=== PATIENT | female | born 1945 | race Caucasian/White ===

== ENCOUNTER 2017-02-10 09:54 | Inpatient (IN) | payer MEDICARE, OTHER ==
[~2017-02-10] VITALS: Ht 165.1 cm; Wt 72.2 kg
[2017-02-10] MEDS ORDERED: SOD CHLORIDE 0.9% 1,000 ML IV STA (10:25)
--- NOTE | 2017-02-10 10:37 | ERA ---
ER Documentation Chief Complaint Date/Time DATE: 02/10/17 TIME: 10:34 Chief Complaint dizzy and weak x today hx afib HPI Patient is a 71-year-old female who reports dizziness with weakness for today. She also complains of chest pain with shortness of breath. She cannot really describe the chest pain nor can she describe whether she has any radiation of the pain. She is not sure if she has experienced this pain before. She does state that she has a dry cough without any fever or sputum production. She denies any rhinorrhea sore throat or otalgia. She does not have any nausea or vomiting. She has not had any loss of consciousness, paresthesias, or focal weakness. She states that she has had an episode like this prior but she is not sure what she was diagnosed with. She says she does have cardiac issues but she is not sure what they are. The remainder review systems are negative ROS All systems reviewed and are negative except as per history of present illness. PMhx/Soc History of Surgery: No Hx Cardiac Disorders: Yes (HTN, BRADYCARDIA ) Hx Miscellaneous Medical Probl: Yes (DM) Hx Alcohol Use: No Hx Substance Use: No Hx Tobacco Use: No Smoking Status: Never smoker FmHx Family History: coronary disease Physical Exam Vitals Vital Signs Date Time Temp Pulse Resp B/P Pulse Ox O2 Delivery O2 Flow Rate FiO2 02/10/17 11:01 Nasal Cannula 2 02/10/17 09:57 97.6 55 18 140/68 98 Physical Exam Const: [] Well-developed well-nourished female on the bed shivering and stating that she is cold Head: Atraumatic normocephalic Eyes: Normal Conjunctiva ENT: Normal External Ears, Nose and Mouth. Neck: Full range of motion..~ No meningismus. Resp: Clear to auscultation bilaterally Cardio: Irregular rhythm, bradycardic, no murmurs, rubs or gallops Abd: Soft, non tender, non distended. Normal bowel sounds Skin: No petechiae or rashes Back: No midline or flank tenderness Ext: No cyanosis, or edema Neur: Awake and alert, oriented 3, GCS of 15, moves all extremities equally , nonfocal Psych: Normal Mood and Affect Result Diagram: 02/10/17 1123 02/10/17 1053 Results 24 hrs Laboratory Tests Test 02/10/17 10:53 02/10/17 11:23 02/10/17 12:30 Alanine Aminotransferase (ALT/SGPT) 20IU/L Albumin 4.1g/dl Albumin/Globulin Ratio 1.24 Alkaline Phosphatase 49IU/L Anion Gap 19 Aspartate Amino Transf (AST/SGOT) 34IU/L Blood Urea Nitrogen 59mg/dl Calcium Level 9.4mg/dl Carbon Dioxide Level 22mmol/L Chloride Level 106mmol/L Creatinine 4.88mg/dl Direct Bilirubin 0.00mg/dl Globulin 3.30g/dl Glucose Level 54mg/dl Indirect Bilirubin 0.1mg/dl Potassium Level 5.6mmol/L Sodium Level 141mmol/L Total Bilirubin 0.1mg/dl Total Protein 7.4g/dl Troponin I 0.019ng/ml Basophils # 0.110^3/ul Basophils % 0.7% Eosinophils # 0.210^3/ul Eosinophils % 2.1% Hematocrit 29.1% Hemoglobin 9.4g/dl Lymphocytes # 1.510^3/ul Lymphocytes % 20.8% Mean Corpuscular Hemoglobin 30.6pg Mean Corpuscular Hemoglobin Concent 32.3g/dl Mean Corpuscular Volume 94.8fl Mean Platelet Volume 11.1fl Monocytes # 0.510^3/ul Monocytes % 7.4% Neutrophils # 4.810^3/ul Neutrophils % 68.7% Nucleated Red Blood Cells # 0.010^3/ul Nucleated Red Blood Cells % 0.0/100WBC Platelet Count 47768^3/UL Red Blood Count 3.0710^6/ul Red Cell Distribution Width 13.2% White Blood Count 7.010^3/ul Activated Partial Thromboplast Time Pending INR International Normalized Ratio 1.00 Prothrombin Time 13.2Sec Prothrombin Time Ratio 1.0 Current Medications Medications (Trade) Dose Ordered Sig/Estefania Route PRN Reason Start Time Stop Time Status Last Admin Dose Admin Sodium Chloride (NS) 1,000 ml @ 1,000 mls/hr Q1H STAT IV 02/10/17 10:25 02/10/17 11:24 DC 02/10/17 11:01 Procedures/MDM Differential includes but is not limited to atrial fibrillation, bradycardia, stroke, dehydration, electrolyte disturbance, angina Departure Diagnosis: Primary Impression: Dizziness Additional Impressions: Bradycardia by electrocardiogram Renal failure Atrial fibrillation, chronic Condition: SHAHZAD Richardson Feb 10, 2017 10:36
[2017-02-10 11:03] LABS: ADD SCAN DIFF NO
[2017-02-10 11:05] LABS: HEMATOCRIT 32.8 % (37.0-47.0); HEMOGLOBIN 10.3 g/dl (12.0-16.0); MEAN CORPUSCULAR HEMOGLOBIN 30.1 pg (29.0-33.0); MEAN CORPUSCULAR HGB CONC 31.4 g/dl (32.0-37.0); MEAN CORPUSCULAR VOLUME 95.9 fl (82.0-101.0); MEAN PLATELET VOLUME 12.5 fl (7.4-10.4); RED BLOOD COUNT 3.42 10^6/ul (4.20-5.40); RED CELL DISTRIBUTION WIDTH 13.4 % (11.5-14.5); WHITE BLOOD COUNT 4.1 10^3/ul (4.8-10.8)
--- NOTE | 2017-02-10 11:06 | RADRPT ---
PROCEDURE: Chest Radiograph. CLINICAL INDICATION: Chest pain TECHNIQUE: Single frontal chest radiograph. COMPARISON: None available FINDINGS: The heart is magnified and may be enlarged. The cardiomediastinal silhouette is otherwise within no rmal limit. The lungs are mildly hyperinflated. There is a diffuse interstitial prominence. No con fluent or lobar infiltrate is seen. No pleural effusion is identified. The bones are intact. IMPRESSION: 1. Diffuse interstitial prominence is nonspecific and likely indicative of chronic lung changes. 2. Mild pulmonary hyperinflation. RPTAT: KK .Mehdi Winters MD, MD Date Time Electronically viewed and signed by .Mehdi Winters MD, MD on 02/10/2017 11:06 .B/
[2017-02-10 11:16] LABS: ALBUMIN 4.1 g/dl (3.3-4.9)
[2017-02-10 11:17] LABS: POTASSIUM 5.6 mmol/L (3.5-5.1)
[2017-02-10 11:19] LABS: ALBUMIN/GLOBULIN RATIO 1.24; BILIRUBIN,INDIRECT 0.1 mg/dl (0-1.1); BILIRUBIN,TOTAL 0.1 mg/dl (0.2-1.3); CREATININE 4.88 mg/dl (0.44-1.00); TOTAL PROTEIN 7.4 g/dl (6.1-8.1)
[2017-02-10 11:20] LABS: CALCIUM 9.4 mg/dl (8.4-10.2)
[2017-02-10 11:22] LABS: PROTIME 13.2 Sec (12.2-14.2)
[2017-02-10 11:30] LABS: TROPONIN-I 0.019 ng/ml (0.00-0.12)
[2017-02-10 11:35] LABS: ADD SCAN DIFF NO
[2017-02-10 11:44] LABS: BASOPHIL # 0.1 10^3/ul (0.0-0.1); BASOPHILS % 0.7 % (0.0-2.0); EOSINOPHILS # 0.2 10^3/ul (0.0-0.5); EOSINOPHILS % 2.1 % (0.0-7.0); HEMATOCRIT 29.1 % (37.0-47.0); HEMOGLOBIN 9.4 g/dl (12.0-16.0); LYMPHOCYTES # 1.5 10^3/ul (0.8-2.9); LYMPHOCYTES % 20.8 % (15.0-51.0); MEAN CORPUSCULAR HEMOGLOBIN 30.6 pg (29.0-33.0); MEAN CORPUSCULAR HGB CONC 32.3 g/dl (32.0-37.0); MEAN CORPUSCULAR VOLUME 94.8 fl (82.0-101.0); MEAN PLATELET VOLUME 11.1 fl (7.4-10.4); MONOCYTE # 0.5 10^3/ul (0.3-0.9); MONOCYTES % 7.4 % (0.0-11.0); NEUTROPHIL # 4.8 10^3/ul (1.6-7.5); NEUTROPHILS % 68.7 % (39.0-77.0); PLATELET COUNT 168 10^3/UL (140-415); RED BLOOD COUNT 3.07 10^6/ul (4.20-5.40); RED CELL DISTRIBUTION WIDTH 13.2 % (11.5-14.5)
[2017-02-10 12:01] LABS: PLATELET COUNT 96 10^3/UL (140-415)
[2017-02-10] MEDS ORDERED: DEXTROSE 50% 50 ML SYRINGE ONE (12:46)
[2017-02-10 12:59] LABS: PARTIAL THROMBOPLASTIN TIME 33.7 Sec (25.0-35.0)
[2017-02-10] MEDS ORDERED: ACETAMINOPHEN 325 MG TAB PO PRN (13:00)
[2017-02-10] MEDS ORDERED: ONDANSETRON 4 MG INJ IV PRN ×2 (13:00→14:00)
[2017-02-10] MEDS ORDERED: DEXTROSE 50% 50 ML SYRINGE IV ONE (13:00)
[2017-02-10] MEDS ORDERED: BENA40TA41 PO (13:29)
[2017-02-10] MEDS ORDERED: AMLO5TAB4 PO (13:30)
[2017-02-10] MEDS ORDERED: HYDROCODONE/APAP (5/325) TAB PO PRN ×2 (14:00)
[2017-02-10] MEDS ORDERED: DOCUSATE SODIUM 100 MG CAP PO PRN (14:00)
[2017-02-10] MEDS ORDERED: BISACODYL 10 MG SUPP PR PRN (14:00)
[2017-02-10] MEDS ORDERED: ACETAMINOPHEN 650 MG SUPP PR PRN (14:00)
[2017-02-10] MEDS ORDERED: morphine 2 MG INJ IV PRN (14:00)
[2017-02-10] MEDS ORDERED: MAGNESIUM HYDROXIDE 30ML CUP PO PRN (14:00)
[2017-02-10 15:01] VITALS: TEMP 98.9
[2017-02-10 15:30] VITALS: BP 200/93; RESP 18; Ht 165.1 cm; Wt 72.2 kg
[2017-02-10] MEDS: hydrALAzine 20 MG INJ IV PRN ×2 (16:25→20:42)
[2017-02-10] MEDS ORDERED: APIX2.5T PO (16:54)
[2017-02-10] MEDS ORDERED: FURO80TA3 PO (16:54)
[2017-02-10] MEDS ORDERED: FEBU40TA PO (16:54)
[2017-02-10] MEDS ORDERED: AMIO200T2 PO (16:54)
[2017-02-10] MEDS ORDERED: SEVE0.8P PO (16:54)
[2017-02-10] MEDS ORDERED: SITA100T8 PO (16:54)
[2017-02-10] MEDS ORDERED: CALC0.2511 PO (16:54)
[2017-02-10] MEDS ORDERED: ASPI-664 PO (16:54)
[2017-02-10] MEDS ORDERED: SODI650T PO (16:54)
[2017-02-10 17:21] LABS: CREATINE KINASE 65 IU/L (23-200)
[2017-02-10 17:30] LABS: CK-MB 0.44 ng/ml (0.0-2.4)
[2017-02-10 17:58] LABS: TROPONIN-I < 0.012 ng/ml (0.00-0.12)
[2017-02-10] MEDS ORDERED: NA POLYST SULFON 15 GM/60 ML BTL PR ONE (18:00)
[2017-02-10] MEDS: FAMOTIDINE 20 MG INJ IV SCH (18:01)
[2017-02-10] MEDS: SEVELAMER CARBONATE 0.8 GM PKT PO SCH (18:02)
[2017-02-10] MEDS: FUROSEMIDE 40 MG TAB PO SCH (18:02)
--- NOTE | 2017-02-10 19:27 | RADRPT ---
Echocardiogram Report Patient Name: ANDRIY WERNER Gender: Female Date: 1945 Study Date: 10-Feb-2017 Amortization Schedule Clerk: [facility] Location: [facility] Ref. Physician: DI STEPHENSON Quality: Good Procedures: Transthoracic echocardiogram with complete 2D, M-Mode, and doppler examination. Indications: AFIB. 2D/M Mode Doppler Measurement Value Normal Ranges Measurement Value Normal Ranges LVIDd 2D 5.7 3.5 - 5.6 cm AV Peak Chema 1.1 m/sec LVIDs 2D 4.5 2.1 - 4.1 cm AV Peak PG 4.8 mmHg LVPWd 2D 1.3 0.6 - 1.1 cm AI PHT 547.0 msec IVSd 2D 1.3 0.6 - 1.1 cm LVOT Peak Chema 0.6 m/sec AoR Diam 2D 2.6 2.0 - 3.7 cm LVOT Peak PG 1.4 mmHg LA Dimen 2D 4.0 2.3 - 4.0 cm MV Peak PG 20.0 mmHg MV Mean PG 3.2 mmHg MV Decel Dolores 10 MR Peak Chema 6.7 m/sec TAPSE 1.9 cm TR Peak Chema 3.3 m/sec TR Peak PG 44.0 mmHg RA Pressure 3.0 Findings Left Ventricle: Normal left ventricular systolic function. Mild concentric left ventricular hypertrophy. Mild enlargement of left ventricle cavity. Ejection fraction is visually estimated at 50 %. Right Ventricle: Normal right ventricular size. Normal right ventricular systolic function. Left Atrium: There is mild enlargement of left atrium. Right Atrium: Prominent Eustachian valve (normal variant). Mitral Valve: Mild mitral leaflet calcification. Mild mitral annular calcification. Moderate to severe mitral valve regurgitation. Aortic Valve: Trileaflet aortic valve. Mild aortic valve regurgitation. Tricuspid Valve: Estimated peak PA systolic pressure 47 mmHg. There is mild tricuspid regurgitation. Pulmonic Valve: There is trace pulmonic regurgitation. Pericardium: Normal pericardium with no significant pericardial effusion. Aorta: Normal aortic root. IVC: Normal size and normal respiratory collapse consistent with normal right atrial pressure. Conclusions 1.Normal left ventricular systolic function. Mild concentric left ventricular hypertrophy. Mild enlargement of left ventricle cavity. Ejection fraction is visually estimated at 50 %. 2.Mild mitral leaflet calcification. Mild mitral annular calcification. Moderate to severe eccentric mitral valve regurgitation. 3.TRace to mild aortic valve regurgitation. 4.Estimated peak PA systolic pressure 47 mmHg. 5.There is mild tricuspid regurgitation. 6.There is trace pulmonic regurgitation. Electronically Signed By: Nain Hernandez 10-Feb-2017 19:26:37 -0700 Patient Name: ANDRIY WERNER Study Date: 10-Feb-2017 [id number]
--- NOTE | 2017-02-10 19:47 | CONS ---
DATE OF ADMISSION: 02/10/2017 DATE OF CONSULTATION: 02/10/2017 REASON FOR CONSULTATION: Bradycardia, hypertension, weakness. REQUESTING PHYSICIAN: Soraya Houston MD, from the hospitalist service, and Di Banks NP, from the hospitalist service. HISTORY OF PRESENT ILLNESS: Mr. Cuellar is a 71-year-old female with a history of hypertension, mellisa betes mellitus, possible cardiac arrhythmia by medications, who initially presented with dizziness a nd weakness, and additionally had complaints of chest pain, shortness of breath described as a tight ness, ongoing for the last week. Upon arrival in the emergency department, temperature 97.6, blood pressure 140/68, pulse 55, respiratory rate 18, saturating 98%. The patient's labs revealed a white count of 4.1, hemoglobin 10.3, platelet count of 96. Sodium 141, potassium 5.6, creatinine 4.88, B UN 59, AST 34, ALT 20. Troponin negative. INR of 1.0. Patient underwent a chest x-ray revealing d iffuse interstitial prominence. The patient's electrocardiogram revealed sinus bradycardia at a rat e of 51 with an IVCD, secondary repolarization abnormalities, left axis deviation and voltage criter ia for left ventricular hypertrophy. The patient subsequently was admitted to the floor and since a dmitted to floor, has been continued on benazepril, aspirin, Norvasc, Eliquis, and is having a holdi ng of atenolol and amiodarone the patient had presented on. MEDICATIONS PRIOR TO ADMISSION: Apixaban 2.5 mg p.o. b.i.d., amiodarone 200 mg b.i.d., Norvasc 5 mg daily, benazepril 40 mg daily, aspirin 81 mg daily, Lasix 80 mg b.i.d., Renvela, sodium bicarbonate , Januvia 100 mg daily, Calcitriol, Uloric. ALLERGIES: NO KNOWN DRUG ALLERGIES. SOCIAL HISTORY: No tobacco, ETOH or illicit drug use. FAMILY HISTORY: No history of sudden cardiac or early CAD. REVIEW OF SYSTEMS: As above in HPI. CONSTITUTIONAL: No fevers, chills. PULMONARY: Shortness of breath. CARDIOVASCULAR: Intermittent chest pain. GASTROINTESTINAL: No vomiting. GENITOURINARY: No hematuria. MUSCULOSKELETAL: Degenerative joint disease. PSYCHIATRIC: The patient denies depression. NEUROLOGIC: No documented history of CVA. PHYSICAL EXAMINATION VITAL SIGNS: Temperature of 98, blood pressure markedly elevated at 200/93, pulse 50, saturating 98 % on 2 liters. GENERAL: The patient is alert, awake, complaining of intermittent chest pain, shortness of breath. NECK: JVP approximately 8 cm water. CHEST: Fair air movement throughout. HEART: Bradycardic, regular rhythm, normal S1, S2, I/ systolic murmur, nondisplaced PMI. ABDOMEN: Positive bowel sounds, soft. EXTREMITIES: No pitting edema, 1+ pulses bilaterally, posterior tibial. LABORATORIES: As above in HPI, with most recent from today, second troponin returned negative, 2 ne gative troponins. White blood cell count 7.0, hemoglobin 9.4, platelet count of 168. INR of 1.0. IMAGING STUDIES: As above in HPI. No further imaging studies for my review at this time. ECG: As above in HPI. No further electrocardiograms for my review at this time. IMPRESSION: 1. Bradycardia. Continue to assess for more significant bradycardia and symptoms. 2. Abnormal electrocardiogram, assess for acute coronary syndrome. 3. Cardiac arrhythmia, question of possible paroxysmal atrial fibrillation. 4. Dizziness. 5. Weakness, question secondary to bradycardia. 6. Hypertension, uncontrolled. 7. Diabetes mellitus. 8. Hyperkalemia 9. Renal failure. RECOMMENDATIONS: 1. At this time, would maintain the patient on telemetry monitoring to follow rhythm and rate contr ol closely as you are doing. 2. Would give the patient a dose of Kayexalate for treatment of high potassium as you are doing. 3. Continue the patient's aspirin at this time, but if the patient's platelets continue to decrease , would likely ____ aspirin to decrease bleeding risk and continue apixaban at this time, ____ oleksandr nue benazepril and Norvasc and follow up blood pressure closely and I would give the patient p.r.n. IV push hydralazine as necessary to improve overall systolic blood pressure control. 4. Check a 2D echo to further assess patient's ejection fraction, wall motion and any major valve a bnormalities. 5. Check a TSH to be sure subclinical hypothyroidism is not contributing to the patient's bradyarrh ythmias and complete the patient's rule out for myocardial infarction. Thank you for allowing me to take part in the care of this patient. I will continue to follow along very closely with you. Further recommendations will be made as the patient progresses through her inpatient hospital clinical course. Dictated By: EJ MESA/SARA Conf#: [id number] DID#: [id number] CC: DI BANKS NP; SORAYA HOUSTON MD;*End*
[2017-02-10 20:00] VITALS: PULSE 49
[2017-02-10 20:30] VITALS: BP_SYST 138; BP_SYST 173; BP_SYST 196; BP_DIAS 63; BP_DIAS 72; BP_DIAS 81; PULSE 49; PULSE 50; PULSE 51; RESP 18
[2017-02-10] MEDS: APIXABAN 5 MG TABLET PO SCH (20:39)
[2017-02-10] MEDS: ACETAMINOPHEN 325 MG TAB PO PRN (20:39)
[2017-02-10] MEDS: AMLODIPINE 5 MG TAB PO SCH (20:40)
[2017-02-10] MEDS ORDERED: HEPARIN 5,000 UNIT/0.5 ML SYG SC SCH (21:00)
[2017-02-10 22:14] VITALS: BP 156/64; RESP 19
[2017-02-10 22:39] LABS: CK-MB 0.42 ng/ml (0.0-2.4)
[2017-02-10 22:42] LABS: TROPONIN-I 0.022 ng/ml (0.00-0.12)
[2017-02-11] VITALS (13 sets, daily range): BP systolic 131–178; BP diastolic 61–75; PULSE 40–53; RESP 17–20
[2017-02-11] MEDS: FUROSEMIDE 40 MG TAB PO SCH ×2 (05:02→18:50)
[2017-02-11] MEDS: hydrALAzine 20 MG INJ IV PRN (05:02)
[2017-02-11 06:28] LABS: ADD SCAN DIFF NO
[2017-02-11 06:44] LABS: BASOPHIL # 0.1 10^3/ul (0.0-0.1); BASOPHILS % 0.7 % (0.0-2.0); EOSINOPHILS # 0.2 10^3/ul (0.0-0.5); EOSINOPHILS % 2.4 % (0.0-7.0); HEMATOCRIT 31.1 % (37.0-47.0); HEMOGLOBIN 10.2 g/dl (12.0-16.0); LYMPHOCYTES # 2.3 10^3/ul (0.8-2.9); LYMPHOCYTES % 24.9 % (15.0-51.0); MEAN CORPUSCULAR HEMOGLOBIN 30.2 pg (29.0-33.0); MEAN CORPUSCULAR HGB CONC 32.8 g/dl (32.0-37.0); MEAN PLATELET VOLUME 11.3 fl (7.4-10.4); MONOCYTE # 0.7 10^3/ul (0.3-0.9); MONOCYTES % 7.2 % (0.0-11.0); NEUTROPHIL # 5.8 10^3/ul (1.6-7.5); NEUTROPHILS % 64.5 % (39.0-77.0); PLATELET COUNT 178 10^3/UL (140-415); RED BLOOD COUNT 3.38 10^6/ul (4.20-5.40); RED CELL DISTRIBUTION WIDTH 13.3 % (11.5-14.5)
[2017-02-11 06:46] LABS: ALBUMIN 3.7 g/dl (3.3-4.9)
[2017-02-11 06:47] LABS: POTASSIUM 4.1 mmol/L (3.5-5.1)
[2017-02-11 06:48] LABS: CREATININE 4.22 mg/dl (0.44-1.00)
[2017-02-11 06:49] LABS: ALBUMIN/GLOBULIN RATIO 1.42; BILIRUBIN,INDIRECT 0.1 mg/dl (0-1.1); BILIRUBIN,TOTAL 0.1 mg/dl (0.2-1.3); TOTAL PROTEIN 6.3 g/dl (6.1-8.1)
[2017-02-11 06:50] LABS: CALCIUM 9.3 mg/dl (8.4-10.2); CHOL/HDL RATIO 2.3 RATIO; IRON 40 ug/dl (35-150); MAGNESIUM 1.8 mg/dl (1.7-2.5); PHOSPHORUS 3.4 mg/dl (2.5-4.9)
[2017-02-11 06:59] LABS: TOTAL IRON BINDING CAPACITY 242 ug/dl (241-421)
[2017-02-11 07:06] LABS: T3 UPTAKE 40.4 % (23.5-40.5)
--- NOTE | 2017-02-11 07:19 | HP ---
DATE OF ADMISSION: 02/10/2017 HISTORY OF PRESENT ILLNESS: A 71-year-old female with reported past medical history of DVT in bilat eral lower legs, heart arrhythmia, hypertension, CVA with poor peripheral vision, CKD, suspect diabe huyen, who came to [facility] due to reported dizziness. According to the patient, she has been having dizziness for about a month, which progressively got worse the past week. She d id report that she does take all her medications as scheduled. She reports that this is the first t awilda that this happened to her and she denies any associated chest pain with it. She did come to [place] due to the aforementioned issues. On further examination, she was found t o have heart rate as low as 48. Of note, on her home medications, she does take atenolol. She was also seen with acute on likely chronic kidney disease with a potassium of 5.6, BUN of 59 and creatin ine of 4.88. She also had a blood pressure as high as 200/93. Currently, the patient does still re port having some dizziness and is likely attributed from her bradycardia. After discussion with the son, it was mentioned that the patient does not know which medication she completely takes and that she takes medications at random. We will evaluate her for the aforementioned issues. PAST MEDICAL/SURGICAL HISTORY 1. DVT of bilateral lower extremities (diagnosed in early 2015). 2. Heart arrhythmia (details unknown). 3. Hypertension. 4. History of cerebrovascular accident with poor peripheral vision. SOCIAL HISTORY: The patient denies any cigarette smoking, alcohol consumption or illicit drug use. ALLERGIES: NO KNOWN ALLERGIES. FAMILY HISTORY: Noncontributory. HOME MEDICATIONS: 1. Apixaban 2.5 mg p.o. b.i.d. 2. Amiodarone 200 mg p.o. b.i.d. 3. Amlodipine 5 mg p.o. daily. 4. Benazepril 40 mg p.o. daily. 5. Aspirin 81 mg p.o. daily. 6. Furosemide 80 mg p.o. b.i.d. 7. Renvela 0.8 grams with meals. 8. Sodium bicarbonate 650 mg p.o. daily. 9. Januvia 100 mg p.o. daily. 10. Calcitriol 0.25 mg p.o. daily. 10. Uloric 40 mg p.o. daily. REVIEW OF SYSTEMS: A 12-point review of systems obtained and entirely negative except that mentione d in the history of present illness. PHYSICAL EXAMINATION VITAL SIGNS: Temperature is 98.0, pulse is 49, respiratory rate is 18, blood pressure 200/93 and pu lse oximetry is 98% on 2 liters nasal cannula. GENERAL: This is a 71-year-old female, appears stated age with no apparent distress. EYES: Pupils equal, round and reactive to light. Anicteric sclerae. NECK: Supple, nontender, no JVD. CARDIOVASCULAR: Heart murmur auscultated on systole, noted to be bradycardic. PULMONARY: Clear to auscultation bilaterally. No wheezing or rhonchi. ABDOMEN: Soft, nontender, nondistended. EXTREMITIES: No pitting edema bilateral lower extremities. SKIN: Warm, dry, and intact. NEUROLOGIC: Alert, oriented x3. LABORATORY DATA: Sodium 141, potassium 5.6, BUN 59, creatinine 4.88. WBC 7.0, hemoglobin 9.4, hematocrit 29.1 and platelets are 160. IMAGING: Chest x-ray done on 02/10/2017 showed diffuse interstitial prominence, nonspecific and lik gail indicative of chronic lung changes, and also showed mild pulmonary hyperinflation. IMPRESSION AND PLAN 1. Dizziness, likely secondary to bradycardia. This is suspect secondary to her use of her home at [place]. Will hold off this medication for now. We will monitor on telemetry. We will get followup echocardiogram. We will get management nurse rn pending clinical course. 2. Acute kidney injury. Baseline creatinine unknown. We will follow up renal panel. We will get web production artist to follow. 3. Essential hypertension. We will continue on antihypertensives and adjust as needed. 4. Anemia. Likely of chronic kidney disease. We will follow up on iron panel. 5. Hyperkalemia. We will provide with Kayexalate. Will follow up level in a.m. 6. Deep venous thrombosis prophylaxis: Eliquis. 7. Gastroesophageal reflux disease prophylaxis: H2 edward. ADMISSION PROCESS TIME: 40 minutes. Discussed plan of care with Dr. Lopez. Dictated By: DI STEPHENSON PARAGLIDING INSTRUCTOR for TOSIN ARRIOLA/SARA Conf#: [id number] [facility]#: [id number]
[2017-02-11 07:20] LABS: THYROID STIMULATING HORMONE 4.32 MIU/L (0.465-4.680)
[2017-02-11] MEDS: ASPIRIN (EC) 81 MG TAB PO SCH (09:32)
[2017-02-11] MEDS: SEVELAMER CARBONATE 0.8 GM PKT PO SCH ×3 (09:32→18:50)
[2017-02-11] MEDS: BENAZEPRIL 40 MG TAB PO SCH (09:33)
[2017-02-11] MEDS: AMLODIPINE 5 MG TAB PO SCH ×2 (09:34→20:53)
[2017-02-11] MEDS: FEBUXOSTAT 40 MG TABLET PO SCH (09:34)
[2017-02-11] MEDS: CALCITRIOL 0.25 MCG CAP PO SCH (09:34)
[2017-02-11] MEDS: APIXABAN 5 MG TABLET PO SCH ×2 (09:35→20:53)
[2017-02-11] MEDS: FAMOTIDINE 20 MG INJ IV SCH (09:40)
--- NOTE | 2017-02-11 11:13 | CONS ---
DATE OF ADMISSION: 02/10/2017 DATE OF CONSULTATION: TYPE OF CONSULTATION: Nephrology. REASON FOR CONSULTATION: Acute kidney injury, hyperkalemia. 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 The patient states over the last month, she has had progressive weakness. The patient reports that she has had lethargy. She denies any chest pain, any nausea, vomiting. The patient also has shortness of gabi th. As a result, she came to the emergency room for evaluation. Upon arrival, the patient had a he art rate in the 40s, was hypertensive with blood pressure. Her blood pressure is in the 140s. A ch est x-ray obtained in the emergency room showed interstitial prominence, nonspecific, and mild pulmo nary hyperinflation. In the emergency room, the patient was also noted to be hyperkalemic with pota ssium 5.6. She was given Kayexalate, dextrose, heparin and admitted to telemetry for further evalua tion. In terms of the patient's renal history, she states that she sees an outpatient farmworker [facility] farm. She h as underlying CKD and was told that she will be needing dialysis in the future. She is not fully aw are of her estimated EGFR but thinks it is around 20%. She otherwise denies any frothy urine, any r ashes, any hemoptysis or hematemesis. PAST MEDICAL HISTORY: History of deep venous thrombosis or arrhythmia, hypertension, CVA. SOCIAL HISTORY: Denies any alcohol, drug or tobacco use. ALLERGIES: NO KNOWN DRUG ALLERGIES. FAMILY HISTORY: Not contributory. MEDICATIONS: The patient's medications have been reviewed. REVIEW OF SYSTEMS: A 14-point review of systems was conducted. Pertinent positives in HPI, otherwi se negative. PHYSICAL EXAMINATION: VITAL SIGNS: Blood pressure 149/65, respiration 18, pulse 57, temperature 98.1. HEENT: Head is normocephalic. NECK: Supple. HEART: Regular rate. LUNGS: Show diminished breath sounds at base. ABDOMEN: Soft, nontender to palpation. No rebound or guarding. EXTREMITIES: Negative for clubbing, cyanosis, edema. DERMATOLOGIC: No rashes. MUSCULOSKELETAL: No joint effusions. NEUROLOGIC: No focal deficits. MEDICATIONS: Have been reviewed. LABORATORY DATA: Shows sodium 140, potassium 4.0, chloride 104, BUN 50, creatinine 4.22. White cou nt 9.0, hemoglobin 10.2, hematocrit 31.1, platelet count is 178. ASSESSMENT AND PLAN: This is a 71-year-old female who presents with: 1. Nonoliguric acute kidney injury on top of chronic kidney disease stage IV/V with a previous EGFR around 20 mL per minute. Etiology of current acute kidney injury is likely secondary to hemodynami cs, questionable tubular injury. Plan at this point is to check urinalysis with microanalysis. Tha l check a renal ultrasound to rule out obstruction, although suspicion is low. Would otherwise cont inue supportive care, renally dose meds, avoid nephrotoxins. May continue benazepril at this time. Will continue to monitor renal function closely. If renal function further declines, will disconti nue benazepril. There is no immediate need for renal replacement therapy at this time. We will con tinue to monitor closely. 2. Mild hyperkalemia. Etiology is likely secondary to MARIBETH inhibitor effect in conjunction with acu te kidney injury. The patient's potassium levels have normalized. We will continue to monitor clos gail on MARIBETH inhibitor. If patient should be hyperkalemic again, will discontinue MARIBETH inhibitor. Con tinue renal diet. 3. Mineral bone disorder. Continue to monitor calcium and phosphorus levels. Continue phos binder s, vitamin D analogs. 4. Anemia. Continue to monitor hemoglobin and hematocrit levels. Will give Epogen as needed. 5. Bradycardia, dizziness, the etiology is likely secondary to atenolol. The patient's medications on hold. Will continue to monitor. Follow up with cardiology. 6. Hypertension. The patient's blood pressure medications have been adjusted. Will continue to mo nitor. Will avoid significant hemodynamic fluctuations. Continue MARIEBTH inhibitor for now. 7. History of deep venous thrombosis. Continue Eliquis. 8. Gastrointestinal and deep venous thrombosis prophylaxis, continue PPI and Eliquis. Thank you, , for this very interesting consult. It will be a pleasure to follow patient with y demetris throughout the hospital course. Dictated By: HEBERT ALCALA/SARA Conf#: [id number] DID#: [id number]
--- NOTE | 2017-02-11 16:12 | RADRPT ---
PROCEDURE: Renal US. CLINICAL INDICATION: Acute kidney injury. TECHNIQUE: Multiple sonographic images of the kidneys and urinary bladder were obtained. The imag es were reviewed on a PACS workstation. COMPARISON: No prior studies are available for comparison. FINDINGS: The right kidney measures 8.5 cm. The left kidney measures 7.6 cm. There is no solid renal mass, hydronephrosis, or calculus. There are benign cyst superiorly in the right kidney measuring 1.3 x 1.9 cm and 1.2 x 1.3 cm. A benign cyst is present in the mid left kidn ey measuring 3.8 x 3.6 cm and a benign cyst is present superiorly in the left kidney measuring 1.5 x 1.3 cm. There is no hydronephrosis. There is no renal calculus. Both kidneys are hyperechoic consistent with medical renal disease. Renal parenchymal thickness is normal bilaterally. The perirenal regions are normal with no fluid collection or mass. The urinary bladder is unremarkable. IMPRESSION: 1. Benign bilateral renal cysts. 2. Bilateral hyperechoic kidneys consistent with medical renal disease. 3. Otherwise normal renal ultrasound. RPTAT: QQ .Buck Mensah MD, Date Time Electronically viewed and signed by .Buck Mensah MD, MD on 02/11/2017 16:12 .R/
--- NOTE | 2017-02-11 17:24 | PN ---
Date/Time of Note Date/Time of Note DATE: 02/11/17 TIME: 17:20 Assessment/Plan VTE Prophylaxis VTE Prophylaxis Intervention: other (Eliquis) Lines/Catheters IV [facility] Saline Lock Urinary Cath still in place: No Assessment/Plan Chief Complaint/Hosp Course 1. Dizziness, likely secondary to bradycardia. Improved at this time. Continue with cardiology recommendations. Follow-up on echocardiogram. Continue with cardiology input. . 2. Acute kidney injury. Follow-up on renal ultrasound. Grubber following. Continue to monitor renal panel. Does appear to be slowly improving. Continue LINDA workup 3. Essential hypertension. We will continue on antihypertensives and adjust as needed. 4. Anemia. Noted with some iron deficiency. Continue on iron supplement 5. Hyperkalemia. Will monitor and provide with Kayexalate as needed 6. Deep venous thrombosis prophylaxis: Eliquis. 7. Gastroesophageal reflux disease prophylaxis: H2 edward. Disposition and plan:Continue with cardiology recommendations. Monitor in telemetry. Await for improvement of renal status. Will follow up. Continue inpatient monitoring for now. Discussed plan of care with Dr. Lopez Problems: Subjective 24 Hr Interval Summary Free Text/Dictation Reports feeling little better at this time denies any chest pain Exam/Review of Systems Vital Signs Vitals Vital Signs Date Time Temp Pulse Resp B/P Pulse Ox O2 Delivery O2 Flow Rate FiO2 02/11/17 17:07 53 02/11/17 16:12 98.3 18 131/61 95 02/11/17 04:00 Room Air 02/10/17 20:35 2.0 Intake and Output 02/10/17 02/10/17 02/11/17 15:00 23:00 07:00 Intake Total 400 ml 960 ml Balance 400 ml 960 ml Exam General: Comfortable at present. No apparent distress Eyes: Pupils equal round reactive to light Neck: Supple nontender, no JVD Cardiac: S1-S2 auscultated with noted murmur Pulmonary: No wheezing or rhonchi GI: Soft nontender nondistended Extremities: No edema bilateral lower extremities Skin: Is clean dry and intact Neurologic: [place] 4 Results Result Diagram: 02/11/17 0600 02/11/17 0600 Results 24 hrs Laboratory Tests Test 02/10/17 22:00 02/11/17 06:00 Creatine Kinase 70 Creatine Kinase Index 0.6 Creatinine Kinase MB (Mass) 0.42 Troponin I 0.022 Alanine Aminotransferase (ALT/SGPT) 31 Albumin 3.7 Albumin/Globulin Ratio 1.42 Alkaline Phosphatase 49 Anion Gap 17 H Aspartate Amino Transf (AST/SGOT) 23 Basophils # 0.1 Basophils % 0.7 Blood Urea Nitrogen 50 H Calcium Level 9.3 Carbon Dioxide Level 23 Chloride Level 104 Cholesterol Level 205 H Cholesterol/HDL Ratio 2.3 Creatinine 4.22 H Direct Bilirubin 0.00 Eosinophils # 0.2 Eosinophils % 2.4 Free Thyroxine Index 3.39 Globulin 2.60 Glucose Level 80 HDL Cholesterol 87 Hematocrit 31.1 L Hemoglobin 10.2 L Hemoglobin A1c 5.0 Indirect Bilirubin 0.1 Iron Level 40 LDL Cholesterol, Calculated 96 Lymphocytes # 2.3 Lymphocytes % 24.9 Magnesium Level 1.8 Mean Corpuscular Hemoglobin 30.2 Mean Corpuscular Hemoglobin Concent 32.8 Mean Corpuscular Volume 92.0 Mean Platelet Volume 11.3 H Monocytes # 0.7 Monocytes % 7.2 Neutrophils # 5.8 Neutrophils % 64.5 Nucleated Red Blood Cells # 0.0 Nucleated Red Blood Cells % 0.0 Percent Iron Saturation 17 L Phosphorus Level 3.4 Platelet Count 178 Potassium Level 4.1 Red Blood Count 3.38 L Red Cell Distribution Width 13.3 Sodium Level 140 Thyroid Stimulating Hormone (TSH) 4.320 Thyroxine (T4) 8.4 Total Bilirubin 0.1 L Total Iron Binding Capacity 242 Total Protein 6.3 # Triglycerides Level 112 Triiodothyronine (T3) Uptake 40.4 White Blood Count 9.0 # Medications Medications Current Medications Benazepril HCl (Lotensin) 40 mg DAILY PO Last administered on 02/11/17 09:33; Admin Dose 40 MG; Start 02/11/17 at 09:00 Ondansetron HCl (Zofran Inj) 4 mg Q6H PRN IV NAUSEA AND/OR VOMITING; Start at 14:00 Acetaminophen (Tylenol Tab) 650 mg Q6H PRN PO PAIN LEVEL 1-3 OR FEVER Last administered on 02/10/17 20:39; Admin Dose 650 MG; Start 02/10/17 at 14:00 Acetaminophen (Tylenol Supp) 650 mg Q6H PRN [place] PAIN LEVEL 1-3 OR FEVER; Start 02/10/17 at 14:00 Acetaminophen/ Hydrocodone Bitart ([place] (5/325)) 1 tab Q6H PRN PO MODERATE PAIN LEVEL 4-6; Start 02/10/17 at 14:00 Acetaminophen/ Hydrocodone Bitart ([place] (5/325)) 2 tab Q6H PRN PO SEVERE PAIN LEVEL 7-10; Start 02/10/17 at 14:00 Morphine Sulfate (morphine) 2 mg Q4H PRN IV SEVERE PAIN LEVEL 7-10; Start 02/10 at 14:00 Docusate Sodium (Colace) 100 mg Q12H PRN PO CONSTIPATION; Start 02/10/17 at 14: 00 Magnesium Hydroxide (Milk Of Mag) 30 ml DAILY PRN PO CONSTIPATION; Start at 14:00 Bisacodyl (Dulcolax Supp) 10 mg DAILY PRN [place] CONSTIPATION; Start 02/10/17 at 14 :00 Hydralazine HCl (Apresoline) 10 mg Q4H PRN IV sbp>160 Last administered on 02/11 05:02; Admin Dose 10 MG; Start 02/10/17 at 16:30 Clonidine (Catapres) 0.1 mg Q4H PRN PO sbp>160; Start 02/10/17 at 18:00 Amlodipine Besylate (Norvasc) 5 mg BID PO Last administered on 02/11/17 09:34 ; Admin Dose 5 MG; Start 02/10/17 at 21:00 Apixaban (Eliquis) 2.5 mg BID PO Last administered on 02/11/17 09:35; Admin Dose 2.5 MG; Start 02/10/17 at 21:00 Aspirin (Halfprin) 81 mg DAILY PO Last administered on 02/11/17 09:32; Admin Dose 81 MG; Start 02/11/17 at 09:00 Calcitriol (Rocaltrol) 0.25 mcg DAILY PO Last administered on 02/11/17 09:34; Admin Dose 0.25 MCG; Start 02/11/17 at 09:00 Febuxostat (Uloric) 40 mg DAILY PO Last administered on 02/11/17 09:34; Admin Dose 40 MG; Start 02/11/17 at 09:00 Famotidine (Pepcid) 20 mg DAILY PO ; Start 02/12/17 at 09:00 Ferrous Sulfate (Ferrous Sulfate (Ec)) 325 mg BID PO ; Start 02/11/17 at 21:00 DI STEPHENSON Feb 11, 2017 17:24
--- NOTE | 2017-02-11 19:57 | CONS ---
Date/Time of Note Date/Time of Note DATE: 02/11/17 TIME: 19:47 Assessment/Plan Assessment/Plan Chief Complaint/Hosp Course IMPRESSION: 1. Bradycardia. Continue to assess for more significant bradycardia and symptoms.-overall improved with holding atenolol/amio as likely etiology in the setting of renal failure/high K 2. Abnormal electrocardiogram, assess for acute coronary syndrome.-trop negative x 3/NL EF by echo 3. Cardiac arrhythmia, question of possible paroxysmal atrial fibrillation. 4. Dizziness. 5. Weakness, question secondary to bradycardia. 6. Hypertension, uncontrolled. 7. Diabetes mellitus. 8. Hyperkalemia 9. 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 -Continue asa/apixaban -Continue norvasc -Follow K closely on benazepril Problems: Consultation Date/Type/Reason Admit Date/Time Feb 10, 2017 at 12:50 Initial Consult Date 02/10/2017 Type of Consultation: Cardiology Reason for Consultation bradycardia Referring Provider: TOSIN DUNAWAY Exam/Review of Systems Vital Signs Vitals Vital Signs Date Time Temp Pulse Resp B/P Pulse Ox O2 Delivery O2 Flow Rate FiO2 02/11/17 17:07 53 02/11/17 16:12 98.3 18 131/61 95 02/11/17 08:20 Nasal Cannula 2.0 Intake and Output 02/10/17 02/10/17 02/11/17 15:00 23:00 07:00 Intake Total 400 ml 960 ml Balance 400 ml 960 ml Exam Review of Systems: CONSTITUTIONAL: No fevers, chills. PULMONARY: No sob CARDIOVASCULAR: No chest pain/palpitations GASTROINTESTINAL: No nausea/vomiting. GENITOURINARY: No hematuria/dysuria. MUSCULOSKELETAL: No myagias/arthalgias. PSYCHIATRIC: The patient denies depression. NEUROLOGIC: No weakness Constitutional: alert, oriented Psych: no complaints Head: normocephalic ENMT: mucosa pink and moist Neck: jvd (8 cm water), supple Respiratory: diminished breath sounds Cardiovascular: regular rate and rhythm Gastrointestinal: non-tender, soft Musculoskeletal: muscle tone (normal) Extremities: edema (none) Neurological: other (No focal deficits) Results Result Diagram: 02/11/17 0600 02/11/17 0600 Results 24 hrs Laboratory Tests Test 02/10/17 22:00 02/11/17 06:00 Creatine Kinase 70 Creatine Kinase Index 0.6 Creatinine Kinase MB (Mass) 0.42 Troponin I 0.022 Alanine Aminotransferase (ALT/SGPT) 31 Albumin 3.7 Albumin/Globulin Ratio 1.42 Alkaline Phosphatase 49 Anion Gap 17 H Aspartate Amino Transf (AST/SGOT) 23 Basophils # 0.1 Basophils % 0.7 Blood Urea Nitrogen 50 H Calcium Level 9.3 Carbon Dioxide Level 23 Chloride Level 104 Cholesterol Level 205 H Cholesterol/HDL Ratio 2.3 Creatinine 4.22 H Direct Bilirubin 0.00 Eosinophils # 0.2 Eosinophils % 2.4 Free Thyroxine Index 3.39 Globulin 2.60 Glucose Level 80 HDL Cholesterol 87 Hematocrit 31.1 L Hemoglobin 10.2 L Hemoglobin A1c 5.0 Indirect Bilirubin 0.1 Iron Level 40 LDL Cholesterol, Calculated 96 Lymphocytes # 2.3 Lymphocytes % 24.9 Magnesium Level 1.8 Mean Corpuscular Hemoglobin 30.2 Mean Corpuscular Hemoglobin Concent 32.8 Mean Corpuscular Volume 92.0 Mean Platelet Volume 11.3 H Monocytes # 0.7 Monocytes % 7.2 Neutrophils # 5.8 Neutrophils % 64.5 Nucleated Red Blood Cells # 0.0 Nucleated Red Blood Cells % 0.0 Percent Iron Saturation 17 L Phosphorus Level 3.4 Platelet Count 178 Potassium Level 4.1 Red Blood Count 3.38 L Red Cell Distribution Width 13.3 Sodium Level 140 Thyroid Stimulating Hormone (TSH) 4.320 Thyroxine (T4) 8.4 Total Bilirubin 0.1 L Total Iron Binding Capacity 242 Total Protein 6.3 # Triglycerides Level 112 Triiodothyronine (T3) Uptake 40.4 White Blood Count 9.0 # Medications Medications Current Medications Benazepril HCl (Lotensin) 40 mg DAILY PO Last administered on 02/11/17 09:33; Admin Dose 40 MG; Start 02/11/17 at 09:00 Ondansetron HCl (Zofran Inj) 4 mg Q6H PRN IV NAUSEA AND/OR VOMITING; Start at 14:00 Acetaminophen (Tylenol Tab) 650 mg Q6H PRN PO PAIN LEVEL 1-3 OR FEVER Last administered on 02/10/17 20:39; Admin Dose 650 MG; Start 02/10/17 at 14:00 Acetaminophen (Tylenol Supp) 650 mg Q6H PRN [place] PAIN LEVEL 1-3 OR FEVER; Start 02/10/17 at 14:00 Acetaminophen/ Hydrocodone Bitart ([place] (5/325)) 1 tab Q6H PRN PO MODERATE PAIN LEVEL 4-6; Start 02/10/17 at 14:00 Acetaminophen/ Hydrocodone Bitart ([place] (5/325)) 2 tab Q6H PRN PO SEVERE PAIN LEVEL 7-10; Start 02/10/17 at 14:00 Morphine Sulfate (morphine) 2 mg Q4H PRN IV SEVERE PAIN LEVEL 7-10; Start 02/10 at 14:00 Docusate Sodium (Colace) 100 mg Q12H PRN PO CONSTIPATION; Start 02/10/17 at 14: 00 Magnesium Hydroxide (Milk Of Mag) 30 ml DAILY PRN PO CONSTIPATION; Start at 14:00 Bisacodyl (Dulcolax Supp) 10 mg DAILY PRN [place] CONSTIPATION; Start 02/10/17 at 14 :00 Hydralazine HCl (Apresoline) 10 mg Q4H PRN IV sbp>160 Last administered on 02/11 05:02; Admin Dose 10 MG; Start 02/10/17 at 16:30 Clonidine (Catapres) 0.1 mg Q4H PRN PO sbp>160; Start 02/10/17 at 18:00 Amlodipine Besylate (Norvasc) 5 mg BID PO Last administered on 02/11/17 09:34 ; Admin Dose 5 MG; Start 02/10/17 at 21:00 Apixaban (Eliquis) 2.5 mg BID PO Last administered on 02/11/17 09:35; Admin Dose 2.5 MG; Start 02/10/17 at 21:00 Aspirin (Halfprin) 81 mg DAILY PO Last administered on 02/11/17 09:32; Admin Dose 81 MG; Start 02/11/17 at 09:00 Calcitriol (Rocaltrol) 0.25 mcg DAILY PO Last administered on 02/11/17 09:34; Admin Dose 0.25 MCG; Start 02/11/17 at 09:00 Febuxostat (Uloric) 40 mg DAILY PO Last administered on 3/16/17at 09:34; Admin Dose 40 MG; Start 02/11/17 at 09:00 Famotidine (Pepcid) 20 mg DAILY PO ; Start 02/12/17 at 09:00 Ferrous Sulfate (Ferrous Sulfate (Ec)) 325 mg BID PO ; Start 02/11/17 at 21:00 EJ MIR 16, 2017 19:57
[2017-02-11] MEDS: FERROUS SULFATE (EC) 325 MG TAB PO SCH (20:53)
[2017-02-11] MEDS: NACL 0.9% 3 ML SYG IV SCH (20:54)
[2017-02-12] VITALS (10 sets, daily range): BP systolic 110–162; BP diastolic 55–80; PULSE 44–56; RESP 16–20
[2017-02-12] MEDS: FUROSEMIDE 40 MG TAB PO SCH (05:46)
[2017-02-12 07:44] LABS: ADD SCAN DIFF NO
[2017-02-12 07:47] LABS: BASOPHIL # 0.1 10^3/ul (0.0-0.1); BASOPHILS % 0.8 % (0.0-2.0); EOSINOPHILS # 0.2 10^3/ul (0.0-0.5); EOSINOPHILS % 2.5 % (0.0-7.0); HEMATOCRIT 32.6 % (37.0-47.0); HEMOGLOBIN 10.8 g/dl (12.0-16.0); LYMPHOCYTES # 2.3 10^3/ul (0.8-2.9); LYMPHOCYTES % 28.4 % (15.0-51.0); MEAN CORPUSCULAR HEMOGLOBIN 30.6 pg (29.0-33.0); MEAN CORPUSCULAR HGB CONC 33.1 g/dl (32.0-37.0); MEAN CORPUSCULAR VOLUME 92.4 fl (82.0-101.0); MEAN PLATELET VOLUME 11.4 fl (7.4-10.4); MONOCYTE # 0.8 10^3/ul (0.3-0.9); MONOCYTES % 9.9 % (0.0-11.0); NEUTROPHIL # 4.6 10^3/ul (1.6-7.5); NEUTROPHILS % 58.1 % (39.0-77.0); PLATELET COUNT 207 10^3/UL (140-415); RED BLOOD COUNT 3.53 10^6/ul (4.20-5.40); RED CELL DISTRIBUTION WIDTH 13.2 % (11.5-14.5); WHITE BLOOD COUNT 7.9 10^3/ul (4.8-10.8)
[2017-02-12 08:11] LABS: POTASSIUM 3.6 mmol/L (3.5-5.1)
[2017-02-12 08:14] LABS: CREATININE 5.11 mg/dl (0.44-1.00)
[2017-02-12 08:15] LABS: CALCIUM 9.2 mg/dl (8.4-10.2); PHOSPHORUS 5.6 mg/dl (2.5-4.9)
[2017-02-12 08:16] LABS: MAGNESIUM 1.8 mg/dl (1.7-2.5)
[2017-02-12] MEDS: SEVELAMER CARBONATE 0.8 GM PKT PO SCH ×3 (09:06→18:28)
[2017-02-12] MEDS: APIXABAN 5 MG TABLET PO SCH ×2 (09:06→20:13)
[2017-02-12] MEDS: CALCITRIOL 0.25 MCG CAP PO SCH (09:07)
[2017-02-12] MEDS: ASPIRIN (EC) 81 MG TAB PO SCH (09:07)
[2017-02-12] MEDS: FERROUS SULFATE (EC) 325 MG TAB PO SCH ×2 (09:07→20:13)
[2017-02-12] MEDS: FEBUXOSTAT 40 MG TABLET PO SCH (09:07)
[2017-02-12] MEDS: FAMOTIDINE 20 MG TAB PO SCH (09:08)
[2017-02-12] MEDS: BENAZEPRIL 40 MG TAB PO SCH (09:20)
[2017-02-12] MEDS: AMLODIPINE 5 MG TAB PO SCH ×2 (09:20→20:13)
--- NOTE | 2017-02-12 10:04 | PN ---
DATE: 02/12/2017 SUBJECTIVE: The patient is stable. No acute events overnight. No fevers, chills, nausea or vomiti ng. No shortness of breath. OBJECTIVE: VITAL SIGNS: Blood pressure 110/55, respirations 20, pulse 74, temperature 97.5. HEENT: Head is normocephalic. NECK: Supple. HEART: Regular rate. LUNGS: Showed diminished breath sounds at the base, otherwise clear. ABDOMEN: Soft, nontender. No rebound or guarding. EXTREMITIES: Negative for clubbing or cyanosis. No edema. DERMATOLOGIC: No rashes. MUSCULOSKELETAL: Have no joint effusion. NEUROLOGIC: No change in exam. MEDICATIONS: The patient's medication were reviewed. LABORATORY DATA: Shows sodium 137, potassium 3.6, chloride 100, BUN 58, creatinine 5.11. White cou nt 7.9, hemoglobin 10.8, hematocrit 32.6, platelet count 207. INR is 1.00. The patient's renal ult rasound shows hyperechoic kidneys, consistent with medical renal disease. ASSESSMENT AND PLAN: 1. Nonoliguric acute kidney injury on top of chronic kidney disease stage IV, with a previous EGFR of about 20 mL per minute. Etiology of current acute kidney injury is secondary to hemodynamics, li nash due to MARIBETH inhibitor effect and diuretic therapy. The patient has no overt signs of uremia, an d is not in any immediate need for renal replacement therapy at this time. Plan at this point is to discontinue Lasix. Will hold benazepril. Would otherwise continue supportive care, renally dose a ll meds. Will follow up a renal panel in the a.m. and will monitor closely. The patient is being s een by primary lead nitrate processor and will follow up with the primary lead nitrate processor at the time of discharg e. 2. Mild hyperkalemia. Etiology is likely secondary to MARIBETH inhibitor effect and acute kidney injury . Potassium levels have normalized. Continue to monitor. 3. Mineral bone disorder. Continue to monitor calcium and phosphorus levels. Continue phos binder s and vitamin D analogs. 4. Anemia. Continue to monitor hemoglobin and hematocrit levels. Continue Epogen. 5. Bradycardia. Etiology may be secondary to underlying medications. Continue to hold AV grace bl ocking agents. Follow up with cardiology. 6. Hypertension. Blood pressure is controlled. Continue the current medical management. 7. History of deep venous thrombosis. Continue Eliquis. 8. Gastrointestinal and deep venous thrombosis prophylaxis. Continue proton pump inhibitor and Tosha sendy. Dictated By: HEBERT ALCALA/SARA Conf#: [id number] DID#: [id number]
--- NOTE | 2017-02-12 14:15 | CONS ---
Date/Time of Note Date/Time of Note DATE: 02/12/17 TIME: 14:13 Assessment/Plan Assessment/Plan Chief Complaint/Hosp Course IMPRESSION: 1. Bradycardia. Continue to assess for more significant bradycardia and symptoms.-overall improved with holding atenolol/amio as likely etiology in the setting of renal failure/high K 2. Abnormal electrocardiogram, assess for acute coronary syndrome.-trop negative x 3/NL EF by echo 3. Cardiac arrhythmia, question of possible paroxysmal atrial fibrillation. 4. Dizziness. 5. Weakness, question secondary to bradycardia. 6. Hypertension, uncontrolled. 7. Diabetes mellitus. 8. Hyperkalemia 9. 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 -Continue asa/apixaban -Continue norvasc -Follow K closely on benazepril Problems: Consultation Date/Type/Reason Admit Date/Time Feb 10, 2017 at 12:50 Initial Consult Date 02/10/2017 Type of Consultation: Cardiology Reason for Consultation atif Referring Provider: TOSIN DUNAWAY Exam/Review of Systems Vital Signs Vitals Vital Signs Date Time Temp Pulse Resp B/P Pulse Ox O2 Delivery O2 Flow Rate FiO2 02/12/17 12:24 50 02/12/17 07:44 Nasal Cannula 2.0 02/12/17 04:00 97.5 20 110/55 94 Intake and Output 02/11/17 02/11/17 02/12/17 15:00 23:00 07:00 Intake Total 700 ml 700 ml Balance 700 ml 700 ml Exam Review of Systems: CONSTITUTIONAL: No fevers, chills. PULMONARY: No sob CARDIOVASCULAR: No chest pain/palpitations GASTROINTESTINAL: No nausea/vomiting. GENITOURINARY: No hematuria/dysuria. MUSCULOSKELETAL: No myagias/arthalgias. PSYCHIATRIC: The patient denies depression. NEUROLOGIC: No weakness Constitutional: alert, oriented Psych: no complaints Head: normocephalic ENMT: mucosa pink and moist Neck: jvd (8 cm water), supple Respiratory: diminished breath sounds Cardiovascular: other (Atif, RR) Gastrointestinal: non-tender, soft Musculoskeletal: muscle tone (normal) Extremities: edema (none) Neurological: other (No focal deficits) Results Result Diagram: 02/12/17 0609 02/12/17 0609 Results 24 hrs Laboratory Tests Test 02/12/17 06:09 Anion Gap 16 Basophils # 0.1 Basophils % 0.8 Blood Urea Nitrogen 58 H Calcium Level 9.2 Carbon Dioxide Level 25 Chloride Level 100 Creatinine 5.11 H Eosinophils # 0.2 Eosinophils % 2.5 Glucose Level 88 Hematocrit 32.6 L Hemoglobin 10.8 L Lymphocytes # 2.3 Lymphocytes % 28.4 Magnesium Level 1.8 Mean Corpuscular Hemoglobin 30.6 Mean Corpuscular Hemoglobin Concent 33.1 Mean Corpuscular Volume 92.4 Mean Platelet Volume 11.4 H Monocytes # 0.8 Monocytes % 9.9 Neutrophils # 4.6 Neutrophils % 58.1 Nucleated Red Blood Cells # 0.0 Nucleated Red Blood Cells % 0.0 Phosphorus Level 5.6 #H Platelet Count 207 Potassium Level 3.6 Red Blood Count 3.53 L Red Cell Distribution Width 13.2 Sodium Level 137 White Blood Count 7.9 Medications Medications Current Medications Ondansetron HCl (Zofran Inj) 4 mg Q6H PRN IV NAUSEA AND/OR VOMITING; Start at 14:00 Acetaminophen (Tylenol Tab) 650 mg Q6H PRN PO PAIN LEVEL 1-3 OR FEVER Last administered on 02/10/17t 20:39; Admin Dose 650 MG; Start 02/10/17 at 14:00 Acetaminophen (Tylenol Supp) 650 mg Q6H PRN [place] PAIN LEVEL 1-3 OR FEVER; Start 02/10/17 at 14:00 Acetaminophen/ Hydrocodone Bitart ([place] (5/325)) 1 tab Q6H PRN PO MODERATE PAIN LEVEL 4-6; Start 02/10/17 at 14:00 Acetaminophen/ Hydrocodone Bitart ([place] (5/325)) 2 tab Q6H PRN PO SEVERE PAIN LEVEL 7-10; Start 02/10/17 at 14:00 Morphine Sulfate (morphine) 2 mg Q4H PRN IV SEVERE PAIN LEVEL 7-10; Start 02/10 at 14:00 Docusate Sodium (Colace) 100 mg Q12H PRN PO CONSTIPATION; Start 02/10/17 at 14: 00 Magnesium Hydroxide (Milk Of Mag) 30 ml DAILY PRN PO CONSTIPATION; Start at 14:00 Bisacodyl (Dulcolax Supp) 10 mg DAILY PRN [place] CONSTIPATION; Start 02/10/17 at 14 :00 Hydralazine HCl (Apresoline) 10 mg Q4H PRN IV sbp>160 Last administered on 02/11 05:02; Admin Dose 10 MG; Start 02/10/17 at 16:30 Clonidine (Catapres) 0.1 mg Q4H PRN PO sbp>160; Start 02/10/17 at 18:00 Amlodipine Besylate (Norvasc) 5 mg BID PO Last administered on 02/12/17 09:20 ; Admin Dose 5 MG; Start 02/10/17 at 21:00 Apixaban (Eliquis) 2.5 mg BID PO Last administered on 02/12/17 09:06; Admin Dose 2.5 MG; Start 02/10/17 at 21:00 Aspirin (Halfprin) 81 mg DAILY PO Last administered on 02/12/17 09:07; Admin Dose 81 MG; Start 02/11/17 at 09:00 Calcitriol (Rocaltrol) 0.25 mcg DAILY PO Last administered on 02/12/17 09:07; Admin Dose 0.25 MCG; Start 02/11/17 at 09:00 Febuxostat (Uloric) 40 mg DAILY PO Last administered on 02/12/17 09:07; Admin Dose 40 MG; Start 02/11/17 at 09:00 Famotidine (Pepcid) 20 mg DAILY PO Last administered on 02/12/17 09:08; Admin Dose 20 MG; Start 02/12/17 at 09:00 Ferrous Sulfate (Ferrous Sulfate (Ec)) 325 mg BID PO Last administered on 09:07; Admin Dose 325 MG; Start 02/11/17 at 21:00 EJ MIR 17, 2017 14:14
--- NOTE | 2017-02-12 16:06 | PN ---
Date/Time of Note Date/Time of Note DATE: 02/12/17 TIME: 16:02 Assessment/Plan VTE Prophylaxis VTE Prophylaxis Intervention: other (eliquis) Lines/Catheters IV [facility]from [facility] Saline Lock Urinary Cath still in place: No Assessment/Plan Chief Complaint/Hosp Course 1. Dizziness, suspect secondary to bradycardia. Improved at this time. Continue with cardiology recommendations. monitor in telemetry. 2. Acute kidney injury. slightly worse function today. cont with nephro recs. refrain from nephrotoxic medications as possible. 3. Essential hypertension. We will continue on antihypertensives and adjust as needed. 4. Anemia. Noted withiron deficiency. Continue on iron supplement 5. Hyperkalemia. Will monitor and provide with Kayexalate as needed. stable 6. Deep venous thrombosis prophylaxis: Eliquis. 7. Gastroesophageal reflux disease prophylaxis: H2 edward. Disposition and plan: monitor renal panel. await for clinical improvement. d/c when medically stable and cleared by consultants . Discussed plan of care with Dr. Lopez Problems: Subjective 24 Hr Interval Summary Free Text/Dictation no s/s of distress. Exam/Review of Systems Vital Signs Vitals Vital Signs Date Time Temp Pulse Resp B/P Pulse Ox O2 Delivery O2 Flow Rate FiO2 02/12/17 12:24 50 02/12/17 07:44 Nasal Cannula 2.0 02/12/17 04:00 97.5 20 110/55 94 Intake and Output 02/11/17 02/11/17 02/12/17 15:00 23:00 07:00 Intake Total 700 ml 700 ml Balance 700 ml 700 ml Exam General: no s/s of distress Eyes: Pupils equal round, tracks Neck: Supple nontender, no JVD Cardiac: S1-S2 auscultated with noted murmur still Pulmonary: No wheezing or rhonchi GI: Soft nontender nondistended Extremities: No edema bilateral lower extremities Skin: Is clean dry and intact Neurologic: [place] 4 Results Result Diagram: 02/12/17 0609 02/12/17 0609 Results 24 hrs Laboratory Tests Test 02/12/17 06:09 Anion Gap 16 Basophils # 0.1 Basophils % 0.8 Blood Urea Nitrogen 58 H Calcium Level 9.2 Carbon Dioxide Level 25 Chloride Level 100 Creatinine 5.11 H Eosinophils # 0.2 Eosinophils % 2.5 Glucose Level 88 Hematocrit 32.6 L Hemoglobin 10.8 L Lymphocytes # 2.3 Lymphocytes % 28.4 Magnesium Level 1.8 Mean Corpuscular Hemoglobin 30.6 Mean Corpuscular Hemoglobin Concent 33.1 Mean Corpuscular Volume 92.4 Mean Platelet Volume 11.4 H Monocytes # 0.8 Monocytes % 9.9 Neutrophils # 4.6 Neutrophils % 58.1 Nucleated Red Blood Cells # 0.0 Nucleated Red Blood Cells % 0.0 Phosphorus Level 5.6 #H Platelet Count 207 Potassium Level 3.6 Red Blood Count 3.53 L Red Cell Distribution Width 13.2 Sodium Level 137 White Blood Count 7.9 Medications Medications Current Medications Ondansetron HCl (Zofran Inj) 4 mg Q6H PRN IV NAUSEA AND/OR VOMITING; Start at 14:00 Acetaminophen (Tylenol Tab) 650 mg Q6H PRN PO PAIN LEVEL 1-3 OR FEVER Last administered on 02/10/17 20:39; Admin Dose 650 MG; Start 02/10/17 at 14:00 Acetaminophen (Tylenol Supp) 650 mg Q6H PRN [place] PAIN LEVEL 1-3 OR FEVER; Start 02/10/17 at 14:00 Acetaminophen/ Hydrocodone Bitart ([place] (5/325)) 1 tab Q6H PRN PO MODERATE PAIN LEVEL 4-6; Start 02/10/17 at 14:00 Acetaminophen/ Hydrocodone Bitart ([place] (5/325)) 2 tab Q6H PRN PO SEVERE PAIN LEVEL 7-10; Start 02/10/17 at 14:00 Morphine Sulfate (morphine) 2 mg Q4H PRN [place] SEVERE PAIN LEVEL 7-10; Start 02/10 at 14:00 Docusate Sodium (Colace) 100 mg Q12H PRN PO CONSTIPATION; Start 02/10/17 at 14: 00 Magnesium Hydroxide (Milk Of Mag) 30 ml DAILY PRN PO CONSTIPATION; Start at 14:00 Bisacodyl (Dulcolax Supp) 10 mg DAILY PRN [place] CONSTIPATION; Start 02/10/17 at 14 :00 Hydralazine HCl (Apresoline) 10 mg Q4H PRN [place] sbp>160 Last administered on 02/11 05:02; Admin Dose 10 MG; Start 02/10/17 at 16:30 Clonidine (Catapres) 0.1 mg Q4H PRN PO sbp>160; Start 02/10/17 at 18:00 Amlodipine Besylate (Norvasc) 5 mg BID PO Last administered on 02/12/17 09:20 ; Admin Dose 5 MG; Start 02/10/17 at 21:00 Apixaban (Eliquis) 2.5 mg BID PO Last administered on 02/12/17 09:06; Admin Dose 2.5 MG; Start 02/10/17 at 21:00 Aspirin (Halfprin) 81 mg DAILY PO Last administered on 02/12/17 09:07; Admin Dose 81 MG; Start 02/11/17 at 09:00 Calcitriol (Rocaltrol) 0.25 mcg DAILY PO Last administered on 02/12/17 09:07; Admin Dose 0.25 MCG; Start 02/11/17 at 09:00 Febuxostat (Uloric) 40 mg DAILY PO Last administered on 02/12/17 09:07; Admin Dose 40 MG; Start 02/11/17 at 09:00 Famotidine (Pepcid) 20 mg DAILY PO Last administered on 02/12/17 09:08; Admin Dose 20 MG; Start 02/12/17 at 09:00 Ferrous Sulfate (Ferrous Sulfate (Ec)) 325 mg BID PO Last administered on 09:07; Admin Dose 325 MG; Start 02/11/17 at 21:00 DI STEPHENSON 17, 2017 16:06
[2017-02-13] VITALS (13 sets, daily range): BP systolic 119–159; BP diastolic 56–71; PULSE 46–54; RESP 16–18
[2017-02-13 08:09] LABS: ADD SCAN DIFF NO
[2017-02-13 08:11] LABS: BASOPHIL # 0.1 10^3/ul (0.0-0.1); BASOPHILS % 0.9 % (0.0-2.0); EOSINOPHILS # 0.2 10^3/ul (0.0-0.5); EOSINOPHILS % 2.8 % (0.0-7.0); HEMATOCRIT 33.4 % (37.0-47.0); HEMOGLOBIN 11.1 g/dl (12.0-16.0); LYMPHOCYTES % 25.4 % (15.0-51.0); MEAN CORPUSCULAR HEMOGLOBIN 30.6 pg (29.0-33.0); MEAN CORPUSCULAR HGB CONC 33.2 g/dl (32.0-37.0); MEAN PLATELET VOLUME 11.1 fl (7.4-10.4); MONOCYTE # 0.9 10^3/ul (0.3-0.9); NEUTROPHIL # 4.7 10^3/ul (1.6-7.5); NEUTROPHILS % 59.8 % (39.0-77.0); PLATELET COUNT 212 10^3/UL (140-415); RED BLOOD COUNT 3.63 10^6/ul (4.20-5.40); RED CELL DISTRIBUTION WIDTH 13.1 % (11.5-14.5); WHITE BLOOD COUNT 7.8 10^3/ul (4.8-10.8)
[2017-02-13 08:18] LABS: POTASSIUM 3.4 mmol/L (3.5-5.1)
[2017-02-13 08:20] LABS: CREATININE 5.42 mg/dl (0.44-1.00)
[2017-02-13 08:21] LABS: CALCIUM 8.9 mg/dl (8.4-10.2)
[2017-02-13 08:33] LABS: PHOSPHORUS 5.9 mg/dl (2.5-4.9)
--- NOTE | 2017-02-13 09:56 | CONS ---
Date/Time of Note Date/Time of Note DATE: 02/13/17 TIME: 09:42 Consult Date/Type/Reason Admit Date/Time Feb 12, 2017 at 16:44 Initial Consult Date Type of Consultation: neph Ordering Provider: TOSIN DUNAWAY The patient is stable. No acute events overnight. No fevers, chills, nausea or vomiting. No shortness of breath. OBJECTIVE: VITAL SIGNS: Blood pressure 110/55, respirations 20, pulse 74, temperature 97.5. HEENT: Head is normocephalic. NECK: Supple. HEART: Regular rate. LUNGS: Showed diminished breath sounds at the base, otherwise clear. ABDOMEN: Soft, nontender. No rebound or guarding. EXTREMITIES: Negative for clubbing or cyanosis. No edema. DERMATOLOGIC: No rashes. MUSCULOSKELETAL: Have no joint effusion. NEUROLOGIC: No change in exam. MEDICATIONS: The patient's medication were reviewed. Objective Vital Signs Date Time Temp Pulse Resp B/P Pulse Ox O2 Delivery O2 Flow Rate FiO2 02/13/17 08:29 48 02/13/17 07:26 97.7 18 122/56 99 02/13/17 04:00 Room Air 02/12/17 19:29 2.0 Results/Medications Result Diagram: 02/13/17 0600 02/13/17 0600 Results 24 hrs Laboratory Tests Test 02/13/17 06:00 Anion Gap 18 H Basophils # 0.1 Basophils % 0.9 Blood Urea Nitrogen 66 H Calcium Level 8.9 Carbon Dioxide Level 24 Chloride Level 98 Creatinine 5.42 H Eosinophils # 0.2 Eosinophils % 2.8 Glucose Level 84 Hematocrit 33.4 L Hemoglobin 11.1 L Lymphocytes # 2.0 Lymphocytes % 25.4 Magnesium Level 2.0 Mean Corpuscular Hemoglobin 30.6 Mean Corpuscular Hemoglobin Concent 33.2 Mean Corpuscular Volume 92.0 Mean Platelet Volume 11.1 H Monocytes # 0.9 Monocytes % 11.0 Neutrophils # 4.7 Neutrophils % 59.8 Nucleated Red Blood Cells # 0.0 Nucleated Red Blood Cells % 0.0 Phosphorus Level 5.9 H Platelet Count 212 Potassium Level 3.4 L Red Blood Count 3.63 L Red Cell Distribution Width 13.1 Sodium Level 137 White Blood Count 7.8 Medications Current Medications Ondansetron HCl (Zofran Inj) 4 mg Q6H PRN IV NAUSEA AND/OR VOMITING; Start at 14:00 Acetaminophen (Tylenol Tab) 650 mg Q6H PRN PO PAIN LEVEL 1-3 OR FEVER Last administered on 02/10/17 20:39; Admin Dose 650 MG; Start 02/10/17 at 14:00 Acetaminophen (Tylenol Supp) 650 mg Q6H PRN [place] PAIN LEVEL 1-3 OR FEVER; Start 02/10/17 at 14:00 Acetaminophen/ Hydrocodone Bitart ([place] (5/325)) 1 tab Q6H PRN PO MODERATE PAIN LEVEL 4-6; Start 02/10/17 at 14:00 Acetaminophen/ Hydrocodone Bitart ([place] (5/325)) 2 tab Q6H PRN PO SEVERE PAIN LEVEL 7-10; Start 02/10/17 at 14:00 Morphine Sulfate (morphine) 2 mg Q4H PRN IV SEVERE PAIN LEVEL 7-10; Start 02/10 at 14:00 Docusate Sodium (Colace) 100 mg Q12H PRN PO CONSTIPATION; Start 02/10/17 at 14: 00 Magnesium Hydroxide (Milk Of Mag) 30 ml DAILY PRN PO CONSTIPATION; Start at 14:00 Bisacodyl (Dulcolax Supp) 10 mg DAILY PRN [place] CONSTIPATION; Start 02/10/17 at 14 :00 Hydralazine HCl (Apresoline) 10 mg Q4H PRN IV sbp>160 Last administered on 02/11 05:02; Admin Dose 10 MG; Start 02/10/17 at 16:30 Clonidine (Catapres) 0.1 mg Q4H PRN PO sbp>160; Start 02/10/17 at 18:00 Amlodipine Besylate (Norvasc) 5 mg BID PO Last administered on 02/12/17 20:13 ; Admin Dose 5 MG; Start 02/10/17 at 21:00 Apixaban (Eliquis) 2.5 mg BID PO Last administered on 02/12/17 20:13; Admin Dose 2.5 MG; Start 02/10/17 at 21:00 Aspirin (Halfprin) 81 mg DAILY PO Last administered on 02/12/17 09:07; Admin Dose 81 MG; Start 02/11/17 at 09:00 Calcitriol (Rocaltrol) 0.25 mcg DAILY PO Last administered on 02/12/17 09:07; Admin Dose 0.25 MCG; Start 02/11/17 at 09:00 Febuxostat (Uloric) 40 mg DAILY PO Last administered on 02/12/17 09:07; Admin Dose 40 MG; Start 02/11/17 at 09:00 Famotidine (Pepcid) 20 mg DAILY PO Last administered on 02/12/17 09:08; Admin Dose 20 MG; Start 02/12/17 at 09:00 Ferrous Sulfate (Ferrous Sulfate (Ec)) 325 mg BID PO Last administered on 20:13; Admin Dose 325 MG; Start 02/11/17 at 21:00 Assessment/Plan Chief Complaint/Hosp Course ASSESSMENT AND PLAN: 1. Nonoliguric acute kidney injury on top of chronic kidney disease stage IV, with a previous EGFR of about 20 mL per minute. Etiology of current acute kidney injury is secondary to hemodynamics, likely due to MARIBETH inhibitor effect and diuretic therapy. The patient has no overt signs of uremia, and is not in any immediate need for renal replacement therapy at this time. sp discontinue Lasix and holding of benazepril. Would otherwise continue supportive care, renally dose all meds. Will follow up a renal panel in the a.m. and will monitor closely. The patient is being seen by primary boot lace cutter machine and will follow up with the primary boot lace cutter machine at the time of discharge. 2. Mild hyperkalemia. Etiology is likely secondary to MARIBETH inhibitor effect and acute kidney injury. Potassium levels have normalized. Continue to monitor. 3. Mineral bone disorder. Continue to monitor calcium and phosphorus levels. Continue phos binders and vitamin D analogs. 4. Anemia. Continue to monitor hemoglobin and hematocrit levels. Continue Epogen. 5. Bradycardia. Etiology may be secondary to underlying medications. Continue to hold AV grace blocking agents. Follow up with cardiology. 6. Hypertension. Blood pressure is controlled. Continue the current medical management. 7. History of deep venous thrombosis. Continue Eliquis. 8. Gastrointestinal and deep venous thrombosis prophylaxis. Continue proton pump inhibitor and Eliquis. Problems: ANA LAWS MD Feb 13, 2017 09:52
[2017-02-13] MEDS: FEBUXOSTAT 40 MG TABLET PO SCH (09:57)
[2017-02-13] MEDS: SEVELAMER CARBONATE 0.8 GM PKT PO SCH ×3 (09:57→18:37)
[2017-02-13] MEDS: FAMOTIDINE 20 MG TAB PO SCH (09:57)
[2017-02-13] MEDS: CALCITRIOL 0.25 MCG CAP PO SCH (09:57)
[2017-02-13] MEDS: FERROUS SULFATE (EC) 325 MG TAB PO SCH ×2 (09:57→21:16)
[2017-02-13] MEDS: AMLODIPINE 5 MG TAB PO SCH ×2 (09:57→21:16)
[2017-02-13] MEDS: ASPIRIN (EC) 81 MG TAB PO SCH (09:58)
[2017-02-13] MEDS: APIXABAN 5 MG TABLET PO SCH ×2 (09:58→21:16)
--- NOTE | 2017-02-13 13:38 | PN ---
Date/Time of Note Date/Time of Note DATE: 02/13/17 TIME: 13:35 Assessment/Plan VTE Prophylaxis VTE Prophylaxis Intervention: SCD's Lines/Catheters IV [facility]ter [facility]from [facility] [place] [facility] Urinary Cath still in place: No Assessment/Plan Chief Complaint/Hosp Course 1. Dizziness, suspect secondary to bradycardia. Improved at this time. Continue with cardiology recommendations. monitor in telemetry. 2. Acute kidney injury. avoid nephrotoxic medications. awaiting for clinical improvement. follow up with nephrology recs 3. Essential hypertension. We will continue on antihypertensives and adjust as needed. 4. Anemia. Noted with iron deficiency. Continue on iron supplement 5. Hyperkalemia. Will monitor and provide with Kayexalate as needed. stable 6. Deep venous thrombosis prophylaxis: Eliquis. 7. Gastroesophageal reflux disease prophylaxis: H2 edward. Disposition and plan: check follow up renal panel. awaiting clinical improvement. d/c when cleared by consultants Discussed plan of care with Dr. Lopez Problems: Subjective 24 Hr Interval Summary Free Text/Dictation no s/s of distress. comfortable at present Exam/Review of Systems Vital Signs Vitals Vital Signs Date Time Temp Pulse Resp B/P Pulse Ox O2 Delivery O2 Flow Rate FiO2 02/13/17 12:37 53 02/13/17 11:40 97.1 18 135/67 98 02/13/17 04:00 Room Air 02/12/17 19:29 2.0 Intake and Output 02/12/17 02/12/17 02/13/17 14:59 22:59 06:59 Intake Total 700 ml Balance 700 ml Exam General: comfortable at present. no s.s of distress Eyes: Pupils equal round, anicteric sclerae Neck: no JVD seen Cardiac: bradycardic with heart murmur Pulmonary: No wheezing or rhonchi today GI: Soft nontender nondistended Extremities: No edema bilateral lower extremities Skin: cdi Neurologic: [place] 4 Results Result Diagram: 02/13/17 0600 02/13/17 0600 Results 24 hrs Laboratory Tests Test 02/13/17 06:00 Anion Gap 18 H Basophils # 0.1 Basophils % 0.9 Blood Urea Nitrogen 66 H Calcium Level 8.9 Carbon Dioxide Level 24 Chloride Level 98 Creatinine 5.42 H Eosinophils # 0.2 Eosinophils % 2.8 Glucose Level 84 Hematocrit 33.4 L Hemoglobin 11.1 L Lymphocytes # 2.0 Lymphocytes % 25.4 Magnesium Level 2.0 Mean Corpuscular Hemoglobin 30.6 Mean Corpuscular Hemoglobin Concent 33.2 Mean Corpuscular Volume 92.0 Mean Platelet Volume 11.1 H Monocytes # 0.9 Monocytes % 11.0 Neutrophils # 4.7 Neutrophils % 59.8 Nucleated Red Blood Cells # 0.0 Nucleated Red Blood Cells % 0.0 Phosphorus Level 5.9 H Platelet Count 212 Potassium Level 3.4 L Red Blood Count 3.63 L Red Cell Distribution Width 13.1 Sodium Level 137 White Blood Count 7.8 Medications Medications Current Medications Ondansetron HCl (Zofran Inj) 4 mg Q6H PRN IV NAUSEA AND/OR VOMITING; Start at 14:00 Acetaminophen (Tylenol Tab) 650 mg Q6H PRN PO PAIN LEVEL 1-3 OR FEVER Last administered on 02/10/17 20:39; Admin Dose 650 MG; Start 02/10/17 at 14:00 Acetaminophen (Tylenol Supp) 650 mg Q6H PRN [place] PAIN LEVEL 1-3 OR FEVER; Start 02/10/17 at 14:00 Acetaminophen/ Hydrocodone Bitart ([place] (5/325)) 1 tab Q6H PRN PO MODERATE PAIN LEVEL 4-6; Start 02/10/17 at 14:00 Acetaminophen/ Hydrocodone Bitart ([place] (5/325)) 2 tab Q6H PRN PO SEVERE PAIN LEVEL 7-10; Start 02/10/17 at 14:00 Morphine Sulfate (morphine) 2 mg Q4H PRN IV SEVERE PAIN LEVEL 7-10; Start 02/10 at 14:00 Docusate Sodium (Colace) 100 mg Q12H PRN PO CONSTIPATION; Start 02/10/17 at 14: 00 Magnesium Hydroxide (Milk Of Mag) 30 ml DAILY PRN PO CONSTIPATION; Start at 14:00 Bisacodyl (Dulcolax Supp) 10 mg DAILY PRN [place] CONSTIPATION; Start 02/10/17 at 14 :00 Hydralazine HCl (Apresoline) 10 mg Q4H PRN IV sbp>160 Last administered on 02/11 05:02; Admin Dose 10 MG; Start 02/10/17 at 16:30 Clonidine (Catapres) 0.1 mg Q4H PRN PO sbp>160; Start 02/10/17 at 18:00 Amlodipine Besylate (Norvasc) 5 mg BID PO Last administered on 02/13/17 09:57 ; Admin Dose 5 MG; Start 02/10/17 at 21:00 Apixaban (Eliquis) 2.5 mg BID PO Last administered on 02/13/17 09:58; Admin Dose 2.5 MG; Start 02/10/17 at 21:00 Aspirin (Halfprin) 81 mg DAILY PO Last administered on 02/13/17 09:58; Admin Dose 81 MG; Start 02/11/17 at 09:00 Calcitriol (Rocaltrol) 0.25 mcg DAILY PO Last administered on 02/13/17 09:57; Admin Dose 0.25 MCG; Start 02/11/17 at 09:00 Febuxostat (Uloric) 40 mg DAILY PO Last administered on 02/13/17 09:57; Admin Dose 40 MG; Start 02/11/17 at 09:00 Famotidine (Pepcid) 20 mg DAILY PO Last administered on 02/13/17 09:57; Admin Dose 20 MG; Start 02/12/17 at 09:00 Ferrous Sulfate (Ferrous Sulfate (Ec)) 325 mg BID PO Last administered on 09:57; Admin Dose 325 MG; Start 02/11/17 at 21:00 DI STEPHENSON Feb 13, 2017 13:38
--- NOTE | 2017-02-13 14:49 | CONS ---
Date/Time of Note Date/Time of Note DATE: 02/13/17 TIME: 14:47 Assessment/Plan Assessment/Plan Additional Assessment/Plan 1. Bradycardia. Continue to assess for more significant bradycardia and symptoms.-overall improved with holding atenolol/amio as likely etiology in the setting of renal failure/high K - HR styable - no indication for pacer now 2. Abnormal electrocardiogram, assess for acute coronary syndrome.-trop negative x 3/NL EF by echo 3. Cardiac arrhythmia, question of possible paroxysmal atrial fibrillation- sinus now 4. Dizziness- much better 5. Weakness, question secondary to bradycardia. 6. Hypertension, uncontrolled- Rx with hydration as needed 7. Diabetes mellitus- on meds, keep euglycemic. 8. Hyperkalemia 9. Renal failure.-ongoing- avoid nephrotoxic meds 10.MR-moderate to severe by echo this admit Consultation Date/Type/Reason Admit Date/Time Feb 12, 2017 at 16:44 Initial Consult Date Type of Consultation: neph Referring Provider: TOSIN DUNAWAY 24 HR Interval Summary Free Text/Dictation No acute change - in sinus now - HR well controlled Exam/Review of Systems Vital Signs Vitals Vital Signs Date Time Temp Pulse Resp B/P Pulse Ox O2 Delivery O2 Flow Rate FiO2 02/13/17 12:37 53 02/13/17 11:40 97.1 18 135/67 98 02/13/17 04:00 Room Air 02/12/17 19:29 2.0 Exam ROS: No fever, no chills, no nausea, no vomiting, no diarrhea/constipation No recent weight changes No chest pain, no PND, no orthopnea No dizziness, blurred vision No thirst, no heat or cold intolerance General: WN/WD/NAD, AOx 3 HEENT: Unicetric/atraumatic/EOMI ( follow commands) NECK: JVD elevated, no thyromegaly Lymph: no lymphadenopathy HEART: regular with no S3, II/ systolic murmur at apex LUNGS: Coarse sounds ABD: soft, NT, ND, +BS : Intact Neuro: non focal SKIN: chronic changes EXT: trace edema Results Result Diagram: 02/13/17 0600 02/13/17 0600 Results 24 hrs Laboratory Tests Test 02/13/17 06:00 Anion Gap 18 H Basophils # 0.1 Basophils % 0.9 Blood Urea Nitrogen 66 H Calcium Level 8.9 Carbon Dioxide Level 24 Chloride Level 98 Creatinine 5.42 H Eosinophils # 0.2 Eosinophils % 2.8 Glucose Level 84 Hematocrit 33.4 L Hemoglobin 11.1 L Lymphocytes # 2.0 Lymphocytes % 25.4 Magnesium Level 2.0 Mean Corpuscular Hemoglobin 30.6 Mean Corpuscular Hemoglobin Concent 33.2 Mean Corpuscular Volume 92.0 Mean Platelet Volume 11.1 H Monocytes # 0.9 Monocytes % 11.0 Neutrophils # 4.7 Neutrophils % 59.8 Nucleated Red Blood Cells # 0.0 Nucleated Red Blood Cells % 0.0 Phosphorus Level 5.9 H Platelet Count 212 Potassium Level 3.4 L Red Blood Count 3.63 L Red Cell Distribution Width 13.1 Sodium Level 137 White Blood Count 7.8 Medications Medications Current Medications Ondansetron HCl (Zofran Inj) 4 mg Q6H PRN IV NAUSEA AND/OR VOMITING; Start at 14:00 Acetaminophen (Tylenol Tab) 650 mg Q6H PRN PO PAIN LEVEL 1-3 OR FEVER Last administered on 02/10/17t 20:39; Admin Dose 650 MG; Start 02/10/17 at 14:00 Acetaminophen (Tylenol Supp) 650 mg Q6H PRN [place] PAIN LEVEL 1-3 OR FEVER; Start 02/10/17 at 14:00 Acetaminophen/ Hydrocodone Bitart ([place] (5/325)) 1 tab Q6H PRN PO MODERATE PAIN LEVEL 4-6; Start 02/10/17 at 14:00 Acetaminophen/ Hydrocodone Bitart ([place] (5/325)) 2 tab Q6H PRN PO SEVERE PAIN LEVEL 7-10; Start 02/10/17 at 14:00 Morphine Sulfate (morphine) 2 mg Q4H PRN IV SEVERE PAIN LEVEL 7-10; Start 02/10 at 14:00 Docusate Sodium (Colace) 100 mg Q12H PRN PO CONSTIPATION; Start 02/10/17 at 14: 00 Magnesium Hydroxide (Milk Of Mag) 30 ml DAILY PRN PO CONSTIPATION; Start at 14:00 Bisacodyl (Dulcolax Supp) 10 mg DAILY PRN [place] CONSTIPATION; Start 02/10/17 at 14 :00 Hydralazine HCl (Apresoline) 10 mg Q4H PRN IV sbp>160 Last administered on 02/11 05:02; Admin Dose 10 MG; Start 02/10/17 at 16:30 Clonidine (Catapres) 0.1 mg Q4H PRN PO sbp>160; Start 02/10/17 at 18:00 Amlodipine Besylate (Norvasc) 5 mg BID PO Last administered on 02/13/17 09:57 ; Admin Dose 5 MG; Start 02/10/17 at 21:00 Apixaban (Eliquis) 2.5 mg BID PO Last administered on 02/13/17 09:58; Admin Dose 2.5 MG; Start 02/10/17 at 21:00 Aspirin (Halfprin) 81 mg DAILY PO Last administered on 02/13/17 09:58; Admin Dose 81 MG; Start 02/11/17 at 09:00 Calcitriol (Rocaltrol) 0.25 mcg DAILY PO Last administered on 02/13/17 09:57; Admin Dose 0.25 MCG; Start 02/11/17 at 09:00 Febuxostat (Uloric) 40 mg DAILY PO Last administered on 02/13/17 09:57; Admin Dose 40 MG; Start 02/11/17 at 09:00 Famotidine (Pepcid) 20 mg DAILY PO Last administered on 02/13/17 09:57; Admin Dose 20 MG; Start 02/12/17 at 09:00 Ferrous Sulfate (Ferrous Sulfate (Ec)) 325 mg BID PO Last administered on 09:57; Admin Dose 325 MG; Start 02/11/17 at 21:00 ALIREZA BENITEZ MD Feb 13, 2017 14:49
[2017-02-14] VITALS (12 sets, daily range): BP systolic 122–148; BP diastolic 61–72; PULSE 46–52; RESP 18
[2017-02-14 07:32] LABS: ADD SCAN DIFF NO
[2017-02-14 07:33] LABS: BASOPHIL # 0.1 10^3/ul (0.0-0.1); BASOPHILS % 0.9 % (0.0-2.0); EOSINOPHILS # 0.2 10^3/ul (0.0-0.5); EOSINOPHILS % 2.7 % (0.0-7.0); HEMATOCRIT 33.7 % (37.0-47.0); HEMOGLOBIN 11.2 g/dl (12.0-16.0); LYMPHOCYTES # 1.9 10^3/ul (0.8-2.9); LYMPHOCYTES % 25.3 % (15.0-51.0); MEAN CORPUSCULAR HEMOGLOBIN 30.4 pg (29.0-33.0); MEAN CORPUSCULAR HGB CONC 33.2 g/dl (32.0-37.0); MEAN CORPUSCULAR VOLUME 91.6 fl (82.0-101.0); MEAN PLATELET VOLUME 10.9 fl (7.4-10.4); MONOCYTE # 0.8 10^3/ul (0.3-0.9); MONOCYTES % 10.7 % (0.0-11.0); NEUTROPHIL # 4.6 10^3/ul (1.6-7.5); NEUTROPHILS % 60.1 % (39.0-77.0); PLATELET COUNT 212 10^3/UL (140-415); RED BLOOD COUNT 3.68 10^6/ul (4.20-5.40); RED CELL DISTRIBUTION WIDTH 12.8 % (11.5-14.5); WHITE BLOOD COUNT 7.7 10^3/ul (4.8-10.8)
[2017-02-14 07:55] LABS: ALBUMIN 3.7 g/dl (3.3-4.9); POTASSIUM 3.6 mmol/L (3.5-5.1)
[2017-02-14 07:57] LABS: BILIRUBIN,INDIRECT 0.1 mg/dl (0-1.1); BILIRUBIN,TOTAL 0.1 mg/dl (0.2-1.3); CREATININE 5.83 mg/dl (0.44-1.00)
[2017-02-14 07:58] LABS: ALBUMIN/GLOBULIN RATIO 1.27; PHOSPHORUS 6.1 mg/dl (2.5-4.9); TOTAL PROTEIN 6.6 g/dl (6.1-8.1)
[2017-02-14 07:59] LABS: CALCIUM 8.9 mg/dl (8.4-10.2); MAGNESIUM 2.3 mg/dl (1.7-2.5)
[2017-02-14] MEDS: SEVELAMER CARBONATE 0.8 GM PKT PO SCH ×3 (08:49→17:35)
[2017-02-14] MEDS: FERROUS SULFATE (EC) 325 MG TAB PO SCH ×2 (08:49→22:11)
[2017-02-14] MEDS: CALCITRIOL 0.25 MCG CAP PO SCH (08:49)
[2017-02-14] MEDS: APIXABAN 5 MG TABLET PO SCH ×2 (08:50→22:11)
[2017-02-14] MEDS: FAMOTIDINE 20 MG TAB PO SCH (08:50)
[2017-02-14] MEDS: FEBUXOSTAT 40 MG TABLET PO SCH (08:50)
[2017-02-14] MEDS: AMLODIPINE 5 MG TAB PO SCH ×2 (08:50→22:12)
[2017-02-14] MEDS: ASPIRIN (EC) 81 MG TAB PO SCH (08:51)
--- NOTE | 2017-02-14 12:10 | CONS ---
Date/Time of Note Date/Time of Note DATE: 02/14/17 TIME: 12:08 Consult Date/Type/Reason Admit Date/Time Feb 12, 2017 at 16:44 Type of Consultation: neph Ordering Provider: TOSIN DUNAWAY The patient is stable. No acute events overnight. No fevers, chills, nausea or vomiting. No shortness of breath. continus good uo. poc reviewed with dr. chaudhary OBJECTIVE: HEENT: Head is normocephalic. NECK: Supple. HEART: Regular rate. LUNGS: Showed diminished breath sounds at the base, otherwise clear. ABDOMEN: Soft, nontender. No rebound or guarding. EXTREMITIES: Negative for clubbing or cyanosis. No edema. DERMATOLOGIC: No rashes. MUSCULOSKELETAL: Have no joint effusion. NEUROLOGIC: No change in exam. Objective Vital Signs Date Time Temp Pulse Resp B/P Pulse Ox O2 Delivery O2 Flow Rate FiO2 02/14/17 08:10 51 02/14/17 08:04 98.1 18 125/64 100 02/13/17 04:00 Room Air 02/12/17 19:29 2.0 Intake and Output 02/13/17 02/13/17 02/14/17 14:59 22:59 06:59 Intake Total 600 ml 250 ml Balance 600 ml 250 ml Results/Medications Result Diagram: 02/14/17 0630 02/14/17 0630 Results 24 hrs Laboratory Tests Test 02/14/17 06:30 Alanine Aminotransferase (ALT/SGPT) 28 Albumin 3.7 Albumin/Globulin Ratio 1.27 Alkaline Phosphatase 50 Anion Gap 18 H Aspartate Amino Transf (AST/SGOT) 20 Basophils # 0.1 Basophils % 0.9 Blood Urea Nitrogen 77 H Calcium Level 8.9 Carbon Dioxide Level 23 Chloride Level 99 Creatinine 5.83 H Direct Bilirubin 0.00 Eosinophils # 0.2 Eosinophils % 2.7 Globulin 2.90 Glucose Level 85 Hematocrit 33.7 L Hemoglobin 11.2 L Indirect Bilirubin 0.1 Lymphocytes # 1.9 Lymphocytes % 25.3 Magnesium Level 2.3 Mean Corpuscular Hemoglobin 30.4 Mean Corpuscular Hemoglobin Concent 33.2 Mean Corpuscular Volume 91.6 Mean Platelet Volume 10.9 H Monocytes # 0.8 Monocytes % 10.7 Neutrophils # 4.6 Neutrophils % 60.1 Nucleated Red Blood Cells # 0.0 Nucleated Red Blood Cells % 0.0 Phosphorus Level 6.1 H Platelet Count 212 Potassium Level 3.6 Red Blood Count 3.68 L Red Cell Distribution Width 12.8 Sodium Level 136 Total Bilirubin 0.1 L Total Protein 6.6 White Blood Count 7.7 Medications Current Medications Ondansetron HCl (Zofran Inj) 4 mg Q6H PRN IV NAUSEA AND/OR VOMITING; Start at 14:00 Acetaminophen (Tylenol Tab) 650 mg Q6H PRN PO PAIN LEVEL 1-3 OR FEVER Last administered on 02/10/17 20:39; Admin Dose 650 MG; Start 02/10/17 at 14:00 Acetaminophen (Tylenol Supp) 650 mg Q6H PRN [place] PAIN LEVEL 1-3 OR FEVER; Start 02/10/17 at 14:00 Acetaminophen/ Hydrocodone Bitart ([place] (5/325)) 1 tab Q6H PRN PO MODERATE PAIN LEVEL 4-6; Start 02/10/17 at 14:00 Acetaminophen/ Hydrocodone Bitart ([place] (5/325)) 2 tab Q6H PRN PO SEVERE PAIN LEVEL 7-10; Start 02/10/17 at 14:00 Morphine Sulfate (morphine) 2 mg Q4H PRN IV SEVERE PAIN LEVEL 7-10; Start 02/10 at 14:00 Docusate Sodium (Colace) 100 mg Q12H PRN PO CONSTIPATION; Start 02/10/17 at 14: 00 Magnesium Hydroxide (Milk Of Mag) 30 ml DAILY PRN PO CONSTIPATION; Start at 14:00 Bisacodyl (Dulcolax Supp) 10 mg DAILY PRN [place] CONSTIPATION; Start 02/10/17 at 14 :00 Hydralazine HCl (Apresoline) 10 mg Q4H PRN IV sbp>160 Last administered on 02/11 05:02; Admin Dose 10 MG; Start 02/10/17 at 16:30 Clonidine (Catapres) 0.1 mg Q4H PRN PO sbp>160; Start 02/10/17 at 18:00 Amlodipine Besylate (Norvasc) 5 mg BID PO Last administered on 02/14/17 08:50 ; Admin Dose 5 MG; Start 02/10/17 at 21:00 Apixaban (Eliquis) 2.5 mg BID PO Last administered on 02/14/17 08:50; Admin Dose 2.5 MG; Start 02/10/17 at 21:00 Aspirin (Halfprin) 81 mg DAILY PO Last administered on 02/13/17 09:58; Admin Dose 81 MG; Start 02/11/17 at 09:00 Calcitriol (Rocaltrol) 0.25 mcg DAILY PO Last administered on 02/14/17 08:49; Admin Dose 0.25 MCG; Start 02/11/17 at 09:00 Febuxostat (Uloric) 40 mg DAILY PO Last administered on 02/14/17 08:50; Admin Dose 40 MG; Start 02/11/17 at 09:00 Famotidine (Pepcid) 20 mg DAILY PO Last administered on 02/14/17 08:50; Admin Dose 20 MG; Start 02/12/17 at 09:00 Ferrous Sulfate (Ferrous Sulfate (Ec)) 325 mg BID PO Last administered on 08:49; Admin Dose 325 MG; Start 02/11/17 at 21:00 Assessment/Plan Chief Complaint/Hosp Course ASSESSMENT AND PLAN: 1. Nonoliguric acute kidney injury on top of chronic kidney disease stage IV, with a previous EGFR of about 20 mL per minute. Etiology of current acute kidney injury is secondary to hemodynamics, likely due to MARIBETH inhibitor effect and diuretic therapy. The patient has no overt signs of uremia, and is not in any immediate need for renal replacement therapy at this time. sp discontinue Lasix and holding of benazepril. Would otherwise continue supportive care, renally dose all meds. Will follow up a renal panel in the a.m. and will monitor closely. The patient is being seen by primary manager applied and will follow up with the primary manager applied at the time of discharge. 2. Mild hyperkalemia. Etiology is likely secondary to MARIBETH inhibitor effect and acute kidney injury. Potassium levels have normalized. Continue to monitor. 3. Mineral bone disorder. Continue to monitor calcium and phosphorus levels. Continue phos binders and vitamin D analogs. 4. Anemia. Continue to monitor hemoglobin and hematocrit levels. Continue Epogen. 5. Bradycardia. Etiology may be secondary to underlying medications. Continue to hold AV grace blocking agents. Follow up with cardiology. 6. Hypertension. Blood pressure is controlled. Continue the current medical management. 7. History of deep venous thrombosis. Continue Eliquis. 8. Gastrointestinal and deep venous thrombosis prophylaxis. Continue proton pump inhibitor and Eliquis. Problems: ANA LAWS MD Feb 14, 2017 12:10
[2017-02-14 14:14] LABS: ADD UMIC YES; URINE BILIRUBIN (Dip) NEGATIVE (NEGATIVE); URINE BLOOD (Dip) 1+ (NEGATIVE); URINE COLOR LT. YELLOW (YELLOW); URINE GLUCOSE (Dip) NEGATIVE (NEGATIVE); URINE KETONES (Dip) NEGATIVE (NEGATIVE); URINE LEUKOCYTE ESTERASE (Dip) NEGATIVE (NEGATIVE); URINE NITRITE (Dip) NEGATIVE (NEGATIVE); URINE TOTAL PROTEIN (Dip) 2+ (NEGATIVE); URINE UROBILINOGEN (Dip) 0.2 E.U./dL (0.1-1.0)
[2017-02-14 14:33] LABS: URINE RBCS 0-2 /HPF (0)
[2017-02-14 14:34] LABS: BACTERIA,URINE RARE
--- NOTE | 2017-02-14 15:52 | PN ---
Date/Time of Note Date/Time of Note DATE: 02/14/17 TIME: 15:48 Assessment/Plan VTE Prophylaxis VTE Prophylaxis Intervention: ambulation Lines/Catheters IV [facility]ter Type [facility]from [facility]): Saline Lock Urinary Cath still in place: No Assessment/Plan Chief Complaint/Hosp Course 1. Dizziness, suspect secondary to bradycardia. Improved at this time. Continue with cardiology recommendations. monitor in telemetry. 2. Acute kidney injury. avoid nephrotoxic medications. awaiting for clinical improvement. follow up with nephrology recs 3. Essential hypertension. We will continue on antihypertensives and adjust as needed. 4. Anemia. Noted with iron deficiency. Continue on iron supplement 5. Hyperkalemia. Will monitor and provide with Kayexalate as needed. stable 6. Deep venous thrombosis prophylaxis: Eliquis. 7. Gastroesophageal reflux disease prophylaxis: H2 edward. Disposition and plan: check follow up renal panel. still with worsening renal function. Follow up with nephrology recs. cont inpatient monitoring for now Discussed plan of care with Dr. Lopez Problems: Subjective 24 Hr Interval Summary Free Text/Dictation no s/s of distress Exam/Review of Systems Vital Signs Vitals Vital Signs Date Time Temp Pulse Resp B/P Pulse Ox O2 Delivery O2 Flow Rate FiO2 02/14/17 12:08 49 02/14/17 12:06 97.5 18 126/61 100 02/13/17 04:00 Room Air 02/12/17 19:29 2.0 Intake and Output 02/13/17 02/13/17 02/14/17 15:00 23:00 07:00 Intake Total 600 ml 250 ml Balance 600 ml 250 ml Exam Constitutional: alert, oriented Psych: nl mood/affect, no complaints Head: atraumatic, normocephalic Eyes: nl conjunctiva Neck: non-tender, supple, No jvd Respiratory: clear to auscultation, normal air movement Cardiovascular: regular rate and rhythm Gastrointestinal: non-tender, soft Extremities: normal pulses Neurological: MEDICAL BILLING REPRESENTATIVE II-XII intact, nl mental status, nl speech, nl strength Skin: nl turgor, No rash or lesions Results Result Diagram: 02/14/17 0630 02/14/17 0630 Results 24 hrs Laboratory Tests Test 02/14/17 06:30 02/14/17 13:45 Alanine Aminotransferase (ALT/SGPT) 28 Albumin 3.7 Albumin/Globulin Ratio 1.27 Alkaline Phosphatase 50 Anion Gap 18 H Aspartate Amino Transf (AST/SGOT) 20 Basophils # 0.1 Basophils % 0.9 Blood Urea Nitrogen 77 H Calcium Level 8.9 Carbon Dioxide Level 23 Chloride Level 99 Creatinine 5.83 H Direct Bilirubin 0.00 Eosinophils # 0.2 Eosinophils % 2.7 Globulin 2.90 Glucose Level 85 Hematocrit 33.7 L Hemoglobin 11.2 L Indirect Bilirubin 0.1 Lymphocytes # 1.9 Lymphocytes % 25.3 Magnesium Level 2.3 Mean Corpuscular Hemoglobin 30.4 Mean Corpuscular Hemoglobin Concent 33.2 Mean Corpuscular Volume 91.6 Mean Platelet Volume 10.9 H Monocytes # 0.8 Monocytes % 10.7 Neutrophils # 4.6 Neutrophils % 60.1 Nucleated Red Blood Cells # 0.0 Nucleated Red Blood Cells % 0.0 Phosphorus Level 6.1 H Platelet Count 212 Potassium Level 3.6 Red Blood Count 3.68 L Red Cell Distribution Width 12.8 Sodium Level 136 Total Bilirubin 0.1 L Total Protein 6.6 White Blood Count 7.7 Urine Bacteria RARE Urine Bilirubin NEGATIVE Urine Clarity CLEAR Urine Color LT. YELLOW Urine Epithelial Cells RARE Urine Glucose NEGATIVE Urine Hemoglobin 1+ H Urine Ketones NEGATIVE Urine Leukocyte Esterase NEGATIVE Urine Microscopic RBC 0-2 Urine Microscopic WBC 0-2 Urine Nitrite NEGATIVE Urine Random Creatinine 61.63 Urine Random Sodium 30 Urine Specific [place] 1.010 Urine Total Protein 109.0 H Urine Urobilinogen 0.2 E.U./dL Urine pH 6.0 Medications Medications Current Medications Ondansetron HCl (Zofran Inj) 4 mg Q6H PRN IV NAUSEA AND/OR VOMITING; Start at 14:00 Acetaminophen (Tylenol Tab) 650 mg Q6H PRN PO PAIN LEVEL 1-3 OR FEVER Last administered on 02/10/17t 20:39; Admin Dose 650 MG; Start 02/10/17 at 14:00 Acetaminophen (Tylenol Supp) 650 mg Q6H PRN [place] PAIN LEVEL 1-3 OR FEVER; Start 02/10/17 at 14:00 Acetaminophen/ Hydrocodone Bitart ([place] (5/325)) 1 tab Q6H PRN PO MODERATE PAIN LEVEL 4-6; Start 02/10/17 at 14:00 Acetaminophen/ Hydrocodone Bitart ([place] (5/325)) 2 tab Q6H PRN PO SEVERE PAIN LEVEL 7-10; Start 02/10/17 at 14:00 Morphine Sulfate (morphine) 2 mg Q4H PRN IV SEVERE PAIN LEVEL 7-10; Start 02/10 at 14:00 Docusate Sodium (Colace) 100 mg Q12H PRN PO CONSTIPATION; Start 02/10/17 at 14: 00 Magnesium Hydroxide (Milk Of Mag) 30 ml DAILY PRN PO CONSTIPATION; Start at 14:00 Bisacodyl (Dulcolax Supp) 10 mg DAILY PRN [place] CONSTIPATION; Start 02/10/17 at 14 :00 Hydralazine HCl (Apresoline) 10 mg Q4H PRN IV sbp>160 Last administered on 02/11 05:02; Admin Dose 10 MG; Start 02/10/17 at 16:30 Clonidine (Catapres) 0.1 mg Q4H PRN PO sbp>160; Start 02/10/17 at 18:00 Amlodipine Besylate (Norvasc) 5 mg BID PO Last administered on 02/14/17 08:50 ; Admin Dose 5 MG; Start 02/10/17 at 21:00 Apixaban (Eliquis) 2.5 mg BID PO Last administered on 02/14/17 08:50; Admin Dose 2.5 MG; Start 02/10/17 at 21:00 Aspirin (Halfprin) 81 mg DAILY PO Last administered on 02/13/17 09:58; Admin Dose 81 MG; Start 02/11/17 at 09:00 Calcitriol (Rocaltrol) 0.25 mcg DAILY PO Last administered on 02/14/17 08:49; Admin Dose 0.25 MCG; Start 02/11/17 at 09:00 Febuxostat (Uloric) 40 mg DAILY PO Last administered on 02/14/17 08:50; Admin Dose 40 MG; Start 02/11/17 at 09:00 Famotidine (Pepcid) 20 mg DAILY PO Last administered on 02/14/17 08:50; Admin Dose 20 MG; Start 02/12/17 at 09:00 Ferrous Sulfate (Ferrous Sulfate (Ec)) 325 mg BID PO Last administered on 08:49; Admin Dose 325 MG; Start 02/11/17 at 21:00 DI STEPHENSON 19, 2017 15:52
[2017-02-15] VITALS (14 sets, daily range): BP systolic 120–152; BP diastolic 56–73; PULSE 34–54; RESP 14–20
[2017-02-15 06:50] LABS: ADD SCAN DIFF NO
[2017-02-15 06:58] LABS: BASOPHIL # 0.1 10^3/ul (0.0-0.1); BASOPHILS % 0.7 % (0.0-2.0); EOSINOPHILS # 0.2 10^3/ul (0.0-0.5); HEMATOCRIT 34.8 % (37.0-47.0); HEMOGLOBIN 11.5 g/dl (12.0-16.0); LYMPHOCYTES # 2.4 10^3/ul (0.8-2.9); LYMPHOCYTES % 26.2 % (15.0-51.0); MEAN CORPUSCULAR HEMOGLOBIN 30.5 pg (29.0-33.0); MEAN CORPUSCULAR VOLUME 92.3 fl (82.0-101.0); MEAN PLATELET VOLUME 11.3 fl (7.4-10.4); MONOCYTE # 0.7 10^3/ul (0.3-0.9); MONOCYTES % 7.9 % (0.0-11.0); NEUTROPHIL # 5.7 10^3/ul (1.6-7.5); PLATELET COUNT 201 10^3/UL (140-415); RED BLOOD COUNT 3.77 10^6/ul (4.20-5.40); RED CELL DISTRIBUTION WIDTH 13.1 % (11.5-14.5); WHITE BLOOD COUNT 9.1 10^3/ul (4.8-10.8)
[2017-02-15 07:04] LABS: ALBUMIN 3.9 g/dl (3.3-4.9)
[2017-02-15 07:05] LABS: POTASSIUM 4.4 mmol/L (3.5-5.1)
[2017-02-15 07:07] LABS: BILIRUBIN,INDIRECT 0.2 mg/dl (0-1.1); BILIRUBIN,TOTAL 0.2 mg/dl (0.2-1.3); CREATININE 5.87 mg/dl (0.44-1.00)
[2017-02-15 07:08] LABS: ALBUMIN/GLOBULIN RATIO 1.18; PHOSPHORUS 5.5 mg/dl (2.5-4.9); TOTAL PROTEIN 7.2 g/dl (6.1-8.1)
[2017-02-15 07:09] LABS: MAGNESIUM 2.4 mg/dl (1.7-2.5)
[2017-02-15] MEDS: SEVELAMER CARBONATE 0.8 GM PKT PO SCH ×3 (08:44→18:37)
[2017-02-15] MEDS: AMLODIPINE 5 MG TAB PO SCH ×2 (08:44→21:23)
[2017-02-15] MEDS: FERROUS SULFATE (EC) 325 MG TAB PO SCH ×2 (08:44→21:20)
[2017-02-15] MEDS: FAMOTIDINE 20 MG TAB PO SCH (08:44)
[2017-02-15] MEDS: ASPIRIN (EC) 81 MG TAB PO SCH (08:44)
[2017-02-15] MEDS: CALCITRIOL 0.25 MCG CAP PO SCH (08:44)
[2017-02-15] MEDS: APIXABAN 5 MG TABLET PO SCH (08:45)
[2017-02-15] MEDS: FEBUXOSTAT 40 MG TABLET PO SCH (10:58)
--- NOTE | 2017-02-15 12:33 | PN ---
DATE: 02/15/2017 SUBJECTIVE: The patient is stable. Denies any fevers, chills, nausea, vomiting, no metallic taste in mouth, no lethargy or weakness. OBJECTIVE: VITAL SIGNS: Blood pressure 142/62, respirations 14, pulse 50, temperature 97.8. HEENT: Head is normocephalic. NECK: Supple. HEART: Regular rate. LUNGS: Show diminished breath sounds at base. ABDOMEN: Soft, nontender to palpation without rebound or guarding. EXTREMITIES: Negative for clubbing, cyanosis, no edema. DERMATOLOGIC: No rashes. MUSCULOSKELETAL: No joint effusions. NEUROLOGIC: No change in exam. MEDICATIONS: The patient's medications have been reviewed. LABORATORY DATA: Shows sodium 138, potassium 4.4, chloride 102, BUN 79, creatinine 5.87. White cou nt 9.1, hemoglobin 11.5, hematocrit 34.8, platelet count is 201. ASSESSMENT AND PLAN: 1. Nonoliguric acute kidney injury on top of chronic kidney disease stage IV/V with a previous EGFR about 20 mL per minute per patient. The patient's etiology of current acute kidney injury is secon pennie to hemodynamics, MARIBETH inhibitor effect, diuretic therapy, questionable tubular injury. The jennyfer ent's renal function appears to be stabilized and creatinine of 5.8 mg/dL, which gives an milagros mated EGFR about 8 to 10 mL per minute. The patient has no overt signs of uremia. I discussed with the patient in detail about the risks and benefits of dialysis. The patient at this point would li ke to go home and will follow up with her primary hearing aid repair technician in [place] in 2 to 3 days' time. Th e patient does not wish to start dialysis at this time. The patient has no overt uremic symptoms as stated above, and is currently clinically stable. Would otherwise continue current treatment plan, supportive care, renally dose all meds. 2. Mild hyperkalemia. Etiology secondary to MARIBETH inhibitor effect, resolved. Will continue to kal tor. Will continue to hold MARIBETH inhibitor. 4. Mineral bone disorder. Continue to monitor calcium and phosphorus levels. Continue phosphate b inders, vitamin D analogs. 5. Anemia. Continue to monitor hemoglobin and hematocrit levels. Continue Epogen. 6. Bradycardia. The patient is currently stable. Continue to monitor. Follow up with Pulmonary. 7. Hypertension. Continue current blood pressure regimen. 8. Deep venous thrombosis. Continue Eliquis. 9. Gastrointestinal and deep venous thrombosis prophylaxis. Continue proton pump inhibitor and Tosha sendy. Dictated By: HEBERT ALCALA/SARA Conf#: [id number] DID#: [id number]
--- NOTE | 2017-02-15 14:44 | PN ---
DATE: 02/15/2017 HOSPITALIST PROGRESS NOTE TIME OF EVALUATION: 1300 SUBJECTIVE DATA: Denies any complaints. However, there were reported pulses in air valve mechanic. OBJECTIVE DATA: VITAL SIGNS: Temperature 97.6, pulse rate 50, respiratory rate 14, blood pressure 137/62, oxygen saturation 100% on room air. GENERAL: This is a well-built, well-nourished female patient lying in bed in no apparent distress. HEENT: Head normocephalic and atraumatic. Eyes: Anicteric sclerae. Conjunctivae clear. ENT: Nasal septum is midline. Oral mucosa is moist. NECK: Supple. No JVD noticed. RESPIRATORY: Bilaterally clear to auscultation. No adventitious breath sounds heard. No use of accessory muscles of respiration. CARDIAC: Regular rate and rhythm with a grade II/ systolic ejection murmur heard at the left sternal border. ABDOMEN: Soft, nontender and nondistended. Bowel sounds positive in all 4 quadrants. GENITOURINARY: Deferred. EXTREMITIES: No cyanosis, no clubbing, no edema. Peripheral pulses palpable. NEUROLOGIC: The patient is awake, alert and oriented. Cranial nerves are grossly intact. LABORATORY AND DIAGNOSTIC DATA: WBC 9.1, hemoglobin 11.5, hematocrit 34.8, platelet count 201. Sodium 130, potassium 4.4, chloride 102, carbon dioxide 28 , anion gap 18, BUN 79, creatinine 5.87, glucose 86, calcium 9.0, phosphorus 5.5 , magnesium 2.4. ASSESSMENT AND PLAN: 1. Symptomatic bradycardia. Cardiology following. Avoid any AV grace blocking agents. 2. Acute on chronic kidney injury. Nonoliguric. The patient has history of chronic kidney disease stage IV. Continue to monitor renal function closely. Avoid nephrotoxic medications. 3. Essential hypertension. Continue antihypertensives. Blood pressure well controlled. 4. Normocytic normochromic anemia, most probably anemia of chronic kidney disease. Monitor. 5. Fluid, electrolytes and nutrition. Low cholesterol diet. 6. Deep venous thrombosis prophylaxis. On factor Xa inhibitors. 7. Gastrointestinal prophylaxis. Histamine 2 receptor blockers. Plan. Continue telemetry monitoring. Await clearance from consultants before discharge. The case was discussed with Dr. Houston. CHERELLE HOUSTON MD, AM/SARA Conf#: [id number] [facility]#: [id number] MTDD
--- NOTE | 2017-02-15 17:38 | CONS ---
Date/Time of Note Date/Time of Note DATE: 02/15/17 TIME: 17:34 Assessment/Plan Assessment/Plan Chief Complaint/Hosp Course IMPRESSION: 1. Bradycardia. Continue to assess for more significant bradycardia and symptoms.-overall improved with holding atenolol/amio but today having pauses up to 4 seconds 2. Abnormal electrocardiogram, assess for acute coronary syndrome.-trop negative x 3/NL EF by echo 3. Cardiac arrhythmia, question of possible paroxysmal atrial fibrillation. 4. Dizziness. 5. Weakness, question secondary to bradycardia. 6. Hypertension, uncontrolled. 7. Diabetes mellitus. 8. Hyperkalemia 9. Renal failure.-ongoing 10.MR-moderate to severe by echo this admit Recc: -Tele -Eval for PPM by DR Llamas in AM and will eliquis in anticipation -serial ecg's -Continue to hold grace agents with atenolol and amio -Continue asa -Continue norvasc -Follow K closely on benazepril Problems: Consultation Date/Type/Reason Admit Date/Time Feb 12, 2017 at 16:44 Initial Consult Date 02/10/2017 Type of Consultation: Cardiology Reason for Consultation bradycardia Referring Provider: TOSIN DUNAWAY Exam/Review of Systems Vital Signs Vitals Vital Signs Date Time Temp Pulse Resp B/P Pulse Ox O2 Delivery O2 Flow Rate FiO2 02/15/17 16:44 50 02/15/17 15:47 97.7 16 120/56 100 02/13/17 04:00 Room Air 02/12/17 19:29 2.0 Intake and Output 02/14/17 02/14/17 02/15/17 15:00 23:00 07:00 Intake Total 720 ml 250 ml Balance 720 ml 250 ml Exam Review of Systems: CONSTITUTIONAL: No fevers, chills. PULMONARY: No sob CARDIOVASCULAR: No chest pain/palpitations GASTROINTESTINAL: No nausea/vomiting. GENITOURINARY: No hematuria/dysuria. MUSCULOSKELETAL: No myagias/arthalgias. PSYCHIATRIC: The patient denies depression. NEUROLOGIC: No weakness Constitutional: alert, oriented Psych: no complaints Head: normocephalic ENMT: mucosa pink and moist Neck: jvd (8-9 cm water), supple Respiratory: clear to auscultation Cardiovascular: regular rate and rhythm Gastrointestinal: non-tender, soft Musculoskeletal: muscle tone (normal) Extremities: edema (none) Neurological: other (No focal deficits) Results Result Diagram: 02/15/17 0635 02/15/17 0630 Results 24 hrs Laboratory Tests Test 02/15/17 06:30 02/15/17 06:35 Alanine Aminotransferase (ALT/SGPT) 19 Albumin 3.9 Albumin/Globulin Ratio 1.18 Alkaline Phosphatase 46 Anion Gap 18 H Aspartate Amino Transf (AST/SGOT) 21 Blood Urea Nitrogen 79 H Calcium Level 9.0 Carbon Dioxide Level 22 Chloride Level 102 Creatinine 5.87 H Direct Bilirubin 0.00 Globulin 3.30 H Glucose Level 86 Indirect Bilirubin 0.2 Magnesium Level 2.4 Phosphorus Level 5.5 H Potassium Level 4.4 Sodium Level 138 Total Bilirubin 0.2 Total Protein 7.2 Basophils # 0.1 Basophils % 0.7 Eosinophils # 0.2 Eosinophils % 2.0 Hematocrit 34.8 L Hemoglobin 11.5 L Lymphocytes # 2.4 Lymphocytes % 26.2 Mean Corpuscular Hemoglobin 30.5 Mean Corpuscular Hemoglobin Concent 33.0 Mean Corpuscular Volume 92.3 Mean Platelet Volume 11.3 H Monocytes # 0.7 Monocytes % 7.9 Neutrophils # 5.7 Neutrophils % 63.0 Nucleated Red Blood Cells # 0.0 Nucleated Red Blood Cells % 0.0 Platelet Count 201 Red Blood Count 3.77 L Red Cell Distribution Width 13.1 White Blood Count 9.1 Medications Medications Current Medications Ondansetron HCl (Zofran Inj) 4 mg Q6H PRN IV NAUSEA AND/OR VOMITING; Start at 14:00 Acetaminophen (Tylenol Tab) 650 mg Q6H PRN PO PAIN LEVEL 1-3 OR FEVER Last administered on 02/10/17t 20:39; Admin Dose 650 MG; Start 02/10/17 at 14:00 Acetaminophen (Tylenol Supp) 650 mg Q6H PRN [place] PAIN LEVEL 1-3 OR FEVER; Start 02/10/17 at 14:00 Acetaminophen/ Hydrocodone Bitart ([place] (5/325)) 1 tab Q6H PRN PO MODERATE PAIN LEVEL 4-6; Start 02/10/17 at 14:00 Acetaminophen/ Hydrocodone Bitart ([place] (5/325)) 2 tab Q6H PRN PO SEVERE PAIN LEVEL 7-10; Start 02/10/17 at 14:00 Morphine Sulfate (morphine) 2 mg Q4H PRN IV SEVERE PAIN LEVEL 7-10; Start 02/10 at 14:00 Docusate Sodium (Colace) 100 mg Q12H PRN PO CONSTIPATION; Start 02/10/17 at 14: 00 Magnesium Hydroxide (Milk Of Mag) 30 ml DAILY PRN PO CONSTIPATION; Start at 14:00 Bisacodyl (Dulcolax Supp) 10 mg DAILY PRN [place] CONSTIPATION; Start 02/10/17 at 14 :00 Hydralazine HCl (Apresoline) 10 mg Q4H PRN IV sbp>160 Last administered on 02/11 05:02; Admin Dose 10 MG; Start 02/10/17 at 16:30 Clonidine (Catapres) 0.1 mg Q4H PRN PO sbp>160; Start 02/10/17 at 18:00 Amlodipine Besylate (Norvasc) 5 mg BID PO Last administered on 02/15/17 08:44 ; Admin Dose 5 MG; Start 02/10/17 at 21:00 Apixaban (Eliquis) 2.5 mg BID PO Last administered on 02/15/17 08:45; Admin Dose 2.5 MG; Start 02/10/17 at 21:00 Aspirin (Halfprin) 81 mg DAILY PO Last administered on 02/15/17 08:44; Admin Dose 81 MG; Start 02/11/17 at 09:00 Calcitriol (Rocaltrol) 0.25 mcg DAILY PO Last administered on 02/15/17 08:44; Admin Dose 0.25 MCG; Start 02/11/17 at 09:00 Febuxostat (Uloric) 40 mg DAILY PO Last administered on 02/15/17 10:58; Admin Dose 40 MG; Start 02/11/17 at 09:00 Famotidine (Pepcid) 20 mg DAILY PO Last administered on 02/15/17 08:44; Admin Dose 20 MG; Start 02/12/17 at 09:00 Ferrous Sulfate (Ferrous Sulfate (Ec)) 325 mg BID PO Last administered on 08:44; Admin Dose 325 MG; Start 02/11/17 at 21:00 EJ MIR 20, 2017 17:37
[2017-02-15] MEDS: ACETAMINOPHEN 325 MG TAB PO PRN (18:45)
[2017-02-15] MEDS: NACL 0.9% 3 ML SYG IV SCH (21:24)
[2017-02-16] VITALS (11 sets, daily range): BP systolic 127–146; BP diastolic 63–69; PULSE 49–54; RESP 17–20
[2017-02-16 08:14] LABS: POTASSIUM 3.9 mmol/L (3.5-5.1)
[2017-02-16 08:16] LABS: CREATININE 5.68 mg/dl (0.44-1.00)
[2017-02-16 08:17] LABS: CALCIUM 8.8 mg/dl (8.4-10.2); PHOSPHORUS 4.8 mg/dl (2.5-4.9)
[2017-02-16 08:18] LABS: MAGNESIUM 2.4 mg/dl (1.7-2.5)
[2017-02-16] MEDS: ASPIRIN (EC) 81 MG TAB PO SCH ×2 (09:00→09:07)
[2017-02-16] MEDS: FEBUXOSTAT 40 MG TABLET PO SCH (09:07)
[2017-02-16] MEDS: CALCITRIOL 0.25 MCG CAP PO SCH (09:07)
[2017-02-16] MEDS: FERROUS SULFATE (EC) 325 MG TAB PO SCH ×2 (09:08→21:01)
[2017-02-16] MEDS: AMLODIPINE 5 MG TAB PO SCH ×2 (09:08→21:01)
[2017-02-16] MEDS: SEVELAMER CARBONATE 0.8 GM PKT PO SCH ×3 (09:08→17:33)
[2017-02-16] MEDS: FAMOTIDINE 20 MG TAB PO SCH (09:08)
--- NOTE | 2017-02-16 09:14 | CONS ---
Date/Time of Note Date/Time of Note DATE: 02/16/17 TIME: 09:10 Assessment/Plan Assessment/Plan Additional Assessment/Plan 1. Bradycardia - tele reviewed - pt with 2.8 sec pause and 3.8 sec pause - in sinus - advise pacer - risk/benefits/alternatives, including risk of , cva , bleeding, infection, pneumothorax, need for urgent surgery discussed with patient - agrees to proceed - SCHEDULED FOR WEDNESDAY at 11:30 2. Abnormal electrocardiogram, assess for acute coronary syndrome.-trop negative x 3/NL EF by echo - PACER ADVISED NOW 3. Cardiac arrhythmia, question of possible paroxysmal atrial fibrillation- sinus now - will consider BB after pacer 4. Dizziness- much better 5. Weakness, question secondary to bradycardia. 6. Hypertension, uncontrolled- Rx with hydration as needed 7. Diabetes mellitus- on meds, keep euglycemic. 8. Hyperkalemia 9. Renal failure.-ongoing- avoid nephrotoxic meds 10.MR-moderate to severe by echo this admit Consultation Date/Type/Reason Admit Date/Time Feb 12, 2017 at 16:44 Type of Consultation: Cardiology Referring Provider: TOSIN DUNAWAY 24 HR Interval Summary Free Text/Dictation pt with 2.8 sec pause and 3.8 sec pause - in sinus - advise pacer - risk/ benefits/alternatives, including risk of , cva, bleeding, infection, pneumothorax, need for urgent surgery discussed with patient - agrees to proceed - SCHEDULED FOR WEDNESDAY at 11:30 ROS: No fever, no chills, no nausea, no vomiting, no diarrhea/constipation No recent weight changes No chest pain, no PND, no orthopnea No dizziness, blurred vision No thirst, no heat or cold intolerance Exam/Review of Systems Vital Signs Vitals Vital Signs Date Time Temp Pulse Resp B/P Pulse Ox O2 Delivery O2 Flow Rate FiO2 02/16/17 07:21 98.2 50 20 146/68 98 02/13/17 04:00 Room Air 02/12/17 19:29 2.0 Intake and Output 02/15/17 02/15/17 02/16/17 15:00 23:00 07:00 Intake Total 800 ml 700 ml Balance 800 ml 700 ml Exam General: WN/WD/NAD, AOx 3 HEENT: Unicetric/atraumatic/EOMI (follow commands) NECK: JVD elevated, no thyromegaly Lymph: no lymphadenopathy HEART: regular with no S3, II/ systolic murmur at apex LUNGS: Coarse sounds ABD: soft, NT, ND, +BS : Intact Neuro: non focal SKIN: chronic changes EXT: trace edema Results Result Diagram: 02/15/17 0635 02/16/17 0648 Results 24 hrs Laboratory Tests Test 02/16/17 06:48 Anion Gap 19 H Blood Urea Nitrogen 75 H Calcium Level 8.8 Carbon Dioxide Level 21 Chloride Level 103 Creatinine 5.68 H Glucose Level 83 Magnesium Level 2.4 Phosphorus Level 4.8 Potassium Level 3.9 Sodium Level 139 Medications Medications Current Medications Ondansetron HCl (Zofran Inj) 4 mg Q6H PRN IV NAUSEA AND/OR VOMITING; Start at 14:00 Acetaminophen (Tylenol Tab) 650 mg Q6H PRN PO PAIN LEVEL 1-3 OR FEVER Last administered on 02/15/17 18:45; Admin Dose 650 MG; Start 02/10/17 at 14:00 Acetaminophen (Tylenol Supp) 650 mg Q6H PRN [place] PAIN LEVEL 1-3 OR FEVER; Start 02/10/17 at 14:00 Acetaminophen/ Hydrocodone Bitart ([place] (5/325)) 1 tab Q6H PRN PO MODERATE PAIN LEVEL 4-6; Start 02/10/17 at 14:00 Acetaminophen/ Hydrocodone Bitart ([place] (5/325)) 2 tab Q6H PRN PO SEVERE PAIN LEVEL 7-10; Start 02/10/17 at 14:00 Morphine Sulfate (morphine) 2 mg Q4H PRN IV SEVERE PAIN LEVEL 7-10; Start 02/10 at 14:00 Docusate Sodium (Colace) 100 mg Q12H PRN PO CONSTIPATION; Start 02/10/17 at 14: 00 Magnesium Hydroxide (Milk Of Mag) 30 ml DAILY PRN PO CONSTIPATION; Start at 14:00 Bisacodyl (Dulcolax Supp) 10 mg DAILY PRN [place] CONSTIPATION; Start 02/10/17 at 14 :00 Hydralazine HCl (Apresoline) 10 mg Q4H PRN IV sbp>160 Last administered on 02/11 05:02; Admin Dose 10 MG; Start 02/10/17 at 16:30 Clonidine (Catapres) 0.1 mg Q4H PRN PO sbp>160; Start 02/10/17 at 18:00 Amlodipine Besylate (Norvasc) 5 mg BID PO Last administered on 02/16/17 09:08 ; Admin Dose 5 MG; Start 02/10/17 at 21:00 Apixaban (Eliquis) 2.5 mg BID PO Last administered on 02/15/17 08:45; Admin Dose 2.5 MG; Start 02/10/17 at 21:00; Status Future Hold Aspirin (Halfprin) 81 mg DAILY PO Last administered on 02/16/17 09:07; Admin Dose 81 MG; Start 02/11/17 at 09:00 Calcitriol (Rocaltrol) 0.25 mcg DAILY PO Last administered on 02/16/17 09:07; Admin Dose 0.25 MCG; Start 02/11/17 at 09:00 Febuxostat (Uloric) 40 mg DAILY PO Last administered on 02/16/17 09:07; Admin Dose 40 MG; Start 02/11/17 at 09:00 Famotidine (Pepcid) 20 mg DAILY PO Last administered on 02/16/17 09:08; Admin Dose 20 MG; Start 02/12/17 at 09:00 Ferrous Sulfate (Ferrous Sulfate (Ec)) 325 mg BID PO Last administered on 09:08; Admin Dose 325 MG; Start 02/11/17 at 21:00 ALIREZA BENITEZ MD Feb 16, 2017 09:14
--- NOTE | 2017-02-16 10:09 | PN ---
DATE: 02/16/2017 SUBJECTIVE: The patient is stable, no acute events overnight. No fevers, chills, nausea, vomiting. No shortness of breath. OBJECTIVE: VITAL SIGNS: Blood pressure 146/68, respirations 20, pulse 50, temperature 98.2. HEENT: Head is normocephalic. NECK: Supple. HEART: Regular rate. LUNGS: Show diminished breath sounds at the bases. ABDOMEN: Soft, nontender to palpation. No rebound or guarding. EXTREMITIES: Negative for clubbing, cyanosis. No edema. DERMATOLOGIC: No rashes. MUSCULOSKELETAL: No joint effusions. NEUROLOGIC: No change in exam. MEDICATIONS: The patient's medications have been reviewed. LABORATORY DATA: Shows sodium 139, potassium 3.9, chloride 103, BUN 75, creatinine 5.68. CBC has b een reviewed. No new labs. ASSESSMENT AND PLAN: 1. Nonoliguric acute kidney injury on top of chronic kidney disease stage IV/V with a previous EGFR around 20 mL/minute per patient. Etiology of current acute kidney injury is secondary to hemodynam ics, MARIBETH inhibitor effect, possible tubular injury. The patient's renal function appears to have st abilized. Creatinine is slightly improved to 5.6 mg/dL, which gives and estimated GFR around 8 to 1 0 mL/minute. The patient has no overt signs of uremia. At this point, there is no immediate need f or renal replacement therapy. However, if patient should develop uremic symptoms and significant el ectrolyte abnormalities, would consider starting dialysis. The patient does have a primary nephrolo gist in [place]. At this point, continue current treatment plan, supportive care, renally dose all meds, avoid nephrotoxins. 2. Mild hyperkalemia, resolved. Continue to monitor. Continue to hold MARIBETH inhibitor. 3. Mineral bone disorder. Continue to monitor calcium and phosphorus levels. Continue phosphate b inders, vitamin D analogs. 4. Anemia. Continue to monitor hemoglobin and hematocrit levels. Give Epogen as needed. 5. Bradycardia. The patient is pending pacemaker placement. Follow up with Cardiology. 6. Hypertension. Continue current blood pressure regimen. 7. History of deep venous thrombosis. The patient is on Eliquis, currently on hold. 8. Gastrointestinal and deep venous thrombosis prophylaxis. Continue proton pump inhibitor and seq uential leg squeezers. Dictated By: HEBERT GILES DO NR/SARA Conf#: [id number] DID#: [id number]
--- NOTE | 2017-02-16 14:53 | PN ---
Date/Time of Note Date/Time of Note DATE: 02/16/17 TIME: 14:53 Assessment/Plan VTE Prophylaxis VTE Prophylaxis Intervention: other (Factor Xa inhibitors) Lines/Catheters IV [facility] (from [facility] Saline Lock Urinary Cath still in place: No Assessment/Plan Chief Complaint/Hosp Course 1. Symptomatic bradycardia. Cardiology following. Avoid any AV grace blocking agents. 2. Acute on chronic kidney injury. Nonoliguric. The patient has history of chronic kidney disease stage IV. Continue to monitor renal function closely. Avoid nephrotoxic medications. 3. Essential hypertension. Continue antihypertensives. Blood pressure well controlled. 4. Normocytic normochromic anemia, most probably anemia of chronic kidney disease. Monitor. 5. Fluid, electrolytes and nutrition. Low cholesterol diet. 6. Deep venous thrombosis prophylaxis. On factor Xa inhibitors. 7. Gastrointestinal prophylaxis. Histamine 2 receptor blockers. Plan. Continue telemetry monitoring. Patient scheduled for a permanent pacemaker placement on 02/18/2017. The case was discussed with Dr. Montes De Oca. Problems: Subjective 24 Hr Interval Summary Free Text/Dictation Denies any complaints. No more pauses reported. Exam/Review of Systems Vital Signs Vitals Vital Signs Date Time Temp Pulse Resp B/P Pulse Ox O2 Delivery O2 Flow Rate FiO2 02/16/17 12:00 54 02/16/17 11:52 97.5 20 135/63 97 02/13/17 04:00 Room Air 02/12/17 19:29 2.0 Intake and Output 02/15/17 02/15/17 02/16/17 14:59 22:59 06:59 Intake Total 800 ml 700 ml Balance 800 ml 700 ml Exam GENERAL: This is a well-built, well-nourished female patient lying in bed in no apparent distress. HEENT: Head normocephalic and atraumatic. Eyes: Anicteric sclerae. Conjunctivae clear. ENT: Nasal septum is midline. Oral mucosa is moist. NECK: Supple. No JVD noticed. RESPIRATORY: Bilaterally clear to auscultation. No adventitious breath sounds heard. No use of accessory muscles of respiration. CARDIAC: Regular rate and rhythm with a grade II/ systolic ejection murmur heard at the left sternal border. ABDOMEN: Soft, nontender and nondistended. Bowel sounds positive in all 4 quadrants. GENITOURINARY: Deferred. EXTREMITIES: No cyanosis, no clubbing, no edema. Peripheral pulses palpable. NEUROLOGIC: The patient is awake, alert and oriented. Cranial nerves are grossly intact. Results Result Diagram: 02/15/17 0635 02/16/17 0648 Results 24 hrs Laboratory Tests Test 02/16/17 06:48 Anion Gap 19 H Blood Urea Nitrogen 75 H Calcium Level 8.8 Carbon Dioxide Level 21 Chloride Level 103 Creatinine 5.68 H Glucose Level 83 Magnesium Level 2.4 Phosphorus Level 4.8 Potassium Level 3.9 Sodium Level 139 Medications Medications Current Medications Ondansetron HCl (Zofran Inj) 4 mg Q6H PRN IV NAUSEA AND/OR VOMITING; Start at 14:00 Acetaminophen (Tylenol Tab) 650 mg Q6H PRN PO PAIN LEVEL 1-3 OR FEVER Last administered on 02/15/17 18:45; Admin Dose 650 MG; Start 02/10/17 at 14:00 Acetaminophen (Tylenol Supp) 650 mg Q6H PRN [place] PAIN LEVEL 1-3 OR FEVER; Start 02/10/17 at 14:00 Acetaminophen/ Hydrocodone Bitart ([place] (5/325)) 1 tab Q6H PRN PO MODERATE PAIN LEVEL 4-6; Start 02/10/17 at 14:00 Acetaminophen/ Hydrocodone Bitart ([facility] (5/325)) 2 tab Q6H PRN PO SEVERE PAIN LEVEL 7-10; Start 02/10/17 at 14:00 Morphine Sulfate (morphine) 2 mg Q4H PRN IV SEVERE PAIN LEVEL 7-10; Start 02/10 at 14:00 Docusate Sodium (Colace) 100 mg Q12H PRN PO CONSTIPATION; Start 02/10/17 at 14: 00 Magnesium Hydroxide (Milk Of Mag) 30 ml DAILY PRN PO CONSTIPATION; Start at 14:00 Bisacodyl (Dulcolax Supp) 10 mg DAILY PRN [place] CONSTIPATION; Start 02/10/17 at 14 :00 Hydralazine HCl (Apresoline) 10 mg Q4H PRN IV sbp>160 Last administered on 02/11 05:02; Admin Dose 10 MG; Start 02/10/17 at 16:30 Clonidine (Catapres) 0.1 mg Q4H PRN PO sbp>160; Start 02/10/17 at 18:00 Amlodipine Besylate (Norvasc) 5 mg BID PO Last administered on 02/16/17 09:08 ; Admin Dose 5 MG; Start 02/10/17 at 21:00 Apixaban (Eliquis) 2.5 mg BID PO Last administered on 02/15/17 08:45; Admin Dose 2.5 MG; Start 02/10/17 at 21:00; Status Future Hold Aspirin (Halfprin) 81 mg DAILY PO Last administered on 02/15/17 08:44; Admin Dose 81 MG; Start 02/11/17 at 09:00 Calcitriol (Rocaltrol) 0.25 mcg DAILY PO Last administered on 02/16/17 09:07; Admin Dose 0.25 MCG; Start 02/11/17 at 09:00 Febuxostat (Uloric) 40 mg DAILY PO Last administered on 02/16/17 09:07; Admin Dose 40 MG; Start 02/11/17 at 09:00 Famotidine (Pepcid) 20 mg DAILY PO Last administered on 02/16/17 09:08; Admin Dose 20 MG; Start 02/12/17 at 09:00 Ferrous Sulfate (Ferrous Sulfate (Ec)) 325 mg BID PO Last administered on 09:08; Admin Dose 325 MG; Start 02/11/17 at 21:00 CHERELLE GROSSMAN NP Feb 16, 2017 14:53
[2017-02-16 16:27] LABS: MICROALBUMIN 63.2 mg/dL
--- NOTE | 2017-02-16 17:00 | RADRPT ---
Vent Rate: 51 bpm RR Interval: 0 msec [place] Interval: 202 msec QRS Duration: 126 msec QT Interval: 524 msec QTC Interval: 482 msec P-R-T [place]: 48 - -31 - 0 degrees Sinus bradycardia Left axis deviation Left ventricular hypertrophy with QRS widening T wave abnormality, consider lateral ischemia Abnormal ECG Electronically Signed By: Philippe Stover [id number]
--- NOTE | 2017-02-16 18:03 | RADRPT ---
Vent Rate: 56 bpm RR Interval: 0 msec [place] Interval: 180 msec QRS Duration: 112 msec QT Interval: 552 msec QTC Interval: 532 msec P-R-T [place]: 37 - -29 - -34 degrees Sinus bradycardia with occasional premature ventricular complexes Voltage criteria for left ventricular hypertrophy Nonspecific ST and T wave abnormality Prolonged QT Abnormal ECG Electronically Signed By: Mateusz Mccarty [id number]
[2017-02-17] VITALS (12 sets, daily range): BP systolic 107–172; BP diastolic 51–79; PULSE 49–53; RESP 17
--- NOTE | 2017-02-17 07:16 | PN ---
Date/Time of Note Date/Time of Note DATE: 02/17/17 TIME: 07:15 Assessment/Plan VTE Prophylaxis VTE Prophylaxis Intervention: other (Factor Xa inhibitors.) Lines/Catheters IV Catheter Type (from [facility] [place] Saline Lock Urinary Cath still in place: No Assessment/Plan Chief Complaint/Hosp Course 1. Symptomatic bradycardia. Cardiology following. Avoid any AV grace blocking agents. 2. Acute on chronic kidney injury. Nonoliguric. The patient has history of chronic kidney disease stage IV. Continue to monitor renal function closely. Avoid nephrotoxic medications. 3. Essential hypertension. Continue antihypertensives. Blood pressure well controlled. 4. Normocytic normochromic anemia, most probably anemia of chronic kidney disease. Monitor. 5. Fluid, electrolytes and nutrition. Low cholesterol diet. 6. Deep venous thrombosis prophylaxis. On factor Xa inhibitors. 7. Gastrointestinal prophylaxis. Histamine 2 receptor blockers. Plan. Continue telemetry monitoring. Patient scheduled for a permanent pacemaker placement on 02/18/2017. The case was discussed with Dr. Montes De Oca. Problems: Subjective 24 Hr Interval Summary Free Text/Dictation Denies any complaints. Exam/Review of Systems Vital Signs Vitals Vital Signs Date Time Temp Pulse Resp B/P Pulse Ox O2 Delivery O2 Flow Rate FiO2 02/17/17 04:35 49 02/17/17 04:00 98.5 17 107/51 93 Intake and Output 02/16/17 02/16/17 02/17/17 15:00 23:00 07:00 Intake Total 800 ml Balance 800 ml Exam GENERAL: This is a well-built, well-nourished female patient lying in bed in no apparent distress. HEENT: Head normocephalic and atraumatic. Eyes: Anicteric sclerae. Conjunctivae clear. ENT: Nasal septum is midline. Oral mucosa is moist. NECK: Supple. No JVD noticed. RESPIRATORY: Bilaterally clear to auscultation. No adventitious breath sounds heard. No use of accessory muscles of respiration. CARDIAC: Regular rate and rhythm with a grade II/ systolic ejection murmur heard at the left sternal border. ABDOMEN: Soft, nontender and nondistended. Bowel sounds positive in all 4 quadrants. GENITOURINARY: Deferred. EXTREMITIES: No cyanosis, no clubbing, no edema. Peripheral pulses palpable. NEUROLOGIC: The patient is awake, alert and oriented. Cranial nerves are grossly intact. Results Result Diagram: 02/15/17 0635 02/16/17 0648 Medications Medications Current Medications Ondansetron HCl (Zofran Inj) 4 mg Q6H PRN IV NAUSEA AND/OR VOMITING; Start at 14:00 Acetaminophen (Tylenol Tab) 650 mg Q6H PRN PO PAIN LEVEL 1-3 OR FEVER Last administered on 02/15/17 18:45; Admin Dose 650 MG; Start 02/10/17 at 14:00 Acetaminophen (Tylenol Supp) 650 mg Q6H PRN [place] PAIN LEVEL 1-3 OR FEVER; Start 02/10/17 at 14:00 Acetaminophen/ Hydrocodone Bitart ([place] (5/325)) 1 tab Q6H PRN PO MODERATE PAIN LEVEL 4-6; Start 02/10/17 at 14:00 Acetaminophen/ Hydrocodone Bitart ([place] (5/325)) 2 tab Q6H PRN PO SEVERE PAIN LEVEL 7-10; Start 02/10/17 at 14:00 Morphine Sulfate (morphine) 2 mg Q4H PRN IV SEVERE PAIN LEVEL 7-10; Start 02/10 at 14:00 Docusate Sodium (Colace) 100 mg Q12H PRN PO CONSTIPATION; Start 02/10/17 at 14: 00 Magnesium Hydroxide (Milk Of Mag) 30 ml DAILY PRN PO CONSTIPATION; Start at 14:00 Bisacodyl (Dulcolax Supp) 10 mg DAILY PRN [place] CONSTIPATION; Start 02/10/17 at 14 :00 Hydralazine HCl (Apresoline) 10 mg Q4H PRN IV sbp>160 Last administered on 02/11 05:02; Admin Dose 10 MG; Start 02/10/17 at 16:30 Clonidine (Catapres) 0.1 mg Q4H PRN PO sbp>160; Start 02/10/17 at 18:00 Amlodipine Besylate (Norvasc) 5 mg BID PO Last administered on 02/16/17 21:01 ; Admin Dose 5 MG; Start 02/10/17 at 21:00 Apixaban (Eliquis) 2.5 mg BID PO Last administered on 02/15/17 08:45; Admin Dose 2.5 MG; Start 02/10/17 at 21:00; Status Future Hold Aspirin (Halfprin) 81 mg DAILY PO Last administered on 02/15/17 08:44; Admin Dose 81 MG; Start 02/11/17 at 09:00 Calcitriol (Rocaltrol) 0.25 mcg DAILY PO Last administered on 02/16/17 09:07; Admin Dose 0.25 MCG; Start 02/11/17 at 09:00 Febuxostat (Uloric) 40 mg DAILY PO Last administered on 02/16/17 09:07; Admin Dose 40 MG; Start 02/11/17 at 09:00 Famotidine (Pepcid) 20 mg DAILY PO Last administered on 02/16/17 09:08; Admin Dose 20 MG; Start 02/12/17 at 09:00 Ferrous Sulfate (Ferrous Sulfate (Ec)) 325 mg BID PO Last administered on 21:01; Admin Dose 325 MG; Start 02/11/17 at 21:00 CHERELLE GROSSMAN NP Feb 17, 2017 07:16
[2017-02-17 08:45] LABS: POTASSIUM 4.5 mmol/L (3.5-5.1)
[2017-02-17 08:47] LABS: CREATININE 5.67 mg/dl (0.44-1.00)
[2017-02-17 08:48] LABS: CALCIUM 9.2 mg/dl (8.4-10.2); PHOSPHORUS 4.6 mg/dl (2.5-4.9)
[2017-02-17 08:49] LABS: MAGNESIUM 2.5 mg/dl (1.7-2.5)
[2017-02-17] MEDS: FERROUS SULFATE (EC) 325 MG TAB PO SCH ×2 (09:16→20:11)
[2017-02-17] MEDS: SEVELAMER CARBONATE 0.8 GM PKT PO SCH ×3 (09:16→17:39)
[2017-02-17] MEDS: CALCITRIOL 0.25 MCG CAP PO SCH (09:16)
[2017-02-17] MEDS: FAMOTIDINE 20 MG TAB PO SCH (09:17)
[2017-02-17] MEDS: ASPIRIN (EC) 81 MG TAB PO SCH (09:17)
[2017-02-17] MEDS: FEBUXOSTAT 40 MG TABLET PO SCH (09:17)
[2017-02-17] MEDS: AMLODIPINE 5 MG TAB PO SCH ×2 (09:17→20:14)
--- NOTE | 2017-02-17 10:57 | PN ---
DATE: 02/17/2017 SUBJECTIVE: The patient is stable, no acute events overnight. No fevers, chills, nausea or vomitin g, no shortness of breath. OBJECTIVE: VITAL SIGNS: Blood pressure 132/72, respirations 17, pulse 61, temperature 97.5. HEENT: Head is normocephalic. Pupils are reactive to light. NECK: Supple. HEART: Regular rate. LUNGS: Show diminished breath sounds at the base. ABDOMEN: Soft, nontender to palpation. No rebound or guarding. EXTREMITIES: Negative for clubbing, cyanosis, edema. DERMATOLOGIC: No rashes. MUSCULOSKELETAL: No joint effusions. NEUROLOGIC: No change in exam. MEDICATIONS: The patient's medications have been reviewed. LABORATORY DATA: Shows sodium 136, potassium 4.5, chloride 102, BUN 72, creatinine 5.67. ASSESSMENT AND PLAN: 1. Nonoliguric acute kidney injury on top of chronic kidney disease stage IV/V, with a previous EGF R around 20 mL per minute. Etiology of current acute kidney injury is secondary to hemodynamics, po ssible tubular injury. Patient's renal function appears to have stabilized around a creatinine of 5 .6, ____. This gives an estimated GFR between 8 to 10 mL per minute. At this point, there are no o vert signs of uremia and there is no immediate need for replacement therapy. I spoke with the patie nt. At this point, she does not wish to start dialysis unless it is absolutely necessary. 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 At t his point, continue current treatment plan, supportive care, renally dose meds, avoid nephrotoxins. 2. Mild hypokalemia, resolved. Continue to monitor. 3. Mineral bone disorder. Continue to monitor calcium and phosphorus levels. Continue phos binder s, vitamin D analogs. 4. Anemia. Continue to monitor hemoglobin and hematocrit levels. Will give Epogen as needed. 5. Sinus bradycardia. Patient is scheduled for possible pacemaker placement. Follow up with [facility]. 6. Hypertension. Continue current blood pressure regimen. 7. History of deep venous thrombosis. The patient's Eliquis is on hold. Continue to monitor. 8. Gastrointestinal and deep venous thrombosis prophylaxis. Continue proton pump inhibitor, sequen tial leg squeezers. Dictated By: HEBERT GILES DO NR/SARA Conf#: [id number] DID#: [id number]
--- NOTE | 2017-02-17 19:31 | CONS ---
Date/Time of Note Date/Time of Note DATE: 02/17/17 TIME: 19:29 Assessment/Plan Assessment/Plan Chief Complaint/Hosp Course IMPRESSION: 1. Bradycardia. Continue to assess for more significant bradycardia and symptoms.-overall improved with holding atenolol/amio but now having pauses recurrent up to 4 seconds 2. Abnormal electrocardiogram, assess for acute coronary syndrome.-trop negative x 3/NL EF by echo 3. Cardiac arrhythmia, question of possible paroxysmal atrial fibrillation. 4. Dizziness. 5. Weakness, question secondary to bradycardia. 6. Hypertension, uncontrolled. 7. Diabetes mellitus. 8. Hyperkalemia 9. Renal failure.-ongoing 10.MR-moderate to severe by echo this admit Recc: -Tele -serial ecg's -Continue to hold grace agents with atenolol and amio -Continue asa -Continue norvasc -Follow K closely on benazepril -PPM tomorrow AM Problems: Consultation Date/Type/Reason Admit Date/Time Feb 12, 2017 at 16:44 Initial Consult Date 02/10/2017 Type of Consultation: Cardiology Reason for Consultation bradycardia Referring Provider: TOSIN DUNAWAY Exam/Review of Systems Vital Signs Vitals Vital Signs Date Time Temp Pulse Resp B/P Pulse Ox O2 Delivery O2 Flow Rate FiO2 02/17/17 16:19 53 02/17/17 16:07 97.5 17 117/57 97 Intake and Output 02/16/17 02/16/17 02/17/17 14:59 22:59 06:59 Intake Total 800 ml Balance 800 ml Exam Review of Systems: CONSTITUTIONAL: No fevers, chills. PULMONARY: No sob CARDIOVASCULAR: No chest pain/palpitations GASTROINTESTINAL: No nausea/vomiting. GENITOURINARY: No hematuria/dysuria. MUSCULOSKELETAL: No myagias/arthalgias. PSYCHIATRIC: The patient denies depression. NEUROLOGIC: No weakness Constitutional: alert Psych: no complaints Head: normocephalic ENMT: mucosa pink and moist Respiratory: clear to auscultation Cardiovascular: regular rate and rhythm Gastrointestinal: non-tender, soft Musculoskeletal: muscle tone (normal) Extremities: edema (none) Neurological: other (No focal deficits) Results Result Diagram: 02/15/17 0635 02/17/17 0735 Results 24 hrs Laboratory Tests Test 02/17/17 07:35 Sodium Level 136 Potassium Level 4.5 Chloride Level 102 Carbon Dioxide Level 22 Anion Gap 17 H Blood Urea Nitrogen 72 H Creatinine 5.67 H Glucose Level 84 Calcium Level 9.2 Phosphorus Level 4.6 Magnesium Level 2.5 Medications Medications Current Medications Ondansetron HCl (Zofran Inj) 4 mg Q6H PRN IV NAUSEA AND/OR VOMITING; Start at 14:00 Acetaminophen (Tylenol Tab) 650 mg Q6H PRN PO PAIN LEVEL 1-3 OR FEVER Last administered on 02/15/17 18:45; Admin Dose 650 MG; Start 02/10/17 at 14:00 Acetaminophen (Tylenol Supp) 650 mg Q6H PRN [place] PAIN LEVEL 1-3 OR FEVER; Start 02/10/17 at 14:00 Acetaminophen/ Hydrocodone Bitart ([place] (5/325)) 1 tab Q6H PRN PO MODERATE PAIN LEVEL 4-6; Start 02/10/17 at 14:00 Acetaminophen/ Hydrocodone Bitart ([place] (5/325)) 2 tab Q6H PRN PO SEVERE PAIN LEVEL 7-10; Start 02/10/17 at 14:00 Morphine Sulfate (morphine) 2 mg Q4H PRN IV SEVERE PAIN LEVEL 7-10; Start 02/10 at 14:00 Docusate Sodium (Colace) 100 mg Q12H PRN PO CONSTIPATION; Start 02/10/17 at 14: 00 Magnesium Hydroxide (Milk Of Mag) 30 ml DAILY PRN PO CONSTIPATION; Start at 14:00 Bisacodyl (Dulcolax Supp) 10 mg DAILY PRN [place] CONSTIPATION; Start 02/10/17 at 14 :00 Hydralazine HCl (Apresoline) 10 mg Q4H PRN IV sbp>160 Last administered on 02/11 05:02; Admin Dose 10 MG; Start 02/10/17 at 16:30 Clonidine (Catapres) 0.1 mg Q4H PRN PO sbp>160; Start 02/10/17 at 18:00 Amlodipine Besylate (Norvasc) 5 mg BID PO Last administered on 02/17/17 09:17 ; Admin Dose 5 MG; Start 02/10/17 at 21:00 Apixaban (Eliquis) 2.5 mg BID PO Last administered on 02/15/17 08:45; Admin Dose 2.5 MG; Start 02/10/17 at 21:00; Status Future Hold Aspirin (Halfprin) 81 mg DAILY PO Last administered on 02/17/17 09:17; Admin Dose 81 MG; Start 02/11/17 at 09:00 Calcitriol (Rocaltrol) 0.25 mcg DAILY PO Last administered on 02/17/17 09:16; Admin Dose 0.25 MCG; Start 02/11/17 at 09:00 Febuxostat (Uloric) 40 mg DAILY PO Last administered on 02/17/17 09:17; Admin Dose 40 MG; Start 02/11/17 at 09:00 Famotidine (Pepcid) 20 mg DAILY PO Last administered on 02/17/17 09:17; Admin Dose 20 MG; Start 02/12/17 at 09:00 Ferrous Sulfate (Ferrous Sulfate (Ec)) 325 mg BID PO Last administered on 09:16; Admin Dose 325 MG; Start 02/11/17 at 21:00 EJ MIR Feb 17, 2017 19:31
[2017-02-18] VITALS (22 sets, daily range): BP systolic 101–176; BP diastolic 55–75; PULSE 49–60; RESP 10–27
[2017-02-18 06:54] LABS: ADD SCAN DIFF NO
[2017-02-18 06:57] LABS: BASOPHIL # 0.1 10^3/ul (0.0-0.1); BASOPHILS % 1.1 % (0.0-2.0); EOSINOPHILS # 0.2 10^3/ul (0.0-0.5); EOSINOPHILS % 2.9 % (0.0-7.0); HEMATOCRIT 32.6 % (37.0-47.0); HEMOGLOBIN 10.8 g/dl (12.0-16.0); LYMPHOCYTES # 2.3 10^3/ul (0.8-2.9); LYMPHOCYTES % 30.7 % (15.0-51.0); MEAN CORPUSCULAR HEMOGLOBIN 30.7 pg (29.0-33.0); MEAN CORPUSCULAR HGB CONC 33.1 g/dl (32.0-37.0); MEAN CORPUSCULAR VOLUME 92.6 fl (82.0-101.0); MEAN PLATELET VOLUME 10.6 fl (7.4-10.4); MONOCYTE # 0.7 10^3/ul (0.3-0.9); MONOCYTES % 9.7 % (0.0-11.0); NEUTROPHIL # 4.2 10^3/ul (1.6-7.5); NEUTROPHILS % 55.2 % (39.0-77.0); PLATELET COUNT 271 10^3/UL (140-415); RED BLOOD COUNT 3.52 10^6/ul (4.20-5.40); RED CELL DISTRIBUTION WIDTH 12.9 % (11.5-14.5); WHITE BLOOD COUNT 7.6 10^3/ul (4.8-10.8)
[2017-02-18 07:07] LABS: INR 1.1; PROTIME 14.2 Sec (12.2-14.2); PT RATIO 1.1
[2017-02-18 07:15] LABS: POTASSIUM 4.4 mmol/L (3.5-5.1)
[2017-02-18 07:17] LABS: CREATININE 5.83 mg/dl (0.44-1.00)
[2017-02-18 07:18] LABS: CALCIUM 9.1 mg/dl (8.4-10.2); MAGNESIUM 2.4 mg/dl (1.7-2.5); PHOSPHORUS 4.3 mg/dl (2.5-4.9)
[2017-02-18] MEDS: SEVELAMER CARBONATE 0.8 GM PKT PO SCH ×3 (08:00→17:25)
[2017-02-18] MEDS: ASPIRIN (EC) 81 MG TAB PO SCH (09:00)
[2017-02-18] MEDS: FEBUXOSTAT 40 MG TABLET PO SCH (09:00)
[2017-02-18] MEDS: CALCITRIOL 0.25 MCG CAP PO SCH (09:00)
[2017-02-18] MEDS: FAMOTIDINE 20 MG TAB PO SCH (09:00)
[2017-02-18] MEDS: FERROUS SULFATE (EC) 325 MG TAB PO SCH ×2 (09:00→21:17)
[2017-02-18] MEDS: AMLODIPINE 5 MG TAB PO SCH ×2 (09:42→21:17)
[2017-02-18] MEDS ORDERED: POLYMYXIN/BACITRACIN 1L IRRIG IRR SCH (10:30)
--- NOTE | 2017-02-18 10:36 | RADRPT ---
Vent Rate: 50 bpm RR Interval: 0 msec [place] Interval: 198 msec QRS Duration: 126 msec QT Interval: 500 msec QTC Interval: 455 msec P-R-T [place]: 54 - -31 - 118 degrees Sinus bradycardia Left axis deviation Left ventricular hypertrophy with QRS widening and repolarization abnormality Abnormal ECG Electronically Signed By: Philippe Stover [id number]
[2017-02-18] MEDS ORDERED: LIDOCAINE 1%/EPI 30 ML INJ ONE (10:49)
[2017-02-18] MEDS ORDERED: MIDAZOLAM 1 MG/ML 2 ML INJ ONE (10:59)
[2017-02-18] MEDS ORDERED: ONDANSETRON 4 MG INJ IV PRN (11:00)
[2017-02-18] MEDS ORDERED: FENTAnyl 50 MCG/ML VIAL ONE (11:00)
[2017-02-18] MEDS ORDERED: HYDROmorphONE (0.2 MG/ML) 10ML SYG IV PRN ×2 (11:00)
[2017-02-18] MEDS ORDERED: MEPERIDINE 25 MG INJ IV PRN (11:00)
[2017-02-18] MEDS ORDERED: MIDAZOLAM 1 MG/ML 2 ML INJ IV PRN (11:00)
[2017-02-18] MEDS ORDERED: DIPHENHYDRAMINE 50 MG INJ IV PRN (11:00)
[2017-02-18] MEDS ORDERED: FENTAnyl 50 MCG/ML VIAL IV PRN ×2 (11:00)
[2017-02-18] MEDS ORDERED: PROPOFOL 20 ML ONE (11:00)
[2017-02-18] MEDS ORDERED: METOCLOPRAMIDE 10 MG INJ IV PRN (11:00)
--- NOTE | 2017-02-18 11:12 | PN ---
DATE: 02/18/2017 SUBJECTIVE: The patient is currently stable, no uremic signs or symptoms. The patient is pending p acemaker placement today. No other events noted. OBJECTIVE: VITAL SIGNS: Blood pressure is 170/75, respiration 18, pulse 55, temperature 97.6. HEENT: Head is normocephalic. NECK: Supple. HEART: Bradycardic. LUNGS: Show diminished breath sounds at base. ABDOMEN: Soft, nontender to palpation without rebound or guarding. EXTREMITIES: Negative for clubbing, cyanosis. No edema. DERMATOLOGIC: No rashes. MUSCULOSKELETAL: No joint effusions. NEUROLOGIC: No change in exam. MEDICATIONS: The patient's medications have been reviewed. LABORATORY DATA: Showed sodium 136, potassium 4.4, chloride 103, BUN 75, creatinine 5.83. White co unt 7.6, hemoglobin 10.8, hematocrit 32.6, platelet count is 271. ASSESSMENT AND PLAN: 1. Nonoliguric acute kidney injury on top of chronic kidney disease stage IV/V with previous GFR ar ound 20 mL per minute. Etiology of acute kidney injury is secondary to hemodynamics, tubular injury . The patient's renal function appears to have stabilized around a creatinine of 5.6 to 5.8 mg/dL. This gives an estimated GFR of 8 to 10 mL per minute. The patient has no overt signs of uremia. T here is no immediate need for renal replacement therapy. The patient does not wish to start dialysi s unless absolutely necessary. Would otherwise continue current treatment care, supportive care, re fernanda dose all meds, avoid nephrotoxins. 2. Mineral bone disorder. Continue to monitor calcium and phosphorus levels. Continue phos binder s, vitamin D analogs 3. Anemia. Continue to monitor hemoglobin and hematocrit levels. Give Epogen if needed. 4. Sinus bradycardia. The patient is pending pacemaker placement. 5. Hypertension. Continue current blood pressure regimen. 6. History of . Patient's Eliquis is on hold. 7. Hypokalemia, resolved. 8. Gastrointestinal and deep venous thrombosis prophylaxis. Continue PPI and sequential leg squeez ers. Dictated By: HEBERT ALCALA/SARA Conf#: [id number] DID#: [id number]
[2017-02-18] MEDS ORDERED: SOD CHLORIDE 0.9% 1,000 ML IV SCH (12:09)
[2017-02-18] MEDS ORDERED: morphine 2 MG INJ IV PRN (12:30)
[2017-02-18] MEDS ORDERED: ACETAMINOPHEN 325 MG TAB PO PRN (12:30)
--- NOTE | 2017-02-18 12:43 | SP ---
DATE OF PROCEDURE: 02/18/2017 REFERRING PHYSICIAN: Dr. Vogel and Dr. Hernandez. REASON FOR IMPLANTATION: A 4-second pause symptomatic bradycardia, sick sinus syndrome. PROCEDURE PERFORMED: Single chamber pacemaker implantation, venogram to assess patency. Using mL o f contrast avoid nephrotoxicity. Fluoroscopy with interpretation. DEVICE INFORMATION: Implanted device is [employer] Assurity MRI 1272, serial #[id number]. RV le ad is [employer] Tendril MRI lead LPI 1200M/52 cm lead, serial [id number] placed in RV apex. ACUTE THRESHOLD: R-wave was greater than 12 millivolts. Lead impedance 650 ohms, threshold 1 volt at 0.4 msec. Initial setting VVI 50. DESCRIPTION OF PROCEDURE: The informed consent was obtained, the patient was brought into the clinical laboratory assistant in a fasting condition. Left side of the chest was prepped and draped in usual sterile fashion, 1% lidocaine was used for local analgesia. Using #10 scalpel, a 3 cm incision was made. Using cau lion and blunt dissection, the pocket was created. Using modified Seldinger technique after upper e xtremity venogram, subclavian was cannulated and J-wire passed easily using 6-Hebrew sheath at the b ase, RV lead was advanced to RV apex and fixed into the RV lead. Some slack was left inside the she ath and the lead and sheath was pulled away. The lead was sutured to the muscle layer with 2-0 Ethi washburn sutures. The lead was attached to the generator and the entire system was placed inside the po cket. The skin was closed with multiple layers of 2-0 Vicryl sutures. Steri-Strips were applied on top of the incision. The patient appears to have tolerated the procedure well. She will have a ch est x-ray, left arm sling and continuous antibiotics, and I will follow the patient as an outpatient . I would like to thank Dr. Vogel for referring this patient for my evaluation. Dictated By: ALIREZA KAUFFMAN/SARA Conf#: [id number] DID#: [id number]
--- NOTE | 2017-02-18 13:17 | RADRPT ---
PROCEDURE: XR Chest 1 view. CLINICAL INDICATION: Status post pacemaker placement TECHNIQUE: AP views of the chest were obtained. COMPARISON: February 10, 2017 FINDINGS: The heart is large. Calcified atherosclerosis is noted in the aorta. Left-sided pacemaker has its l ead over the heart. No consolidations are identified. No pneumothorax is seen. Osseous structure s are intact. IMPRESSION: Cardiomegaly with calcified atherosclerosis in the aorta. Left-sided pacemaker with its lead over the heart. No visualized pneumothorax. RPTAT: AA .Mateo Thompson MD, Date Time Electronically viewed and signed by .Mateo Thompson MD, on 02/18/2017 13:17 .P/
[2017-02-18] MEDS: CEFAZOLIN 1 GM/50 ML (PMX) 50 ML IVPB SCH (14:27)
--- NOTE | 2017-02-18 14:35 | PN ---
Date/Time of Note Date/Time of Note DATE: 02/18/17 TIME: 14:33 Assessment/Plan VTE Prophylaxis VTE Prophylaxis Intervention: other (Factor Xa inhibitors.) Lines/Catheters IV [facility]ter Type (from [facility]): Peripheral IV Urinary Cath still in place: No Assessment/Plan Chief Complaint/Hosp Course 1. Symptomatic bradycardia. S/P permanent pacemaker placement on 02/18/2017. 2. Acute on chronic kidney injury. Nonoliguric. The patient has history of chronic kidney disease stage IV. Continue to monitor renal function closely. Avoid nephrotoxic medications. 3. Essential hypertension. Continue antihypertensives. Blood pressure well controlled. 4. Normocytic normochromic anemia, most probably anemia of chronic kidney disease. Monitor. 5. Fluid, electrolytes and nutrition. Low cholesterol diet. 6. Deep venous thrombosis prophylaxis. On factor Xa inhibitors. 7. Gastrointestinal prophylaxis. Histamine 2 receptor blockers. Plan. Continue telemetry monitoring. S/P permanent pacemaker placement on 2016. Await cardiology clearance before discharge. The case was discussed with Dr. Montes De Oca. Problems: Subjective 24 Hr Interval Summary Free Text/Dictation S/P PPM today. Denies any chest pain. Exam/Review of Systems Vital Signs Vitals Vital Signs Date Time Temp Pulse Resp B/P Pulse Ox O2 Delivery O2 Flow Rate FiO2 02/18/17 13:03 50 24 142/66 97 Room Air 02/18/17 12:13 98.3 Intake and Output 02/17/17 02/17/17 02/18/17 15:00 23:00 07:00 Intake Total 500 ml 750 ml Balance 500 ml 750 ml Exam GENERAL: This is a well-built, well-nourished female patient lying in bed in no apparent distress. HEENT: Head normocephalic and atraumatic. Eyes: Anicteric sclerae. Conjunctivae clear. ENT: Nasal septum is midline. Oral mucosa is moist. NECK: Supple. No JVD noticed. RESPIRATORY: Bilaterally clear to auscultation. No adventitious breath sounds heard. No use of accessory muscles of respiration. CARDIAC: Regular rate and rhythm with a grade II/ systolic ejection murmur heard at the left sternal border. Left chest wall dressing. ABDOMEN: Soft, nontender and nondistended. Bowel sounds positive in all 4 quadrants. GENITOURINARY: Deferred. EXTREMITIES: No cyanosis, no clubbing, no edema. Peripheral pulses palpable. NEUROLOGIC: The patient is awake, alert and oriented. Cranial nerves are grossly intact. Results Result Diagram: 02/18/17 0623 02/18/17 0623 Results 24 hrs Laboratory Tests Test 02/18/17 06:23 White Blood Count 7.6 Red Blood Count 3.52 L Hemoglobin 10.8 L Hematocrit 32.6 L Mean Corpuscular Volume 92.6 Mean Corpuscular Hemoglobin 30.7 Mean Corpuscular Hemoglobin Concent 33.1 Red Cell Distribution Width 12.9 Platelet Count 271 # Mean Platelet Volume 10.6 H Neutrophils % 55.2 Lymphocytes % 30.7 Monocytes % 9.7 Eosinophils % 2.9 Basophils % 1.1 Nucleated Red Blood Cells % 0.0 Neutrophils # 4.2 Lymphocytes # 2.3 Monocytes # 0.7 Eosinophils # 0.2 Basophils # 0.1 Nucleated Red Blood Cells # 0.0 Prothrombin Time 14.2 Prothrombin Time Ratio 1.1 INR International Normalized Ratio 1.10 Sodium Level 136 Potassium Level 4.4 Chloride Level 103 Carbon Dioxide Level 21 Anion Gap 16 Blood Urea Nitrogen 75 H Creatinine 5.83 H Glucose Level 86 Calcium Level 9.1 Phosphorus Level 4.3 Magnesium Level 2.4 Medications Medications Current Medications Ondansetron HCl (Zofran Inj) 4 mg Q6H PRN IV NAUSEA AND/OR VOMITING; Start at 14:00 Acetaminophen (Tylenol Tab) 650 mg Q6H PRN PO PAIN LEVEL 1-3 OR FEVER Last administered on 02/15/17t 18:45; Admin Dose 650 MG; Start 02/10/17 at 14:00 Acetaminophen (Tylenol Supp) 650 mg Q6H PRN [place] PAIN LEVEL 1-3 OR FEVER; Start 02/10/17 at 14:00 Acetaminophen/ Hydrocodone Bitart ([place] (5/325)) 1 tab Q6H PRN PO MODERATE PAIN LEVEL 4-6; Start 02/10/17 at 14:00 Acetaminophen/ Hydrocodone Bitart ([place] (5/325)) 2 tab Q6H PRN PO SEVERE PAIN LEVEL 7-10; Start 02/10/17 at 14:00 Morphine Sulfate (morphine) 2 mg Q4H PRN IV SEVERE PAIN LEVEL 7-10; Start 02/10 at 14:00 Docusate Sodium (Colace) 100 mg Q12H PRN PO CONSTIPATION; Start 02/10/17 at 14: 00 Magnesium Hydroxide (Milk Of Mag) 30 ml DAILY PRN PO CONSTIPATION; Start at 14:00 Bisacodyl (Dulcolax Supp) 10 mg DAILY PRN [place] CONSTIPATION; Start 02/10/17 at 14 :00 Hydralazine HCl (Apresoline) 10 mg Q4H PRN IV sbp>160 Last administered on 02/11 05:02; Admin Dose 10 MG; Start 02/10/17 at 16:30 Clonidine (Catapres) 0.1 mg Q4H PRN PO sbp>160; Start 02/10/17 at 18:00 Amlodipine Besylate (Norvasc) 5 mg BID PO Last administered on 02/18/17 09:42 ; Admin Dose 5 MG; Start 02/10/17 at 21:00 Apixaban (Eliquis) 2.5 mg BID PO Last administered on 02/15/17 08:45; Admin Dose 2.5 MG; Start 02/10/17 at 21:00; Status Future Hold Aspirin (Halfprin) 81 mg DAILY PO Last administered on 02/17/17 09:17; Admin Dose 81 MG; Start 02/11/17 at 09:00 Calcitriol (Rocaltrol) 0.25 mcg DAILY PO Last administered on 02/17/17 09:16; Admin Dose 0.25 MCG; Start 02/11/17 at 09:00 Febuxostat (Uloric) 40 mg DAILY PO Last administered on 02/17/17 09:17; Admin Dose 40 MG; Start 02/11/17 at 09:00 Famotidine (Pepcid) 20 mg DAILY PO Last administered on 02/17/17 09:17; Admin Dose 20 MG; Start 02/12/17 at 09:00 Ferrous Sulfate (Ferrous Sulfate (Ec)) 325 mg BID PO Last administered on 20:11; Admin Dose 325 MG; Start 02/11/17 at 21:00 Acetaminophen (Tylenol Tab) 650 mg Q4H PRN PO NON-CARDIAC PAIN LEVEL (1-3); Start 02/18/17 at 12:30 Morphine Sulfate 2 mg 2 mg Q2H PRN IV FOR NON CARDIAC PAIN (4-10); Start at 12:30 Sodium Chloride 1,000 ml @ 75 mls/hr [id number] IV Last administered on 14:27; Admin Dose 75 MLS/HR; Start 02/18/17 at 12:09; Stop 02/18/17 at 17: 08 Cefazolin Sodium (Ancef 1 Gm/50 ml (Pmx)) 50 ml @ 100 mls/hr Q24H IVPB Last administered on 02/18/17 14:27; Admin Dose 100 MLS/HR; Start 02/18/17 at 13:00 Miscellaneous Information (* Miscellaneous Pharmacy Order) DC all Lovenox, Hepari... ONCE XX ; Start 02/18/17 at 12:30 CHERELLE GROSSMAN NP Feb 18, 2017 14:35
--- NOTE | 2017-02-18 17:55 | CONS ---
Date/Time of Note Date/Time of Note DATE: 02/18/17 TIME: 17:50 Assessment/Plan Assessment/Plan Chief Complaint/Hosp Course IMPRESSION: 1. Bradycardia. Continue to assess for more significant bradycardia and symptoms.-overall improved with holding atenolol/amio but now having pauses recurrent up to 4 seconds. Now s/p PPM POD#0 2. Abnormal electrocardiogram, assess for acute coronary syndrome.-trop negative x 3/NL EF by echo 3. Cardiac arrhythmia, question of possible paroxysmal atrial fibrillation. 4. Dizziness. 5. Weakness, question secondary to bradycardia. 6. Hypertension, uncontrolled. 7. Diabetes mellitus. 8. Hyperkalemia 9. Renal failure.-ongoing 10.MR-moderate to severe by echo this admit Recc: -Tele -serial ecg's -Continue asa -Continue norvasc -Follow K closely on benazepril -local wound care -abx prohylaxis -Will hold amio/BB still at this time and see how much pacing patient does -D/C planning in am if remains stable Problems: Consultation Date/Type/Reason Admit Date/Time Feb 12, 2017 at 16:44 Initial Consult Date 02/10/2017 Type of Consultation: Cardiology Reason for Consultation bardycardia Referring Provider: TOSIN DUNAWAY Exam/Review of Systems Vital Signs Vitals Vital Signs Date Time Temp Pulse Resp B/P Pulse Ox O2 Delivery O2 Flow Rate FiO2 02/18/17 16:22 53 02/18/17 16:13 98.3 19 133/60 100 02/18/17 13:03 Room Air Intake and Output 02/17/17 02/17/17 02/18/17 15:00 23:00 07:00 Intake Total 500 ml 750 ml Balance 500 ml 750 ml Exam Review of Systems: CONSTITUTIONAL: No fevers, chills. PULMONARY: No sob CARDIOVASCULAR: No chest pain/palpitations GASTROINTESTINAL: No nausea/vomiting. GENITOURINARY: No hematuria/dysuria. MUSCULOSKELETAL: No myagias/arthalgias. PSYCHIATRIC: The patient denies depression. NEUROLOGIC: No weakness Constitutional: alert Psych: no complaints Head: normocephalic ENMT: mucosa pink and moist Neck: jvd (8 ) Respiratory: diminished breath sounds Cardiovascular: regular rate and rhythm Gastrointestinal: non-tender, soft Musculoskeletal: muscle tone (normal) Extremities: edema (no focal deficits) Neurological: other (No focal deficits) Results Result Diagram: 02/18/17 0623 02/18/17 0623 Results 24 hrs Laboratory Tests Test 02/18/17 06:23 White Blood Count 7.6 Red Blood Count 3.52 L Hemoglobin 10.8 L Hematocrit 32.6 L Mean Corpuscular Volume 92.6 Mean Corpuscular Hemoglobin 30.7 Mean Corpuscular Hemoglobin Concent 33.1 Red Cell Distribution Width 12.9 Platelet Count 271 # Mean Platelet Volume 10.6 H Neutrophils % 55.2 Lymphocytes % 30.7 Monocytes % 9.7 Eosinophils % 2.9 Basophils % 1.1 Nucleated Red Blood Cells % 0.0 Neutrophils # 4.2 Lymphocytes # 2.3 Monocytes # 0.7 Eosinophils # 0.2 Basophils # 0.1 Nucleated Red Blood Cells # 0.0 Prothrombin Time 14.2 Prothrombin Time Ratio 1.1 INR International Normalized Ratio 1.10 Sodium Level 136 Potassium Level 4.4 Chloride Level 103 Carbon Dioxide Level 21 Anion Gap 16 Blood Urea Nitrogen 75 H Creatinine 5.83 H Glucose Level 86 Calcium Level 9.1 Phosphorus Level 4.3 Magnesium Level 2.4 Medications Medications Current Medications Ondansetron HCl (Zofran Inj) 4 mg Q6H PRN IV NAUSEA AND/OR VOMITING; Start at 14:00 Acetaminophen (Tylenol Tab) 650 mg Q6H PRN PO PAIN LEVEL 1-3 OR FEVER Last administered on 02/15/17t 18:45; Admin Dose 650 MG; Start 02/10/17 at 14:00 Acetaminophen (Tylenol Supp) 650 mg Q6H PRN [place] PAIN LEVEL 1-3 OR FEVER; Start 02/10/17 at 14:00 Acetaminophen/ Hydrocodone Bitart ([place] (5/325)) 1 tab Q6H PRN PO MODERATE PAIN LEVEL 4-6; Start 02/10/17 at 14:00 Acetaminophen/ Hydrocodone Bitart ([place] (5/325)) 2 tab Q6H PRN PO SEVERE PAIN LEVEL 7-10; Start 02/10/17 at 14:00 Morphine Sulfate (morphine) 2 mg Q4H PRN IV SEVERE PAIN LEVEL 7-10; Start 02/10 at 14:00 Docusate Sodium (Colace) 100 mg Q12H PRN PO CONSTIPATION; Start 02/10/17 at 14: 00 Magnesium Hydroxide (Milk Of Mag) 30 ml DAILY PRN PO CONSTIPATION; Start at 14:00 Bisacodyl (Dulcolax Supp) 10 mg DAILY PRN [place] CONSTIPATION; Start 02/10/17 at 14 :00 Hydralazine HCl (Apresoline) 10 mg Q4H PRN IV sbp>160 Last administered on 02/11 05:02; Admin Dose 10 MG; Start 02/10/17 at 16:30 Clonidine (Catapres) 0.1 mg Q4H PRN PO sbp>160; Start 02/10/17 at 18:00 Amlodipine Besylate (Norvasc) 5 mg BID PO Last administered on 02/18/17 09:42 ; Admin Dose 5 MG; Start 02/10/17 at 21:00 Apixaban (Eliquis) 2.5 mg BID PO Last administered on 02/15/17 08:45; Admin Dose 2.5 MG; Start 02/10/17 at 21:00; Status Future Hold Aspirin (Halfprin) 81 mg DAILY PO Last administered on 02/17/17 09:17; Admin Dose 81 MG; Start 02/11/17 at 09:00 Calcitriol (Rocaltrol) 0.25 mcg DAILY PO Last administered on 02/17/17 09:16; Admin Dose 0.25 MCG; Start 02/11/17 at 09:00 Febuxostat (Uloric) 40 mg DAILY PO Last administered on 02/17/17 09:17; Admin Dose 40 MG; Start 02/11/17 at 09:00 Famotidine (Pepcid) 20 mg DAILY PO Last administered on 02/17/17 09:17; Admin Dose 20 MG; Start 02/12/17 at 09:00 Ferrous Sulfate (Ferrous Sulfate (Ec)) 325 mg BID PO Last administered on 20:11; Admin Dose 325 MG; Start 02/11/17 at 21:00 Acetaminophen (Tylenol Tab) 650 mg Q4H PRN PO NON-CARDIAC PAIN LEVEL (1-3); Start 02/18/17 at 12:30 Morphine Sulfate 2 mg 2 mg Q2H PRN IV FOR NON CARDIAC PAIN (4-10); Start at 12:30 Cefazolin Sodium (Ancef 1 Gm/50 ml (Pmx)) 50 ml @ 100 mls/hr Q24H IVPB Last administered on 02/18/17t 14:27; Admin Dose 100 MLS/HR; Start 02/18/17 at 13:00 Miscellaneous Information (* Miscellaneous Pharmacy Order) DC all Lovenox, Hepari... ONCE XX ; Start 02/18/17 at 12:30 EJ MIR Feb 18, 2017 17:55
[2017-02-19] VITALS (11 sets, daily range): BP systolic 123–149; BP diastolic 61–72; PULSE 52–59; RESP 19–20
[2017-02-19 07:09] LABS: ADD SCAN DIFF NO
[2017-02-19 07:13] LABS: BASOPHIL # 0.1 10^3/ul (0.0-0.1); BASOPHILS % 0.6 % (0.0-2.0); EOSINOPHILS # 0.2 10^3/ul (0.0-0.5); HEMATOCRIT 34.5 % (37.0-47.0); HEMOGLOBIN 11.4 g/dl (12.0-16.0); LYMPHOCYTES # 1.8 10^3/ul (0.8-2.9); LYMPHOCYTES % 21.1 % (15.0-51.0); MEAN CORPUSCULAR HEMOGLOBIN 30.6 pg (29.0-33.0); MEAN CORPUSCULAR VOLUME 92.7 fl (82.0-101.0); MEAN PLATELET VOLUME 10.5 fl (7.4-10.4); MONOCYTE # 0.8 10^3/ul (0.3-0.9); MONOCYTES % 8.6 % (0.0-11.0); NEUTROPHIL # 5.9 10^3/ul (1.6-7.5); NEUTROPHILS % 67.5 % (39.0-77.0); PLATELET COUNT 260 10^3/UL (140-415); RED BLOOD COUNT 3.72 10^6/ul (4.20-5.40); RED CELL DISTRIBUTION WIDTH 12.8 % (11.5-14.5); WHITE BLOOD COUNT 8.7 10^3/ul (4.8-10.8)
[2017-02-19 07:27] LABS: POTASSIUM 4.4 mmol/L (3.5-5.1)
[2017-02-19 07:29] LABS: CREATININE 5.11 mg/dl (0.44-1.00)
[2017-02-19 07:30] LABS: PHOSPHORUS 4.9 mg/dl (2.5-4.9)
[2017-02-19 07:31] LABS: CALCIUM 9.2 mg/dl (8.4-10.2); MAGNESIUM 2.2 mg/dl (1.7-2.5)
[2017-02-19] MEDS: FAMOTIDINE 20 MG TAB PO SCH (08:34)
[2017-02-19] MEDS: SEVELAMER CARBONATE 0.8 GM PKT PO SCH ×2 (08:34→11:57)
[2017-02-19] MEDS: FERROUS SULFATE (EC) 325 MG TAB PO SCH (08:34)
[2017-02-19] MEDS: CALCITRIOL 0.25 MCG CAP PO SCH (08:34)
[2017-02-19] MEDS: FEBUXOSTAT 40 MG TABLET PO SCH (08:34)
[2017-02-19] MEDS: AMLODIPINE 5 MG TAB PO SCH (08:35)
[2017-02-19] MEDS: ASPIRIN (EC) 81 MG TAB PO SCH (08:38)
--- NOTE | 2017-02-19 10:12 | PN ---
DATE: 02/19/2017 SUBJECTIVE: The patient yesterday had pacemaker placement without any complications. No other even ts noted. OBJECTIVE: VITAL SIGNS: Blood pressure 123/61, respirations 19, pulse 70, temperature 98.1. HEENT: Head is normocephalic. NECK: Supple. HEART: Regular rate. LUNGS: Show diminished breath sounds at base. ABDOMEN: Soft, nontender to palpation without rebound or guarding. EXTREMITIES: Negative for clubbing, cyanosis, or edema. DERMATOLOGIC: No rashes. MUSCULOSKELETAL: No joint effusions. NEUROLOGIC: No change in exam. MEDICATIONS: The patient's medications have been reviewed. LABORATORY DATA: Shows white count 8.7, hemoglobin 11.4, hematocrit 34.5. Sodium 136, potassium 4. 4, BUN 66, creatinine 5.11. ASSESSMENT AND PLAN: 1. Nonoliguric acute kidney injury on top of chronic kidney disease, stage IV/V, with a previous EG FR around 20 mL per minute. Etiology of acute kidney injury is secondary to hemodynamics, possible tubular injury. The patient's renal function has improved over the last 24 hours. At this point, t he patient has no signs of uremia, no immediate need for renal replacement therapy. The patient has a primary virtual assistant that she will follow up with in the outpatient setting. At this point, cont inue current treatment plan, supportive care, renally dose meds, avoid nephrotoxins. 2. Mineral bone disorder. Continue to monitor calcium and phosphorus levels. Continue phos binder s, vitamin D analogs. 3. Anemia. Continue to monitor hemoglobin and hematocrit levels. We will give Epogen as needed. 4. Sinus bradycardia status post pacemaker. 5. Hypertension. Continue current blood pressure regimen. 6. History of deep venous thrombosis. The patient's Eliquis is on hold. 7. Hyperkalemia, resolved. 8. Gastrointestinal and deep venous thrombosis prophylaxis with PPI and sequential leg squeezers. Dictated By: HEBERT ALCALA/SARA Conf#: [id number] DID#: [id number]
--- NOTE | 2017-02-19 12:29 | CONS ---
Date/Time of Note Date/Time of Note DATE: 02/19/17 TIME: 12:25 Assessment/Plan Assessment/Plan Chief Complaint/Hosp Course IMPRESSION: 1. Bradycardia. Continue to assess for more significant bradycardia and symptoms.-overall improved with holding atenolol/amio but now having pauses recurrent up to 4 seconds. Now s/p PPM POD#1 2. Abnormal electrocardiogram, assess for acute coronary syndrome.-trop negative x 3/NL EF by echo 3. Cardiac arrhythmia, question of possible paroxysmal atrial fibrillation. 4. Dizziness. 5. Weakness, question secondary to bradycardia. 6. Hypertension, uncontrolled. 7. Diabetes mellitus. 8. Hyperkalemia 9. Renal failure.-ongoing 10.MR-moderate to severe by echo this admit Recc: -Tele -serial ecg's -Continue asa -Continue norvasc -Follow K closely on benazepril -local wound care -abx prohylaxis -Resume Amio and hold atenolol -D/C planning in am if remains stable Problems: Consultation Date/Type/Reason Admit Date/Time Feb 12, 2017 at 16:44 Initial Consult Date 02/10/2017 Type of Consultation: Cardiology Reason for Consultation Bradycardiia Referring Provider: TOSIN DUNAWAY Exam/Review of Systems Vital Signs Vitals Vital Signs Date Time Temp Pulse Resp B/P Pulse Ox O2 Delivery O2 Flow Rate FiO2 02/19/17 08:40 52 02/19/17 08:03 98.1 19 123/61 98 02/18/17 13:03 Room Air Intake and Output 02/18/17 02/18/17 02/19/17 15:00 23:00 07:00 Intake Total 250 ml 750 ml Balance 250 ml 750 ml Exam Review of Systems: CONSTITUTIONAL: No fevers, chills. PULMONARY: No sob CARDIOVASCULAR: No chest pain/palpitations GASTROINTESTINAL: No nausea/vomiting. GENITOURINARY: No hematuria/dysuria. MUSCULOSKELETAL: No myagias/arthalgias. PSYCHIATRIC: The patient denies depression. NEUROLOGIC: No weakness Constitutional: alert, oriented Psych: no complaints Head: normocephalic ENMT: mucosa pink and moist Neck: jvd, supple Respiratory: clear to auscultation Cardiovascular: other (L pacer pocket c/d/i noswelling), regular rate and rhythm Gastrointestinal: non-tender, soft Musculoskeletal: muscle tone (normal) Extremities: edema (none) Neurological: other (No focal deficits) Results Result Diagram: 02/19/17 0637 02/19/17 0637 Results 24 hrs Laboratory Tests Test 02/19/17 06:37 White Blood Count 8.7 Red Blood Count 3.72 L Hemoglobin 11.4 L Hematocrit 34.5 L Mean Corpuscular Volume 92.7 Mean Corpuscular Hemoglobin 30.6 Mean Corpuscular Hemoglobin Concent 33.0 Red Cell Distribution Width 12.8 Platelet Count 260 Mean Platelet Volume 10.5 H Neutrophils % 67.5 Lymphocytes % 21.1 Monocytes % 8.6 Eosinophils % 2.0 Basophils % 0.6 Nucleated Red Blood Cells % 0.0 Neutrophils # 5.9 Lymphocytes # 1.8 Monocytes # 0.8 Eosinophils # 0.2 Basophils # 0.1 Nucleated Red Blood Cells # 0.0 Sodium Level 136 Potassium Level 4.4 Chloride Level 103 Carbon Dioxide Level 20 L Anion Gap 17 H Blood Urea Nitrogen 66 H Creatinine 5.11 H Glucose Level 99 Calcium Level 9.2 Phosphorus Level 4.9 Magnesium Level 2.2 Medications Medications Current Medications Ondansetron HCl (Zofran Inj) 4 mg Q6H PRN IV NAUSEA AND/OR VOMITING; Start at 14:00 Acetaminophen (Tylenol Tab) 650 mg Q6H PRN PO PAIN LEVEL 1-3 OR FEVER Last administered on 02/15/17 18:45; Admin Dose 650 MG; Start 02/10/17 at 14:00 Acetaminophen (Tylenol Supp) 650 mg Q6H PRN [place] PAIN LEVEL 1-3 OR FEVER; Start 02/10/17 at 14:00 Acetaminophen/ Hydrocodone Bitart ([place] (5/325)) 1 tab Q6H PRN PO MODERATE PAIN LEVEL 4-6; Start 02/10/17 at 14:00 Acetaminophen/ Hydrocodone Bitart ([place] (5/325)) 2 tab Q6H PRN PO SEVERE PAIN LEVEL 7-10 Last administered on 02/18/17 23:52; Admin Dose 2 TAB; Start at 14:00 Morphine Sulfate (morphine) 2 mg Q4H PRN IV SEVERE PAIN LEVEL 7-10; Start 02/10 at 14:00 Docusate Sodium (Colace) 100 mg Q12H PRN PO CONSTIPATION; Start 02/10/17 at 14: 00 Magnesium Hydroxide (Milk Of Mag) 30 ml DAILY PRN PO CONSTIPATION; Start at 14:00 Bisacodyl (Dulcolax Supp) 10 mg DAILY PRN [place] CONSTIPATION; Start 02/10/17 at 14 :00 Hydralazine HCl (Apresoline) 10 mg Q4H PRN IV sbp>160 Last administered on 02/11 05:02; Admin Dose 10 MG; Start 02/10/17 at 16:30 Clonidine (Catapres) 0.1 mg Q4H PRN PO sbp>160; Start 02/10/17 at 18:00 Amlodipine Besylate (Norvasc) 5 mg BID PO Last administered on 02/19/17 08:35 ; Admin Dose 5 MG; Start 02/10/17 at 21:00 Apixaban (Eliquis) 2.5 mg BID PO Last administered on 02/15/17 08:45; Admin Dose 2.5 MG; Start 02/10/17 at 21:00; Status Future Hold Aspirin (Halfprin) 81 mg DAILY PO Last administered on 02/17/17 09:17; Admin Dose 81 MG; Start 02/11/17 at 09:00 Calcitriol (Rocaltrol) 0.25 mcg DAILY PO Last administered on 02/19/17 08:34; Admin Dose 0.25 MCG; Start 02/11/17 at 09:00 Febuxostat (Uloric) 40 mg DAILY PO Last administered on 02/19/17 08:34; Admin Dose 40 MG; Start 02/11/17 at 09:00 Famotidine (Pepcid) 20 mg DAILY PO Last administered on 02/19/17 08:34; Admin Dose 20 MG; Start 02/12/17 at 09:00 Ferrous Sulfate (Ferrous Sulfate (Ec)) 325 mg BID PO Last administered on 08:34; Admin Dose 325 MG; Start 02/11/17 at 21:00 Acetaminophen (Tylenol Tab) 650 mg Q4H PRN PO NON-CARDIAC PAIN LEVEL (1-3); Start 02/18/17 at 12:30 Morphine Sulfate 2 mg 2 mg Q2H PRN IV FOR NON CARDIAC PAIN (4-10); Start at 12:30 Cefazolin Sodium (Ancef 1 Gm/50 ml (Pmx)) 50 ml @ 100 mls/hr Q24H IVPB Last administered on 02/18/17t 14:27; Admin Dose 100 MLS/HR; Start 02/18/17 at 13:00 Miscellaneous Information (* Miscellaneous Pharmacy Order) DC all Lovenox, Hepari... ONCE XX ; Start 02/18/17 at 12:30 EJ MIR Feb 19, 2017 12:29
--- NOTE | 2017-02-19 12:51 | PDOCDIS ---
Discharge Instructions DIAGNOSIS Discharge Diagnosis: Symptomatic bradycardia. CONDITION Patient Condition: Stable HOME CARE INSTRUCTIONS: Special Diet: CARDIAC RENAL FOLLOW UP/APPOINTMENTS Appointments Nain Hernandez MD Specialty: Cardiology Office Address: [address] [place] [address] Office OTHER ORDERS: Other Orders: 1. Take a low potassium, carbohydrate controlled diet. 2. Resume activities as tolerated. Avoid extensive involvement of the left upper extremity. Use the left upper extremity sling for 10 days. 3. Take medications as per prescription. 4. Follow-up with cardiology in 10 days. Please call for appointment. CHERELLE GROSSMAN NP Feb 19, 2017 12:51
[2017-02-19] MEDS ORDERED: CEPH500C PO (12:53)
[2017-02-19] MEDS ORDERED: AMLO-145 PO (12:53)
[2017-02-19] MEDS ORDERED: AMIO100T4 PO (12:53)
[2017-02-19] MEDS: CEFAZOLIN 1 GM/50 ML (PMX) 50 ML IVPB SCH (13:03)
--- NOTE | 2017-02-19 16:48 | DS ---
DATE OF ADMISSION: 02/12/2017 DATE OF DISCHARGE: 02/19/2017 FINAL DIAGNOSES: 1. Symptomatic bradycardia. Status post permanent pacemaker placement on 02/18. 2. Acute on chronic kidney injury. Nonoliguric. 3. Essential hypertension. 4. Normocytic normochromic anemia. 5. History of cardiac arrhythmias, details unclear. 6. Type 2 diabetes mellitus. 7. Moderate to severe mitral regurgitation. 8. Pulmonary hypertension. CONSULTANTS: 1. Dr. Nain Hernandez, Cardiology. 2. Dr. Roman Llamas, Cardiology. 3. Dr. Howard Martin, Nephrology. HOSPITAL COURSE: This is a 71-year-old female with past medical history of reported DVT of bilateral lower extremities, cardiac arrhythmias, essential hypertension, CVA with poor peripheral vision, CKD and type 2 diabetes mellitus , who came to [facility] due to reported dizziness. The patient verbalized that she has been having dizziness for a 1 month period that became progressively worse. In the emergency room, the patient was noticed to have sinus bradycardia with heart rate as low as 48. However, the patient was noticed to be taking atenolol as well as amiodarone at home. The patient also had hyperkalemia in the emergency room. The patient's initial blood pressure was 200/93 in the emergency room. Provided the patient's history of present illness and the diagnostic findings, a clinical decision was made to admit the patient to inpatient setting to have her further evaluated. The patient was admitted to inpatient telemetry floor. A cardiology consult was called. A nephrology consult was also called. The patient's amiodarone and atenolol has been put on hold. The patient's cardiac rhythm was monitored closely. The patient had multiple episodes of witnessed pauses lasting more than 2 seconds. Hence, cardiology suggested pacemaker insertion on this patient. The patient had a permanent pacemaker inserted on 02/18/2017 with no immediate postprocedure complications. Meanwhile, the patient's MARIBETH inhibitors and Lasix were discontinued because of worsening renal failure. The patient has underlying chronic kidney disease stage IV. Nephrology has been following the patient. The patient has underlying essential hypertension. The patient was maintained on antihypertensives with fairly well controlled blood pressures throughout the hospital course. The patient also has history of type 2 diabetes mellitus. The patient takes Januvia at home. The patient had fairly well controlled blood sugars. The patient's hemoglobin A1c was found to be 5.0. The patient was also noticed to have normocytic normochromic anemia. The patient's iron panel did not show any significant iron deficiency. The patient's anemia could be most probably secondary to her underlying chronic kidney disease. The patient's H and H remained stable throughout the hospital course. The patient has history of cardiac arrhythmias (details unclear). For this reason, the patient was maintained on amiodarone at home. The patient's amiodarone was held during the patient's hospital course. The patient's beta blockers were discontinued too. The patient's 2D echocardiogram showed ejection fraction of 50%. The echo also showed moderate to severe mitral valve regurgitation. The patient's troponins remained negative. The patient has history of bilateral lower extremity DVT in 2016. The patient also has history of CVA. For this reason, the patient is anticoagulated on Eliquis, which was continued during the patient's hospital course. The patient had a stable, but prolonged hospital course. The patient was cleared by consultants to be discharged home. The patient denied any complaints at the time of discharge. DISCHARGE DISPOSITION/PLAN: The patient will be discharged home today. The patient was instructed to take a low potassium potassium, carbohydrate controlled diet. The patient was instructed to resume activities as tolerated, but to avoid excessive involvement of the left upper extremity. She was instructed to use the left upper extremity sling for at least 10 days. The patient was instructed to take medications as per prescription. She was instructed to follow up with cardiology in 10 days and to please call for an appointment. The patient was instructed to call the insurance inspector on go to the nearest ER if she has any chest pain, significant dizziness, bleeding or signs of infection at the pacemaker insertion site. The patient verbalized understanding of her discharge instructions. CONDITION AT DISCHARGE: Stable. DISCHARGE MEDICATIONS: 1. Amiodarone 100 mg p.o. daily. 2. Amlodipine 5 mg p.o. b.i.d. 3. Keflex 500 mg p.o. q.12h. x5 days. 4. Apixaban 2.5 mg p.o. b.i.d. 5. Aspirin 81 mg p.o. daily. 6. Calcitriol 0.25 mg p.o. daily. 7. Febuxostat 40 mg p.o. daily. 8. Renvela 0.8 grams p.o. with meals. 9. Januvia 100 mg p.o. daily. 10. Sodium bicarbonate 650 mg p.o. daily. PERTINENT LABORATORIES, DIAGNOSTIC DATA AND PROCEDURES: 1. 2D echocardiogram. Normal left ventricular systolic function. Mild concentric left ventricular hypertrophy. Mild enlargement of the left ventricular cavity. Ejection fraction is visually estimated at 50%. Moderate to severe eccentric mitral valve regurgitation. Trace to mild aortic valve regurgitation. Estimated peak PA systolic pressure 47 mmHg. There is mild tricuspid regurgitation. There is trace pulmonic regurgitation. 2. Latest chest x-ray on 02/18/2017. Cardiomegaly with calcified atherosclerosis in the aorta. Left-sided pacemaker with its lead over the heart. No visualized pneumothorax. 3. Renal ultrasound. Bilateral benign renal cysts. Bilateral hyperechoic kidneys consistent with medical renal disease. 4. Hemoglobin A1c 5.0. 5. Fasting lipid panel: Triglycerides 112, total cholesterol 205, LDL 96, HDL 87. 6. Latest CBC: WBC 8.7, hemoglobin 11.4, hematocrit 34.5, platelet count 260. 7. Latest BMP: Sodium 140, potassium 4.1, chloride 105, carbon dioxide 23, anion gap 17, BUN 50, creatinine 4.22, glucose 80. 8. Iron panel: Iron 40, TIBC 242, iron saturation 70. 9. Implantation of a single-chamber pacemaker on 02/18/2017. Initial setting VVI 50. At this time, I would like to thank all the consultants for seeing the patient, doing the necessary procedures, and providing clinical recommendations. The case and management of this patient was fully discussed with Dr. Romero. Approximately 40 minutes was spent on coordinating the discharge on this patient. CHERELLE ROMERO MD, AM/NTS Conf#: [id number] DID#: [id number] MTDD
--- NOTE | 2017-02-21 11:59 | RADRPT ---
Vent Rate: 50 bpm RR Interval: 0 msec MN Interval: 0 msec QRS Duration: 196 msec QT Interval: 610 msec QTC Interval: 556 msec P-R-T [place]: 0 - -79 - 92 degrees Electronic ventricular pacemaker with underlying Afib No previous tracing available for comparison Electronically Signed By: Evan Najera [id number]
== END 2017-02-19 17:00 | disposition home or self-care (01) | DRG 243 ==
LOC: E/R 09:54 → MS4 12:50 → OBSVTOIN 02-12 16:44
PROVIDERS: ADMIT Family Medicine; ATTEND Family Medicine
PROC: 0JH604Z Insertion of Pacemaker, Single Chamber into Chest Subcutaneous Tissue and Fascia, Open Approach (ICD-10-PCS; principal; 2017-02-18)
PROC: 02HK3JZ Insertion of Pacemaker Lead into Right Ventricle, Percutaneous Approach (ICD-10-PCS; 2017-02-18)
DX: I49.5 Sick sinus syndrome (principal); N17.9 Acute kidney failure, unspecified; I27.2 Other secondary pulmonary hypertension; E87.5 Hyperkalemia; N18.4 Chronic kidney disease, stage 4 (severe); I48.2 Chronic atrial fibrillation; E11.9 Type 2 diabetes mellitus without complications; I12.9 Hypertensive chronic kidney disease with stage 1 through stage 4 chronic kidney disease, or unspecified chronic kidney disease; D63.1 Anemia in chronic kidney disease; Z79.02 Long term (current) use of antithrombotics/antiplatelets; Z86.718 Personal history of other venous thrombosis and embolism; I34.0 Nonrheumatic mitral (valve) insufficiency; I69.998 Other sequelae following unspecified cerebrovascular disease; H53.8 Other visual disturbances
CPT/HCPCS: 36415; 71010; 76775; 80048; 80053; 80061; 81001; 81003; 82043; 82550; 82553; 83036; 83540; 83735; 84100; 84155; 84300; 84436; 84443; 84479; 84484; 85025; 85610; 85730; 89190; 93005; 93306; 96374; 99217; G0378; C1786; C1898; C2629; J0360; J0690; J2250; J3010; J7030

== ENCOUNTER 2017-04-02 18:10 | Inpatient (IN) | payer MEDICARE, OTHER ==
[~2017-04-02] VITALS: Ht 162.6 cm; Wt 69.5 kg
[~2017-04-02 18:10] MED LIST: AMIO100T4 PO; AMLO-145 PO; APIX2.5T PO; ASPI-664 PO; CALC0.2511 PO; CEPH500C PO; FEBU40TA PO; SEVE0.8P PO; SITA100T8 PO; SODI650T PO
[2017-04-02] MEDS ORDERED: ASPIRIN 81 MG TAB PO STA (18:26)
[2017-04-02] MEDS ORDERED: AMIO200T2 PO (18:58)
[2017-04-02] MEDS ORDERED: LORA1TAB PO (18:58)
[2017-04-02] MEDS ORDERED: EZET10TA3 PO (18:59)
[2017-04-02] MEDS ORDERED: BUDE6HFA INHALATION (18:59)
[2017-04-02] MEDS ORDERED: GABA100C14 PO (18:59)
[2017-04-02] MEDS ORDERED: SEVE800T10 PO (19:05)
[2017-04-02 19:29] LABS: ADD SCAN DIFF NO
[2017-04-02 19:32] LABS: BASOPHIL # 0.1 10^3/ul (0.0-0.1); BASOPHILS % 0.9 % (0.0-2.0); EOSINOPHILS # 0.2 10^3/ul (0.0-0.5); HEMATOCRIT 34.1 % (37.0-47.0); HEMOGLOBIN 11.1 g/dl (12.0-16.0); LYMPHOCYTES # 2.3 10^3/ul (0.8-2.9); LYMPHOCYTES % 25.4 % (15.0-51.0); MEAN CORPUSCULAR HEMOGLOBIN 30.1 pg (29.0-33.0); MEAN CORPUSCULAR HGB CONC 32.6 g/dl (32.0-37.0); MEAN CORPUSCULAR VOLUME 92.4 fl (82.0-101.0); MEAN PLATELET VOLUME 10.5 fl (7.4-10.4); MONOCYTE # 0.7 10^3/ul (0.3-0.9); MONOCYTES % 7.2 % (0.0-11.0); NEUTROPHIL # 5.9 10^3/ul (1.6-7.5); NEUTROPHILS % 64.1 % (39.0-77.0); PLATELET COUNT 251 10^3/UL (140-415); RED BLOOD COUNT 3.69 10^6/ul (4.20-5.40); RED CELL DISTRIBUTION WIDTH 13.8 % (11.5-14.5); WHITE BLOOD COUNT 9.2 10^3/ul (4.8-10.8)
--- NOTE | 2017-04-02 19:38 | RADRPT ---
PROCEDURE: Left upper extremity venous ultrasound CLINICAL INDICATION: Left arm pain and swelling. Deep venous thrombosis. TECHNIQUE: Haney scale, color doppler, spectral doppler ultrasound imaging of the venous system of the left upper extremity. Augmentation maneuvers were utilized. COMPARISON: No prior studies are available for comparison. FINDINGS: LEFT: Internal jugular vein: Nonocclusive thrombus is present. Subclavian vein: Noncompressible, possibly due to for access, possible nonocclusive throm bus. Axillary vein: Nonocclusive thrombus is present. Brachial vein: Patent. Basilic vein: Patent. Cephalic vein: Focal thrombus is present. IMPRESSION: Nonocclusive deep venous thrombosis involving the left internal jugular vein and left axillary vein. Possible nonocclusive thrombus within the left subclavian vein. Focal superficial venous thrombosis within the left cephalic vein. RPTAT: AADD .Dorian Myers MD, MD Date Time Electronically viewed and signed by .Dorian Myers MD, on 04/02/2017 19:38 .B/
[2017-04-02 19:55] LABS: POTASSIUM 4.1 mmol/L (3.5-5.1)
[2017-04-02 19:57] LABS: CREATININE 4.86 mg/dl (0.44-1.00)
[2017-04-02 19:58] LABS: CALCIUM 9.4 mg/dl (8.4-10.2)
[2017-04-02 20:00] VITALS: Ht 162.6 cm; Wt 69.5 kg
[2017-04-02 20:03] LABS: INR 1.17; PT RATIO 1.2
[2017-04-02 20:04] LABS: PARTIAL THROMBOPLASTIN TIME 34.3 Sec (25.0-35.0)
[2017-04-02 20:07] LABS: TROPONIN-I 0.022 ng/ml (0.00-0.12)
--- NOTE | 2017-04-02 20:10 | RADRPT ---
PROCEDURE: XR Chest. CLINICAL INDICATION: Chest pain. TECHNIQUE: Single frontal chest x-ray. COMPARISON: 02/18/2017 FINDINGS: Left subclavian single lead pacemaker is present. The heart is mildly enlarged.. There is no conge stive heart failure.. No focal infiltrate is seen. There is no pleural effusion. There is no pneum othorax. The osseous structures are unremarkable. IMPRESSION: Cardiomegaly. No CHF or infiltrate. RPTAT: HMVK .Jonah Blanton MD, Date Time Electronically viewed and signed by .Jonah Blanton MD, on 04/02/2017 20:09 .K/
--- NOTE | 2017-04-02 20:29 | ERA ---
ER Documentation Chief Complaint Date/Time DATE: 04/02/17 TIME: 19:59 Chief Complaint CHEST PAIN AND LEFT ARM PAIN AND SWELLING S/P PACER 1 MONTH AGO. HPI 71-year-old female with multiple medical problems including ESRD, hypertension, and symptomatic bradycardia requiring pacemaker placed January 2017 presenting with left upper extremity pain that radiates into her left upper back and left anterior shoulder. It is slightly worse with moving her arm. She denies any pain around her pacemaker site. She denies any other chest pain, neck pain or shortness of breath. No diaphoresis, dizziness, fevers, chills. She called her fork lift mechanic, , who referred her to the ER. Patient denies any numbness or tingling in her hands. She has no other complaints. Of note patient is on Eliquis. ROS All systems reviewed and are negative except as per history of present illness. Medications Home Meds Active Scripts Amlodipine Besylate* (Amlodipine Besylate*) 5 Mg Tablet, 5 MG PO BID for 30 Days , #60 TAB Prov:CHERELLE GROSSMAN [employer]DEL [employer]ER 02/19/17 Reported Medications Sevelamer Hcl* (Renagel*) 800 Mg Tablet, 800 MG PO WITH MEALS, TAB 04/02/17 Budesonide-Formoterol Fumarate* (Symbicort*) 160-4.5 Hfa.aer.ad, 2 PUFF INHALATION BID, #1 EACH 04/02/17 Ezetimibe* (Zetia*) 10 Mg Tablet, 10 MG PO DAILY, TAB 04/02/17 Gabapentin* (Gabapentin*) 100 Mg Capsule, 100 MG PO TID, #90 CAP 04/02/17 Lorazepam* (Lorazepam*) 1 Mg Tablet, 1 MG PO HS Y for ANXIETY, #30 TAB 04/02/17 Amiodarone Hcl* (Amiodarone Hcl*) 200 Mg Tablet, 100 MG PO DAILY, #30 TAB 04/02/17 Aspirin (Enteric Aspirin) 81 Mg Tablet.dr 81 MG PO Q7D, #30 TAB 02/10/17 Apixaban* (Eliquis*) 2.5 Mg Tablet, 2.5 MG PO BID, TAB 02/10/17 Febuxostat* (Uloric*) 40 Mg Tablet, 40 MG PO DAILY, TAB 02/10/17 Calcitriol* (Calcitriol*) 0.25 Mcg Capsule, 0.25 MCG PO DAILY, CAP 02/10/17 Discontinued Reported Medications Sodium Bicarbonate (Na Bicarbonate) 650 Mg Tab, 650 MG PO, TAB 02/10/17 Sitagliptin* (Januvia*) 100 Mg Tablet, 100 MG PO DAILY, #30 TAB 02/10/17 Sevelamer Carbonate* (Renvela*) 0.8 Gm Powd.pack, 0.8 GM PO WITH MEALS, PACKET 02/10/17 Discontinued Scripts Cephalexin* (Cephalexin*) 500 Mg Capsule, 500 MG PO Q12H for 5 Days, #10 CAP Prov:CHERELLE GROSSMAN [employer]DEL [employer]KER 02/19/17 Amiodarone Hcl* (Amiodarone Hcl*) 100 Mg Tablet, 100 MG PO DAILY, #30 TAB Prov:CHERELLE GROSSMAN [employer]DEL [employer]ER 02/19/17 Allergies Allergies: Coded Allergies: No Known Allergy (Unverified , 04/02/17) PMhx/Soc History of Surgery: No Anesthesia Reaction: No Hx Neurological Disorder: No Hx Respiratory Disorders: No Hx Cardiac Disorders: Yes (Afib, HTN, symptomatic bradycardia status post AICD placement) Hx Psychiatric Problems: No Hx Miscellaneous Medical Probl: Yes (ESRD not on hemodialysis) Hx Alcohol Use: No Hx Substance Use: No Hx Tobacco Use: No Smoking Status: Unknown if ever smoked FmHx Family History: No diabetes Physical Exam Vitals Vital Signs Date Time Temp Pulse Resp B/P Pulse Ox O2 Delivery O2 Flow Rate FiO2 04/02/17 18:12 98.6 82 20 229/98 100 Physical Exam Const: Well-appearing, nontoxic, no distress Head: Atraumatic Eyes: Normal Conjunctiva ENT: Normal External Ears, Nose and Mouth. No facial swelling. Neck: Full range of motion. No meningismus. Resp: Clear to auscultation bilaterally Cardio: Pacemaker site without erythema, induration, fluctuance. Well-healed surgical scar. Regular rate and rhythm, no murmurs Abd: Soft, non tender, non distended. Normal bowel sounds Skin: No petechiae or rashes Back: No midline or flank tenderness Ext: No cyanosis. No significant swelling in left upper extremity that is noticeable however it is slightly tender to palpation in the upper part of the left upper extremity. There is normal coloration of the skin. 2+ radial pulses bilaterally, equal. 2+ DP and PT pulses, equal. Neur: Awake and alert Psych: Normal Mood and Affect Result Diagram: 04/02/17 1840 Results 24 hrs Laboratory Tests Test 04/02/17 18:40 White Blood Count 9.210^3/ul Red Blood Count 3.6910^6/ul Hemoglobin 11.1g/dl Hematocrit 34.1% Mean Corpuscular Volume 92.4fl Mean Corpuscular Hemoglobin 30.1pg Mean Corpuscular Hemoglobin Concent 32.6g/dl Red Cell Distribution Width 13.8% Platelet Count 86355^3/UL Mean Platelet Volume 10.5fl Neutrophils % 64.1% Lymphocytes % 25.4% Monocytes % 7.2% Eosinophils % 2.0% Basophils % 0.9% Nucleated Red Blood Cells % 0.0/100WBC Neutrophils # 5.910^3/ul Lymphocytes # 2.310^3/ul Monocytes # 0.710^3/ul Eosinophils # 0.210^3/ul Basophils # 0.110^3/ul Nucleated Red Blood Cells # 0.010^3/ul Current Medications Medications (Trade) Dose Ordered Sig/Estefania Route PRN Reason Start Time Stop Time Status Last Admin Dose Admin Aspirin (Aspirin) 162 mg ONCE STAT PO 04/02/17 18:26 04/02/17 18:27 DC 04/02/17 18:58 Procedures/MDM EKG: Rate/Rhythm: Normal Sinus Rhythm QRS, ST, T-waves: Left axis deviation, LVH with QRS widening, no changes consistent w/ acute ischemia Impression: No evidence of ischemia or arrhythmia Chest x-ray: FINDINGS: Left subclavian single lead pacemaker is present. The heart is mildly enlarged.. There is no congestive heart failure.. No focal infiltrate is seen. There is no pleural effusion. There is no pneumothorax. The osseous structures are unremarkable. IMPRESSION: Cardiomegaly. No CHF or infiltrate. RPTAT: HMVK .Jonah Blanton MD, MD Date Time Electronically viewed and signed by .Jonah Blanton MD, on 04/02/2017 20:09 Ultrasound venous left upper extremity: LEFT: Internal jugular vein: Nonocclusive thrombus is present. Subclavian vein: Noncompressible, possibly due to for access, possible nonocclusive thrombus. Axillary vein: Nonocclusive thrombus is present. Brachial vein: Patent. Basilic vein: Patent. Cephalic vein: Focal thrombus is present. IMPRESSION: Nonocclusive deep venous thrombosis involving the left internal jugular vein and left axillary vein. Possible nonocclusive thrombus within the left subclavian vein. Focal superficial venous thrombosis within the left cephalic vein. .Dorian Myers MD, MD Date Time Electronically viewed and signed by .Dorian Myers MD, MD on 04/02/2017 19:38 Labs: CBC within normal limits BMP shows abnormalities of CKD Coags unremarkable MDM: Patient is presenting with left upper extremity pain and swelling. She is 2 months status post pacemaker placement. Her vitals are stable other than uncontrolled hypertension. However I have a low suspicion for hypertensive emergency. There is no evidence of acute coronary syndrome or pulmonary embolism. I have a low suspicion for aortic dissection. She does have DVTs in multiple veins in her left upper extremity and including her subclavian and internal jugular. Given the patient is on Eliquis and developed DVTs, she will be admitted to the hospital for anticoagulation and further evaluation. Heparin drip will be started. Accepting Care Team: Current data and ongoing care discussed. Time: Time of admission Primary Provider: Randolph Consulting: none Outstanding Data: none Departure Diagnosis: Primary Impression: Deep vein thrombosis (DVT) of left upper extremity Qualified Code: I82.A12 - Acute deep vein thrombosis (DVT) of axillary vein of left upper extremity Additional Impressions: Left subclavian vein thrombosis Internal jugular (IJ) vein thromboembolism, acute Qualified Code: I82.C12 - Internal jugular (IJ) vein thromboembolism, acute, left Cephalic vein thrombosis Condition: MEHUL Fuentes MD April 02, 2017 20:10
[2017-04-02] MEDS ORDERED: ACETAMINOPHEN 325 MG TAB PO PRN (20:30)
[2017-04-02] MEDS ORDERED: HEPARIN 1000 UNITS/ML 10 ML INJ IV ONE (20:30)
[2017-04-02] MEDS ORDERED: ONDANSETRON 4 MG INJ IV PRN ×2 (20:30→23:30)
[2017-04-02] MEDS ORDERED: HEPARIN 1000 UNITS/ML 10 ML INJ IV PRN (20:30)
[2017-04-02] MEDS: HEPARIN 25000 UNITS/250 ML 250 ML IV SCH (20:39)
[2017-04-02] MEDS ORDERED: hydrALAzine 20 MG INJ IV ONE (21:30)
[2017-04-02 22:05] VITALS: TEMP 98.6
[2017-04-02 22:49] VITALS: BP 185/74; RESP 19
[2017-04-02] MEDS ORDERED: LORAZEPAM 1 MG TAB PO PRN (23:30)
[2017-04-02] MEDS ORDERED: DOCUSATE SODIUM 100 MG CAP PO PRN (23:30)
[2017-04-02] MEDS ORDERED: hydrALAzine 20 MG INJ IV PRN (23:30)
[2017-04-02] MEDS ORDERED: ASPIRIN (EC) 81 MG TAB PO SCH (23:30)
[2017-04-02] MEDS ORDERED: BISACODYL 10 MG SUPP PR PRN (23:30)
[2017-04-02] MEDS ORDERED: NACL 0.9% 3 ML SYG IV SCH (23:30)
[2017-04-02] MEDS: AMLODIPINE 5 MG TAB PO SCH (23:30)
[2017-04-02] MEDS ORDERED: morphine 2 MG INJ IV PRN (23:30)
--- NOTE | 2017-04-02 23:47 | HP ---
Date/Time of Note Date/Time of Note DATE: 04/02/17 TIME: 23:25 Assessment/Plan VTE Prophylaxis VTE Prophylaxis Intervention: other (Currently on therapeutic heparin) Lines/Catheters IV [facility] Peripheral IV Central line still needed: No Urinary Cath still in place: No Assessment/Plan Chief Complaint/Hosp Course This is a 71-year-old female being admitted to the [facility] for: #1 multiple thrombus: Doppler ultrasound of the left upper extremity showed multiple clots, see ultrasound report for further results. Patient is currently on Eliquis secondary to previous history of DVT. At the current time will start the patient on a heparin drip. Hold Eliquis. Patient will need further anticoagulation treatment strategy. Will consult hematology. Will order protein C,S and antiphospholipid antibody, factor V. Pain control. May also need vascular surgery input regarding location of the clots in relation to her AV fistula #2 end-stage renal disease: Patient currently is not on dialysis, she is non- oliguric. Is followed by outpatient nephrology. At this time will continue current renal meds. Consider consultation with Dr. Martin if necessary. Renally dose medications, avoid nephrotoxins #3 sick sinus syndrome: Stable, patient is status post pacemaker in January 2017 , currently normal sinus rhythm. #4 cardiac arrhythmia:, Possible history of paroxysmal A. fib. Patient currently normal sinus rhythm continue amiodarone #5 hypertension: Continue Norvasc, hydralazine IV as needed #6 Hyperlipidemia: Continue Zetia #7 DVT and GI prophylaxis: Currently on heparin drip, H2 edward Problems: HPI/ROS Admit Date/Time Admit Date/Time April 02, 2017 at 20:20 Hx of Present Illness Chief complaint: Left upper extremity pain 71-year-old female with multiple medical problems including ESRD, hypertension, and symptomatic bradycardia requiring pacemaker placed January 2017 presenting with left upper extremity pain that radiates into her left upper back and left anterior shoulder. It is slightly worse with moving her arm. She denies any pain around her pacemaker site. She denies any other chest pain, neck pain or shortness of breath. No diaphoresis, dizziness, fevers, chills. She called her construction representative, , who referred her to the ER. Patient denies any numbness or tingling in her hands. She has no other complaints. Patient currently on Eliquis. Allergies: NKDA Medications: See JAN ROS Const: Negative for fever, chills, weight gain or weight loss, fatigue, or diaphoresis Eyes : No pain discharge or redness or change in visual acuity ENT: No pain, sore throat, congestion, congestion, dysphagia or discharge Respiratory: No shortness of breath, cough, sputum, wheezing, or pleuritic pain Cardiovascular: No chest pain, palpitation, PND, or edema GI : no change in appetite, abdominal pain, nausea, vomiting, diarrhea, constipation, or change in the color his stool Genitourinary: No dysuria, hematuria, flank pain , discharge or CVA tenderness Musculoskeletal: As per HPI Skin: No rash, bruising or hives Neuro: No headache, dizziness, syncope, seizure, focal weakness Endocrine: No polyuria, polydipsia, temperature intolerance Psych: No hallucination, depression, anxiety or suicidal ideation PMH/Family/Social Past Medical History DVT of bilateral lower extremities (diagnosed in early 2015). Heart arrhythmia (details unknown). Hypertension. History of cerebrovascular accident with poor peripheral vision. End-stage renal disease Sick sinus syndrome status post pacemaker Past Surgical History Left AV fistula, pacemaker placement Family History Significant Family History: no pertinent family hx Social History Alcohol Use: none Smoking Status: Never smoker Drug Use: none Exam/Review of Systems Vital Signs Vitals Vital Signs Date Time Temp Pulse Resp B/P Pulse Ox O2 Delivery O2 Flow Rate FiO2 04/02/17 22:49 97.7 77 19 185/74 98 04/02/17 22:05 Room Air Exam Exam General: Patient is well-developed well-nourished and in no acute distress The patient is alert oriented -3 HEENT: Atraumatic, normocephalic. The pupils are equal, round and reactive. Extraocular motor are intact Neck: Supple with full range of motion. No rigidity or meningismus Chest: Nontender Lungs: Clear to auscultation bilaterally no crackles rales or wheezing Heart: Normal S1-S2, Regular rhythm and rate. No murmur, S3, or S4 Abdomen: Soft , nontender, nondistended , bowel sounds are present. No guarding no rebound tenderness , No masses or organomegaly. No costovertebral temporal angle mass Extremities: Mild tenderness to palpation at the left upper extremity around the lateral aspect of the elbow, no redness or erythema or swelling appreciated Neurologic: Normal mental status, speech normal, cranial nerves II through XII are intact, motor and sensory are intact, no focal weakness Vascular: Left upper extremity thrill at AV site Additional Comments EKG: Rate/Rhythm: Normal Sinus Rhythm, no ST-T wave abnormalities. Chest x-ray: No acute disease Left upper extremity Doppler ultrasound LEFT: Internal jugular vein: Nonocclusive thrombus is present. Subclavian vein: Noncompressible, possibly due to for access, possible nonocclusive thrombus. Axillary vein: Nonocclusive thrombus is present. Brachial vein: Patent. Basilic vein: Patent. Cephalic vein: Focal thrombus is present. IMPRESSION: Nonocclusive deep venous thrombosis involving the left internal jugular vein and left axillary vein. Possible nonocclusive thrombus within the left subclavian vein. Focal superficial venous thrombosis within the left cephalic vein. Labs Result Diagram: 04/02/17183904/02/17 184 SAAD NUNEZ April 02, 2017 23:35
[2017-04-03 02:30] LABS: CK-MB 0.59 ng/ml (0.0-2.4)
[2017-04-03 02:34] LABS: TROPONIN-I 0.028 ng/ml (0.00-0.12)
[2017-04-03 04:36] LABS: ADD SCAN DIFF NO
[2017-04-03 04:39] LABS: BASOPHIL # 0.1 10^3/ul (0.0-0.1); BASOPHILS % 0.8 % (0.0-2.0); EOSINOPHILS # 0.2 10^3/ul (0.0-0.5); EOSINOPHILS % 2.1 % (0.0-7.0); HEMATOCRIT 32.2 % (37.0-47.0); HEMOGLOBIN 10.6 g/dl (12.0-16.0); MEAN CORPUSCULAR HEMOGLOBIN 30.3 pg (29.0-33.0); MEAN CORPUSCULAR HGB CONC 32.9 g/dl (32.0-37.0); MEAN PLATELET VOLUME 10.1 fl (7.4-10.4); MONOCYTE # 0.6 10^3/ul (0.3-0.9); MONOCYTES % 7.9 % (0.0-11.0); NEUTROPHIL # 5.1 10^3/ul (1.6-7.5); NEUTROPHILS % 63.9 % (39.0-77.0); PLATELET COUNT 205 10^3/UL (140-415); RED CELL DISTRIBUTION WIDTH 14.3 % (11.5-14.5)
[2017-04-03 04:57] LABS: ALBUMIN 3.7 g/dl (3.3-4.9); ALBUMIN/GLOBULIN RATIO 1.23; BILIRUBIN,INDIRECT 0.2 mg/dl (0-1.1); BILIRUBIN,TOTAL 0.2 mg/dl (0.2-1.3); CALCIUM 9.5 mg/dl (8.4-10.2); CREATININE 4.58 mg/dl (0.44-1.00); MAGNESIUM 2.2 mg/dl (1.7-2.5); PHOSPHORUS 4.9 mg/dl (2.5-4.9); POTASSIUM 4.4 mmol/L (3.5-5.1); TOTAL PROTEIN 6.7 g/dl (6.1-8.1)
[2017-04-03 05:05] LABS: CK-MB 0.58 ng/ml (0.0-2.4)
[2017-04-03 05:33] LABS: TROPONIN-I 0.025 ng/ml (0.00-0.12)
[2017-04-03 07:58] VITALS: BP 134/72; RESP 18
[2017-04-03] MEDS: FEBUXOSTAT 40 MG TABLET PO SCH (09:24)
[2017-04-03] MEDS: SALMETEROL/FLUTICASONE 250/50 INHA INH SCH ×2 (09:24→21:20)
[2017-04-03] MEDS: SEVELAMER 800 MG TAB PO SCH ×3 (09:24→17:20)
[2017-04-03] MEDS: EZETIMIBE 10 MG TAB PO SCH (09:24)
[2017-04-03] MEDS: GABAPENTIN 100 MG CAP PO SCH ×3 (09:24→21:24)
[2017-04-03] MEDS: AMIODARONE 200 MG TAB PO SCH (09:25)
[2017-04-03] MEDS: CALCITRIOL 0.25 MCG CAP PO SCH (09:25)
[2017-04-03] MEDS: AMLODIPINE 5 MG TAB PO SCH ×2 (09:25→21:24)
--- NOTE | 2017-04-03 09:34 | PN ---
Date/Time of Note Date/Time of Note DATE: 04/03/17 TIME: 09:31 Assessment/Plan VTE Prophylaxis VTE Prophylaxis Intervention: heparin Lines/Catheters IV [facility]ter [facility] (from [facility]): Peripheral IV Urinary Cath still in place: No Assessment/Plan Assessment/Plan This is a 71-year-old female who presented with LUE pain and now managed for #1 multiple left upper extremity venous thrombus: * Patient had recent pacemaker which may or may not have precipitated clot; however patient was on Eliquis therapy, and reports compliance. She was also an appropriate dose * Currently on heparin drip but may have to be started on Coumadin for better control. Spoke with hematology and they agree with the plan. * They recommend anticoagulation workup, hence we will hold heparin for 4 hours , take blood samples, and then resume heparin and Coumadin. #2 Chronic kidney disease stage V: * Patient currently is not on dialysis, she is non-oliguric. Is followed by outpatient nephrology. * At this time will continue current renal meds. * Appreciate nephrology review, follow recommendations, renally dose medications , avoid nephrotoxins #3 sick sinus syndrome: Stable, patient is status post pacemaker in January 2017 , currently normal sinus rhythm. #4 Paroxysmal A. fib. Patient currently normal sinus rhythm continue amiodarone #5 hypertension: Controlled ; Continue Norvasc, hydralazine IV as needed #6 Hyperlipidemia: Continue Zetia #7 DVT and GI prophylaxis: Currently on heparin drip, H2 edward Subjective 24 Hr Interval Summary Free Text/Dictation patient seen doing well Still has mild discomfort in her left upper extremity Exam/Review of Systems Vital Signs Vitals Vital Signs Date Time Temp Pulse Resp B/P Pulse Ox O2 Delivery O2 Flow Rate FiO2 04/03/17 07:58 97.6 64 18 134/72 95 04/02/17 22:05 Room Air Intake and Output 04/02/17 04/02/17 04/03/17 15:00 23:00 07:00 Intake Total 129 ml Balance 129 ml Exam General: Patient is well-developed well-nourished and in no acute distress HEENT: Atraumatic, normocephalic. The pupils are equal, round and reactive. Extraocular motor are intact Neck: Supple with full range of motion. No rigidity or meningismus Chest: Nontender Lungs: Clear to auscultation bilaterally no crackles rales or wheezing Heart: Normal S1-S2, Regular rhythm and rate. No murmur, S3, or S4 Abdomen: Soft , nontender, nondistended , bowel sounds are present. No guarding no rebound tenderness , No masses or organomegaly. No costovertebral temporal angle mass Extremities: Mild tenderness to palpation at the left upper extremity around the lateral aspect of the elbow, no redness or erythema or swelling appreciated Neurologic: Normal mental status, speech normal, motor and sensory are intact, no focal weakness Results Result Diagram: 04/03/17 0425 04/03/17 0425 Results 24 hrs Laboratory Tests Test 04/02/17 18:40 04/03/17 01:53 04/03/17 04:25 White Blood Count 9.2 8.0 Red Blood Count 3.69 L 3.50 L Hemoglobin 11.1 L 10.6 L Hematocrit 34.1 L 32.2 L Mean Corpuscular Volume 92.4 92.0 Mean Corpuscular Hemoglobin 30.1 30.3 Mean Corpuscular Hemoglobin Concent 32.6 32.9 Red Cell Distribution Width 13.8 14.3 Platelet Count 251 205 Mean Platelet Volume 10.5 H 10.1 Neutrophils % 64.1 63.9 Lymphocytes % 25.4 25.0 Monocytes % 7.2 7.9 Eosinophils % 2.0 2.1 Basophils % 0.9 0.8 Nucleated Red Blood Cells % 0.0 0.0 Neutrophils # 5.9 5.1 Lymphocytes # 2.3 2.0 Monocytes # 0.7 0.6 Eosinophils # 0.2 0.2 Basophils # 0.1 0.1 Nucleated Red Blood Cells # 0.0 0.0 Prothrombin Time 15.0 H Prothrombin Time Ratio 1.2 INR International Normalized Ratio 1.17 Activated Partial Thromboplast Time 34.3 > 180.0 *H 57.1 H Sodium Level 139 136 Potassium Level 4.1 4.4 Chloride Level 101 107 Carbon Dioxide Level 24 24 Anion Gap 18 H 9 # Blood Urea Nitrogen 57 H 56 H Creatinine 4.86 H 4.58 H Glucose Level 104 96 Calcium Level 9.4 9.5 Troponin I 0.022 0.028 0.025 Creatine Kinase 40 40 Creatine Kinase Index 1.5 1.5 Creatinine Kinase MB (Mass) 0.59 0.58 Hemoglobin A1c 5.1 Phosphorus Level 4.9 Magnesium Level 2.2 Total Bilirubin 0.2 Direct Bilirubin 0.00 Indirect Bilirubin 0.2 Aspartate Amino Transf (AST/SGOT) 16 Alanine Aminotransferase (ALT/SGPT) 25 Alkaline Phosphatase 46 Total Protein 6.7 Albumin 3.7 Globulin 3.00 Albumin/Globulin Ratio 1.23 Medications Medications Current Medications Ondansetron HCl (Zofran Inj) 4 mg Q6H PRN IV NAUSEA AND/OR VOMITING; Start 04/02 at 23:30 Acetaminophen (Tylenol Tab) 650 mg Q6H PRN PO PAIN LEVEL 1-3 OR FEVER; Start at 23:30 Morphine Sulfate (morphine) 2 mg Q4H PRN IV SEVERE PAIN LEVEL 7-10; Start at 23:30 Docusate Sodium (Colace) 100 mg Q12H PRN PO CONSTIPATION; Start 04/02/17 at 23: 30 Bisacodyl (Dulcolax Supp) 10 mg DAILY PRN [place] CONSTIPATION; Start 04/02/17 at 23: 30 Amiodarone HCl (Cordarone) 100 mg DAILY PO Last administered on 04/03/17 09:25 ; Admin Dose 100 MG; Start 04/03/17 at 09:00 Amlodipine Besylate (Norvasc) 5 mg BID PO Last administered on 04/03/17 09:25; Admin Dose 5 MG; Start 04/02/17 at 23:30 Aspirin (Halfprin) 81 mg Q7D PO ; Start 04/02/17 at 23:30; Status UNV Calcitriol (Rocaltrol) 0.25 mcg DAILY PO Last administered on 04/03/17 09:25; Admin Dose 0.25 MCG; Start 04/03/17 at 09:00 EZETIMIBE (Zetia) 10 mg DAILY PO Last administered on 04/03/17 09:24; Admin Dose 10 MG; Start 04/03/17 at 09:00 Febuxostat (Uloric) 40 mg DAILY PO Last administered on 04/03/17 09:24; Admin Dose 40 MG; Start 04/03/17 at 09:00 Gabapentin (Neurontin) 100 mg TID PO Last administered on 04/03/17 09:24; Admin Dose 100 MG; Start 04/03/17 at 09:00 Lorazepam (Ativan) 1 mg HS PRN PO ANXIETY; Start 04/02/17 at 23:30 Salmeterol Xinafoate/ Fluticasone (Advair 250/50 Diskus) 1 inh BID INH Last administered on 04/03/17t 09:24; Admin Dose 1 INH; Start 04/03/17 at 09:00 Hydralazine HCl (Apresoline) 10 mg Q6H PRN IV ELEVATED BLOOD PRESSURE; Start at 23:30 Procedures Procedures PROCEDURE: Left upper extremity venous ultrasound CLINICAL INDICATION: Left arm pain and swelling. Deep venous thrombosis. TECHNIQUE: Haney scale, color doppler, spectral doppler ultrasound imaging of the venous system of the left upper extremity. Augmentation maneuvers were utilized. COMPARISON: No prior studies are available for comparison. FINDINGS: LEFT: Internal jugular vein: Nonocclusive thrombus is present. Subclavian vein: Noncompressible, possibly due to for access, possible nonocclusive thrombus. Axillary vein: Nonocclusive thrombus is present. Brachial vein: Patent. Basilic vein: Patent. Cephalic vein: Focal thrombus is present. IMPRESSION: Nonocclusive deep venous thrombosis involving the left internal jugular vein and left axillary vein. Possible nonocclusive thrombus within the left subclavian vein. Focal superficial venous thrombosis within the left cephalic vein. RPTAT: AADD .Dorian Myers MD, Date Time Electronically viewed and signed by .Dorian Myers MD, on 04/02/2017 19:38 .B/ CC: MEHUL DOMINGUEZ MD, BOLATITO M. April 03, 2017 09:34
[2017-04-03] MEDS: DOCUSATE SODIUM 100 MG CAP PO SCH ×2 (11:30→21:21)
--- NOTE | 2017-04-03 13:14 | CONS ---
DATE OF ADMISSION: 04/02/2017 DATE OF CONSULTATION: 04/03/2017 NEPHROLOGY CONSULTATION REASON FOR CONSULTATION: Chronic Kidney disease stage V, possible acute kidney injury. PHYSICIAN REQUESTING CONSULT: Dr. Montes De Oca. HISTORY OF PRESENT ILLNESS: This is a 71-year-old female with a past medical history of chronic kid monie disease stage IV/V with an estimated GFR around 15 to 20 Ml/min, history of hypertension, CVA, h istory of bilateral lower extremity deep venous thrombosis, history of peripheral vascular disease; who presents to [facility] with complaints of left upper extremity swelling. The patient was most recently at [facility] in January, for arrhythmia. The patient, at that time, had a pacemaker placed and was subsequently discharged. Since her discharge, the patien t has been stable. She followed up with her primary dipping machine operator and had no complaints until about 2 days ago when she started noting increased swelling of her left upper extremity. As a result, she came in to the emergency room for evaluation. The patient had a left upper extremity ultrasound on admission which showed evidence of a DVT. She was subsequently placed on heparin drip and admitted to telemetry. Upon my evaluation of the patient at this time, she is currently stable. She denies any fevers, chi lls, nausea, or vomiting. In terms of the patient's renal history, the patient has underlying CKD s tage V with a baseline EGFR around 10 mL/min, with creatinine of 4.5 mg/dL. The patient, however, h as no overt uremic symptom; has no nausea, no vomiting, no metallic taste in the mouth, no lethargy, no weakness, tolerating p.o. The patient is being followed by an outpatient dipping machine operator. At this point, the patient does not wish to be dialyzed unless it is absolutely necessary. The patient her self denies any chest pain, nausea, or vomiting. PAST MEDICAL HISTORY: As stated above, history of CKD stage V, history of hypertension, history of arrhythmia, status post pacemaker placement, history of dyslipidemia, hypertension. PAST SURGICAL HISTORY: Status post pacemaker placement. FAMILY HISTORY: No family history of kidney disease or heart disease. SOCIAL HISTORY: Does not drink, smoke, or do drugs. MEDICATIONS: Have been reviewed. ALLERGIES: NO KNOWN DRUG ALLERGIES. REVIEW OF SYSTEMS: A 14-point review of systems was conducted. Pertinent positives stated in HPI, otherwise negative. PHYSICAL EXAMINATION: VITAL SIGNS: Blood pressure is 134/72, respiration 18, pulse 64, temperature 97.4. HEENT: Head is normocephalic. NECK: Supple. HEART: Regular rate. LUNGS: Show diminished breath sounds at base. ABDOMEN: Soft, nontender to palpation without rebound or guarding. EXTREMITIES: Negative for clubbing, cyanosis, or edema in the lower extremity. Left upper extremit y has noted swelling. DERMATOLOGIC: No rashes. MUSCULOSKELETAL: No joint effusions. NEUROLOGIC: No focal deficits. LABORATORY DATA: Shows a sodium of 136, potassium , bicarbonate 107, BUN 56, creatinine 4.58. White count 8.0, hemoglobin 10.6, hematocrit 32.2, platelet count 205. ASSESSMENT AND PLAN: This is a 71-year-old female who presents with: 1. Nonoliguric acute kidney injury, on top of chronic kidney disease stage V, with a baseline creat inine around 5 mg/dL. Etiology of previous acute kidney injury was possibly due to hemodynamics. T he patient's renal function has improved from previous creatinine of 5.8 mg/dL in January. The patien t is likely at current baseline. At this point, the patient has an EGFR of approximately 10 mL/min, per CKD-EPI formulation. The patient has no overt uremic signs or symptoms and is not in any need of immediate hemodialysis. Would therefore continue supportive care, renally dose all meds, avoid n ephrotoxins. 2. Anemia of chronic kidney disease. We will continue to monitor H and H levels. Give Epogen as n eeded. 3. No assessment of bone disorder. We will monitor calcium and phosphorus levels. Continue vitami n D analogs. Continue phosphate binders. 4. Hypertension. Continue current blood pressure regimen. 5. Left upper extremity deep venous thrombosis. Continue anticoagulation. 6. History of coronary artery disease. Continue medical management. 7. History of arrhythmia, status post pacemaker placement. 8. Dyslipidemia. Continue statin therapy. Thank you, Dr. Montse De Oca for requesting me for this consult. It will be a pleasure to follow the patient with you throughout the hospital course. Dictated By: HEBERT ALCALA/SARA Conf#: [id number] DID#: [id number]
[2017-04-03] MEDS: HEPARIN 25000 UNITS/250 ML 250 ML IV SCH (13:21)
[2017-04-03] MEDS ORDERED: WARFARIN 2 MG TAB PO ONE (20:30)
[2017-04-03 22:30] VITALS: BP 150/71; RESP 20
[2017-04-04 04:44] LABS: INR 1.08; PT RATIO 1.1
[2017-04-04 04:45] LABS: PARTIAL THROMBOPLASTIN TIME 25.4 Sec (25.0-35.0)
[2017-04-04] MEDS: HEPARIN 1000 UNITS/ML 10 ML INJ IV PRN (05:23)
[2017-04-04 07:58] VITALS: BP 162/78; RESP 16
[2017-04-04] MEDS: SEVELAMER 800 MG TAB PO SCH ×3 (08:17→17:24)
[2017-04-04] MEDS: SALMETEROL/FLUTICASONE 250/50 INHA INH SCH ×2 (08:17→20:00)
[2017-04-04] MEDS: CALCITRIOL 0.25 MCG CAP PO SCH (08:18)
[2017-04-04] MEDS: EZETIMIBE 10 MG TAB PO SCH (08:18)
[2017-04-04] MEDS: GABAPENTIN 100 MG CAP PO SCH ×3 (08:18→20:00)
[2017-04-04] MEDS: FEBUXOSTAT 40 MG TABLET PO SCH (08:18)
[2017-04-04] MEDS: AMIODARONE 200 MG TAB PO SCH (08:18)
[2017-04-04] MEDS: DOCUSATE SODIUM 100 MG CAP PO SCH ×2 (08:18→20:00)
[2017-04-04] MEDS: AMLODIPINE 5 MG TAB PO SCH ×2 (08:18→20:00)
[2017-04-04] MEDS: HEPARIN 25000 UNITS/250 ML 250 ML IV SCH (09:31)
--- NOTE | 2017-04-04 11:13 | PN ---
DATE: 04/04/2017 SUBJECTIVE: The patient is stable. No acute events overnight. No fevers, chills, nausea, vomiting . No shortness breath. OBJECTIVE: VITAL SIGNS: Blood pressure is stable at 162/78, respirations 16, pulse 63, temperature 98.0. HEENT: Head is normocephalic. NECK: Supple. HEART: Regular rate. LUNGS: Show diminished breath sounds at base. ABDOMEN: Soft, nontender to palpation. No rebound or guarding. EXTREMITIES: Negative for clubbing, cyanosis, no edema. DERMATOLOGIC: No rashes. MUSCULOSKELETAL: No joint effusions. NEUROLOGIC: No change in exam. MEDICATIONS: Have been reviewed. LABORATORY DATA: Has been reviewed. No new labs this morning. ASSESSMENT AND PLAN: 1. Nonoliguric acute kidney injury on top of chronic kidney disease, stage V, with a baseline creat inine around 4.5 to 5 mg/dL. Etiology of current acute kidney injury is likely secondary to hemodyn amics. Renal function appears to have improved since January when creatinine peaked at 5.8 mg/dL. At this point, would continue current treatment plan. Continue supportive care, renally dose all meds , avoid nephrotoxins. The patient has no overt uremic signs or symptoms and does not need immediate renal replacement therapy. The patient will follow up with her outpatient imaging center manager in outpatie nt setting. 2. Anemia. Continue to monitor hemoglobin and hematocrit levels. Continue Epogen as needed. 3. Mineral bone disorder. Continue to monitor calcium and phosphorus levels, give vitamin D analog s and phosphate binders. 4. Hypertension. Continue current blood pressure regimen. 5. Left upper extremity deep venous thrombosis. Continue anticoagulation. 6. History of coronary artery disease. Continue medical management. 7. History of arrhythmia status post pacemaker. 8. Dyslipidemia. Continue statin therapy. Dictated By: HEBERT ALCALA/SARA Conf#: [id number] DID#: [id number]
[2017-04-04] MEDS: ACETAMINOPHEN 325 MG TAB PO PRN (14:17)
--- NOTE | 2017-04-04 16:25 | CONS ---
DATE OF ADMISSION: 04/02/2017 DATE OF CONSULTATION: TYPE OF CONSULTATION: Hematology REFERRING PHYSICIAN: Mely Montes De Oca MD HISTORY OF PRESENT ILLNESS: Thank you very much for giving me the privilege to see blessing Hudson is a 71-year-old lady with regard to her DVT of the left upper extremity while on Eliquis. This p atient with a history of end-stage kidney disease, hypertension, cardiac arrhythmia, hyperlipidemia and hypertension, had bilateral leg DVT, according to her 2 years ago. She has been on Eliquis 2.5 mg b.i.d. since then. Three weeks ago, she had a pacemaker placed on her left chest. She says her Eliquis was not stopped. She was admitted to the hospital this time on 04/02/2017 because of l eft upper extremity swelling and DVT study of the left upper extremity showed DVT. Her Eliquis was stopped. She is on heparin now. PAST MEDICAL HISTORY: AND REVIEW OF SYSTEMS: Please see the H and P. MEDICATIONS: Reviewed. PHYSICAL EXAMINATION: GENERAL: Shows moderately built female in no distress. VITAL SIGNS: Unremarkable. ENT: Normal. HEART: Normal. LUNGS: Normal. CHEST: The patient has a new pacemaker in the left upper chest. EXTREMITIES: Her left upper extremity is slightly enlarged, but not tender. Other systems unremarkable. LABORATORY DATA: Her CBC is unremarkable except for hemoglobin 10.6 with MCV 92. Her CMP shows cre atinine 4.58 with normal LFTs. IMPRESSION: 1. History of deep venous thrombosis 2 years ago, patient on Eliquis. 2. Acute onset of left upper extremity deep venous thrombosis 2 weeks after pacemaker placemen t. Rule out underlying hypercoagulable syndrome, rule out secondary to pacemaker placement, but Tosha sendy should have prevented it. 3. End-stage renal disease. The patient is being evaluated for fistula placement for dialysis. 4. History of hypertension, coronary artery disease and pacemaker placement. PLAN: This patient with a history of end-stage renal disease also has hypertension and coronary art serafin disease with a low ejection fraction and cardiac arrhythmias and had a stent placed. The pacema ker placement could have precipitated her left upper extremity deep venous thrombosis, but her Eliqu is was not stopped and Eliquis should have prevented DVT. She may have a hypercoagulable syndrome. With her severe renal disease, Eliquis may not be safe anyway. I discussed the case with the kye crumpist. She will order workup for hypercoagulable syndrome after stopping the heparin. Then, we wi ll restart heparin and start her on Coumadin. We should reevaluate her after the results of the wor kup are available. Dictated By: DAMASO JIMENEZ/SARA Conf#: [id number] DID#: [id number]
[2017-04-04] MEDS: WARFARIN 2 MG TAB PO SCH (17:24)
--- NOTE | 2017-04-04 17:46 | PN ---
Date/Time of Note Date/Time of Note DATE: 04/04/17 TIME: 17:43 Assessment/Plan VTE Prophylaxis VTE Prophylaxis Intervention: heparin, other (coumadin) Lines/Catheters IV [facility]from [facility] [place] Urinary Cath still in place: No Assessment/Plan Assessment/Plan This is a 71-year-old female who presented with LUE pain and now managed for #1 multiple left upper extremity venous thrombus: * Patient had recent pacemaker which may or may not have precipitated clot; however patient was on Eliquis therapy, and reports compliance. She was also an appropriate dose hence we are switching from eliquis to coumadin. * continue heparin drip till Coumadin therapeutic with INR between 2.5 and 3.5 per hematology #2 Chronic kidney disease stage V: * Patient currently is not on dialysis, she is non-oliguric. Is followed by outpatient nephrology. * At this time will continue current renal meds. * Appreciate nephrology review, follow recommendations, renally dose medications , avoid nephrotoxins #3 sick sinus syndrome: Stable, patient is status post pacemaker in January 2017 , currently normal sinus rhythm. #4 Paroxysmal A. fib. Patient currently normal sinus rhythm continue amiodarone #5 hypertension: Controlled ; Continue Norvasc, hydralazine IV as needed #6 Hyperlipidemia: Continue Zetia #7 DVT and GI prophylaxis: Currently on heparin drip, H2 edward Subjective 24 Hr Interval Summary Free Text/Dictation doing well, no new issues Exam/Review of Systems Vital Signs Vitals Vital Signs Date Time Temp Pulse Resp B/P Pulse Ox O2 Delivery O2 Flow Rate FiO2 04/04/17 07:58 98.0 63 16 162/78 97 04/02/17 22:05 Room Air Intake and Output 04/03/17 04/03/17 04/04/17 14:59 22:59 06:59 Intake Total 1063 ml 762.35 ml Balance 1063 ml 762.35 ml Exam General: Patient is well-developed well-nourished and in no acute distress HEENT: Atraumatic, normocephalic. The pupils are equal, round and reactive. Extraocular motor are intact Neck: Supple with full range of motion. No rigidity or meningismus Chest: Nontender Lungs: Clear to auscultation bilaterally no crackles rales or wheezing Heart: Normal S1-S2, Regular rhythm and rate. No murmur, S3, or S4 Abdomen: Soft , nontender, nondistended , bowel sounds are present. No guarding no rebound tenderness , No masses or organomegaly. No costovertebral temporal angle mass Extremities: Mild tenderness to palpation at the left upper extremity around the lateral aspect of the elbow, no redness or erythema or swelling appreciated Neurologic: Normal mental status, speech normal, motor and sensory are intact, no focal weakness Results Result Diagram: 04/03/17 0425 04/03/17 0425 Results 24 hrs Laboratory Tests Test 04/03/17 22:54 04/04/17 04:14 04/04/17 11:36 Activated Partial Thromboplast Time 30.9 25.4 155.3 *H Prothrombin Time 14.0 Prothrombin Time Ratio 1.1 INR International Normalized Ratio 1.08 Medications Medications Current Medications Ondansetron HCl (Zofran Inj) 4 mg Q6H PRN IV NAUSEA AND/OR VOMITING; Start 04/02 at 23:30 Acetaminophen (Tylenol Tab) 650 mg Q6H PRN PO PAIN LEVEL 1-3 OR FEVER Last administered on 04/04/17 14:17; Admin Dose 650 MG; Start 04/02/17 at 23:30 Morphine Sulfate (morphine) 2 mg Q4H PRN IV SEVERE PAIN LEVEL 7-10; Start at 23:30 Bisacodyl (Dulcolax Supp) 10 mg DAILY PRN [place] CONSTIPATION; Start 04/02/17 at 23: 30 Amiodarone HCl (Cordarone) 100 mg DAILY PO Last administered on 04/04/17 08:18 ; Admin Dose 100 MG; Start 04/03/17 at 09:00 Amlodipine Besylate (Norvasc) 5 mg BID PO Last administered on 04/04/17 08:18; Admin Dose 5 MG; Start 04/02/17 at 23:30 Aspirin (Halfprin) 81 mg Q7D PO ; Start 04/02/17 at 23:30; Status UNV Calcitriol (Rocaltrol) 0.25 mcg DAILY PO Last administered on 04/04/17 08:18; Admin Dose 0.25 MCG; Start 04/03/17 at 09:00 EZETIMIBE (Zetia) 10 mg DAILY PO Last administered on 04/04/17 08:18; Admin Dose 10 MG; Start 04/03/17 at 09:00 Febuxostat (Uloric) 40 mg DAILY PO Last administered on 04/04/17 08:18; Admin Dose 40 MG; Start 04/03/17 at 09:00 Gabapentin (Neurontin) 100 mg TID PO Last administered on 04/04/17 13:00; Admin Dose 100 MG; Start 04/03/17 at 09:00 Lorazepam (Ativan) 1 mg HS PRN PO ANXIETY; Start 04/02/17 at 23:30 Salmeterol Xinafoate/ Fluticasone (Advair 250/50 Diskus) 1 inh BID INH Last administered on 04/04/17 08:17; Admin Dose 1 INH; Start 04/03/17 at 09:00 Hydralazine HCl (Apresoline) 10 mg Q6H PRN IV ELEVATED BLOOD PRESSURE; Start at 23:30 Docusate Sodium (Colace) 100 mg BID PO Last administered on 04/04/17 08:18; Admin Dose 100 MG; Start 04/03/17 at 11:30 Warfarin Sodium (Coumadin) 4 mg DAILY@17 PO Last administered on 04/04/17 17:24 ; Admin Dose 4 MG; Start 04/04/17 at 17:00 CHARISSE ROMERO April 04, 2017 17:46
[2017-04-04 19:11] LABS: IRON 50 ug/dl (35-150)
[2017-04-04 19:21] LABS: TOTAL IRON BINDING CAPACITY 216 ug/dl (241-421)
--- NOTE | 2017-04-04 19:36 | PN ---
DATE: 04/04/2017 HISTORY OF PRESENT ILLNESS: Mrs. Cuellar is a 71-year-old lady with a history of bilatera l DVT about 2 years ago. This patient with history of end-stage renal disease, has been on Eliquis 2.5 mg b.i.d. She had a pacemaker placed 3 weeks ago. She was admitted to the hospital on 04/02/20 17 and was found to have DVT of the left upper extremity. The patient was started on heparin and sh e is also on aspirin. Yesterday I saw her on consult. We held the heparin for 4 hours and she had a full workup for hypercoagulable syndrome, and the heparin was restarted. She is also started on C oumadin. PAST MEDICAL HISTORY, REVIEW OF SYSTEMS: Please see the H and P. PHYSICAL EXAMINATION: GENERAL: Shows moderately built female in no distress. VITAL SIGNS: Unremarkable. ENT, HEART AND LUNGS: Normal. The patient has a pacemaker in the left upper chest with healing sca r. EXTREMITIES: Left upper extremity is slightly enlarged but not tender. SKIN: Shows no rashes or petechiae. LYMPH NODES: No peripheral lymphadenopathy. LABORATORY DATA: Her CBC is unremarkable except for a hemoglobin 10.6 with MCV 92, and her CMP is o carline except creatinine is 4.5. Her protime INR is 1.1. IMPRESSION: 1. History of bilateral deep venous thrombosis 2 years ago. The patient was on Eliquis. 2. Acute onset left upper extremity deep venous thrombosis while the patient is on Eliquis. 3. End-stage renal disease. 4. History of coronary artery disease and recent pacemaker placement. PLAN: The patient is back on heparin and we will start her on Coumadin. She is also on baby aspiri n. We have to monitor her for bleeding because of the aspirin plus anticoagulant. We need to get h er Coumadin therapeutic level before we stop the heparin. We need to see her in the office to evalu ate the results of the hypercoagulable syndrome. The patient might need a fistula placement for dial ysis. It can be done with stopping the heparin for 4 to 6 hours prior to the procedure and then we can restart heparin about 12 hours later. Thanks again very much. Dictated By: DAMASO JIMENEZ/SARA Conf#: [id number] [facility]#: [id number]
[2017-04-04 20:14] VITALS: BP 147/75; RESP 18
[2017-04-04 21:03] LABS: THYROID STIMULATING HORMONE 3.41 MIU/L (0.465-4.680)
[2017-04-04 21:37] LABS: FOLATE 11.5 ng/ml (2.8-20.0)
[2017-04-05] MEDS: ACETAMINOPHEN 325 MG TAB PO PRN ×3 (01:18→21:10)
[2017-04-05] MEDS: HEPARIN 1000 UNITS/ML 10 ML INJ IV PRN (02:21)
--- NOTE | 2017-04-05 03:47 | CONS ---
DATE OF ADMISSION: 04/02/2017 DATE OF CONSULTATION: 04/04/2017 SURGICAL CONSULTATION HISTORY OF PRESENT ILLNESS: Ms. Cuellar is a 71-year-old female who presented to [facility] with left upper extremity discomfort and left shoulder pain. The patient did have some c omplaints of swelling that happened about 2 days ago and now has since resolved. At the moment, the patient denies shortness of breath, chest pain, nausea, vomiting, fever, or chills. Upon ultrasoun d evaluation of the upper extremities, it was identified the patient has noncompressible venous find ings of the internal jugular vein and subclavian vein and axillary vein. The patient did have a new pacemaker that was placed about 2 months ago, and since then she started developing these issues. Of note, the patient did have a history of left lower extremity deep vein thrombosis that developed about a year ago. The patient seems to have a provoked scenario in which she was involved in a long travel to [facility] and soon after she developed lower extremity swelling and significant lower extremi ty pain. It seems like this patient at that time was evaluated at an outside hospital. Some of the records are not here for evaluation. The patient also, of note, has a history of chronic kidney di sease had undergone a left upper extremity fistula creation at the [facility]; however, the f istula soon after thrombosed. It seems the patient did have central stenosis, and that may have bee n the reason why the fistula did not mature and thrombosed soon after it was placed. The patient de nies any family history of thrombophilia or hypercoagulable state. She did mention that she did hav e a younger brother in the 70s who at the age of 16 with sudden . It is unclear as to wha t the cause of that was. REVIEW OF SYSTEMS: A 12-point review performed and negative except what is mentioned in the HPI. PAST MEDICAL HISTORY: Chronic kidney disease, stage V, hypertension, arrhythmia, dyslipidemia, lee nary artery disease, left lower extremity DVT. PAST SURGICAL HISTORY: Status post pacemaker, left upper extremity fistula creation. FAMILY HISTORY: Sudden of her younger brother. SOCIAL HISTORY: Denies alcohol, tobacco, or illicit drug use. ALLERGIES: NO KNOWN DRUG ALLERGIES. PHYSICAL EXAMINATION: GENERAL: Alert and oriented x3, no apparent distress. HEENT: Normocephalic, atraumatic. PERRLA, EOMI. Mucosa moist. NECK: Supple. No carotid bruit. PULMONARY: Clear to auscultation bilaterally. No crackles. There is a left chest surgical scar th at is well healed where her pacemaker is. ABDOMEN: Soft, nontender, nondistended. Bowel sounds positive. LOWER EXTREMITIES: Palpable femoral pulse, nonpalpable pedal pulse. Motor, sensory intact. Cap re fill 2 to 3 seconds. No ulcers identified. LEFT UPPER EXTREMITY: Palpable brachial pulse. Motor, sensory intact. Cap refill 2 to 3 seconds. There is a surgical scar that is well healed, and there is a fistula that is without any bruit or t hrill. ASSESSMENT AND PLAN: 1. Chronic kidney disease, stage V: It seems that the patient has developed chronic kidney disease , likely related to her hypertension and currently being evaluated by our nephrology colleague, Dr. Martin. We will plan to eventually create a fistula in anticipation of her impending end-stage jagdeep al disease. We will have the patient undergo bilateral upper extremity vein mapping to further eval uate for cephalic and basilic veins. As far as right now, the patient's left upper extremity will n ot be amenable for a new fistula creation as she has a pacemaker and she has central stenosis that h as developed since the pacemaker placement. She also has had a thrombosed fistula. It is unclear a s to if it was related to hypercoagulable state or as a result of her having an already central sten osis. The patient is right-hand dominant. We were hoping that we can place a forearm fistula for h er. I would recommend not having any IV access or blood draws from her antecubital regions of the b ilateral upper extremities. 2. Left lower extremity deep vein thrombosis: It seems that the patient has been adequately treate d with Eliquis for about a year for her provoked episode of left lower extremity deep vein thrombosi s. However, I would like to further evaluate this. We will plan to obtain bilateral lower extremit y ultrasounds to evaluate for any chronic findings. From my standpoint, if these are chronic. She would no longer need to be placed on anticoagulation. 3. Left upper extremity deep vein thrombosis: It is a bit unclear as to if this is an acute settin g. Upon evaluation of the ultrasound myself. It seems that this is a chronic finding. It does not seem to be acute as there are some heterogeneous findings and calcification with the vessel lumen s uggesting this is chronic after her pacemaker placement. I am equivocal about her being on anticoag ulation for the left upper extremity findings; however, at this point, I am equivocal if we do keep her on anticoagulation. If she is placed back on Eliquis or Coumadin, I will defer this to our darci tology colleagues. She is not in need of an IVC filter placement. I discussed findings, plan, and management with the patient and her son, and they understand our dis cussions. Thank you for allowing us to partake in the care of your patient. Please call with any questions. Dictated By: ABBY BARRAZA/SARA Conf#: [id number] DID#: [id number]
[2017-04-05 07:41] VITALS: BP 160/73; RESP 18
[2017-04-05] MEDS: SEVELAMER 800 MG TAB PO SCH ×3 (08:29→17:47)
[2017-04-05] MEDS: GABAPENTIN 100 MG CAP PO SCH ×3 (08:29→21:05)
[2017-04-05] MEDS: DOCUSATE SODIUM 100 MG CAP PO SCH ×2 (08:29→21:06)
[2017-04-05] MEDS: FEBUXOSTAT 40 MG TABLET PO SCH (08:29)
[2017-04-05] MEDS: CALCITRIOL 0.25 MCG CAP PO SCH (08:29)
[2017-04-05] MEDS: EZETIMIBE 10 MG TAB PO SCH (08:29)
[2017-04-05] MEDS: AMIODARONE 200 MG TAB PO SCH (08:30)
[2017-04-05] MEDS: SALMETEROL/FLUTICASONE 250/50 INHA INH SCH ×2 (08:30→21:06)
[2017-04-05] MEDS: AMLODIPINE 5 MG TAB PO SCH ×2 (08:30→21:05)
[2017-04-05 08:51] LABS: ADD SCAN DIFF NO
[2017-04-05 09:10] LABS: BASOPHIL # 0.1 10^3/ul (0.0-0.1); BASOPHILS % 0.8 % (0.0-2.0); EOSINOPHILS # 0.2 10^3/ul (0.0-0.5); EOSINOPHILS % 2.1 % (0.0-7.0); HEMATOCRIT 32.8 % (37.0-47.0); HEMOGLOBIN 10.3 g/dl (12.0-16.0); LYMPHOCYTES # 2.4 10^3/ul (0.8-2.9); LYMPHOCYTES % 28.7 % (15.0-51.0); MEAN CORPUSCULAR HEMOGLOBIN 29.7 pg (29.0-33.0); MEAN CORPUSCULAR HGB CONC 31.4 g/dl (32.0-37.0); MEAN CORPUSCULAR VOLUME 94.5 fl (82.0-101.0); MEAN PLATELET VOLUME 10.2 fl (7.4-10.4); MONOCYTE # 0.7 10^3/ul (0.3-0.9); MONOCYTES % 7.8 % (0.0-11.0); NEUTROPHIL # 5.1 10^3/ul (1.6-7.5); NEUTROPHILS % 59.8 % (39.0-77.0); PLATELET COUNT 224 10^3/UL (140-415); RED BLOOD COUNT 3.47 10^6/ul (4.20-5.40); RED CELL DISTRIBUTION WIDTH 14.9 % (11.5-14.5); WHITE BLOOD COUNT 8.5 10^3/ul (4.8-10.8)
[2017-04-05 09:15] LABS: INR 1.1; PROTIME 14.2 Sec (12.2-14.2); PT RATIO 1.1
[2017-04-05 09:20] LABS: CALCIUM 9.5 mg/dl (8.4-10.2); CREATININE 5.03 mg/dl (0.44-1.00); MAGNESIUM 2.2 mg/dl (1.7-2.5); PHOSPHORUS 6.5 mg/dl (2.5-4.9); POTASSIUM 4.6 mmol/L (3.5-5.1)
[2017-04-05 10:03] VITALS: BP 131/59; PULSE 79
--- NOTE | 2017-04-05 11:07 | PN ---
DATE: 04/05/2017 SUBJECTIVE: The patient is stable, no acute events overnight. No fevers, chills, nausea, vomiting. No shortness of breath. OBJECTIVE: VITAL SIGNS: Blood pressure 131/59, respiration 18, pulse 79, temperature 98.1. HEENT: Head is normocephalic. NECK: Supple. HEART: Regular rate. LUNGS: Show diminished breath sounds at the base. ABDOMEN: Soft, nontender to palpation without rebound or guarding. EXTREMITIES: Negative for clubbing, cyanosis, no edema. DERMATOLOGIC: No rashes. MUSCULOSKELETAL: No joint effusions. NEUROLOGIC: No change in exam. MEDICATIONS: The patient's medications have been reviewed. LABORATORY DATA: Shows a sodium 136, potassium 4.6, chloride 108, BUN 56, creatinine 5.03, phosphor us 6.5. White count 8.5, hemoglobin 10.3, hematocrit 32.8, platelet count is 224. ASSESSMENT AND PLAN: 1. Nonoliguric acute kidney injury on top of chronic kidney disease stage V with previous baseline creatinine around 2.5 to 5.0 mg/dL. Etiology of acute kidney injury is likely hemodynamics. The eleni cameron's renal function has been fluctuating but overall around baseline. At this point, continue cu rrent treatment plan, supportive care, renally dose all medications. The patient has no overt uremi c signs or symptoms and in no immediate need for renal replacement therapy. The patient will follow up with outpatient invasive cardiologist. 2. Anemia. Continue to monitor hemoglobin and hematocrit levels. Continue Epogen. 3. Mineral bone disorder. Continue to monitor calcium and phosphorus levels. Continue vitamin D an alogs and phosphate binders. 4. Hypertension. Continue current blood pressure regimen. 5. Left upper extremity deep venous thrombosis. Continue Coumadin. 6. Coronary artery disease. Continue current medical management. 7. History of arrhythmia, status post pacemaker. 8. Dyslipidemia. Continue statin therapy. Dictated By: HEBERT ALCALA/SARA Conf#: [id number] DID#: [id number]
--- NOTE | 2017-04-05 12:58 | RADRPT ---
PROCEDURE: US Lower extremity Venous. CLINICAL INDICATION: Bilateral lower extremity edema TECHNIQUE: Multiple sonographic images of the bilateral lower extremity deep venous system was obt ained utilizing grayscale, color-flow, compressive sonography and doppler imaging with augmentation. The images were reviewed on a PACS workstation. COMPARISON: None. FINDINGS: There is normal compressibility and flow within the bilateral common femoral, femoral , posterior ti bial, peroneal and popliteal veins. RPTAT: AA IMPRESSION: No sonographic evidence for deep venous thrombosis. .Feliberto Hernandez MD, MD Date Time Electronically viewed and signed by .Feliberto Hernandez MD, on 04/05/2017 12:57 .S/
--- NOTE | 2017-04-05 13:13 | PN ---
Date/Time of Note Date/Time of Note DATE: 04/05/17 TIME: 13:09 Assessment/Plan VTE Prophylaxis VTE Prophylaxis Intervention: other (Eliquis) Lines/Catheters IV Catheter Type (from [facility]): Saline Lock Urinary Cath still in place: No Assessment/Plan Chief Complaint/Hosp Course S: Events noted O: vss PE - deferred patient having AV mapping A/P 1. Acute renal failure. Stable observed. No HD needed at present. Anticipate discharge soon. 2. Acute left upper extremity DVT. Stable cont Coumadin. Appreciate hematology assistance. 3. Ho bilatl lwr ext DVT 1 year ago 4. Pacemaker status 5. Possible sss 6. Chr CAD? 7. Hypertension/ dyslipidemia 8. Anemia 9. Possible FH sudden 10. CKD, avoid PICCs in nondominant hand. Problems: Exam/Review of Systems Vital Signs Vitals Vital Signs Date Time Temp Pulse Resp B/P Pulse Ox O2 Delivery O2 Flow Rate FiO2 04/05/17 10:03 79 131/59 04/05/17 07:41 98.1 18 100 04/02/17 22:05 Room Air Intake and Output 04/04/17 04/04/17 04/05/17 15:00 23:00 07:00 Intake Total 36 ml 1056 ml 803 ml Balance 36 ml 1056 ml 803 ml Results Result Diagram: 04/05/17 0838 04/05/17 0838 Results 24 hrs Laboratory Tests Test 04/04/17 18:10 04/04/17 18:20 04/05/17 00:45 04/05/17 08:38 Activated Partial Thromboplast Time 86.1 *H 45.6 H 173.7 *H Ferritin 494.0 H Vitamin B12 Level 644 Folate 11.5 Thyroid Stimulating Hormone (TSH) 3.410 Iron Level 50 Total Iron Binding Capacity 216 L Percent Iron Saturation 23 White Blood Count 8.5 Red Blood Count 3.47 L Hemoglobin 10.3 L Hematocrit 32.8 L Mean Corpuscular Volume 94.5 Mean Corpuscular Hemoglobin 29.7 Mean Corpuscular Hemoglobin Concent 31.4 L Red Cell Distribution Width 14.9 H Platelet Count 224 Mean Platelet Volume 10.2 Neutrophils % 59.8 Lymphocytes % 28.7 Monocytes % 7.8 Eosinophils % 2.1 Basophils % 0.8 Nucleated Red Blood Cells % 0.0 Neutrophils # 5.1 Lymphocytes # 2.4 Monocytes # 0.7 Eosinophils # 0.2 Basophils # 0.1 Nucleated Red Blood Cells # 0.0 Prothrombin Time 14.2 Prothrombin Time Ratio 1.1 INR International Normalized Ratio 1.10 Sodium Level 136 Potassium Level 4.6 Chloride Level 108 Carbon Dioxide Level 19 L Anion Gap 14 Blood Urea Nitrogen 56 H Creatinine 5.03 H Glucose Level 102 Calcium Level 9.5 Phosphorus Level 6.5 H Magnesium Level 2.2 Medications Medications Current Medications Ondansetron HCl (Zofran Inj) 4 mg Q6H PRN IV NAUSEA AND/OR VOMITING; Start 04/02 at 23:30 Acetaminophen (Tylenol Tab) 650 mg Q6H PRN PO PAIN LEVEL 1-3 OR FEVER Last administered on 04/05/17 01:18; Admin Dose 650 MG; Start 04/02/17 at 23:30 Morphine Sulfate (morphine) 2 mg Q4H PRN IV SEVERE PAIN LEVEL 7-10; Start at 23:30 Bisacodyl (Dulcolax Supp) 10 mg DAILY PRN [place] CONSTIPATION; Start 04/02/17 at 23: 30 Amiodarone HCl (Cordarone) 100 mg DAILY PO Last administered on 04/05/17 08:30 ; Admin Dose 100 MG; Start 04/03/17 at 09:00 Amlodipine Besylate (Norvasc) 5 mg BID PO Last administered on 04/05/17 08:30; Admin Dose 5 MG; Start 04/02/17 at 23:30 Aspirin (Halfprin) 81 mg Q7D PO ; Start 04/02/17 at 23:30; Status UNV Calcitriol (Rocaltrol) 0.25 mcg DAILY PO Last administered on 04/05/17 08:29; Admin Dose 0.25 MCG; Start 04/03/17 at 09:00 EZETIMIBE (Zetia) 10 mg DAILY PO Last administered on 04/05/17 08:29; Admin Dose 10 MG; Start 04/03/17 at 09:00 Febuxostat (Uloric) 40 mg DAILY PO Last administered on 04/05/17 08:29; Admin Dose 40 MG; Start 04/03/17 at 09:00 Gabapentin (Neurontin) 100 mg TID PO Last administered on 04/05/17 08:29; Admin Dose 100 MG; Start 04/03/17 at 09:00 Lorazepam (Ativan) 1 mg HS PRN PO ANXIETY; Start 04/02/17 at 23:30 Salmeterol Xinafoate/ Fluticasone (Advair 250/50 Diskus) 1 inh BID INH Last administered on 04/05/17 08:30; Admin Dose 1 INH; Start 04/03/17 at 09:00 Hydralazine HCl (Apresoline) 10 mg Q6H PRN IV ELEVATED BLOOD PRESSURE; Start at 23:30 Docusate Sodium (Colace) 100 mg BID PO Last administered on 04/05/17 08:29; Admin Dose 100 MG; Start 04/03/17 at 11:30 Warfarin Sodium (Coumadin) 4 mg DAILY@17 PO Last administered on 04/04/17 17:24 ; Admin Dose 4 MG; Start 04/04/17 at 17:00 ODALIS POND MD April 05, 2017 13:13
--- NOTE | 2017-04-05 13:16 | CONS ---
Date/Time of Note Date/Time of Note DATE: 04/05/17 TIME: 13:06 Assessment/Plan Assessment/Plan Chief Complaint/Hosp Course #LUE DVT - per vascular this appears to be a chronic finding that does not necessitate anticoagulation #History of LLE DVT -will follow up BLE ultrasound to be done today -if there is evidence of Acute DVT, will continue on anticoagulation -if evidence of chronic DVT , may consider discontinuing anticoagulation. this decision will be based on the results of the hypercoagulable workup -continue IV heparin with bridge to Coumadin for now # ESRD -continue management per renal Problems: Consultation Date/Type/Reason Admit Date/Time April 02, 2017 at 20:20 Initial Consult Date 04/04/17 Type of Consultation: Hematology Reason for Consultation dvt / coagulopathy Referring Provider: SAAD NUNEZ 24 HR Interval Summary Free Text/Dictation pt continues on Heparin drip. to have BLE ivelisse today to evaluate for chronic vs acute DVT. Exam/Review of Systems Vital Signs Vitals Vital Signs Date Time Temp Pulse Resp B/P Pulse Ox O2 Delivery O2 Flow Rate FiO2 04/05/17 10:03 79 131/59 04/05/17 07:41 98.1 18 100 04/02/17 22:05 Room Air Intake and Output 04/04/17 04/04/17 04/05/17 15:00 23:00 07:00 Intake Total 36 ml 1056 ml 803 ml Balance 36 ml 1056 ml 803 ml Exam Constitutional: alert, oriented Psych: nl mood/affect, no complaints Head: normocephalic Eyes: nl conjunctiva ENMT: nl external ears & nose, nl lips & teeth Neck: non-tender, supple Respiratory: clear to auscultation, normal air movement Cardiovascular: regular rate and rhythm Gastrointestinal: soft Musculoskeletal: other (LUE fistula in place) Results Result Diagram: 04/05/17 0838 04/05/17 0838 Results 24 hrs Laboratory Tests Test 04/04/17 18:10 04/04/17 18:20 04/05/17 00:45 04/05/17 08:38 Activated Partial Thromboplast Time 86.1 *H 45.6 H 173.7 *H Ferritin 494.0 H Vitamin B12 Level 644 Folate 11.5 Thyroid Stimulating Hormone (TSH) 3.410 Iron Level 50 Total Iron Binding Capacity 216 L Percent Iron Saturation 23 White Blood Count 8.5 Red Blood Count 3.47 L Hemoglobin 10.3 L Hematocrit 32.8 L Mean Corpuscular Volume 94.5 Mean Corpuscular Hemoglobin 29.7 Mean Corpuscular Hemoglobin Concent 31.4 L Red Cell Distribution Width 14.9 H Platelet Count 224 Mean Platelet Volume 10.2 Neutrophils % 59.8 Lymphocytes % 28.7 Monocytes % 7.8 Eosinophils % 2.1 Basophils % 0.8 Nucleated Red Blood Cells % 0.0 Neutrophils # 5.1 Lymphocytes # 2.4 Monocytes # 0.7 Eosinophils # 0.2 Basophils # 0.1 Nucleated Red Blood Cells # 0.0 Prothrombin Time 14.2 Prothrombin Time Ratio 1.1 INR International Normalized Ratio 1.10 Sodium Level 136 Potassium Level 4.6 Chloride Level 108 Carbon Dioxide Level 19 L Anion Gap 14 Blood Urea Nitrogen 56 H Creatinine 5.03 H Glucose Level 102 Calcium Level 9.5 Phosphorus Level 6.5 H Magnesium Level 2.2 Medications Medications Current Medications Ondansetron HCl (Zofran Inj) 4 mg Q6H PRN IV NAUSEA AND/OR VOMITING; Start 04/02 at 23:30 Acetaminophen (Tylenol Tab) 650 mg Q6H PRN PO PAIN LEVEL 1-3 OR FEVER Last administered on 04/05/17 01:18; Admin Dose 650 MG; Start 04/02/17 at 23:30 Morphine Sulfate (morphine) 2 mg Q4H PRN IV SEVERE PAIN LEVEL 7-10; Start at 23:30 Bisacodyl (Dulcolax Supp) 10 mg DAILY PRN [place] CONSTIPATION; Start 04/02/17 at 23: 30 Amiodarone HCl (Cordarone) 100 mg DAILY PO Last administered on 04/05/17 08:30 ; Admin Dose 100 MG; Start 04/03/17 at 09:00 Amlodipine Besylate (Norvasc) 5 mg BID PO Last administered on 04/05/17 08:30; Admin Dose 5 MG; Start 04/02/17 at 23:30 Aspirin (Halfprin) 81 mg Q7D PO ; Start 04/02/17 at 23:30; Status UNV Calcitriol (Rocaltrol) 0.25 mcg DAILY PO Last administered on 04/05/17 08:29; Admin Dose 0.25 MCG; Start 04/03/17 at 09:00 EZETIMIBE (Zetia) 10 mg DAILY PO Last administered on 04/05/17 08:29; Admin Dose 10 MG; Start 04/03/17 at 09:00 Febuxostat (Uloric) 40 mg DAILY PO Last administered on 04/05/17 08:29; Admin Dose 40 MG; Start 04/03/17 at 09:00 Gabapentin (Neurontin) 100 mg TID PO Last administered on 04/05/17 08:29; Admin Dose 100 MG; Start 04/03/17 at 09:00 Lorazepam (Ativan) 1 mg HS PRN PO ANXIETY; Start 04/02/17 at 23:30 Salmeterol Xinafoate/ Fluticasone (Advair 250/50 Diskus) 1 inh BID INH Last administered on 04/05/17 08:30; Admin Dose 1 INH; Start 04/03/17 at 09:00 Hydralazine HCl (Apresoline) 10 mg Q6H PRN IV ELEVATED BLOOD PRESSURE; Start at 23:30 Docusate Sodium (Colace) 100 mg BID PO Last administered on 04/05/17 08:29; Admin Dose 100 MG; Start 04/03/17 at 11:30 Warfarin Sodium (Coumadin) 4 mg DAILY@17 PO Last administered on 04/04/17 17:24 ; Admin Dose 4 MG; Start 04/04/17 at 17:00 SHELBY GIRALDO M.D. April 05, 2017 13:16
[2017-04-05] MEDS: WARFARIN 2 MG TAB PO SCH (17:47)
[2017-04-05] MEDS ORDERED: SITA100T8 PO (18:45)
[2017-04-05] MEDS ORDERED: ROSU20TA PO (18:45)
[2017-04-05] MEDS ORDERED: TIOT18CA INHALATION (18:45)
[2017-04-05] MEDS ORDERED: SODI650T PO (18:45)
[2017-04-05] MEDS ORDERED: NEPH PO (18:45)
[2017-04-05] MEDS ORDERED: FURO80TA3 PO (18:45)
[2017-04-05] MEDS ORDERED: APIX2.5T PO (18:45)
[2017-04-05 20:14] VITALS: BP 129/61; RESP 16
[2017-04-06] MEDS: HEPARIN 25000 UNITS/250 ML 250 ML IV SCH (00:43)
[2017-04-06 05:21] LABS: ADD SCAN DIFF NO
[2017-04-06 05:34] LABS: BASOPHIL # 0.1 10^3/ul (0.0-0.1); BASOPHILS % 0.6 % (0.0-2.0); EOSINOPHILS # 0.4 10^3/ul (0.0-0.5); EOSINOPHILS % 3.6 % (0.0-7.0); HEMATOCRIT 30.5 % (37.0-47.0); HEMOGLOBIN 9.7 g/dl (12.0-16.0); MEAN CORPUSCULAR HGB CONC 31.8 g/dl (32.0-37.0); MEAN CORPUSCULAR VOLUME 94.4 fl (82.0-101.0); MEAN PLATELET VOLUME 10.8 fl (7.4-10.4); MONOCYTE # 0.8 10^3/ul (0.3-0.9); NEUTROPHIL # 5.5 10^3/ul (1.6-7.5); NEUTROPHILS % 56.3 % (39.0-77.0); PLATELET COUNT 214 10^3/UL (140-415); RED BLOOD COUNT 3.23 10^6/ul (4.20-5.40); RED CELL DISTRIBUTION WIDTH 15.3 % (11.5-14.5); WHITE BLOOD COUNT 9.8 10^3/ul (4.8-10.8)
[2017-04-06 05:55] LABS: CALCIUM 9.3 mg/dl (8.4-10.2); CREATININE 5.18 mg/dl (0.44-1.00); MAGNESIUM 2.1 mg/dl (1.7-2.5); PHOSPHORUS 6.1 mg/dl (2.5-4.9); POTASSIUM 4.7 mmol/L (3.5-5.1)
[2017-04-06 06:27] LABS: INR 1.22; PROTIME 15.5 Sec (12.2-14.2); PT RATIO 1.2
[2017-04-06 07:40] VITALS: BP 130/61; RESP 16
[2017-04-06] MEDS: SEVELAMER 800 MG TAB PO SCH ×3 (07:58→16:55)
--- NOTE | 2017-04-06 08:41 | RADRPT ---
PROCEDURE: Bilateral upper extremity vein mapping ultrasound. CLINICAL INDICATION: Renal failure. TECHNIQUE: Haney scale and color Doppler flow images of the veins of the bilateral upper extremitie s were obtained. COMPARISON: Exam dated 04/02/2017. FINDINGS: There is normal compressibility within the bilateral subclavian, axillary, and brachial veins. Ther e is also normal compressibility demonstrated within the bilateral basilic and cephalic veins. Diameters: Right: Upper cephalic vein: 0.18 cm. Mid cephalic vein: 0.18 cm. Distal cephalic vein: 0.19 cm. Upper forearm cephalic vein: 0.12 cm. Mid forearm cephalic vein: 0.12 cm. Lower forearm cephalic vein: 0.13 cm. Upper basilic vein: 0.46 cm. Mid basilic vein: 0.24 cm. Lower basilic vein: 0.21 cm. Upper forearm basilic vein: 0.16 cm. Mid forearm basilic vein: 0.13 cm. Lower forearm basilic vein: 0.12 cm. Left: Upper cephalic vein: 0.38 cm. Mid cephalic vein: 0.36 cm. Distal cephalic vein: 0.21 cm. Upper forearm cephalic vein: 0.25 cm. Mid forearm cephalic vein: 0.23 cm. Lower forearm cephalic vein: 0.23 cm. Upper basilic vein: 0.53 cm. Mid basilic vein: 0.4 cm. Lower basilic vein: 0.25 cm. Upper forearm basilic vein: 0.19 cm. Mid forearm basilic vein: 0.19 cm. Lower forearm basilic vein: 0.18 cm. IMPRESSION: 1. Upper extremity vein mapping as above. 2. Normal compressibility of the bilateral subclavian, axillary, and brachial veins without evidenc e of DVT. RPTAT: GG .Gerardo Rapp MD, Date Time Electronically viewed and signed by .Gerardo Rapp MD, MD on 04/06/2017 08:41 .P/
[2017-04-06] MEDS: AMIODARONE 200 MG TAB PO SCH (09:00)
[2017-04-06] MEDS: SALMETEROL/FLUTICASONE 250/50 INHA INH SCH ×2 (09:00→21:34)
--- NOTE | 2017-04-06 09:31 | PN ---
Date/Time of Note Date/Time of Note DATE: 04/06/17 TIME: 09:25 Assessment/Plan Lines/Catheters IV [facility] Type (from [facility] Peripheral IV Pepper in Place (from [facility]): No Assessment/Plan Chief Complaint/Hosp Course -Chronic kidney disease, stage V: It seems that the patient has developed chronic kidney disease, likely related to her hypertension and currently being evaluated by our nephrology colleague, Dr. Martin. We will plan to eventually create a fistula in anticipation of her impending end-stage renal disease. 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 -She also has had a thrombosed fistula. It is unclear as to if it was related to hypercoagulable state or as a result of her having an already central stenosis. The patient is right-hand dominant. We were hoping that we can place a forearm fistula for her. I would recommend not having any IV access or blood draws from her antecubital regions of the bilateral upper extremities. Will schedule her for an eventual fistula creation -Left lower extremity deep vein thrombosis: It seems that the patient has been adequately treated with Eliquis for about a year for her provoked episode of left lower extremity deep vein thrombosis. Her U/S was negative for DVT.No need for an IVC Filter placement -Left upper extremity deep vein thrombosis: It is a bit unclear as to this being an acute finding. Upon evaluation of the ultrasound It seems that this is a chronic finding. There are some heterogeneous findings and calcification within the vessel lumen suggesting chronic after her pacemaker placement. I am equivocal about her being on anticoagulation for the left upper extremity findings; -I discussed findings, plan, and management with the patient and her son, and they understand our discussions. -Thank you for allowing us to partake in the care of your patient. Please call with any questions. Problems: Subjective 24 Hr Interval Summary no new vascular events overnight Exam/Review of Systems Vital Signs Vitals Vital Signs Date Time Temp Pulse Resp B/P Pulse Ox O2 Delivery O2 Flow Rate FiO2 04/06/17 07:40 97.7 50 16 130/61 97 04/02/17 22:05 Room Air Intake and Output 04/05/17 04/05/17 04/06/17 15:00 23:00 07:00 Intake Total 45 ml 868 ml 476 ml Balance 45 ml 868 ml 476 ml Exam Free Text/Dictation GENERAL: Alert and oriented x3, PULMONARY: Clear to auscultation bilaterally. left chest surgical scar well healed ABDOMEN: Soft, nontender, nondistended. Bowel sounds positive. LOWER EXTREMITIES: Palpable femoral pulse, nonpalpable pedal pulse. Motor, sensory intact. Cap refill 2 to 3 seconds. No ulcers identified. LEFT UPPER EXTREMITY: Palpable brachial pulse. Motor, sensory intact. Cap refill 2 to 3 seconds. fistula that is without any bruit or thrill. Results Result Diagram: 04/06/17 0450 04/06/17 0450 ABBY HANKS MD April 06, 2017 09:31
[2017-04-06] MEDS: GABAPENTIN 100 MG CAP PO SCH ×3 (09:34→21:34)
[2017-04-06] MEDS: CALCITRIOL 0.25 MCG CAP PO SCH (09:35)
[2017-04-06] MEDS: FEBUXOSTAT 40 MG TABLET PO SCH (09:35)
[2017-04-06] MEDS: AMLODIPINE 5 MG TAB PO SCH ×2 (09:35→21:00)
[2017-04-06] MEDS: EZETIMIBE 10 MG TAB PO SCH (09:35)
[2017-04-06] MEDS: ACETAMINOPHEN 325 MG TAB PO PRN ×2 (09:36→18:51)
--- NOTE | 2017-04-06 11:27 | PN ---
DATE: 04/06/2017 SUBJECTIVE: The patient is stable, no acute distress. No fevers, chills, nausea, vomiting. OBJECTIVE: VITAL SIGNS: Blood pressure is 130/61, respirations 16, pulse 54, temperature 97.5. HEENT: Head is normocephalic. NECK: Supple. HEART: Regular rate. LUNGS: Show diminished breath sounds at the base. ABDOMEN: Soft, nontender to palpation without rebound or guarding. EXTREMITIES: Negative for clubbing, cyanosis, or edema. DERMATOLOGIC: No rashes. MUSCULOSKELETAL: No joint effusions. NEUROLOGIC: No change in exam. MEDICATIONS: The patient's medications have been reviewed. LABORATORY DATA: Showed sodium 131, potassium 4.2, chloride 105, BUN 54, creatinine 5.18. White co unt is 9.8, hemoglobin 9.7, hematocrit 30.5, platelet count is 214. ASSESSMENT AND PLAN: 1. Nonoliguric acute kidney injury on top of chronic kidney disease stage V with a previous baselin e creatinine around 5 to 5.5 mg/dL. Etiology of current acute kidney injury is likely hemodynamics. The patient's creatinine has been increasing slowly over the last 2 to 3 days. Again, this may be due to hemodynamics or patient returning to her previous baseline. At this point, patient has no o vert uremic symptoms and does not wish to be started on dialysis at this time. Will continue to mon itor. The patient will follow up with her outpatient private advisor. 2. Hyponatremia, likely secondary to heparin drip which contains hypertonic fluids. Will attempt t o convert the patient to Coumadin. Will discontinue heparin drip. Also, patient will be instructed to limit free water intake. 3. Anemia. Continue to monitor hemoglobin and hematocrit levels. We will give Epogen as needed. 4. Mineral bone disorder. Continue to monitor calcium and phosphorus levels. Continue vitamin D a nalogs and phosphate binders. 5. Hypertension. Continue current blood pressure regimen. 6. Left upper extremity deep venous thrombosis. Continue heparin and Coumadin. 7. Coronary artery disease, continue medical management. 8. History of arrhythmia, status post pacemaker. 9. Continue statin therapy. Dictated By: HEBERT ALCALA/SARA Conf#: [id number] DID#: [id number]
[2017-04-06 12:38] LABS: ANA SCREEN NEGATIVE (NEGATIVE)
--- NOTE | 2017-04-06 12:56 | CONS ---
Date/Time of Note Date/Time of Note DATE: 04/06/17 TIME: 12:51 Assessment/Plan Assessment/Plan Chief Complaint/Hosp Course #LUE DVT - note this developed while patient was on Eliquis - per vascular this appears to be a chronic finding - given this occurred while patient was on Eliquis, will need to continue Coumadin at this time which may be more effective as an anticoagulant in a patient with renal failure - pt will need at least 3 months of anticoagulation but if the hypercoagulable workup shows an underlying hypercoagulable state patient may need life long anticoagulation #History of LLE DVT -no evidence of Acute DVT on current bilateral lower extremity ultrasound # ESRD -continue management per renal Problems: Consultation Date/Type/Reason Admit Date/Time April 02, 2017 at 20:20 Initial Consult Date 04/04/17 Type of Consultation: Hematology Reason for Consultation coagulopathy Referring Provider: SAAD NUNEZ 24 HR Interval Summary Free Text/Dictation Upper extremity DVT Exam/Review of Systems Vital Signs Vitals Vital Signs Date Time Temp Pulse Resp B/P Pulse Ox O2 Delivery O2 Flow Rate FiO2 04/06/17 07:40 97.7 50 16 130/61 97 04/02/17 22:05 Room Air Intake and Output 04/05/17 04/05/17 04/06/17 15:00 23:00 07:00 Intake Total 45 ml 868 ml 476 ml Balance 45 ml 868 ml 476 ml Exam Constitutional: alert, oriented Psych: nl mood/affect, no complaints Head: normocephalic Eyes: nl conjunctiva ENMT: nl external ears & nose Neck: non-tender, supple Respiratory: clear to auscultation, normal air movement Cardiovascular: nl pulses, regular rate and rhythm Gastrointestinal: soft Musculoskeletal: nl extremities to inspection, nl gait and stance Extremities: normal pulses Results Result Diagram: 04/06/17 0450 04/06/17 0450 Results 24 hrs Laboratory Tests Test 04/05/17 14:35 04/05/17 20:38 04/06/17 04:50 Activated Partial Thromboplast Time 78.5 *H 57.8 H 52.8 H White Blood Count 9.8 Red Blood Count 3.23 L Hemoglobin 9.7 L Hematocrit 30.5 L Mean Corpuscular Volume 94.4 Mean Corpuscular Hemoglobin 30.0 Mean Corpuscular Hemoglobin Concent 31.8 L Red Cell Distribution Width 15.3 H Platelet Count 214 Mean Platelet Volume 10.8 H Neutrophils % 56.3 Lymphocytes % 31.0 Monocytes % 8.0 Eosinophils % 3.6 Basophils % 0.6 Nucleated Red Blood Cells % 0.0 Neutrophils # 5.5 Lymphocytes # 3.0 H Monocytes # 0.8 Eosinophils # 0.4 Basophils # 0.1 Nucleated Red Blood Cells # 0.0 Prothrombin Time 15.5 H Prothrombin Time Ratio 1.2 INR International Normalized Ratio 1.22 Sodium Level 131 L Potassium Level 4.7 Chloride Level 105 Carbon Dioxide Level 20 L Anion Gap 11 Blood Urea Nitrogen 54 H Creatinine 5.18 H Glucose Level 102 Calcium Level 9.3 Phosphorus Level 6.1 H Magnesium Level 2.1 Medications Medications Current Medications Ondansetron HCl (Zofran Inj) 4 mg Q6H PRN IV NAUSEA AND/OR VOMITING; Start 04/02 at 23:30 Acetaminophen (Tylenol Tab) 650 mg Q6H PRN PO PAIN LEVEL 1-3 OR FEVER Last administered on 04/06/17 09:36; Admin Dose 650 MG; Start 04/02/17 at 23:30 Morphine Sulfate (morphine) 2 mg Q4H PRN IV SEVERE PAIN LEVEL 7-10; Start at 23:30 Bisacodyl (Dulcolax Supp) 10 mg DAILY PRN [place] CONSTIPATION; Start 04/02/17 at 23: 30 Amiodarone HCl (Cordarone) 100 mg DAILY PO Last administered on 04/05/17 08:30 ; Admin Dose 100 MG; Start 04/03/17 at 09:00 Amlodipine Besylate (Norvasc) 5 mg BID PO Last administered on 04/06/17 09:35; Admin Dose 5 MG; Start 04/02/17 at 23:30 Calcitriol (Rocaltrol) 0.25 mcg DAILY PO Last administered on 04/06/17 09:35; Admin Dose 0.25 MCG; Start 04/03/17 at 09:00 EZETIMIBE (Zetia) 10 mg DAILY PO Last administered on 04/06/17 09:35; Admin Dose 10 MG; Start 04/03/17 at 09:00 Febuxostat (Uloric) 40 mg DAILY PO Last administered on 5/9/17at 09:35; Admin Dose 40 MG; Start 04/03/17 at 09:00 Gabapentin (Neurontin) 100 mg TID PO Last administered on 04/06/17 12:00; Admin Dose 100 MG; Start 04/03/17 at 09:00 Lorazepam (Ativan) 1 mg HS PRN PO ANXIETY; Start 04/02/17 at 23:30 Salmeterol Xinafoate/ Fluticasone (Advair 250/50 Diskus) 1 inh BID INH Last administered on 04/05/17 21:06; Admin Dose 1 INH; Start 04/03/17 at 09:00 Hydralazine HCl (Apresoline) 10 mg Q6H PRN IV ELEVATED BLOOD PRESSURE; Start at 23:30 Warfarin Sodium (Coumadin) 4 mg DAILY@17 PO Last administered on 04/05/17 17:47 ; Admin Dose 4 MG; Start 04/04/17 at 17:00 Docusate Sodium (Colace) 100 mg HS PO Last administered on 04/05/17 21:06; Admin Dose 100 MG; Start 04/05/17 at 21:00 SHELBY GIRALDO M.D. April 06, 2017 12:56
--- NOTE | 2017-04-06 16:07 | PN ---
Date/Time of Note Date/Time of Note DATE: 04/06/17 TIME: 16:05 Assessment/Plan VTE Prophylaxis VTE Prophylaxis Intervention: heparin Lines/Catheters IV [facility] Peripheral IV Urinary Cath still in place: No Assessment/Plan Chief Complaint/Hosp Course S: 04/05 events noted 04/06 no dyspnea and chest pain. Arm pain and edema improved. O: vss PE no pallor reg CTAB Bs + nt nd no R/R/G No edema A/P 1. Acute renal failure. Stable observed. No HD needed at present. Anticipate discharge soon. 2. Acute left upper extremity DVT. Stable cont Coumadin, and heparin until INR therapeutic. 3. Ho bilatl lwr ext DVT 1 year ago 4. Pacemaker status 5. Possible sss 6. Chr CAD? 7. Hypertension/ dyslipidemia 8. Anemia 9. Possible FH sudden 10. CKD, avoid PICCs in nondominant hand. Problems: Exam/Review of Systems Vital Signs Vitals Vital Signs Date Time Temp Pulse Resp B/P Pulse Ox O2 Delivery O2 Flow Rate FiO2 04/06/17 07:40 97.7 50 16 130/61 97 04/02/17 22:05 Room Air Intake and Output 04/05/17 04/05/17 04/06/17 15:00 23:00 07:00 Intake Total 45 ml 868 ml 476 ml Balance 45 ml 868 ml 476 ml Results Result Diagram: 04/06/17 0450 04/06/17 0450 Results 24 hrs Laboratory Tests Test 04/05/17 20:38 04/06/17 04:50 04/06/17 12:07 Activated Partial Thromboplast Time 57.8 H 52.8 H 125.7 *H White Blood Count 9.8 Red Blood Count 3.23 L Hemoglobin 9.7 L Hematocrit 30.5 L Mean Corpuscular Volume 94.4 Mean Corpuscular Hemoglobin 30.0 Mean Corpuscular Hemoglobin Concent 31.8 L Red Cell Distribution Width 15.3 H Platelet Count 214 Mean Platelet Volume 10.8 H Neutrophils % 56.3 Lymphocytes % 31.0 Monocytes % 8.0 Eosinophils % 3.6 Basophils % 0.6 Nucleated Red Blood Cells % 0.0 Neutrophils # 5.5 Lymphocytes # 3.0 H Monocytes # 0.8 Eosinophils # 0.4 Basophils # 0.1 Nucleated Red Blood Cells # 0.0 Prothrombin Time 15.5 H Prothrombin Time Ratio 1.2 INR International Normalized Ratio 1.22 Sodium Level 131 L Potassium Level 4.7 Chloride Level 105 Carbon Dioxide Level 20 L Anion Gap 11 Blood Urea Nitrogen 54 H Creatinine 5.18 H Glucose Level 102 Calcium Level 9.3 Phosphorus Level 6.1 H Magnesium Level 2.1 Medications Medications Current Medications Ondansetron HCl (Zofran Inj) 4 mg Q6H PRN IV NAUSEA AND/OR VOMITING; Start 04/02 at 23:30 Acetaminophen (Tylenol Tab) 650 mg Q6H PRN PO PAIN LEVEL 1-3 OR FEVER Last administered on 04/06/17 09:36; Admin Dose 650 MG; Start 04/02/17 at 23:30 Morphine Sulfate (morphine) 2 mg Q4H PRN IV SEVERE PAIN LEVEL 7-10; Start at 23:30 Bisacodyl (Dulcolax Supp) 10 mg DAILY PRN [place] CONSTIPATION; Start 04/02/17 at 23: 30 Amiodarone HCl (Cordarone) 100 mg DAILY PO Last administered on 04/05/17 08:30 ; Admin Dose 100 MG; Start 04/03/17 at 09:00 Amlodipine Besylate (Norvasc) 5 mg BID PO Last administered on 04/06/17 09:35; Admin Dose 5 MG; Start 04/02/17 at 23:30 Calcitriol (Rocaltrol) 0.25 mcg DAILY PO Last administered on 04/06/17 09:35; Admin Dose 0.25 MCG; Start 04/03/17 at 09:00 EZETIMIBE (Zetia) 10 mg DAILY PO Last administered on 04/06/17 09:35; Admin Dose 10 MG; Start 04/03/17 at 09:00 Febuxostat (Uloric) 40 mg DAILY PO Last administered on 04/06/17 09:35; Admin Dose 40 MG; Start 04/03/17 at 09:00 Gabapentin (Neurontin) 100 mg TID PO Last administered on 04/06/17 12:00; Admin Dose 100 MG; Start 04/03/17 at 09:00 Lorazepam (Ativan) 1 mg HS PRN PO ANXIETY; Start 04/02/17 at 23:30 Salmeterol Xinafoate/ Fluticasone (Advair 250/50 Diskus) 1 inh BID INH Last administered on 04/05/17 21:06; Admin Dose 1 INH; Start 04/03/17 at 09:00 Hydralazine HCl (Apresoline) 10 mg Q6H PRN IV ELEVATED BLOOD PRESSURE; Start at 23:30 Warfarin Sodium (Coumadin) 4 mg DAILY@17 PO Last administered on 04/05/17 17:47 ; Admin Dose 4 MG; Start 04/04/17 at 17:00 Docusate Sodium (Colace) 100 mg HS PO Last administered on 04/05/17 21:06; Admin Dose 100 MG; Start 04/05/17 at 21:00 ODALIS POND MD April 06, 2017 16:07
[2017-04-06] MEDS: WARFARIN 2 MG TAB PO SCH (16:55)
[2017-04-06 20:12] VITALS: BP 126/58; RESP 18
[2017-04-06] MEDS: DOCUSATE SODIUM 100 MG CAP PO SCH (21:00)
[2017-04-06 22:50] VITALS: PULSE 55
[2017-04-07 03:34] LABS: CREATININE 5.64 mg/dl (0.44-1.00)
[2017-04-07 03:35] LABS: CALCIUM 9.2 mg/dl (8.4-10.2); MAGNESIUM 2.4 mg/dl (1.7-2.5)
[2017-04-07] MEDS: HEPARIN 25000 UNITS/250 ML 250 ML IV SCH (04:09)
[2017-04-07 06:46] LABS: INR 1.55; PROTIME 18.7 Sec (12.2-14.2); PT RATIO 1.5
[2017-04-07 08:06] VITALS: BP 124/63; RESP 19
[2017-04-07] MEDS: EZETIMIBE 10 MG TAB PO SCH (09:31)
[2017-04-07] MEDS: CALCITRIOL 0.25 MCG CAP PO SCH (09:31)
[2017-04-07] MEDS: GABAPENTIN 100 MG CAP PO SCH ×3 (09:32→20:29)
[2017-04-07] MEDS: FEBUXOSTAT 40 MG TABLET PO SCH (09:32)
[2017-04-07] MEDS: AMIODARONE 200 MG TAB PO SCH (09:35)
[2017-04-07] MEDS: SALMETEROL/FLUTICASONE 250/50 INHA INH SCH ×2 (09:35→20:32)
[2017-04-07] MEDS: AMLODIPINE 5 MG TAB PO SCH (09:35)
[2017-04-07] MEDS: SEVELAMER 800 MG TAB PO SCH ×3 (09:39→17:07)
--- NOTE | 2017-04-07 10:21 | CONS ---
Date/Time of Note Date/Time of Note DATE: 04/07/17 TIME: 10:18 Assessment/Plan Assessment/Plan Chief Complaint/Hosp Course #LUE DVT - note this developed while patient was on Eliquis - per vascular this appears to be a chronic finding - given this occurred while patient was on Eliquis, will need to continue Coumadin at this time which may be more effective as an anticoagulant in a patient with renal failure - pt will need at least 3 months of anticoagulation but if the hypercoagulable workup shows an underlying hypercoagulable state patient may need life long anticoagulation #History of LLE DVT -no evidence of Acute DVT on current bilateral lower extremity ultrasound # ESRD -continue management per renal Case was discussed with other co-managing physicians as well as her son Problems: Consultation Date/Type/Reason Admit Date/Time April 02, 2017 at 20:20 Initial Consult Date 04/04/17 Type of Consultation: Hematology Reason for Consultation upper extremity DVT/ coagulopathy Referring Provider: SAAD NUNEZ 24 HR Interval Summary Free Text/Dictation pt continues on Coumadin Exam/Review of Systems Vital Signs Vitals Vital Signs Date Time Temp Pulse Resp B/P Pulse Ox O2 Delivery O2 Flow Rate FiO2 04/07/17 08:06 97.6 50 19 124/63 98 Intake and Output 04/06/17 04/06/17 04/07/17 15:00 23:00 07:00 Intake Total 80 ml 1241.25 ml 421.25 ml Balance 80 ml 1241.25 ml 421.25 ml Exam Constitutional: alert, oriented Psych: nl mood/affect, no complaints Head: normocephalic Eyes: nl conjunctiva ENMT: nl external ears & nose, nl lips & teeth Neck: non-tender, supple Respiratory: clear to auscultation, normal air movement Cardiovascular: nl pulses, regular rate and rhythm Gastrointestinal: soft Musculoskeletal: other (UE fistula in place) Results Result Diagram: 04/06/17 0450 04/07/17 0321 Results 24 hrs Laboratory Tests Test 04/06/17 12:07 04/06/17 20:25 04/07/17 03:21 04/07/17 05:00 Activated Partial Thromboplast Time 125.7 *H 90.6 *H 94.9 *H Sodium Level 137 Potassium Level 5.0 Chloride Level 110 Carbon Dioxide Level 18 L Anion Gap 14 Blood Urea Nitrogen 63 H Creatinine 5.64 H Glucose Level 100 Calcium Level 9.2 Phosphorus Level 6.0 H Magnesium Level 2.4 Prothrombin Time 18.7 #H Prothrombin Time Ratio 1.5 INR International Normalized Ratio 1.55 Medications Medications Current Medications Ondansetron HCl (Zofran Inj) 4 mg Q6H PRN IV NAUSEA AND/OR VOMITING; Start 04/02 at 23:30 Acetaminophen (Tylenol Tab) 650 mg Q6H PRN PO PAIN LEVEL 1-3 OR FEVER Last administered on 04/06/17 18:51; Admin Dose 650 MG; Start 04/02/17 at 23:30 Morphine Sulfate (morphine) 2 mg Q4H PRN IV SEVERE PAIN LEVEL 7-10; Start at 23:30 Bisacodyl (Dulcolax Supp) 10 mg DAILY PRN [place] CONSTIPATION; Start 04/02/17 at 23: 30 Amiodarone HCl (Cordarone) 100 mg DAILY PO Last administered on 04/07/17 09:35 ; Admin Dose 100 MG; Start 04/03/17 at 09:00 Amlodipine Besylate (Norvasc) 5 mg BID PO Last administered on 04/07/17 09:35 ; Admin Dose 5 MG; Start 04/02/17 at 23:30 Calcitriol (Rocaltrol) 0.25 mcg DAILY PO Last administered on 04/07/17 09:31; Admin Dose 0.25 MCG; Start 04/03/17 at 09:00 EZETIMIBE (Zetia) 10 mg DAILY PO Last administered on 04/07/17 09:31; Admin Dose 10 MG; Start 04/03/17 at 09:00 Febuxostat (Uloric) 40 mg DAILY PO Last administered on 04/07/17 09:32; Admin Dose 40 MG; Start 04/03/17 at 09:00 Gabapentin (Neurontin) 100 mg TID PO Last administered on 04/07/17 09:32; Admin Dose 100 MG; Start 04/03/17 at 09:00 Lorazepam (Ativan) 1 mg HS PRN PO ANXIETY; Start 04/02/17 at 23:30 Salmeterol Xinafoate/ Fluticasone (Advair 250/50 Diskus) 1 inh BID INH Last administered on 04/07/17 09:35; Admin Dose 1 INH; Start 04/03/17 at 09:00 Hydralazine HCl (Apresoline) 10 mg Q6H PRN IV ELEVATED BLOOD PRESSURE; Start at 23:30 Warfarin Sodium (Coumadin) 4 mg DAILY@17 PO Last administered on 04/06/17 16:55 ; Admin Dose 4 MG; Start 04/04/17 at 17:00 Docusate Sodium 100 mg 100 mg HS PO Last administered on 04/05/17 21:06; Admin Dose 100 MG; Start 04/05/17 at 21:00 Heparin Sodium (Porcine) (Heparin 42286 Units/250 ml) 250 ml @ 8.5 mls/hr Q24H IV Last administered on 04/07/17 04:09; Admin Dose 8.5 MLS/HR; Start 04/07/17 at 04:00 SHELBY GIRALDO M.D. April 07, 2017 10:21
[2017-04-07] MEDS: ACETAMINOPHEN 325 MG TAB PO PRN ×3 (10:26→22:29)
--- NOTE | 2017-04-07 10:41 | PN ---
DATE: 04/07/2017 SUBJECTIVE: The patient is stable, no acute events overnight. No fevers, chills, nausea, vomiting. OBJECTIVE: VITAL SIGNS: Blood pressure is 124/60, respirations 19, pulse 50, temperature 97.6. HEENT: Head is normocephalic. NECK: Supple. HEART: Regular rate. LUNGS: Show diminished breath sounds at base. ABDOMEN: Soft, nontender to palpation without rebound or guarding. EXTREMITIES: Negative for clubbing, cyanosis. No edema. DERMATOLOGIC: No rashes. MUSCULOSKELETAL: No joint effusions. NEUROLOGIC: No change in exam. MEDICATIONS: The patient's medications have been reviewed. LABORATORY DATA: Shows sodium 137, potassium 5.0, chloride 18, BUN 53, creatinine 5.64. White coun t 9.8, hemoglobin 9.7, hematocrit 30.5, and platelet count is 214. ASSESSMENT AND PLAN: 1. Nonoliguric acute kidney injury on top of chronic kidney disease with previous baseline creatini ne of 5 to 5.5 mg/dL. The etiology of current acute kidney injury is likely hemodynamics. The poss ibility of superimposed acute tubular necrosis INR progression of underlying CKD is a consideration. At this point, will repeat a urinalysis. The patient again has no overt signs of uremia and is no t in any immediate need for renal replacement therapy, but we will continue to observe closely. 2. Hypernatremia, resolved. Continue to limit free water intake. 3. Anemia. Continue to monitor hemoglobin and hematocrit levels. Continue Epogen as needed. 4. Mineral bone disorder, continue to monitor calcium and phosphorus levels. Continue vitamin D an alogs and phosphate binders. 5. Hypertension. Blood pressure well controlled. 6. Upper extremity deep venous thrombosis. Continue Coumadin. 7. Coronary artery disease. Continue current medical management. 8. Arrhythmia, status post pacemaker. 9. Dyslipidemia. Continue statin therapy. Dictated By: HEBERT ALCALA/SARA Conf#: [id number] DID#: [id number]
[2017-04-07 11:50] LABS: PROTEIN C >200 % normal (70-180)
--- NOTE | 2017-04-07 12:32 | PN ---
Date/Time of Note Date/Time of Note DATE: 04/07/17 TIME: 12:29 Assessment/Plan VTE Prophylaxis VTE Prophylaxis Intervention: heparin (And Coumadin and Coumadin) Lines/Catheters IV [facility]ter Type (from [facility]): Peripheral IV Urinary Cath still in place: No Assessment/Plan Chief Complaint/Hosp Course S: 04/05 events noted 04/06 no dyspnea and chest pain. Arm pain and edema improved. 510 showered. No active bleeding. No shortness of breath. Awake alert follows commands. O: vss PE no pallor reg CTAB Bs + nt nd no R/R/G No edema A/P 1. Acute renal failure. Stable observed. No HD needed at present. 2. Acute left upper ext DVT. Stable cont Coumadin (increase to 6mg), and heparin until INR therapeutic. 3. Ho bilatl lwr ext DVT 1 year ago 4. Pacemaker status 5. Possible sss 6. Chr CAD? 7. Htn/dl 8. Anemia 9. Possible FH sudden 10. CKD, avoid PICCs in nondominant hand. Problems: Exam/Review of Systems Vital Signs Vitals Vital Signs Date Time Temp Pulse Resp B/P Pulse Ox O2 Delivery O2 Flow Rate FiO2 04/07/17 08:06 97.6 50 19 124/63 98 Intake and Output 04/06/17 04/06/17 04/07/17 15:00 23:00 07:00 Intake Total 80 ml 1241.25 ml 421.25 ml Balance 80 ml 1241.25 ml 421.25 ml Results Result Diagram: 04/06/17 0450 04/07/17 0321 Results 24 hrs Laboratory Tests Test 04/06/17 20:25 04/07/17 03:21 04/07/17 05:00 Activated Partial Thromboplast Time 90.6 *H 94.9 *H Sodium Level 137 Potassium Level 5.0 Chloride Level 110 Carbon Dioxide Level 18 L Anion Gap 14 Blood Urea Nitrogen 63 H Creatinine 5.64 H Glucose Level 100 Calcium Level 9.2 Phosphorus Level 6.0 H Magnesium Level 2.4 Prothrombin Time 18.7 #H Prothrombin Time Ratio 1.5 INR International Normalized Ratio 1.55 Medications Medications Current Medications Ondansetron HCl (Zofran Inj) 4 mg Q6H PRN IV NAUSEA AND/OR VOMITING; Start 04/02 at 23:30 Acetaminophen (Tylenol Tab) 650 mg Q6H PRN PO PAIN LEVEL 1-3 OR FEVER Last administered on 04/07/17 10:26; Admin Dose 650 MG; Start 04/02/17 at 23:30 Morphine Sulfate (morphine) 2 mg Q4H PRN IV SEVERE PAIN LEVEL 7-10; Start at 23:30 Bisacodyl (Dulcolax Supp) 10 mg DAILY PRN [place] CONSTIPATION; Start 04/02/17 at 23: 30 Amiodarone HCl (Cordarone) 100 mg DAILY PO Last administered on 04/07/17 09:35 ; Admin Dose 100 MG; Start 04/03/17 at 09:00 Amlodipine Besylate (Norvasc) 5 mg BID PO Last administered on 04/07/17 09:35 ; Admin Dose 5 MG; Start 04/02/17 at 23:30 Calcitriol (Rocaltrol) 0.25 mcg DAILY PO Last administered on 04/07/17 09:31; Admin Dose 0.25 MCG; Start 04/03/17 at 09:00 EZETIMIBE (Zetia) 10 mg DAILY PO Last administered on 04/07/17 09:31; Admin Dose 10 MG; Start 04/03/17 at 09:00 Febuxostat (Uloric) 40 mg DAILY PO Last administered on 04/07/17 09:32; Admin Dose 40 MG; Start 04/03/17 at 09:00 Gabapentin (Neurontin) 100 mg TID PO Last administered on 04/07/17 12:10; Admin Dose 100 MG; Start 04/03/17 at 09:00 Lorazepam (Ativan) 1 mg HS PRN PO ANXIETY; Start 04/02/17 at 23:30 Salmeterol Xinafoate/ Fluticasone (Advair 250/50 Diskus) 1 inh BID INH Last administered on 04/07/17 09:35; Admin Dose 1 INH; Start 04/03/17 at 09:00 Hydralazine HCl (Apresoline) 10 mg Q6H PRN IV ELEVATED BLOOD PRESSURE; Start at 23:30 Warfarin Sodium (Coumadin) 4 mg DAILY@17 PO Last administered on 04/06/17 16:55 ; Admin Dose 4 MG; Start 04/04/17 at 17:00 Docusate Sodium 100 mg 100 mg HS PO Last administered on 04/05/17 21:06; Admin Dose 100 MG; Start 04/05/17 at 21:00 Heparin Sodium (Porcine) (Heparin [id number] Units/250 ml) 250 ml @ 8.5 mls/hr Q24H IV Last administered on 04/07/17 04:09; Admin Dose 8.5 MLS/HR; Start 04/07/17 at 04:00 ODALIS POND MD April 07, 2017 12:32
[2017-04-07] MEDS: WARFARIN 3 MG TAB PO SCH (17:07)
[2017-04-07] MEDS: DOCUSATE SODIUM 100 MG CAP PO SCH (20:29)
[2017-04-07] MEDS: FAMOTIDINE 20 MG TAB PO SCH (20:29)
[2017-04-08] MEDS: HEPARIN 25000 UNITS/250 ML 250 ML IV SCH (04:00)
[2017-04-08 05:32] LABS: ADD SCAN DIFF NO
[2017-04-08 05:40] LABS: BASOPHIL # 0.1 10^3/ul (0.0-0.1); BASOPHILS % 0.9 % (0.0-2.0); EOSINOPHILS # 0.3 10^3/ul (0.0-0.5); EOSINOPHILS % 3.5 % (0.0-7.0); HEMATOCRIT 30.4 % (37.0-47.0); HEMOGLOBIN 9.7 g/dl (12.0-16.0); LYMPHOCYTES # 2.5 10^3/ul (0.8-2.9); LYMPHOCYTES % 28.4 % (15.0-51.0); MEAN CORPUSCULAR HEMOGLOBIN 30.7 pg (29.0-33.0); MEAN CORPUSCULAR HGB CONC 31.9 g/dl (32.0-37.0); MEAN CORPUSCULAR VOLUME 96.2 fl (82.0-101.0); MEAN PLATELET VOLUME 10.9 fl (7.4-10.4); MONOCYTE # 0.8 10^3/ul (0.3-0.9); MONOCYTES % 8.7 % (0.0-11.0); NEUTROPHIL # 5.2 10^3/ul (1.6-7.5); NEUTROPHILS % 57.7 % (39.0-77.0); NUCLEATED RED BLOOD CELLS% 0.2 /100WBC (0.0-0.0); PLATELET COUNT 257 10^3/UL (140-415); RED BLOOD COUNT 3.16 10^6/ul (4.20-5.40); RED CELL DISTRIBUTION WIDTH 16.2 % (11.5-14.5); WHITE BLOOD COUNT 8.9 10^3/ul (4.8-10.8)
[2017-04-08 06:00] LABS: INR 2.2; PROTIME 24.7 Sec (12.2-14.2); PT RATIO 1.9
[2017-04-08 06:50] LABS: CALCIUM 9.1 mg/dl (8.4-10.2); CREATININE 6.08 mg/dl (0.44-1.00); MAGNESIUM 2.2 mg/dl (1.7-2.5); PHOSPHORUS 6.4 mg/dl (2.5-4.9)
[2017-04-08 07:01] LABS: POTASSIUM 5.8 mmol/L (3.5-5.1)
[2017-04-08 07:49] VITALS: BP 136/63; RESP 20
[2017-04-08 07:59] LABS: ADD UMIC YES; URINE BILIRUBIN (Dip) NEGATIVE (NEGATIVE); URINE BLOOD (Dip) TRACE (NEGATIVE); URINE COLOR LT. YELLOW (YELLOW); URINE GLUCOSE (Dip) NEGATIVE (NEGATIVE); URINE KETONES (Dip) NEGATIVE (NEGATIVE); URINE LEUKOCYTE ESTERASE (Dip) NEGATIVE (NEGATIVE); URINE NITRITE (Dip) NEGATIVE (NEGATIVE); URINE TOTAL PROTEIN (Dip) 2+ (NEGATIVE); URINE UROBILINOGEN (Dip) 0.2 E.U./dL (0.1-1.0)
[2017-04-08] MEDS: ACETAMINOPHEN 325 MG TAB PO PRN ×3 (08:08→21:51)
[2017-04-08] MEDS: SEVELAMER 800 MG TAB PO SCH ×3 (08:11→17:54)
[2017-04-08] MEDS: GABAPENTIN 100 MG CAP PO SCH ×3 (08:11→21:04)
[2017-04-08] MEDS: SALMETEROL/FLUTICASONE 250/50 INHA INH SCH ×3 (08:11→21:00)
[2017-04-08] MEDS: EZETIMIBE 10 MG TAB PO SCH (08:12)
[2017-04-08] MEDS: FEBUXOSTAT 40 MG TABLET PO SCH (08:12)
[2017-04-08] MEDS: CALCITRIOL 0.25 MCG CAP PO SCH (08:12)
[2017-04-08 08:38] LABS: URINE RBCS 0-2 /HPF (0)
[2017-04-08] MEDS: AMIODARONE 200 MG TAB PO SCH (09:00)
[2017-04-08] MEDS ORDERED: NA POLYST SULFON 15 GM/60 ML BTL PO ONE (10:00)
[2017-04-08] MEDS: SOD CHLORIDE 0.9% 1,000 ML IV SCH ×2 (10:31→21:04)
--- NOTE | 2017-04-08 10:31 | PN ---
DATE: 04/08/2017 SUBJECTIVE: The patient is stable. No events overnight. The patient continues to have episodes of bradycardia. Please note, I discussed with the patient about initiating hemodialysis, as her renal function has f urther declined and she is becoming hyperkalemic. The patient was reticent and said she only wants dialysis at the last possible moment. I told her I could try medical management of her worsening re nal function and hyperkalemia, but if there is no response the patient would have to be initiated on dialysis. The patient has agreed. OBJECTIVE: VITAL SIGNS: Blood pressure 136/62, respirations 20, pulse 50, temperature 97.6. HEENT: Head is normocephalic. NECK: Supple. HEART: Regular rate. LUNGS: Showed diminished breath sounds at the base. ABDOMEN: Soft, nontender to palpation. No rebound or guarding. EXTREMITIES: Negative for clubbing or cyanosis. No edema. DERMATOLOGIC: No rashes. MUSCULOSKELETAL: Have no joint effusion. NEUROLOGIC: No focal deficits. MEDICATIONS: The patient medications have been reviewed. LABORATORY DATA: Shows sodium 133, potassium 5.8, chloride 110, BUN 68, creatinine 6.08. White cou nt is 8.9, hemoglobin 9.7, hematocrit 38.4, platelet count 247. ASSESSMENT AND PLAN: 1. Nonoliguric acute kidney injury on top of chronic kidney disease stage 5, with a previous baseli ne creatinine around 5 to 5.5 mg/dL. The etiology of worsening renal function may be due to hemodyn amics, a component of volume depletion versus progression of underlying CKD. I informed the patient , as stated above, that she should be started on dialysis. The patient stated she would like to try medical management and only do dialysis at the last possible moment. Therefore, the patient will b e started on IV fluids and normal saline at 100 mL an hour. Will treat the patient's hyperkalemia w ith Kayexalate. If there is no significant improvement in renal function, the patient will be initi ated on hemodialysis. 2. Hyperkalemia. Etiology is multifactorial secondary to acute kidney injury, chronic kidney disea se, and noncompliance with a low-potassium diet. Plan is to start the patient on IV fluids, will gi ve Kayexalate. The patient was educated on maintaining a low potassium diet. Will repeat a renal p vera. If potassium levels do not improve, the patient will be started on hemodialysis. 3. Hyponatremia, in part due to underlying hypotonic fluids. Will continue to monitor and limit fr ee water intake. 4. Anemia. Continue to monitor hemoglobin and hematocrit levels. Will give Epogen as needed. 5. Mineral bone disorder. Continue to monitor calcium and phosphorus levels. Continue vitamin D a nalogs. Continue phos binders. 6. Hypertension. Blood pressure is controlled. 7. History of arrhythmia. Status post pacemaker. The patient is on amiodarone. Consider disconti nuing. 8. Coronary artery disease. Continue medical management. 9. Upper extremity deep vein thrombosis. The patient is currently on a heparin drip and Coumadin. Currently INR is at goal. Recommend discontinuing the heparin drip. 10. Dyslipidemia. Continue statin therapy. Dictated By: HEBERT ALCALA/SARA Conf#: [id number] DID#: [id number]
[2017-04-08] MEDS: AMLODIPINE 5 MG TAB PO SCH (10:39)
--- NOTE | 2017-04-08 12:41 | PN ---
Date/Time of Note Date/Time of Note DATE: 04/08/17 TIME: 12:39 Assessment/Plan VTE Prophylaxis VTE Prophylaxis Intervention: heparin Lines/Catheters IV C[facility]ter Type (from [facility] Peripheral IV Urinary Cath still in place: No Assessment/Plan Chief Complaint/Hosp Course S: 04/05 events noted 04/06 no dyspnea and chest pain. Arm pain and edema improved. 510 showered. No active bleeding. No shortness of breath. Awake alert follows commands. 04/08 no dyspnea fever Gib. No encephalopathy. I discussed the benefits of starting hd when her barrel assembler helper recommends, as opposed to in an emergent situation. Pt agrees. I also updated her, that likely her dialysis will be long- term. and she is aware. O: vss PE no pallor/JVD reg CTAB Bs + nt nd no R/R/G No edema A/P 1. Acute renal failure. Stable. HD recommended to her. 2. Acute left upper ext DVT. Stable cont Coumadin (increased to 6mg 04/07), and heparin until INR therapeutic. 3. Ho bilatl lwr ext DVT 1 year ago 4. Pacemaker status 5. Possible sss 6. Chr CAD? 7. Htn/dl 8. Anemia 9. Possible FH sudden 10. CKD, avoid PICCs in nondominant hand. Problems: Exam/Review of Systems Vital Signs Vitals Vital Signs Date Time Temp Pulse Resp B/P Pulse Ox O2 Delivery O2 Flow Rate FiO2 04/08/17 07:49 97.6 50 20 136/63 100 Intake and Output 04/07/17 04/07/17 04/08/17 15:00 23:00 07:00 Intake Total 1220 ml 582 ml Balance 1220 ml 582 ml Results Result Diagram: 04/08/17 0510 04/08/17 0510 Results 24 hrs Laboratory Tests Test 04/08/17 05:10 04/08/17 05:30 White Blood Count 8.9 Red Blood Count 3.16 L Hemoglobin 9.7 L Hematocrit 30.4 L Mean Corpuscular Volume 96.2 Mean Corpuscular Hemoglobin 30.7 Mean Corpuscular Hemoglobin Concent 31.9 L Red Cell Distribution Width 16.2 H Platelet Count 257 # Mean Platelet Volume 10.9 H Neutrophils % 57.7 Lymphocytes % 28.4 Monocytes % 8.7 Eosinophils % 3.5 Basophils % 0.9 Nucleated Red Blood Cells % 0.2 H Neutrophils # 5.2 Lymphocytes # 2.5 Monocytes # 0.8 Eosinophils # 0.3 Basophils # 0.1 Nucleated Red Blood Cells # 0.0 Prothrombin Time 24.7 #H Prothrombin Time Ratio 1.9 INR International Normalized Ratio 2.20 Activated Partial Thromboplast Time 87.1 *H Sodium Level 133 L Potassium Level 5.8 H Chloride Level 110 Carbon Dioxide Level 19 L Anion Gap 10 Blood Urea Nitrogen 68 H Creatinine 6.08 H Glucose Level 99 Calcium Level 9.1 Phosphorus Level 6.4 H Magnesium Level 2.2 Urine Color LT. YELLOW Urine Clarity CLEAR Urine pH 6.0 Urine Specific [place] 1.015 Urine Ketones NEGATIVE Urine Nitrite NEGATIVE Urine Bilirubin NEGATIVE Urine Urobilinogen 0.2 E.U./dL Urine Leukocyte Esterase NEGATIVE Urine Microscopic RBC 0-2 Urine Microscopic WBC 2-5 Urine Hemoglobin TRACE Urine Random Creatinine 42.46 Urine Random Sodium 55 Urine Glucose NEGATIVE Urine Total Protein 99.0 H Medications Medications Current Medications Ondansetron HCl (Zofran Inj) 4 mg Q6H PRN IV NAUSEA AND/OR VOMITING; Start 04/02 at 23:30 Acetaminophen (Tylenol Tab) 650 mg Q6H PRN PO PAIN LEVEL 1-3 OR FEVER Last administered on 04/08/17 08:08; Admin Dose 650 MG; Start 04/02/17 at 23:30 Morphine Sulfate (morphine) 2 mg Q4H PRN IV SEVERE PAIN LEVEL 7-10; Start at 23:30 Bisacodyl (Dulcolax Supp) 10 mg DAILY PRN [place] CONSTIPATION; Start 04/02/17 at 23: 30 Amiodarone HCl (Cordarone) 100 mg DAILY PO Last administered on 04/07/17 09:35 ; Admin Dose 100 MG; Start 04/03/17 at 09:00 Calcitriol (Rocaltrol) 0.25 mcg DAILY PO Last administered on 04/08/17 08:12; Admin Dose 0.25 MCG; Start 04/03/17 at 09:00 EZETIMIBE (Zetia) 10 mg DAILY PO Last administered on 04/08/17 08:12; Admin Dose 10 MG; Start 04/03/17 at 09:00 Febuxostat (Uloric) 40 mg DAILY PO Last administered on 04/08/17 08:12; Admin Dose 40 MG; Start 04/03/17 at 09:00 Gabapentin (Neurontin) 100 mg TID PO Last administered on 04/08/17 08:11; Admin Dose 100 MG; Start 04/03/17 at 09:00 Salmeterol Xinafoate/ Fluticasone (Advair 250/50 Diskus) 1 inh BID INH Last administered on 04/07/17 09:35; Admin Dose 1 INH; Start 04/03/17 at 09:00 Hydralazine HCl (Apresoline) 10 mg Q6H PRN IV ELEVATED BLOOD PRESSURE; Start at 23:30 Docusate Sodium (Colace) 100 mg HS PO Last administered on 04/07/17 20:29; Admin Dose 100 MG; Start 04/05/17 at 21:00 Amlodipine Besylate (Norvasc) 5 mg DAILY PO Last administered on 04/08/17 10: 39; Admin Dose 5 MG; Start 04/08/17 at 09:00 Warfarin Sodium (Coumadin) 6 mg DAILY@17 PO Last administered on 04/07/17 17: 07; Admin Dose 6 MG; Start 04/07/17 at 17:00 Famotidine 20 mg 20 mg HS PO Last administered on 04/07/17 20:29; Admin Dose 20 MG; Start 04/07/17 at 21:00 Sodium Chloride (NS) 1,000 ml @ 100 mls/hr Q10H IV Last administered on 10:31; Admin Dose 100 MLS/HR; Start 04/08/17 at 10:00 ODALIS POND MD April 08, 2017 12:41
[2017-04-08 14:38] LABS: POTASSIUM 5.5 mmol/L (3.5-5.1)
[2017-04-08 14:40] LABS: CREATININE 5.95 mg/dl (0.44-1.00)
[2017-04-08] MEDS: WARFARIN 3 MG TAB PO SCH (16:26)
[2017-04-08 19:59] VITALS: BP 122/58; RESP 19
[2017-04-08] MEDS: FAMOTIDINE 20 MG TAB PO SCH (21:04)
[2017-04-08] MEDS: DOCUSATE SODIUM 100 MG CAP PO SCH (21:04)
--- NOTE | 2017-04-08 21:48 | PN ---
Date/Time of Note Date/Time of Note DATE: 04/08/17 TIME: 21:42 Assessment/Plan Lines/Catheters IV Catheter Type (from [facility]): Peripheral IV Pepper in Place (from [facility]): No Assessment/Plan Chief Complaint/Hosp Course -Chronic kidney disease, stage V: It seems that the patient has developed chronic kidney disease, likely related to her hypertension and currently being evaluated by our nephrology colleague, Dr. Martin. We will plan to eventually create a fistula in anticipation of her impending end-stage renal disease in the near future. 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 -She also has a LUE thrombosed fistula. It is unclear as if it was secondary to hypercoagulable state or as a result of having an already central stenosis. The patient is right-hand dominant. We were hoping that we can place a forearm fistula for her. I would recommend not having any IV access or blood draws from her antecubital regions of the bilateral upper extremities. -Left lower extremity deep vein thrombosis: It seems that the patient has been adequately treated with Eliquis for about a year for her provoked episode of left lower extremity deep vein thrombosis. Her new U/S was negative for DVT.No need for an IVC Filter placement -Left upper extremity deep vein thrombosis: It is a bit unclear as to this being an acute finding. Upon evaluation of the ultrasound It seems that this is a chronic finding. There are some heterogeneous findings and calcification within the vessel lumen suggesting chronic after her pacemaker placement. I am equivocal about her being on anticoagulation for the left upper extremity findings; -I discussed findings, plan, and management with the patient and her son, and they understand our discussions. -Thank you for allowing us to partake in the care of your patient. Please call with any questions. Problems: Subjective 24 Hr Interval Summary no new vascular events overnight Exam/Review of Systems Vital Signs Vitals Vital Signs Date Time Temp Pulse Resp B/P Pulse Ox O2 Delivery O2 Flow Rate FiO2 04/08/17 19:59 97.6 54 19 122/58 98 Intake and Output 04/07/17 04/07/17 04/08/17 15:00 23:00 07:00 Intake Total 1220 ml 582 ml Balance 1220 ml 582 ml Exam Free Text/Dictation GENERAL: Alert and oriented x3, PULMONARY: Clear to auscultation bilaterally. left chest surgical scar well healed ABDOMEN: Soft, nontender, nondistended. Bowel sounds positive. LOWER EXTREMITIES: Palpable femoral pulse, nonpalpable pedal pulse. Motor, sensory intact. Cap refill 2 to 3 seconds. No ulcers identified. LEFT UPPER EXTREMITY: Palpable brachial pulse. Motor, sensory intact. Cap refill 2 to 3 seconds. fistula that is without any bruit or thrill. Results Result Diagram: 04/08/17 0510 04/08/17 1355 ABBY HANKS MD April 08, 2017 21:48
[2017-04-09 05:52] LABS: ADD SCAN DIFF NO
[2017-04-09 05:54] LABS: BASOPHIL # 0.1 10^3/ul (0.0-0.1); BASOPHILS % 0.6 % (0.0-2.0); EOSINOPHILS # 0.3 10^3/ul (0.0-0.5); HEMATOCRIT 30.4 % (37.0-47.0); HEMOGLOBIN 9.2 g/dl (12.0-16.0); LYMPHOCYTES # 2.5 10^3/ul (0.8-2.9); LYMPHOCYTES % 30.6 % (15.0-51.0); MEAN CORPUSCULAR HEMOGLOBIN 29.9 pg (29.0-33.0); MEAN CORPUSCULAR HGB CONC 30.3 g/dl (32.0-37.0); MEAN CORPUSCULAR VOLUME 98.7 fl (82.0-101.0); MEAN PLATELET VOLUME 10.8 fl (7.4-10.4); MONOCYTE # 0.7 10^3/ul (0.3-0.9); NEUTROPHIL # 4.5 10^3/ul (1.6-7.5); NEUTROPHILS % 54.9 % (39.0-77.0); PLATELET COUNT 230 10^3/UL (140-415); RED BLOOD COUNT 3.08 10^6/ul (4.20-5.40); RED CELL DISTRIBUTION WIDTH 16.9 % (11.5-14.5); WHITE BLOOD COUNT 8.2 10^3/ul (4.8-10.8)
[2017-04-09] MEDS: SOD CHLORIDE 0.9% 1,000 ML IV SCH (06:29)
[2017-04-09 06:58] LABS: CREATININE 5.29 mg/dl (0.44-1.00); MAGNESIUM 2.1 mg/dl (1.7-2.5); PHOSPHORUS 5.4 mg/dl (2.5-4.9); POTASSIUM 5.4 mmol/L (3.5-5.1)
[2017-04-09] MEDS: SEVELAMER 800 MG TAB PO SCH ×3 (08:07→17:42)
[2017-04-09] MEDS: ACETAMINOPHEN 325 MG TAB PO PRN ×3 (08:23→23:41)
[2017-04-09 08:26] VITALS: BP 159/70; RESP 17
[2017-04-09] MEDS: CALCITRIOL 0.25 MCG CAP PO SCH (08:27)
[2017-04-09] MEDS: EZETIMIBE 10 MG TAB PO SCH (08:27)
[2017-04-09] MEDS: AMLODIPINE 5 MG TAB PO SCH (08:28)
[2017-04-09] MEDS: GABAPENTIN 100 MG CAP PO SCH ×3 (08:28→20:17)
[2017-04-09] MEDS: FEBUXOSTAT 40 MG TABLET PO SCH (08:28)
[2017-04-09] MEDS: AMIODARONE 200 MG TAB PO SCH (08:28)
[2017-04-09] MEDS: SALMETEROL/FLUTICASONE 250/50 INHA INH SCH ×2 (08:31→20:17)
--- NOTE | 2017-04-09 08:58 | CONS ---
Date/Time of Note Date/Time of Note DATE: 04/09/17 TIME: 08:53 Assessment/Plan Assessment/Plan Chief Complaint/Hosp Course #LUE DVT - note this developed while patient was on Eliquis - per vascular this appears to be a chronic finding - given this occurred while patient was on Eliquis, will need to continue Coumadin at this time which may be more effective as an anticoagulant in a patient with renal failure. INR now therapeutic . continue Coumadin 6 mg - pt will need at least 3 months of anticoagulation but if the hypercoagulable workup shows an underlying hypercoagulable state patient may need life long anticoagulation #History of LLE DVT -no evidence of Acute DVT on current bilateral lower extremity ultrasound # ESRD -continue management per renal -pt will need eventual fistula placement Case was discussed with other co-managing physicians as well as her son Problems: (1) ESRD (end stage renal disease) Status: Chronic (2) Left subclavian vein thrombosis Status: Acute (3) Deep vein thrombosis (DVT) of left upper extremity Status: Acute Qualifiers: Affected thrombotic vein of extremity: axillary Chronicity: acute Qualified Code: I82.A12 - Acute deep vein thrombosis (DVT) of axillary vein of left upper extremity Consultation Date/Type/Reason Admit Date/Time April 02, 2017 at 20:20 Initial Consult Date 04/04/17 Type of Consultation: Hematology Reason for Consultation LUE DVT Referring Provider: SAAD NUNEZ 24 HR Interval Summary Free Text/Dictation pt's INR is now therapeutic. heparin was turned off. now on Coumadin 6mg q day Exam/Review of Systems Vital Signs Vitals Vital Signs Date Time Temp Pulse Resp B/P Pulse Ox O2 Delivery O2 Flow Rate FiO2 04/09/17 08:26 97.8 61 17 159/70 99 Intake and Output 04/08/17 04/08/17 04/09/17 15:00 23:00 07:00 Intake Total 46 ml 2200 ml 1340 ml Output Total 750 ml 200 ml Balance 46 ml 1450 ml 1140 ml Exam Constitutional: alert, oriented Psych: nl mood/affect, no complaints Head: atraumatic, normocephalic Eyes: nl conjunctiva ENMT: nl external ears & nose Neck: non-tender, supple Respiratory: clear to auscultation, normal air movement Cardiovascular: nl pulses, regular rate and rhythm Gastrointestinal: soft Musculoskeletal: nl extremities to inspection, nl gait and stance, other (LUE fistula that is thrombosed) Extremities: normal pulses Results Result Diagram: 04/09/17 0510 04/09/17 0510 Results 24 hrs Laboratory Tests Test 04/08/17 13:55 04/09/17 05:10 Sodium Level 137 137 Potassium Level 5.5 H 5.4 H Chloride Level 108 117 H Carbon Dioxide Level 18 L 17 L Anion Gap 17 #H 8 # Blood Urea Nitrogen 69 H 64 H Creatinine 5.95 H 5.29 H Glucose Level 88 89 Calcium Level 9.0 9.0 White Blood Count 8.2 Red Blood Count 3.08 L Hemoglobin 9.2 L Hematocrit 30.4 L Mean Corpuscular Volume 98.7 Mean Corpuscular Hemoglobin 29.9 Mean Corpuscular Hemoglobin Concent 30.3 L Red Cell Distribution Width 16.9 H Platelet Count 230 Mean Platelet Volume 10.8 H Neutrophils % 54.9 Lymphocytes % 30.6 Monocytes % 9.0 Eosinophils % 4.0 Basophils % 0.6 Nucleated Red Blood Cells % 0.0 Neutrophils # 4.5 Lymphocytes # 2.5 Monocytes # 0.7 Eosinophils # 0.3 Basophils # 0.1 Nucleated Red Blood Cells # 0.0 Activated Partial Thromboplast Time 43.9 H Phosphorus Level 5.4 H Magnesium Level 2.1 Medications Medications Current Medications Ondansetron HCl (Zofran Inj) 4 mg Q6H PRN IV NAUSEA AND/OR VOMITING; Start 04/02 at 23:30 Acetaminophen (Tylenol Tab) 650 mg Q6H PRN PO PAIN LEVEL 1-3 OR FEVER Last administered on 04/09/17 08:23; Admin Dose 650 MG; Start 04/02/17 at 23:30 Morphine Sulfate (morphine) 2 mg Q4H PRN IV SEVERE PAIN LEVEL 7-10; Start at 23:30 Bisacodyl (Dulcolax Supp) 10 mg DAILY PRN [place] CONSTIPATION; Start 04/02/17 at 23: 30 Amiodarone HCl (Cordarone) 100 mg DAILY PO Last administered on 04/09/17 08:28 ; Admin Dose 100 MG; Start 04/03/17 at 09:00 Calcitriol (Rocaltrol) 0.25 mcg DAILY PO Last administered on 04/09/17 08:27; Admin Dose 0.25 MCG; Start 04/03/17 at 09:00 EZETIMIBE (Zetia) 10 mg DAILY PO Last administered on 04/09/17 08:27; Admin Dose 10 MG; Start 04/03/17 at 09:00 Febuxostat (Uloric) 40 mg DAILY PO Last administered on 04/09/17 08:28; Admin Dose 40 MG; Start 04/03/17 at 09:00 Gabapentin (Neurontin) 100 mg TID PO Last administered on 04/09/17 08:28; Admin Dose 100 MG; Start 04/03/17 at 09:00 Salmeterol Xinafoate/ Fluticasone (Advair 250/50 Diskus) 1 inh BID INH Last administered on 04/07/17 09:35; Admin Dose 1 INH; Start 04/03/17 at 09:00 Hydralazine HCl (Apresoline) 10 mg Q6H PRN IV ELEVATED BLOOD PRESSURE; Start at 23:30 Docusate Sodium (Colace) 100 mg HS PO Last administered on 04/08/17 21:04; Admin Dose 100 MG; Start 04/05/17 at 21:00 Amlodipine Besylate (Norvasc) 5 mg DAILY PO Last administered on 04/09/17 08: 28; Admin Dose 5 MG; Start 04/08/17 at 09:00 Warfarin Sodium (Coumadin) 6 mg DAILY@17 PO Last administered on 04/08/17 16: 26; Admin Dose 6 MG; Start 04/07/17 at 17:00 Famotidine 20 mg 20 mg HS PO Last administered on 04/08/17 21:04; Admin Dose 20 MG; Start 04/07/17 at 21:00 Sodium Chloride (NS) 1,000 ml @ 100 mls/hr Q10H IV Last administered on 06:29; Admin Dose 100 MLS/HR; Start 04/08/17 at 10:00 SHELBY GIRALDO M.D. April 09, 2017 08:58
--- NOTE | 2017-04-09 10:34 | PN ---
DATE: SUBJECTIVE: The patient is clinically stable. No acute events overnight. No fevers, chills, nause a or vomiting. OBJECTIVE: VITAL SIGNS: Blood pressure 159/70, respirations 17, pulse 61, temperature 97.8. HEENT: Head is normocephalic. NECK: Supple. HEART: Regular rate. LUNGS: Showed diminished breath sounds at the base. ABDOMEN: Soft, nontender to palpation. No rebound or guarding. EXTREMITIES: Negative for clubbing or cyanosis. No edema. DERMATOLOGIC: No rashes. MUSCULOSKELETAL: Have no joint effusion. NEUROLOGIC: No change in exam. MEDICATIONS: The patient's medications have been reviewed. LABORATORY DATA: Shows sodium 137, potassium 5.4, chloride 117, BUN 64, creatinine 5.29 phosphorus 5.4. White count 8.2, hemoglobin , hematocrit 38.4, platelet count 230. ASSESSMENT AND PLAN: 1. Nonoliguric acute kidney injury on top of chronic kidney disease stage 5, with a previous baseli ne creatinine around 5-5.5 mg/dL. Etiology of acute kidney injury is possibly from hemodynamics. T he patient was started on IV fluids, with marginal improvement in creatinine and the patient's potas sium levels are improving. At this point, there is no immediate need for renal replacement therapy. However, will continue to monitor. If the patient should have persistent hyperkalemia that is not able to be managed medically would recommend to start dialysis. Otherwise will continue to monitor closely. 2. Hyperkalemia. Etiology is secondary to acute kidney injury, chronic kidney disease and noncompl iance with low-potassium diet. The patient is status post Kayexalate, currently on IV fluids. The patient's potassium levels have improved, but have not yet normalized. Will repeat a renal panel to see if potassium levels have normalized. If they remains hyperkalemic, the patient may require mellisa lysis, as stated above. 3. Hyponatremia secondary to acute kidney injury. Improved. 4. Anemia. Continue to monitor hemoglobin and hematocrit levels. Give Epogen as needed. 5. Mineral bone disorder. Continue to monitor calcium and phos levels. Continue vitamin D analogs . 6. Hypertension. Continue the current blood pressure regimen. 7. Arrhythmia. Status post pacemaker. The patient is on amiodarone. Continue to monitor. 8. Coronary artery disease. Continue medical management. 9. Upper extremity deep venous thrombosis. The patient is currently on Coumadin. INR is at goal. Continue to monitor. 10. Dyslipidemia. Continue statin therapy. Dictated By: HEBERT ALCALA/SARA Conf#: [id number] DID#: [id number]
[2017-04-09 13:11] LABS: INR 2.93; PT RATIO 2.4
--- NOTE | 2017-04-09 14:35 | PN ---
Date/Time of Note Date/Time of Note DATE: 04/09/17 TIME: 14:34 Assessment/Plan VTE Prophylaxis VTE Prophylaxis Intervention: other (Coumadin) Lines/Catheters IV Catheter Type (from [facility]): Peripheral IV Urinary Cath still in place: No Assessment/Plan Chief Complaint/Hosp Course S: 04/05 events noted 04/06 no dyspnea and chest pain. Arm pain and edema improved. 510 showered. No active bleeding. No shortness of breath. Awake alert follows commands. 04/08 no dyspnea fever Gib. No encephalopathy. I discussed the benefits of starting hd when her director airport recommends, as opposed to in an emergent situation. Pt agrees. I also updated her, that likely her dialysis will be long- term. and she is aware. 04/09: No distress encephalopathy edema. No bleeding. Wants to go home. O: vss PE no pallor/JVD reg CTAB Bs + nt nd no R/R/G No edema A/P 1. Acute renal failure. Stable. HD recommended to her. BMP re-eval today 2. Acute LUE DVT. Stable cont Coumadin (increased to 6mg 04/07; will change to 5mg). INR therapeutic. 3. Ho bilatl lwr ext DVT 1 year ago 4. Pacemaker status 5. Possible sss 6. Chr CAD? 7. Htn/dl 8. Anemia 9. Possible FH sudden 10.CKD, avoid PICCs in nondominant hand. Problems: Exam/Review of Systems Vital Signs Vitals Vital Signs Date Time Temp Pulse Resp B/P Pulse Ox O2 Delivery O2 Flow Rate FiO2 04/09/17 08:26 97.8 61 17 159/70 99 Intake and Output 04/08/17 04/08/17 04/09/17 15:00 23:00 07:00 Intake Total 46 ml 2200 ml 1340 ml Output Total 750 ml 200 ml Balance 46 ml 1450 ml 1140 ml Results Result Diagram: 04/09/17 0510 04/09/17 0510 Results 24 hrs Laboratory Tests Test 04/09/17 05:10 04/09/17 12:18 White Blood Count 8.2 Red Blood Count 3.08 L Hemoglobin 9.2 L Hematocrit 30.4 L Mean Corpuscular Volume 98.7 Mean Corpuscular Hemoglobin 29.9 Mean Corpuscular Hemoglobin Concent 30.3 L Red Cell Distribution Width 16.9 H Platelet Count 230 Mean Platelet Volume 10.8 H Neutrophils % 54.9 Lymphocytes % 30.6 Monocytes % 9.0 Eosinophils % 4.0 Basophils % 0.6 Nucleated Red Blood Cells % 0.0 Neutrophils # 4.5 Lymphocytes # 2.5 Monocytes # 0.7 Eosinophils # 0.3 Basophils # 0.1 Nucleated Red Blood Cells # 0.0 Activated Partial Thromboplast Time 43.9 H Sodium Level 137 Potassium Level 5.4 H Chloride Level 117 H Carbon Dioxide Level 17 L Anion Gap 8 # Blood Urea Nitrogen 64 H Creatinine 5.29 H Glucose Level 89 Calcium Level 9.0 Phosphorus Level 5.4 H Magnesium Level 2.1 Prothrombin Time 31.0 #H Prothrombin Time Ratio 2.4 INR International Normalized Ratio 2.93 Medications Medications Current Medications Ondansetron HCl (Zofran Inj) 4 mg Q6H PRN IV NAUSEA AND/OR VOMITING; Start 04/02 at 23:30 Acetaminophen (Tylenol Tab) 650 mg Q6H PRN PO PAIN LEVEL 1-3 OR FEVER Last administered on 04/09/17 08:23; Admin Dose 650 MG; Start 04/02/17 at 23:30 Morphine Sulfate (morphine) 2 mg Q4H PRN IV SEVERE PAIN LEVEL 7-10; Start at 23:30 Bisacodyl (Dulcolax Supp) 10 mg DAILY PRN [place] CONSTIPATION; Start 04/02/17 at 23: 30 Amiodarone HCl (Cordarone) 100 mg DAILY PO Last administered on 04/09/17 08:28 ; Admin Dose 100 MG; Start 04/03/17 at 09:00 Calcitriol (Rocaltrol) 0.25 mcg DAILY PO Last administered on 04/09/17 08:27; Admin Dose 0.25 MCG; Start 04/03/17 at 09:00 EZETIMIBE (Zetia) 10 mg DAILY PO Last administered on 04/09/17 08:27; Admin Dose 10 MG; Start 04/03/17 at 09:00 Febuxostat (Uloric) 40 mg DAILY PO Last administered on 04/09/17 08:28; Admin Dose 40 MG; Start 04/03/17 at 09:00 Gabapentin (Neurontin) 100 mg TID PO Last administered on 04/09/17 12:22; Admin Dose 100 MG; Start 04/03/17 at 09:00 Salmeterol Xinafoate/ Fluticasone (Advair 250/50 Diskus) 1 inh BID INH Last administered on 04/07/17 09:35; Admin Dose 1 INH; Start 04/03/17 at 09:00 Hydralazine HCl (Apresoline) 10 mg Q6H PRN IV ELEVATED BLOOD PRESSURE; Start at 23:30 Docusate Sodium (Colace) 100 mg HS PO Last administered on 04/08/17 21:04; Admin Dose 100 MG; Start 04/05/17 at 21:00 Amlodipine Besylate (Norvasc) 5 mg DAILY PO Last administered on 04/09/17 08: 28; Admin Dose 5 MG; Start 04/08/17 at 09:00 Warfarin Sodium (Coumadin) 6 mg DAILY@17 PO Last administered on 04/08/17 16: 26; Admin Dose 6 MG; Start 04/07/17 at 17:00 Famotidine (Pepcid) 20 mg HS PO Last administered on 04/08/17 21:04; Admin Dose 20 MG; Start 04/07/17 at 21:00 ODALIS POND MD April 09, 2017 14:35
[2017-04-09] MEDS ORDERED: WARFARIN 5 MG TAB PO SCH (17:00)
[2017-04-09 17:15] LABS: MICROALBUMIN 41.7 mg/dL
[2017-04-09 17:27] LABS: CREATININE 5.41 mg/dl (0.44-1.00)
[2017-04-09 17:28] LABS: CALCIUM 8.8 mg/dl (8.4-10.2)
--- NOTE | 2017-04-09 17:51 | PDOCDIS ---
Discharge Instructions DIAGNOSIS Discharge Diagnosis: dvt; acute renal failure CONDITION Patient Condition: Fair HOME CARE INSTRUCTIONS: Special Diet: renal, 2gram potassium restriction ACTIVITY: Activity Restrictions: Slowly Increase Activity Do not Drive FOLLOW UP/APPOINTMENTS Appointments Appt: Dr Martin 1wk Dr Barney -2wks PCP -1wk ODALIS POND MD April 09, 2017 17:51
[2017-04-09] MEDS ORDERED: COU5 PO (17:53)
[2017-04-09 20:07] VITALS: BP 147/66; RESP 17
[2017-04-09] MEDS: FAMOTIDINE 20 MG TAB PO SCH (20:17)
[2017-04-09] MEDS: DOCUSATE SODIUM 100 MG CAP PO SCH (20:17)
[2017-04-10 07:50] LABS: CALCIUM 9.1 mg/dl (8.4-10.2); CREATININE 4.96 mg/dl (0.44-1.00); POTASSIUM 5.2 mmol/L (3.5-5.1)
[2017-04-10 08:07] LABS: INR 3.76; PROTIME 37.8 Sec (12.2-14.2)
[2017-04-10 08:20] VITALS: BP 179/78; RESP 17
[2017-04-10] MEDS: GABAPENTIN 100 MG CAP PO SCH ×2 (08:31→12:13)
[2017-04-10] MEDS: SEVELAMER 800 MG TAB PO SCH ×2 (08:31→12:13)
[2017-04-10] MEDS: EZETIMIBE 10 MG TAB PO SCH (08:31)
[2017-04-10] MEDS: AMLODIPINE 5 MG TAB PO SCH (08:32)
[2017-04-10] MEDS: AMIODARONE 200 MG TAB PO SCH (08:32)
[2017-04-10] MEDS: CALCITRIOL 0.25 MCG CAP PO SCH (08:32)
[2017-04-10] MEDS: FEBUXOSTAT 40 MG TABLET PO SCH (08:32)
[2017-04-10] MEDS: SALMETEROL/FLUTICASONE 250/50 INHA INH SCH (08:34)
[2017-04-10 10:07] VITALS: BP 158/70; PULSE 60
[2017-04-10] MEDS: ACETAMINOPHEN 325 MG TAB PO PRN (10:22)
--- NOTE | 2017-04-10 14:12 | PN ---
Date/Time of Note Date/Time of Note DATE: 04/10/17 TIME: 14:10 Assessment/Plan VTE Prophylaxis VTE Prophylaxis Intervention: other (Coumadin) Lines/Catheters IV Catheter Type (from Nrs): No IV access Urinary Cath still in place: No Assessment/Plan Chief Complaint/Hosp Course S: 04/05 events noted 04/06 no dyspnea and chest pain. Arm pain and edema improved. 510 showered. No active bleeding. No shortness of breath. Awake alert follows commands. 04/08 no dyspnea fever Gib. No encephalopathy. I discussed the benefits of starting hd when her traffic inspector recommends, as opposed to in an emergent situation. Pt agrees. I also updated her, that likely her dialysis will be long- term. and she is aware. 04/09: No distress encephalopathy edema. No bleeding. Wants to go home. 04/10: No events. No bleeding. Wants to go home. O: vss PE no pallor/JVD reg CTAB Bs + nt nd no R/R/G No edema A/P 1. Acute renal failure. Stable. HD recommended to her/refused. dc home if ok w nephrology. 2. Acute LUE DVT. Stable cont Coumadin (changed to 5mg). INR therapeutic. 3. Ho bilatl lwr ext DVT 1 year ago 4. Pacemaker status 5. Possible sss 6. Chr CAD? 7. Htn/dl 8. Anemia 9. Possible FH sudden 10.CKD, avoid PICCs in nondominant hand. Problems: Exam/Review of Systems Vital Signs Vitals Vital Signs Date Time Temp Pulse Resp B/P Pulse Ox O2 Delivery O2 Flow Rate FiO2 04/10/17 10:07 60 158/70 04/10/17 08:20 98.1 17 100 Intake and Output 04/09/17 04/09/17 04/10/17 15:00 23:00 07:00 Intake Total 2800 ml 540 ml Output Total 2000 ml 1400 ml Balance 800 ml -860 ml Results Result Diagram: 04/09/17 0510 04/10/17 0541 Results 24 hrs Laboratory Tests Test 04/09/17 16:50 04/10/17 05:41 Sodium Level 138 136 Potassium Level 5.0 5.2 H Chloride Level 112 H 114 H Carbon Dioxide Level 19 L 17 L Anion Gap 12 10 Blood Urea Nitrogen 60 H 58 H Creatinine 5.41 H 4.96 H Glucose Level 109 85 Calcium Level 8.8 9.1 Prothrombin Time 37.8 #H Prothrombin Time Ratio 3.0 INR International Normalized Ratio 3.76 Phosphorus Level 5.0 H Magnesium Level 2.0 Medications Medications Current Medications Ondansetron HCl (Zofran Inj) 4 mg Q6H PRN IV NAUSEA AND/OR VOMITING; Start 04/02 at 23:30 Acetaminophen (Tylenol Tab) 650 mg Q6H PRN PO PAIN LEVEL 1-3 OR FEVER Last administered on 04/10/17 10:22; Admin Dose 650 MG; Start 04/02/17 at 23:30 Morphine Sulfate (morphine) 2 mg Q4H PRN IV SEVERE PAIN LEVEL 7-10; Start at 23:30 Bisacodyl (Dulcolax Supp) 10 mg DAILY PRN ID CONSTIPATION; Start 04/02/17 at 23: 30 Amiodarone HCl (Cordarone) 100 mg DAILY PO Last administered on 04/10/17 08:32 ; Admin Dose 100 MG; Start 04/03/17 at 09:00 Calcitriol (Rocaltrol) 0.25 mcg DAILY PO Last administered on 04/10/17 08:32; Admin Dose 0.25 MCG; Start 04/03/17 at 09:00 EZETIMIBE (Zetia) 10 mg DAILY PO Last administered on 04/10/17 08:31; Admin Dose 10 MG; Start 04/03/17 at 09:00 Febuxostat (Uloric) 40 mg DAILY PO Last administered on 04/10/17 08:32; Admin Dose 40 MG; Start 04/03/17 at 09:00 Gabapentin (Neurontin) 100 mg TID PO Last administered on 04/10/17 12:13; Admin Dose 100 MG; Start 04/03/17 at 09:00 Salmeterol Xinafoate/ Fluticasone (Advair 250/50 Diskus) 1 inh BID INH Last administered on 04/07/17 09:35; Admin Dose 1 INH; Start 04/03/17 at 09:00 Hydralazine HCl (Apresoline) 10 mg Q6H PRN IV ELEVATED BLOOD PRESSURE; Start at 23:30 Docusate Sodium (Colace) 100 mg HS PO Last administered on 04/09/17 20:17; Admin Dose 100 MG; Start 04/05/17 at 21:00 Amlodipine Besylate (Norvasc) 5 mg DAILY PO Last administered on 04/10/17 08: 32; Admin Dose 5 MG; Start 04/08/17 at 09:00 Famotidine (Pepcid) 20 mg HS PO Last administered on 04/09/17 20:17; Admin Dose 20 MG; Start 04/07/17 at 21:00 Warfarin Sodium (Coumadin) 5 mg DAILY@17 PO Last administered on 04/09/17 17: 42; Admin Dose 5 MG; Start 04/09/17 at 17:00; Status Future Hold ODALIS POND MD April 10, 2017 14:12
--- NOTE | 2017-04-11 04:26 | DS ---
DATE OF ADMISSION: 04/02/2017 DATE OF DISCHARGE: 04/10/2017 ADDENDUM: LABORATORIES: On 04/10/2017, sodium 136, potassium 5.2, chloride 114, bicarbonate 17, anion gap of 10, BUN of 58, creatinine down to 4.95, glucose of 80, calcium 9, magnesium of 2, phosphorus of 5. INR 3.7. Coumadin dosing adjusted. DIAGNOSIS ON ADMISSION: Acute renal failure. DIAGNOSES ON DISCHARGE: 1. Acute renal failure. 2. Probable hypertensive nephrosclerosis. 3. Chronic kidney disease. 4. Acute left upper extremity deep venous thrombosis. 5. History of bilateral lower extremity deep venous thrombosis one year ago. 6. Pacemaker status. 7. Possible sick sinus syndrome. 8. Possible coronary artery disease. 9. Chronic dyslipidemia. 10. Chronic hypertension. 11. Anemia. 12. Possible family history of sudden . HOSPITAL COURSE: This is a 71-year-old female admitted with acute renal failure. No evidence of en d organ damage, uremia, CHF, potassium issues. The patient was treated with conservative measures. She initially refused dialysis but is starting to come around. I have recommended she start dialys is in a nonemergent situation when her mathematician research asks her to start dialysis. This would be the b est way to stabilize things on an ongoing basis. At this time, the patient is stable and fit for di david. Potassium okay. Creatinine okay. I have given her a script to do blood work twice a week for the next 2 weeks. I would avoid PICC lines in nondominant hand. The patient was seen by vascular surgery, mapping done. Additionally, found to have an upper extremity deep venous thrombosis. The patient was on Eliquis p ost-DVT from last year. Unfortunately, her DVT did not resolve with Eliquis; therefore, we will swi tch to Coumadin. The patient was seen by hematology. Hypercoagulable panel sent and will be follow ed up on as an outpatient. DISCHARGE PLAN: 1. Home. 2. Follow up with new primary 1 to 2 weeks. 3. Appointment with nephrology, Dr. Giles, in 1 to 2 weeks. 4. Appointment with hematology, Dr. Giraldo, in 2 weeks. DIET: Low salt, cholesterol. ACTIVITY: No heavy lifting. DURABLE MEDICAL EQUIPMENT: None. CODE STATUS: FULL. CONDITION: Stable. BARRIERS TO DISCHARGE: None. PENDING TESTS: None. FUNCTIONAL STATUS: The patient is awake, alert. She understands and agrees with the plan of care. REASON FOR ADMISSION: Renal failure. ALLERGIES: NO KNOWN DRUG ALLERGIES. IMAGING STUDIES: Upper extremity ultrasound shows nonocclusive DVT involving the left internal jugu lar and left axillary vein, possible nonocclusive thrombus in the left subclavian, focal superficial venous thrombosis within the left cephalic. Chest x-ray negative. There is cardiomegaly. Bilater al upper extremity mapping done. Please see report. Ultrasound does not show any DVT in bilateral lower extremities. FELIX negative. Urine unremarkable basically. INR today 3.7, history 2.9. Her d ose will be somewhere between 4 and 5 mg daily. LABORATORY DATA: Sodium 136, potassium 5.2, chloride 114, bicarbonate 17, BUN of 58, creatinine 4.9 , glucose of 85, calcium 8.8, magnesium of 2, phosphorus of 5. A1c of 5.1. TSH of 3.4. B12 of 640 . Folic acid of 15. Iron of 15. Binding capacity of 2, 16%, sat of 23, ferritin is 490. LFTs oka y. Troponins negative. STOPPED MEDICATIONS: 1. Eliquis. 2. Aspirin 3. Lasix. 4. Ativan. 5. Januvia. CONTINUED MEDICATIONS: 1. Amiodarone 100 daily. 2. Norvasc 5 b.i.d. 3. Symbicort 160/4.5, two puffs b.i.d. 4. Calcitriol 0.25 mg daily. 5. Zetia 10. 6. Uloric 40. 7. Neurontin 100 t.i.d. 8. Multivitamin. 9. America-Ly daily. 10. Crestor 20. 11. Renvela 1600 mg with meals. 12. Sodium bicarbonate 650 b.i.d. 13. Spiriva 18 mcg daily. ALTERED MEDICATIONS: None. NEW MEDICATIONS: Coumadin 5 mg daily. Dictated By: ODALIS BURTON/NTS Conf#: [id number] DID#: [id number] CC: HEBERT GILES DO; ABBY HANKS MD; SHELBY GIRALDO MD;*EndCC*
== END 2017-04-10 17:30 | disposition home or self-care (01) | DRG 300 ==
LOC: E/R 18:10 → PP2 20:20
PROVIDERS: ADMIT Family Medicine; ATTEND Family Medicine
DX: I82.C12 Acute embolism and thrombosis of left internal jugular vein (principal); N17.9 Acute kidney failure, unspecified; D68.59 Other primary thrombophilia; I12.0 Hypertensive chronic kidney disease with stage 5 chronic kidney disease or end stage renal disease; N18.5 Chronic kidney disease, stage 5; T82.868A Thrombosis due to vascular prosthetic devices, implants and grafts, initial encounter; E87.1 Hypo-osmolality and hyponatremia; I82.A12 Acute embolism and thrombosis of left axillary vein; E87.5 Hyperkalemia; I82.B12 Acute embolism and thrombosis of left subclavian vein; I82.612 Acute embolism and thrombosis of superficial veins of left upper extremity; Z82.41 Family history of sudden cardiac death; Z95.810 Presence of automatic (implantable) cardiac defibrillator; Z86.718 Personal history of other venous thrombosis and embolism; Z79.02 Long term (current) use of antithrombotics/antiplatelets; E78.5 Hyperlipidemia, unspecified
CPT/HCPCS: 36415; 71010; 80048; 80053; 81001; 81003; 82043; 82550; 82553; 82607; 82728; 82746; 83010; 83036; 83540; 83735; 83890; 84100; 84155; 84300; 84443; 84484; 85025; 85300; 85302; 85305; 85610; 85613; 85730; 86038; 93005; 93970; 93971; 96365; 96366; 96375; J0360; J1644; J7030

== ENCOUNTER 2017-07-14 20:30 | Inpatient (IN) | payer MEDICARE, OTHER ==
[~2017-07-14] VITALS: Ht 165.1 cm; Wt 70.5 kg
[~2017-07-14 20:30] MED LIST changes: -AMIO100T4 PO; +AMIO200T2 PO; -APIX2.5T PO; -ASPI-664 PO; +BUDE6HFA INHALATION; -CEPH500C PO; +COU5 PO; +EZET10TA3 PO; +GABA100C14 PO; +NEPH PO; +ROSU20TA PO; -SEVE0.8P PO; +SEVE800T10 PO; -SITA100T8 PO; +TIOT18CA INHALATION
--- NOTE | 2017-07-14 20:57 | ERA ---
ER Documentation Chief Complaint Date/Time DATE: 07/14/17 TIME: 20:57 Chief Complaint BIBA [id number] from home,SOB, CP HPI 71-year-old woman brought in by EMS from home for cough 2-3 days or shortness of breath. She has multiple medical conditions and is dyspneic and does not provide much of an HPI. It HPI was supplemented by speaking to EMS and reviewing past medical history. Patient denies chest pain, no vomiting or diarrhea, no blood per rectum. ROS All systems reviewed and are negative except as per history of present illness. Medications Home Meds Active Scripts Amlodipine Besylate* (Amlodipine Besylate*) 5 Mg Tablet, 5 MG PO BID for 30 Days , #60 TAB Prov:CHERELLE GROSSMAN MACHINE MOLDER 02/19/17 Reported Medications Trazodone Hcl* (Trazodone Hcl*) 50 Mg Tablet, 50 MG PO QHS, #30 TAB 07/14/17 Donepezil* (Donepezil*) 5 Mg Tablet, 5 MG PO DAILY, #30 TAB 07/14/17 Labetalol Hcl* (Labetalol Hcl*) 200 Mg Tablet, 200 MG PO BID, TAB 07/14/17 Ferrous Sulfate* (Ferrous Sulfate*) 325 Mg Tabec, 325 MG PO DAILY, TAB 07/14/17 Meclizine Hcl* (Meclizine Hcl*) 25 Mg Tablet, 25 MG PO DAILY Y for DIZZINESS, TAB 07/14/17 Sertraline Hcl* (Sertraline Hcl*) 25 Mg Tablet, 25 MG PO DAILY, #30 TAB 07/14/17 Warfarin Sodium* (Coumadin*) 1 Mg Tablet, 2 MG PO DAILY, TAB 07/14/17 Ergocalciferol (Vitamin D2) (VITAMIN D2) 50,000 Unit Capsule, 86317 UNIT PO Q14D , CAP 07/14/17 Sodium Bicarbonate* (Sodium Bicarbonate*) 650 Mg Tablet, 650 MG PO QID, TAB 07/14/17 Sevelamer Carbonate* (Renvela*) 800 Mg Tablet, 1.6 GM PO WITH MEALS, TAB 07/14/17 Aspirin* (Aspirin* EC) 81 Mg Tablet.dr, 81 MG PO DAILY, TAB 07/14/17 Atenolol* (Atenolol*) 100 Mg Tablet, 100 MG PO DAILY, #30 TAB 07/14/17 Rosuvastatin Calcium* (Crestor*) 20 Mg Tablet, 20 MG PO QHS, #30 TAB 04/05/17 Budesonide-Formoterol Fumarate* (Symbicort*) 160-4.5 Hfa.aer.ad, 2 PUFF INHALATION BID, #1 EACH 04/02/17 Gabapentin* (Gabapentin*) 100 Mg Capsule, 100 MG PO TID, #90 CAP 04/02/17 Amiodarone Hcl* (Amiodarone Hcl*) 200 Mg Tablet, 100 MG PO DAILY, #30 TAB 04/02/17 Febuxostat* (Uloric*) 40 Mg Tablet, 40 MG PO DAILY, TAB 02/10/17 Calcitriol* (Calcitriol*) 0.25 Mcg Capsule, 0.25 MCG PO DAILY, CAP 02/10/17 Discontinued Reported Medications Tiotropium [place]* (Spiriva*) 18 Mcg Cap.w.dev, 1 CAP INHALATION DAILY, #30 CAP 04/05/17 Sodium Bicarbonate* (Sodium Bicarbonate*) 650 Mg Tablet, 650 MG PO BID, TAB 04/05/17 Multivit/Ca Carb/B Cmplx/Fa* (America-Ly*) 1 Tab Tab, 1 TAB PO DAILY, TAB 04/05/17 Sevelamer Hcl* (Renagel*) 800 Mg Tablet, 1600 MG PO WITH MEALS, TAB 04/02/17 Ezetimibe* (Zetia*) 10 Mg Tablet, 10 MG PO DAILY, TAB 04/02/17 Discontinued Scripts Warfarin Sod (Coumadin) 5 Mg Tab, 5 MG PO DAILY@17 for 10 Days, #10 TAB Prov:ODALIS POND MD 04/09/17 Allergies Allergies: Coded Allergies: No Known Allergy (Unverified , 07/14/17) PMhx/Soc Renal failure, hypertensive nephrosclerosis, chronic kidney disease, left upper extremity deep vein thrombosis, lower extremity DVT, pacemaker, sick sinus syndrome, coronary artery disease, hypertension, anemia History of Surgery: No Anesthesia Reaction: No Hx Neurological Disorder: No Hx Respiratory Disorders: No Hx Cardiac Disorders: Yes (Afib, HTN, symptomatic bradycardia status post AICD placement) Hx Psychiatric Problems: No Hx Miscellaneous Medical Probl: No Hx Alcohol Use: No Hx Substance Use: No Hx Tobacco Use: No FmHx Family History: No diabetes Physical Exam Vitals Vital Signs Date Time Temp Pulse Resp B/P Pulse Ox O2 Delivery O2 Flow Rate FiO2 07/14/17 21:35 50 24 100 Nasal Cannula 2.0 07/14/17 20:40 Nasal Cannula 2.0 07/14/17 20:40 Nasal Cannula 3 07/14/17 20:35 102.5 50 18 141/84 94 Physical Exam GENERAL: Well-developed, well-nourished, febrile, dyspneic, tachypnic HEENT: Moist mucous membranes, pink conjunctiva, no cervical spine tenderness or step-off deformities, no goiter, no jaundice or icterus, extraocular movements intact without pain. No submandibular induration, and no pharyngeal erythema NEURO: Alert and oriented 3, cranial nerves II through XII intact bilaterally, pupils equal round reactive to light, no focal deficits or facial asymmetry, sensation intact distally Strength 5/5 in upper and lower extremities bilaterally CARDIAC: Regular rate and rhythm, no murmurs rubs or gallops LUNGS: Poor breath sounds bilaterally. ABDOMEN: Soft nontender, no guarding, no rigidity, no rebound, no psoas sign no obturator sign. Normoactive bowel sounds SKIN: Warm and dry to touch, no abrasions, contusions, or hematomas, no lacerations, no ecchymosis, no target lesions, and without ulcers EXTREMITIES: No clubbing cyanosis or edema, calves are bilaterally symmetrical, no Homans sign, no popliteal cord sign. Distal pulses equal and bilateral PSYCH: Normal affect without agitation or irritability Result Diagram: 07/14/17203907/14/172039 Results 24 hrs Laboratory Tests Test 07/14/17 20:25 07/14/17 20:40 07/14/17 21:00 07/14/17 21:31 Lactic Acid Level 2.3mmol/L White Blood Count 12.110^3/ul Red Blood Count 3.3810^6/ul Hemoglobin 10.1g/dl Hematocrit 30.6% Mean Corpuscular Volume 90.5fl Mean Corpuscular Hemoglobin 29.9pg Mean Corpuscular Hemoglobin Concent 33.0g/dl Red Cell Distribution Width 14.6% Platelet Count 65647^3/UL Mean Platelet Volume 12.2fl Neutrophils % 70.8% Lymphocytes % 20.2% Monocytes % 7.2% Eosinophils % 0.6% Basophils % 0.7% Nucleated Red Blood Cells % 0.0/100WBC Neutrophils # (Manual) 8.510^3/ul Lymphocytes # 2.410^3/ul Monocytes # 0.910^3/ul Eosinophils # 0.110^3/ul Basophils # 0.110^3/ul Nucleated Red Blood Cells # 0.010^3/ul Prothrombin Time 14.6Sec Prothrombin Time Ratio 1.1 INR International Normalized Ratio 1.14 Activated Partial Thromboplast Time 32.5Sec Sodium Level 135mmol/L Potassium Level 5.0mmol/L Chloride Level 95mmol/L Carbon Dioxide Level 20mmol/L Anion Gap 25 Blood Urea Nitrogen 62mg/dl Creatinine 6.13mg/dl Glucose Level 122mg/dl Calcium Level 9.2mg/dl Total Bilirubin 0.7mg/dl Direct Bilirubin 0.00mg/dl Indirect Bilirubin 0.7mg/dl Aspartate Amino Transf (AST/SGOT) 94IU/L Alanine Aminotransferase (ALT/SGPT) 121IU/L Alkaline Phosphatase 92IU/L Troponin I 0.042ng/ml Total Protein 7.5g/dl Albumin 4.3g/dl Globulin 3.20g/dl Albumin/Globulin Ratio 1.34 Lipase 169U/L Blood Gas Specimen Source Blood arterial Arterial Blood Date Drawn 07/14/2017 9:20:55 PM Arterial Blood pH (Temp corrected) 7.469 Arterial Blood pCO2 (Temp correct) 21.2mmhg Arterial Blood pO2 (Temp corrected) 73.2mmHG Arterial Blood HCO3 15.0mmol/L Arterial Blood Base Excess -7.1mmol/L Arterial Blood Oxygen Saturation 93.6mmHG Sami Test ACCEPTAB Arterial Blood Gas Puncture Site Right Radial Arterial Blood Carboxyhemoglobin 0.3% Arterial Blood Methemoglobin 0.3% Blood Gas A-a O2 Differential 101.4mmHg Oxyhemoglobin Percent 93.0% Total Hemoglobin 10.1g/dl Blood Gas Temperature 37.0C Blood Gas Modality NASAL CANNULA FiO2 28.0% Blood Gas Notified Whom DC Blood Gas Notified Time 07/14/2017 9:30:38 PM Urine Color YELLOW Urine Clarity CLEAR Urine pH 7.0 Urine Specific [place] 1.010 Urine Ketones NEGATIVEmg/dL Urine Nitrite NEGATIVEmg/dL Urine Bilirubin NEGATIVEmg/dL Urine Urobilinogen NEGATIVEmg/dL Urine Leukocyte Esterase TRACELeu/ul Urine Microscopic RBC 0/HPF Urine Microscopic WBC 1/HPF Urine Hemoglobin NEGATIVEmg/dL Urine Glucose NEGATIVEmg/dL Urine Total Protein 3+mg/dl Current Medications Medications (Trade) Dose Ordered Sig/Estefania Route PRN Reason Start Time Stop Time Status Last Admin Dose Admin Sodium Chloride 2180 ml 2,180 ml BOLUS OVER 2 HOURS STAT IV* 07/14/17 21:00 07/14/17 21:04 DC 07/14/17 22:14 Ceftriaxone Sodium 50 ml @ 100 mls/hr ONCE ONCE IVPB 07/14/17 21:00 07/14/17 21:29 DC 07/14/17 22:15 Azithromycin (Zithromax 500mg/ NS (Pmx)) 250 ml @ 250 mls/hr ONCE ONCE IVPB 07/14/17 21:00 07/14/17 21:59 DC 07/14/17 22:15 Albuterol (Proventil 0.5% (Neb)) 10 mg ONCE STAT INH 07/14/17 21:00 07/14/17 21:04 DC 07/14/17 21:35 Ipratropium [place] (Atrovent 0.02% (Neb)) 1 mg ONCE STAT INH 07/14/17 21:00 07/14/17 21:05 DC 07/14/17 21:34 Ibuprofen (Motrin) 600 mg ONCE ONCE PO 07/14/17 21:30 07/14/17 21:31 DC 07/14/17 22:14 Enalaprilat (Vasotec Iv) 1.25 mg ONCE ONCE IV 07/14/17 23:30 07/14/17 23:31 DC Procedures/[facility] IV line was established patient was placed on monitoring specialist rhythm strip revealed a wide-complex bradycardia at about 50 bpm. Patient was febrile. Blood and urine cultures have been ordered results are pending I will follow-up. EKG performed, read by me revealed a paced rhythm at 50 bpm, left axis deviation and no ST elevations or depressions noted. One view chest x-ray performed, read by me there is cardiomegaly and bilateral pulmonary edema, pacemaker left chest, no acute infiltrates, no pneumothorax. I treated the patient here with albuterol 10 mg via nebulizer and ipratropium 1 mg via nebulizer. She also received ceftriaxone 1 g IV and azithromycin 500 mg IV. She received 1 L of normal saline intravenously for suspected sepsis although given her decompensated heart failure the full 30 cc/kg was not administered. Patient also received ibuprofen 600 mg p.o. for fever and enalapril 1.25 mg IV 1 for hypertension. I also suspect congestive heart failure. ABG was performed on low-flow oxygen revealing a pH of 7.47, PCO2 21, PO2 73. Respiratory alkalosis. Patient's infectious symptoms have not stabilized and the patient is at risk of rapid decompensation. The patient will be admitted for careful hydration, antibiotic therapy, and infectious source control. Severe Sepsis Assessment: Infectious Source: Sepsis End organ damage indicated by: [Lactate > 2.0 mmol/L Hypotension( SBP < 90 or >40 mmHG drop or MAP < 65) Acute Resp Failure (sat < 92% w/o oxygen) Janitorial Cleaner > 2.0 CBC was unremarkable, electrolytes revealed acute kidney injury with a BUN/ creatinine of 62/6.1, liver function tests were normal, troponin was negative, lactic acid elevated at 2.3. Urinalysis was negative for infection. Severe Sepsis Managment: Blood Cultures X 2 before broad spectrum antibiotics initiated within 3 hours of recognition. 30 ml/kg NS bolus Completed Initial Lactate: 2.3 Repeat Lactate pending Critical Care: Time: 40 minutes, this was time separate from other billable procedures. Treatments/Evaluations: Emergent fluid management, while maintaining close respiratory support. Immediate broad spectrum antibiotic therapy. Simultaneous assessment for possible sources in order to direct therapy. Consideration for invasive and chemical support to prevent respiratory or cardiac collapse. Septic Shock Assessment (1 hour post 30 ml/kg fluid bolus): Hypotension (SBP < 90 or 40 mmHg drop, MAP < 65): No Lactic acid > 4.0 no Perfusion Reassessment for Septic Shock: Temp 98.7, pulse 90 bpm, respiratory rate 18 breaths per minute, blood pressure 160/80 Heart Exam: Regular rate rhythm Lung Exam: Bilateral crackles Capillary Refill: Less than 2 seconds Peripheral Pulses: Radially present Skin: [place] warm and dry Hypotensive Treatment (not required for isolated lactic acid elevation): Comfort Care: No Central LIne: Not indicated Vasopressor started: Not indicated I considered further perfusion assessment with CVP measurement, SCVO2, bedside ultrasound volume assessment, passive leg raise, trial of further fluid bolus. And preceded with IV antibiotics Accepting Care Team: Current data and ongoing care discussed. Time: Time of admission Primary Provider: Hospitalist Consulting: Infectious disease Outstanding Data: none Departure Diagnosis: Primary Impression: Sepsis Qualified Code: A41.9 - Sepsis, due to unspecified organism Additional Impressions: Acute respiratory failure Qualified Code: J96.01 - Acute respiratory failure with hypoxia and hypercapnia Acute kidney injury Acute CHF Qualified Code: I50.21 - Acute systolic congestive heart failure Fluid overload Qualified Code: E87.70 - Hypervolemia, unspecified hypervolemia type Hypertension Qualified Code: I10 - Essential hypertension Condition: Serious BARRERA REYNOLDS MD Jul 14, 2017 20:57
[2017-07-14] MEDS ORDERED: CEFTRIAXONE 1 GM/50 ML (PMX) 50 ML IVPB ONE (21:00)
[2017-07-14] MEDS ORDERED: AZITHROMYCIN 500MG/NS (PMX) 250 ML IVPB ONE (21:00)
[2017-07-14] MEDS ORDERED: ALBUTEROL 0.5% (NEB) 2.5 MG/0.5 ML AMP INH STA (21:00)
[2017-07-14] MEDS ORDERED: SODIUM CHLORIDE 0.9% 1L BAG IV* STA (21:00)
[2017-07-14] MEDS ORDERED: IPRATROPIUM (NEB) 0.5 MG/2.5 ML AMP INH STA (21:00)
[2017-07-14 21:30] LABS: AADO2 Arterial 101.4 mmHg (7.0-24.0); Allen Test ACCEPTAB; Arterial Base Excess -7.1 mmol/L (-3.0-3); Arterial COHb 0.3 % (0.0-3.0); Arterial MetHb 0.3 % (0.0-1.5); Arterial Total Hemglobin 10.1 g/dl (12.0-18.0); MODE NASAL CANNULA
[2017-07-14] MEDS ORDERED: IBUPROFEN 600 MG TAB PO ONE (21:30)
[2017-07-14] MEDS ORDERED: ATEN100T PO (21:42)
[2017-07-14] MEDS ORDERED: ASPI-664 PO (21:43)
[2017-07-14] MEDS ORDERED: SEVE800T7 PO (21:44)
[2017-07-14] MEDS ORDERED: SODI650T PO (21:44)
[2017-07-14] MEDS ORDERED: ERGO500037 PO (21:45)
[2017-07-14] MEDS ORDERED: WARF1TAB47 PO (21:46)
[2017-07-14] MEDS ORDERED: SERT25TA83 PO (21:46)
[2017-07-14] MEDS ORDERED: MECL-77 PO (21:47)
[2017-07-14] MEDS ORDERED: FER325 PO (21:48)
[2017-07-14] MEDS ORDERED: LABE200T25 PO (21:49)
[2017-07-14] MEDS ORDERED: DONE5TAB7 PO (21:50)
[2017-07-14] MEDS ORDERED: TRAZ50TA18 PO (21:50)
[2017-07-14 22:00] LABS: BASOPHIL # 0.1 10^3/ul (0.0-0.1); BASOPHILS % 0.7 % (0.0-2.0); EOSINOPHILS # 0.1 10^3/ul (0.0-0.5); EOSINOPHILS % 0.6 % (0.0-7.0); HEMATOCRIT 30.6 % (37.0-47.0); HEMOGLOBIN 10.1 g/dl (12.0-16.0); LYMPHOCYTES # 2.4 10^3/ul (0.8-2.9); LYMPHOCYTES % 20.2 % (15.0-51.0); MEAN CORPUSCULAR HEMOGLOBIN 29.9 pg (29.0-33.0); MEAN CORPUSCULAR VOLUME 90.5 fl (82.0-101.0); MEAN PLATELET VOLUME 12.2 fl (7.4-10.4); MONOCYTE # 0.9 10^3/ul (0.3-0.9); MONOCYTES % 7.2 % (0.0-11.0); NEUTROPHILS % 70.8 % (39.0-77.0); PLATELET COUNT 252 10^3/UL (140-415); RED BLOOD COUNT 3.38 10^6/ul (4.20-5.40); RED CELL DISTRIBUTION WIDTH 14.6 % (11.5-14.5); WHITE BLOOD COUNT 12.1 10^3/ul (4.8-10.8)
[2017-07-14 22:02] LABS: ADD UMIC YES; UR ASCORBIC ACID NEGATIVE (NEGATIVE); UR BILIRUBIN (Dip) NEGATIVE (NEGATIVE); UR BLOOD (Dip) NEGATIVE (NEGATIVE); UR CLARITY CLEAR (CLEAR); UR COLOR YELLOW (YELLOW); UR GLUCOSE (Dip) NEGATIVE (NEGATIVE); UR KETONES (Dip) NEGATIVE (NEGATIVE); UR LEUKOCYTE ESTERASE (Dip) TRACE Leu/ul (NEGATIVE); UR NITRITE (Dip) NEGATIVE (NEGATIVE); UR RBC 0 /HPF (0-5); UR TOTAL PROTEIN (Dip) 3+ mg/dl (NEGATIVE); UR UROBILINOGEN (Dip) NEGATIVE (NEGATIVE)
[2017-07-14 22:32] LABS: ALBUMIN 4.3 g/dl (3.3-4.9); ALBUMIN/GLOBULIN RATIO 1.34; BILIRUBIN,INDIRECT 0.7 mg/dl (0-1.1); BILIRUBIN,TOTAL 0.7 mg/dl (0.2-1.3); CALCIUM 9.2 mg/dl (8.4-10.2); CREATININE 6.13 mg/dl (0.44-1.00); INR 1.14; PROTIME 14.6 Sec (12.2-14.2); PT RATIO 1.1; TOTAL PROTEIN 7.5 g/dl (6.1-8.1)
[2017-07-14 22:33] LABS: PARTIAL THROMBOPLASTIN TIME 32.5 Sec (25.0-35.0)
[2017-07-14 22:43] LABS: TROPONIN-I 0.042 ng/ml (0.00-0.12)
[2017-07-14] MEDS ORDERED: ENALAPRILAT 1.25 MG INJ IV ONE (23:30)
[2017-07-15] VITALS (13 sets, daily range): BP systolic 103–180; BP diastolic 66–88; PULSE 49–50; RESP 16–20; TEMP 99.1; Ht 165.1 cm; Wt 70.5 kg
[2017-07-15] MEDS ORDERED: ERGOCALCIFEROL 50,000 UNIT CAP PO SCH (01:30)
[2017-07-15] MEDS ORDERED: ONDANSETRON 4 MG INJ IV PRN (02:00)
[2017-07-15] MEDS ORDERED: ALBUTEROL/IPRATROPIUM (NEB) 3 ML AMP HHN PRN (02:00)
[2017-07-15] MEDS ORDERED: LEVOFLOXACIN 500MG/D5W (PMX) 100 ML IVPB SCH (03:00)
[2017-07-15] MEDS ORDERED: ALBUTEROL/IPRATROPIUM (NEB) 3 ML AMP HHN SCH (05:00)
--- NOTE | 2017-07-15 06:17 | HP ---
Date/Time of Note Date/Time of Note DATE: 07/15/17 TIME: 06:05 Assessment/Plan VTE Prophylaxis VTE Prophylaxis Intervention: other (Patient is on Coumadin) Lines/Catheters IV Catheter Type (from Nrsg): Peripheral IV Assessment/Plan Assessment/Plan 1. Sepsis, as evidenced by fever and leukocytosis: Likely secondary to URI -IV antibiotic -Follow-up culture results 2. ESRD: Patient stated that she never had a dialysis. She does have left upper extremity AV fistula, which patient states is nonfunctional -Nephrology consult will be placed 3. History of sick sinus syndrome, status post pacemaker -Continue cardiac medications 4. Hypertension -Continue home meds with adjustment as needed 5. History of paroxysmal A. fib -Continue cardiac medications including Coumadin (given subtherapeutic INR, I increased her Coumadin dose from 2 mg to 3 mg) 6. Left upper extremity thrombosis -Continue Coumadin (dose of Coumadin has been increased given his subtherapeutic INR) HPI/ROS Admit Date/Time Admit Date/Time Jul 14, 2017 at 23:15 Hx of Present Illness This is a 71-year-old female with a history of sick sinus syndrome status post pacemaker, ESRD, hypertension, dyslipidemia, paroxysmal A. fib, left upper extremity thrombosis who presented to the emergency department complaining of shortness of breath and cough. Shortness of breath is worse with exertion. Denied chest pain. Cough is described as dry. Patient was admitted here 3 months ago for a left upper extremity pain and swelling. At that time she was found to have multiple thrombosis even though she has been taking Eliquis. She was seen by vascular who felt that it was chronic. She was also seen by hematology who placed the patient on Coumadin. When the patient presented to the ER, she was febrile with a temperature of 102.5. ABG on 20% FiO2 shows pH of 7.46, PCO2 21, PO2 73 and a bicarb of 15. WBC is 12.1. Chest x-ray done in the ER reportedly showed bilateral pulmonary edema. Of note, once the patient was admitted, she said she is feeling well and asked to be discharged. After discussion, patient agreed to stay here until tomorrow morning. . PMH/Family/Social Past Medical History Medical History: high cholesterol, hypertension, renal disease, other (A. fib, sick sinus syndrome status post pacemaker) Past Surgical History Past Surgical Hx: other (Pacemaker, AV fistula) Social History Alcohol Use: none Smoking Status: Never smoker Drug Use: none Exam/Review of Systems Vital Signs Vitals Vital Signs Date Time Temp Pulse Resp B/P Pulse Ox O2 Delivery O2 Flow Rate FiO2 07/15/17 04:44 97.8 50 16 130/66 95 07/15/17 04:00 3.0 07/15/17 00:40 Nasal Cannula Exam Constitutional: alert, oriented, well developed Head: atraumatic, normocephalic Eyes: EOMI, PERRL Respiratory: clear to auscultation, normal air movement Cardiovascular: nl pulses, regular rate and rhythm Gastrointestinal: non-tender, soft Extremities: normal pulses, other (Left upper extremity AV fistula) Labs Result Diagram: 07/14/17203907/14/172039 Medications Medications Current Medications Amiodarone HCl (Cordarone) 100 mg DAILY PO ; Start 07/15/17 at 09:00 Amlodipine Besylate (Norvasc) 5 mg BID PO ; Start 07/15/17 at 09:00 Aspirin (Halfprin) 81 mg DAILY PO ; Start 07/15/17 at 09:00 Atenolol (Tenormin) 100 mg DAILY PO ; Start 07/15/17 at 09:00 Calcitriol (Rocaltrol) 0.25 mcg DAILY PO ; Start 07/15/17 at 09:00 Donepezil HCl (Aricept) 5 mg DAILY PO ; Start 07/15/17 at 09:00 Ferrous Sulfate (Ferrous Sulfate (Ec)) 325 mg DAILY PO ; Start 07/15/17 at 09:00 Gabapentin (Neurontin) 100 mg TID PO ; Start 07/15/17 at 09:00 Sertraline HCl (Zoloft) 25 mg DAILY PO ; Start 07/15/17 at 09:00 Trazodone HCl (Desyrel) 50 mg QHS PO ; Start 07/15/17 at 21:00 Atorvastatin Calcium 20 mg 20 mg HS PO ; Start 07/15/17 at 21:00 Levofloxacin/ Dextrose (Levaquin 500mg/ D5W 100 ml (Pmx)) 100 ml @ 100 mls/hr Q24H IVPB Last administered on 07/15/17t 02:51; Admin Dose 100 MLS/HR; Start at 03:00 Ondansetron HCl (Zofran Inj) 4 mg Q6H PRN IV NAUSEA AND/OR VOMITING; Start at 02:00 OFELIA PRICE MD Jul 15, 2017 06:16
[2017-07-15] MEDS: SEVELAMER CARBONATE 0.8 GM PKT PO SCH ×3 (08:00→17:13)
[2017-07-15] MEDS: SALMETEROL/FLUTICASONE 250/50 INHA INH SCH ×2 (09:00→20:42)
[2017-07-15] MEDS: ASPIRIN (EC) 81 MG TAB PO SCH (09:00)
[2017-07-15] MEDS: DONEPEZIL 5 MG TAB PO SCH (09:00)
--- NOTE | 2017-07-15 09:33 | PN ---
Date/Time of Note Date/Time of Note DATE: 07/15/17 TIME: 09:33 Assessment/Plan VTE Prophylaxis VTE Prophylaxis Intervention: ambulation, SCD's Lines/Catheters IV Catheter Type (from Nrs): Peripheral IV Assessment/Plan Chief Complaint/Hosp Course 1. Sepsis with lactic acidosis, likely secondary to presumed upper respiratory infection. Lactic acidosis resolved. -Follow-up cultures -Continue antibiotics. 2. ESRD She does have left upper extremity AV fistula, which patient states is nonfunctional -Patient reported to me that she does not want hemodialysis. Nephrology consultation has been requested and we will follow recommendation. 3. History of sick sinus syndrome, status post pacemaker -Continue cardiac medications 4. Hypertension -Continue home meds with adjustment as needed 5. History of paroxysmal A. fib with subtherapeutic INR. status post AICD placement -On Coumadin. Patient is not a candidate for Lovenox bridging with poor renal function. Will monitor INR daily and adjust Coumadin dose as indicated. 6. Left upper extremity thrombosis -On anticoagulation. 7. Dyslipidemia. On statin. 8. Anemia of chronic kidney disease. H&H currently stable. -Epogen as per nephrology. -Monitor H&H closely. 9. Pulmonary vascular congestion, rule out congestive heart failure. -Again, patient refused hemodialysis. Diuresis per nephrology. -Obtain 2D echo and BNP. DVT prophylaxis: Coumadin Plan: Continue with renal diet. Follow-up with nephrology recommendation. Continue antibiotics and follow-up cultures. Case discussed with Dr. Lopez. Problems: Subjective 24 Hr Interval Summary Free Text/Dictation Seen patient lying in bed comfortably. No acute distress. Exam/Review of Systems Vital Signs Vitals Vital Signs Date Time Temp Pulse Resp B/P Pulse Ox O2 Delivery O2 Flow Rate FiO2 07/15/17 09:25 3.0 07/15/17 08:05 49 07/15/17 07:33 97.7 20 180/79 94 07/15/17 00:40 Nasal Cannula Intake and Output 07/14/17 07/14/17 07/15/17 15:00 23:00 07:00 Intake Total 200 ml Balance 200 ml Exam General: Well developed,adequately built, not in any acute distress . HEENT: Normocephalic, Atraumatic, No laceration or hematoma; Eyes: PEERL, Conjunctiva clear, Anicteric sclera Neck: Supple without any lymphadenopathy, nontender, no JVD, no carotid bruits, trachea midline, no thyromegaly Cardiac: S1, S2 auscultated, regular rhythm and rate, no mumurs or gallop Pulmonary: Normal respiratory effort. Chest clear to auscultation bilaterally, no adventitious breath sounds GI: Abdomen normal to inspection. Soft, non tender, non- distended, no masses, no rebound tenderness or guarding. Bowel sounds active on all four quadrants Genitourinary: Deferred Extremities: No cyanosis, clubbing, or edema. Pulses [2+] bilaterally. Full ROM on all four extremities. No focal weakness appreciated. Neurologic: Alert to person, place, time, and situation. Affect appropriate, intact sensation. Skin: Clean,dry, and intact. No ecchymosis, no rashes, or lesions [place]: There is a left upper extremity AV fistula. Results Result Diagram: 07/14/17203907/14/172039 Results 24 hrs Laboratory Tests Test 07/14/17 20:25 07/14/17 20:40 07/14/17 21:00 07/14/17 21:31 Lactic Acid Level 2.3 *H White Blood Count 12.1 #H Red Blood Count 3.38 L Hemoglobin 10.1 L Hematocrit 30.6 L Mean Corpuscular Volume 90.5 Mean Corpuscular Hemoglobin 29.9 Mean Corpuscular Hemoglobin Concent 33.0 Red Cell Distribution Width 14.6 H Platelet Count 252 Mean Platelet Volume 12.2 H Neutrophils % 70.8 Lymphocytes % 20.2 Monocytes % 7.2 Eosinophils % 0.6 Basophils % 0.7 Nucleated Red Blood Cells % 0.0 Neutrophils # (Manual) 8.5 H Lymphocytes # 2.4 Monocytes # 0.9 Eosinophils # 0.1 Basophils # 0.1 Nucleated Red Blood Cells # 0.0 Prothrombin Time 14.6 #H Prothrombin Time Ratio 1.1 INR International Normalized Ratio 1.14 Activated Partial Thromboplast Time 32.5 Sodium Level 135 Potassium Level 5.0 Chloride Level 95 L Carbon Dioxide Level 20 L Anion Gap 25 H Blood Urea Nitrogen 62 H Creatinine 6.13 H Glucose Level 122 Calcium Level 9.2 Total Bilirubin 0.7 Direct Bilirubin 0.00 Indirect Bilirubin 0.7 Aspartate Amino Transf (AST/SGOT) 94 H Alanine Aminotransferase (ALT/SGPT) 121 H Alkaline Phosphatase 92 Troponin I 0.042 Total Protein 7.5 Albumin 4.3 Globulin 3.20 Albumin/Globulin Ratio 1.34 Lipase 169 Blood Gas Specimen Source Blood arterial Arterial Blood Date Drawn 07/14/2017 9:20:55 PM Arterial Blood pH (Temp corrected) 7.469 H Arterial Blood pCO2 (Temp correct) 21.2 L Arterial Blood pO2 (Temp corrected) 73.2 L Arterial Blood HCO3 15.0 L Arterial Blood Base Excess -7.1 L Arterial Blood Oxygen Saturation 93.6 L Sami Test ACCEPTAB Arterial Blood Gas Puncture Site Right Radial Arterial Blood Carboxyhemoglobin 0.3 Arterial Blood Methemoglobin 0.3 Blood Gas A-a O2 Differential 101.4 H Oxyhemoglobin Percent 93.0 Total Hemoglobin 10.1 L Blood Gas Temperature 37.0 Blood Gas Modality NASAL CANNULA FiO2 28.0 Blood Gas Notified Whom MA Blood Gas Notified Time 07/14/2017 9:30:38 PM Urine Color YELLOW Urine Clarity CLEAR Urine pH 7.0 Urine Specific [place] 1.010 Urine Ketones NEGATIVE Urine Nitrite NEGATIVE Urine Bilirubin NEGATIVE Urine Urobilinogen NEGATIVE Urine Leukocyte Esterase TRACE A Urine Microscopic RBC 0 Urine Microscopic WBC 1 Urine Hemoglobin NEGATIVE Urine Glucose NEGATIVE Urine Total Protein 3+ H Test 07/14/17 23:05 07/15/17 01:50 Lactic Acid Level 2.0 1.4 Medications Medications Current Medications Amiodarone HCl (Cordarone) 100 mg DAILY PO ; Start 07/15/17 at 09:00 Amlodipine Besylate (Norvasc) 5 mg BID PO ; Start 07/15/17 at 09:00 Aspirin (Halfprin) 81 mg DAILY PO ; Start 07/15/17 at 09:00 Atenolol (Tenormin) 100 mg DAILY PO ; Start 07/15/17 at 09:00 Calcitriol (Rocaltrol) 0.25 mcg DAILY PO ; Start 07/15/17 at 09:00 Donepezil HCl (Aricept) 5 mg DAILY PO ; Start 07/15/17 at 09:00 Ferrous Sulfate (Ferrous Sulfate (Ec)) 325 mg DAILY PO ; Start 07/15/17 at 09:00 Gabapentin (Neurontin) 100 mg TID PO ; Start 07/15/17 at 09:00 Sertraline HCl (Zoloft) 25 mg DAILY PO ; Start 07/15/17 at 09:00 Trazodone HCl (Desyrel) 50 mg QHS PO ; Start 07/15/17 at 21:00 Atorvastatin Calcium 20 mg 20 mg HS PO ; Start 07/15/17 at 21:00 Levofloxacin/ Dextrose (Levaquin 500mg/ D5W 100 ml (Pmx)) 100 ml @ 100 mls/hr Q24H IVPB Last administered on 07/15/17t 02:51; Admin Dose 100 MLS/HR; Start at 03:00 Ondansetron HCl (Zofran Inj) 4 mg Q6H PRN IV NAUSEA AND/OR VOMITING; Start at 02:00 Febuxostat (Uloric) 40 mg DAILY PO ; Start 07/15/17 at 09:00 Warfarin Sodium (Coumadin) 3 mg DAILY@17 PO ; Start 07/15/17 at 17:00 Salmeterol Xinafoate/ Fluticasone (Advair 250/50 Diskus) 1 inh BID INH ; Start 07/15/17 at 09:00 Atorvastatin Calcium (Lipitor) 80 mg QHS PO ; Start 07/15/17 at 21:00 JIMMIE RAMOS NP Jul 15, 2017 09:33
[2017-07-15] MEDS: CALCITRIOL 0.25 MCG CAP PO SCH (09:43)
[2017-07-15] MEDS: AMLODIPINE 5 MG TAB PO SCH ×2 (09:43→20:42)
[2017-07-15] MEDS: FEBUXOSTAT 40 MG TABLET PO SCH (09:44)
[2017-07-15] MEDS: GABAPENTIN 100 MG CAP PO SCH ×3 (09:44→20:42)
[2017-07-15] MEDS: FERROUS SULFATE (EC) 325 MG TAB PO SCH (09:45)
[2017-07-15] MEDS: ATENOLOL 100 MG TAB PO SCH (09:45)
[2017-07-15] MEDS: SERTRALINE 50 MG TAB PO SCH (09:45)
[2017-07-15] MEDS: AMIODARONE 200 MG TAB PO SCH (09:46)
--- NOTE | 2017-07-15 09:58 | RADRPT ---
PROCEDURE: XR Chest. CLINICAL INDICATION: Sepsis TECHNIQUE: Single AP portable chest. COMPARISON: 02/18/2017 Chest x-ray FINDINGS: The cardiac silhouette is enlarged with increased vascular congestion most compatible with pulmonary edema and CHF. Left humeral polar pacemaker in place. Atherosclerotic calcification of the aorta . The lungs are clear without pleural effusion or focal consolidation. No pneumothorax. The osseous structures and soft tissues are unremarkable. IMPRESSION: 1. Cardiomegaly and vascular congestion suggestive of CHF. No pleural effusion or focal consolidati on . RPTAT:AAJJ Debra Serra Physician Date Time Electronically viewed and signed by Physician Genesis on 07/14/2017 22:42 JOSE CARLOS/
--- NOTE | 2017-07-15 11:28 | CONS ---
Date/Time of Note Date/Time of Note DATE: 07/15/17 TIME: 11:22 Assessment/Plan Assessment/Plan Additional Assessment/Plan ASSESSMENT AND PLAN: This is a 71-year-old female who presents with: 1. At this point, the patient has an EGFR of approximately 10 mL/min, per CKD- EPI formulation. The patient has no overt uremic signs or symptoms however she is in chf and need UF with HD. Unfortunately she is adamant about not starting HD. Her AVF is clotted and unusable. will add Metolozone for diuresis as our only option to remove fluids 2. Anemia of chronic kidney disease. We will continue to monitor H and H levels. check iron panel. Give Epogen as needed. 3. No assessment of bone disorder. We will monitor calcium and phosphorus levels. Continue vitamin D analogs. Continue phosphate binders. 4. Hypertension. Continue current blood pressure regimen. 5. hx of Left upper extremity deep venous thrombosis. Continue anticoagulation. 6. History of coronary artery disease. Continue medical management. 7. History of arrhythmia, status post pacemaker placement. 8. Dyslipidemia. Continue statin therapy. Thank you, Dr. Keene for requesting me for this consult. It will be a pleasure to follow the patient with you throughout the hospital course. Consultation Date/Type/Reason Admit Date/Time Jul 14, 2017 at 23:15 Date of Consultation: Jul 15, 2017 Reason for Consultation ckd/ESRD, CHF Hx of Present Illness NEPHROLOGY CONSULTATION REASON FOR CONSULTATION: Chronic Kidney disease stage V, chf PHYSICIAN REQUESTING CONSULT: Dr. Fried. HISTORY OF PRESENT ILLNESS: This is a 71-year-old female with a past medical history of chronic kidney disease stage IV/V with an estimated GFR around 5-10 Ml/min, history of hypertension, CVA, history of bilateral lower extremity deep venous thrombosis, history of peripheral vascular disease; who presents to [facility] with complaints of dyspnea. She followed up with her primary emergency dispatcher (Dr Love) . The patient had a left upper extremity which never matured and is unusable. CXR does show chd and pulm edema she is adamant about not starting HD despite knowing the consequences Upon my evaluation of the patient at this time, she is currently stable. She denies any fevers, chills, nausea, or vomiting. The patient, however, has no overt uremic symptom however she has chf and pulm edema PAST MEDICAL HISTORY: As stated above, history of CKD stage V, history of hypertension, history of arrhythmia, status post pacemaker placement, history of dyslipidemia, hypertension. PAST SURGICAL HISTORY: Status post pacemaker placement. FAMILY HISTORY: No family history of kidney disease or heart disease. SOCIAL HISTORY: Does not drink, smoke, or do drugs. MEDICATIONS: Have been reviewed. ALLERGIES: NO KNOWN DRUG ALLERGIES. REVIEW OF SYSTEMS: A 14-point review of systems was conducted. Pertinent positives stated in HPI, otherwise negative. PHYSICAL EXAMINATION: HEENT: Head is normocephalic. NECK: Supple. HEART: Regular rate. LUNGS: Show diminished breath sounds at base. ABDOMEN: Soft, nontender to palpation without rebound or guarding. EXTREMITIES: Negative for clubbing, cyanosis, or edema in the lower extremity. Left upper extremity has noted swelling. DERMATOLOGIC: No rashes. MUSCULOSKELETAL: No joint effusions. NEUROLOGIC: No focal deficits. Past Medical History Medical History: high cholesterol, hypertension, renal disease, other (A. fib, sick sinus syndrome status post pacemaker) Past Surgical History Past Surgical Hx: other (Pacemaker, AV fistula) Social History Alcohol Use: none Smoking Status: Never smoker Drug Use: none Exam/Review of Systems Vital Signs Vitals Vital Signs Date Time Temp Pulse Resp B/P Pulse Ox O2 Delivery O2 Flow Rate FiO2 07/15/17 09:25 3.0 07/15/17 08:05 49 07/15/17 07:33 97.7 20 180/79 94 07/15/17 00:40 Nasal Cannula Intake and Output 07/14/17 07/14/17 07/15/17 14:59 22:59 06:59 Intake Total 200 ml Balance 200 ml Results Result Diagram: 07/14/17203907/14/172039 Results 24 hrs Laboratory Tests Test 07/14/17 20:25 07/14/17 20:40 07/14/17 21:00 07/14/17 21:31 Lactic Acid Level 2.3 *H White Blood Count 12.1 #H Red Blood Count 3.38 L Hemoglobin 10.1 L Hematocrit 30.6 L Mean Corpuscular Volume 90.5 Mean Corpuscular Hemoglobin 29.9 Mean Corpuscular Hemoglobin Concent 33.0 Red Cell Distribution Width 14.6 H Platelet Count 252 Mean Platelet Volume 12.2 H Neutrophils % 70.8 Lymphocytes % 20.2 Monocytes % 7.2 Eosinophils % 0.6 Basophils % 0.7 Nucleated Red Blood Cells % 0.0 Neutrophils # (Manual) 8.5 H Lymphocytes # 2.4 Monocytes # 0.9 Eosinophils # 0.1 Basophils # 0.1 Nucleated Red Blood Cells # 0.0 Prothrombin Time 14.6 #H Prothrombin Time Ratio 1.1 INR International Normalized Ratio 1.14 Activated Partial Thromboplast Time 32.5 Sodium Level 135 Potassium Level 5.0 Chloride Level 95 L Carbon Dioxide Level 20 L Anion Gap 25 H Blood Urea Nitrogen 62 H Creatinine 6.13 H Glucose Level 122 Calcium Level 9.2 Total Bilirubin 0.7 Direct Bilirubin 0.00 Indirect Bilirubin 0.7 Aspartate Amino Transf (AST/SGOT) 94 H Alanine Aminotransferase (ALT/SGPT) 121 H Alkaline Phosphatase 92 Troponin I 0.042 Total Protein 7.5 Albumin 4.3 Globulin 3.20 Albumin/Globulin Ratio 1.34 Lipase 169 Blood Gas Specimen Source Blood arterial Arterial Blood Date Drawn 07/14/2017 9:20:55 PM Arterial Blood pH (Temp corrected) 7.469 H Arterial Blood pCO2 (Temp correct) 21.2 L Arterial Blood pO2 (Temp corrected) 73.2 L Arterial Blood HCO3 15.0 L Arterial Blood Base Excess -7.1 L Arterial Blood Oxygen Saturation 93.6 L Sami Test ACCEPTAB Arterial Blood Gas Puncture Site Right Radial Arterial Blood Carboxyhemoglobin 0.3 Arterial Blood Methemoglobin 0.3 Blood Gas A-a O2 Differential 101.4 H Oxyhemoglobin Percent 93.0 Total Hemoglobin 10.1 L Blood Gas Temperature 37.0 Blood Gas Modality NASAL CANNULA FiO2 28.0 Blood Gas Notified Whom DC Blood Gas Notified Time 07/14/2017 9:30:38 PM Urine Color YELLOW Urine Clarity CLEAR Urine pH 7.0 Urine Specific [place] 1.010 Urine Ketones NEGATIVE Urine Nitrite NEGATIVE Urine Bilirubin NEGATIVE Urine Urobilinogen NEGATIVE Urine Leukocyte Esterase TRACE A Urine Microscopic RBC 0 Urine Microscopic WBC 1 Urine Hemoglobin NEGATIVE Urine Glucose NEGATIVE Urine Total Protein 3+ H Test 07/14/17 23:05 07/15/17 01:50 Lactic Acid Level 2.0 1.4 Medications Medications Current Medications Amiodarone HCl (Cordarone) 100 mg DAILY PO Last administered on 07/15/17t 09:46 ; Admin Dose 100 MG; Start 07/15/17 at 09:00 Amlodipine Besylate (Norvasc) 5 mg BID PO Last administered on 07/15/17 09:43 ; Admin Dose 5 MG; Start 07/15/17 at 09:00 Aspirin (Halfprin) 81 mg DAILY PO Last administered on 07/15/17 09:00; Admin Dose 81 MG; Start 07/15/17 at 09:00 Atenolol (Tenormin) 100 mg DAILY PO Last administered on 07/15/17 09:45; Admin Dose 100 MG; Start 07/15/17 at 09:00 Calcitriol (Rocaltrol) 0.25 mcg DAILY PO Last administered on 07/15/17 09:43; Admin Dose 0.25 MCG; Start 07/15/17 at 09:00 Donepezil HCl (Aricept) 5 mg DAILY PO ; Start 07/15/17 at 09:00 Ferrous Sulfate (Ferrous Sulfate (Ec)) 325 mg DAILY PO Last administered on 09:45; Admin Dose 325 MG; Start 07/15/17 at 09:00 Gabapentin (Neurontin) 100 mg TID PO Last administered on 07/15/17 09:44; Admin Dose 100 MG; Start 07/15/17 at 09:00 Sertraline HCl (Zoloft) 25 mg DAILY PO Last administered on 07/15/17 09:45; Admin Dose 25 MG; Start 07/15/17 at 09:00 Trazodone HCl (Desyrel) 50 mg QHS PO ; Start 07/15/17 at 21:00 Atorvastatin Calcium 20 mg 20 mg HS PO ; Start 07/15/17 at 21:00 Levofloxacin/ Dextrose (Levaquin 500mg/ D5W 100 ml (Pmx)) 100 ml @ 100 mls/hr Q24H IVPB Last administered on 07/15/17 02:51; Admin Dose 100 MLS/HR; Start at 03:00 Ondansetron HCl (Zofran Inj) 4 mg Q6H PRN IV NAUSEA AND/OR VOMITING; Start at 02:00 Febuxostat (Uloric) 40 mg DAILY PO Last administered on 07/15/17 09:44; Admin Dose 40 MG; Start 07/15/17 at 09:00 Warfarin Sodium (Coumadin) 3 mg DAILY@17 PO ; Start 07/15/17 at 17:00 Salmeterol Xinafoate/ Fluticasone (Advair 250/50 Diskus) 1 inh BID INH ; Start 07/15/17 at 09:00 Atorvastatin Calcium (Lipitor) 80 mg QHS PO ; Start 07/15/17 at 21:00 CARLOS GARNER DO Jul 15, 2017 11:28
[2017-07-15] MEDS: METOLAZONE 5 MG TAB PO SCH (11:51)
[2017-07-15 13:03] LABS: BASOPHILS % 0.4 % (0.0-2.0); EOSINOPHILS % 0.3 % (0.0-7.0); HEMATOCRIT 24.9 % (37.0-47.0); LYMPHOCYTES # 1.1 10^3/ul (0.8-2.9); LYMPHOCYTES % 11.4 % (15.0-51.0); MEAN CORPUSCULAR HEMOGLOBIN 29.3 pg (29.0-33.0); MEAN CORPUSCULAR HGB CONC 32.1 g/dl (32.0-37.0); MEAN CORPUSCULAR VOLUME 91.2 fl (82.0-101.0); MEAN PLATELET VOLUME 12.3 fl (7.4-10.4); MONOCYTE # 0.8 10^3/ul (0.3-0.9); MONOCYTES % 7.9 % (0.0-11.0); NEUTROPHILS % 79.5 % (39.0-77.0); PLATELET COUNT 154 10^3/UL (140-415); RED BLOOD COUNT 2.73 10^6/ul (4.20-5.40); RED CELL DISTRIBUTION WIDTH 14.9 % (11.5-14.5); WHITE BLOOD COUNT 9.6 10^3/ul (4.8-10.8)
[2017-07-15 13:16] LABS: ALBUMIN 3.2 g/dl (3.3-4.9); ALBUMIN/GLOBULIN RATIO 1.23; BILIRUBIN,INDIRECT 0.3 mg/dl (0-1.1); BILIRUBIN,TOTAL 0.3 mg/dl (0.2-1.3); CALCIUM 8.2 mg/dl (8.4-10.2); CREATININE 6.04 mg/dl (0.44-1.00); MAGNESIUM 2.1 mg/dl (1.7-2.5); PHOSPHORUS 4.8 mg/dl (2.5-4.9); POTASSIUM 4.6 mmol/L (3.5-5.1); TOTAL PROTEIN 5.8 g/dl (6.1-8.1)
--- NOTE | 2017-07-15 14:51 | RADRPT ---
Echocardiogram Report Patient Name: ANDRIY WERNER Gender: Female Date: 1945 Study Date: 15-Jul-2017 [employer] Supervisor: Ander [facility] Location: 5550 Ref. Physician: JIMMIE RAMOS Quality: Adequate Procedures: Transthoracic echocardiogram with complete 2D, M-Mode, and doppler examination. Indications: Possible CHF. 2D/M Mode Doppler Measurement Value Normal Ranges Measurement Value Normal Ranges LVIDd 2D 5.4 3.5 - 5.6 cm AV Peak [place] 1.5 m/sec LVIDs 2D 3.9 2.1 - 4.1 cm AV Peak PG 9.0 mmHg FS 2D 27.4 % LVOT Peak [place] 0.9 m/sec LVPWd 2D 1.3 0.6 - 1.1 cm LVOT Peak PG 3.0 mmHg IVSd 2D 1.3 0.6 - 1.1 cm MV E Peak [place] 2.0 m/sec IVS/LVPW 2D 1.0 MV A Peak [place] 0.9 m/sec AoR Diam 2D 3.1 2.0 - 3.7 cm MV E/A 2.4 LA/Ao 2D 2 0 - 1 MV Decel Time 229 msec EDV 2D 158.0 cm3 MV E/A 2.4 ESV 2D 60.7 cm3 MR Peak PG 158.0 mmHg LA Dimen 2D 4.8 2.3 - 4.0 cm MR Peak [place] 6.3 m/sec TR Peak [place] 4.1 m/sec TR Peak PG 68.0 mmHg RVSP 76.0 mmHg Findings Left Ventricle: Lower limits of normal systolic function. Mild concentric left ventricular hypertrophy. Mild enlargement of left ventricle cavity. Ejection fraction is visually estimated at 50 %. Abnormal Diastolic Function. Right Ventricle: Normal right ventricular size. Normal right ventricular systolic function. Pacemaker right heart. Left Atrium: There is severe enlargement of left atrium. Right Atrium: There is mild enlargement of right atrium. Mitral Valve: Moderate mitral leaflet calcification. Mild mitral annular calcification. Severe mitral valve regurgitation. Aortic Valve: No hemodynamically significant aortic stenosis by doppler. Aortic cusps appear mildly calcified. Trace aortic valve regurgitation. Tricuspid Valve: Normal appearance of the tricuspid valve. Estimated peak PA systolic pressure 76 mmHg. There is moderate tricuspid regurgitation. Pulmonic Valve: Pulmonic valve not well visualized. There is trace pulmonic regurgitation. Pericardium: Normal pericardium with no significant pericardial effusion. Aorta: Normal aortic root. IVC: Normal size and poor respiratory collapse consistent with elevated right atrial pressure. Conclusions 1.Lower limits of normal systolic function. Mild concentric left ventricular hypertrophy. Mild enlargement of left ventricle cavity. Ejection fraction is visually estimated at 50 %. Abnormal Diastolic Function. 2.Normal right ventricular size. Normal right ventricular systolic function. Pacemaker right heart. 3.There is severe enlargement of left atrium. 4.There is mild enlargement of right atrium. 5.Severe mitral valve regurgitation. 6.Estimated peak PA systolic pressure 76 mmHg. There is moderate tricuspid regurgitation. 7.No hemodynamically significant aortic stenosis by doppler. Trace aortic valve regurgitation. 8.Normal pericardium with no significant pericardial effusion. Electronically Signed By: Jonah Rodriguez 15-Jul-2017 14:50:21 -0700 Patient Name: ANDRIY WERNER Study Date: 15-Jul-2017 [id number]
[2017-07-15] MEDS ORDERED: WARFARIN 1 MG TAB PO SCH (17:00)
[2017-07-15] MEDS: ATORVASTATIN 80 MG TAB PO SCH (20:41)
[2017-07-15] MEDS: traZODone 50 MG TAB PO SCH (20:41)
[2017-07-15] MEDS ORDERED: ENOXAPARIN 100 MG/ML SYG SC SCH (21:00)
[2017-07-15] MEDS ORDERED: ATORVASTATIN 20 MG TAB PO SCH (21:00)
[2017-07-16] VITALS (13 sets, daily range): BP systolic 119–177; BP diastolic 61–85; PULSE 49–53; RESP 16–20
[2017-07-16 07:32] LABS: INR 1.52; PROTIME 18.4 Sec (12.2-14.2); PT RATIO 1.4
[2017-07-16 07:33] LABS: PARTIAL THROMBOPLASTIN TIME 36.8 Sec (25.0-35.0)
[2017-07-16] MEDS: GABAPENTIN 100 MG CAP PO SCH ×3 (10:32→21:54)
[2017-07-16] MEDS: FERROUS SULFATE (EC) 325 MG TAB PO SCH (10:33)
[2017-07-16] MEDS: CALCITRIOL 0.25 MCG CAP PO SCH (10:33)
[2017-07-16] MEDS: DONEPEZIL 5 MG TAB PO SCH (10:33)
[2017-07-16] MEDS: FEBUXOSTAT 40 MG TABLET PO SCH (10:33)
[2017-07-16] MEDS: ASPIRIN (EC) 81 MG TAB PO SCH (10:33)
[2017-07-16] MEDS: SEVELAMER CARBONATE 0.8 GM PKT PO SCH ×3 (10:34→18:05)
[2017-07-16] MEDS: SALMETEROL/FLUTICASONE 250/50 INHA INH SCH ×2 (10:34→21:00)
[2017-07-16] MEDS: SERTRALINE 50 MG TAB PO SCH (10:34)
[2017-07-16] MEDS: AMLODIPINE 5 MG TAB PO SCH ×2 (10:38→21:54)
[2017-07-16] MEDS: METOLAZONE 5 MG TAB PO SCH (10:38)
--- NOTE | 2017-07-16 10:57 | PN ---
Date/Time of Note Date/Time of Note DATE: 07/16/17 TIME: 10:53 Assessment/Plan VTE Prophylaxis VTE Prophylaxis Intervention: other Lines/Catheters IV C[facility] Type (from [facility] Peripheral IV Assessment/Plan Chief Complaint/Hosp Course HISTORY OF PRESENT ILLNESS: This is a 71-year-old female with a past medical history of chronic kidney disease stage IV/V with an estimated GFR around 5-10 Ml/min, history of hypertension, CVA, history of bilateral lower extremity deep venous thrombosis, history of peripheral vascular disease; who presents to [facility] with complaints of dyspnea. She followed up with her primary service desk associate (Dr Love) . The patient had a left upper extremity which never matured and is unusable. CXR does show chd and pulm edema she is adamant about not starting HD despite knowing the consequences she was given metolozone yesterday with good uop symptoms are improving Upon my evaluation of the patient at this time, she is stable. She denies any fevers, chills, nausea, or vomiting. The patient, however, has no overt uremic symptom however she has chf and pulm edema REVIEW OF SYSTEMS: A 14-point review of systems was conducted. Pertinent positives stated in HPI, otherwise negative. PHYSICAL EXAMINATION: HEENT: Head is normocephalic. NECK: Supple. HEART: Regular rate. LUNGS: Show diminished breath sounds at base. ABDOMEN: Soft, nontender to palpation without rebound or guarding. EXTREMITIES: Negative for clubbing, cyanosis, or edema in the lower extremity. Left upper extremity has noted swelling. DERMATOLOGIC: No rashes. MUSCULOSKELETAL: No joint effusions. NEUROLOGIC: No focal deficits. ASSESSMENT AND PLAN: This is a 71-year-old female who presents with: 1. At this point, the patient has an EGFR of approximately 5-10 mL/min, per CKD-EPI formulation. The patient has no overt uremic signs or symptoms however she is in chf and need UF with HD. Unfortunately she is adamant about not starting HD. Her AVF is clotted and unusable. will continue Metolozone for diuresis as our only option to remove fluids. her symptoms are improving and renal function is stable. I had a long discussion regarding fluid and salt intake; she verbalized understanding and agreement 2. Anemia of chronic kidney disease. We will continue to monitor H and H levels. check iron panel. Give Epogen as needed. 3. No assessment of bone disorder. We will monitor calcium and phosphorus levels. Continue vitamin D analogs. Continue phosphate binders. 4. Hypertension. Continue current blood pressure regimen. 5. hx of Left upper extremity deep venous thrombosis. Continue anticoagulation. 6. History of coronary artery disease. Continue medical management. 7. History of arrhythmia, status post pacemaker placement. 8. Dyslipidemia. Continue statin therapy. Problems: Exam/Review of Systems Vital Signs Vitals Vital Signs Date Time Temp Pulse Resp B/P Pulse Ox O2 Delivery O2 Flow Rate FiO2 07/16/17 08:28 51 07/16/17 07:51 98.1 19 175/85 98 07/16/17 05:18 3.0 07/15/17 00:40 Nasal Cannula Intake and Output 07/15/17 07/15/17 07/16/17 15:00 23:00 07:00 Intake Total 720 ml 600 ml Balance 720 ml 600 ml Results Result Diagram: 07/15/17 1210 07/15/17 1215 Results 24 hrs Laboratory Tests Test 07/15/17 12:10 07/15/17 12:15 07/16/17 06:31 White Blood Count 9.6 # Red Blood Count 2.73 L Hemoglobin 8.0 #L Hematocrit 24.9 L Mean Corpuscular Volume 91.2 Mean Corpuscular Hemoglobin 29.3 Mean Corpuscular Hemoglobin Concent 32.1 Red Cell Distribution Width 14.9 H Platelet Count 154 # Mean Platelet Volume 12.3 H Neutrophils % 79.5 H Lymphocytes % 11.4 L Monocytes % 7.9 Eosinophils % 0.3 Basophils % 0.4 Nucleated Red Blood Cells % 0.0 Neutrophils # (Manual) 8 H Lymphocytes # 1.1 Monocytes # 0.8 Eosinophils # 0.0 Basophils # 0.0 Nucleated Red Blood Cells # 0.0 B-Type Natriuretic Peptide 65543 H Sodium Level 129 L Potassium Level 4.6 Chloride Level 101 Carbon Dioxide Level 16 L Anion Gap 17 #H Blood Urea Nitrogen 60 H Creatinine 6.04 H Glucose Level 109 Calcium Level 8.2 L Phosphorus Level 4.8 Magnesium Level 2.1 Total Bilirubin 0.3 Direct Bilirubin 0.00 Indirect Bilirubin 0.3 Aspartate Amino Transf (AST/SGOT) 103 H Alanine Aminotransferase (ALT/SGPT) 123 H Alkaline Phosphatase 78 Total Protein 5.8 #L Albumin 3.2 #L Globulin 2.60 Albumin/Globulin Ratio 1.23 Prothrombin Time 18.4 #H Prothrombin Time Ratio 1.4 INR International Normalized Ratio 1.52 Activated Partial Thromboplast Time 36.8 H Medications Medications Current Medications Amiodarone HCl (Cordarone) 100 mg DAILY PO Last administered on 07/15/17 09:46 ; Admin Dose 100 MG; Start 07/15/17 at 09:00 Amlodipine Besylate (Norvasc) 5 mg BID PO Last administered on 07/16/17 10:38 ; Admin Dose 5 MG; Start 07/15/17 at 09:00 Aspirin (Halfprin) 81 mg DAILY PO Last administered on 07/16/17 10:33; Admin Dose 81 MG; Start 07/15/17 at 09:00 Atenolol (Tenormin) 100 mg DAILY PO Last administered on 07/15/17 09:45; Admin Dose 100 MG; Start 07/15/17 at 09:00 Calcitriol (Rocaltrol) 0.25 mcg DAILY PO Last administered on 07/16/17 10:33; Admin Dose 0.25 MCG; Start 07/15/17 at 09:00 Donepezil HCl (Aricept) 5 mg DAILY PO Last administered on 07/16/17 10:33; Admin Dose 5 MG; Start 07/15/17 at 09:00 Ferrous Sulfate (Ferrous Sulfate (Ec)) 325 mg DAILY PO Last administered on 10:33; Admin Dose 325 MG; Start 07/15/17 at 09:00 Gabapentin (Neurontin) 100 mg TID PO Last administered on 07/16/17 10:32; Admin Dose 100 MG; Start 07/15/17 at 09:00 Sertraline HCl (Zoloft) 25 mg DAILY PO Last administered on 07/16/17 10:34; Admin Dose 25 MG; Start 07/15/17 at 09:00 Trazodone HCl (Desyrel) 50 mg QHS PO Last administered on 07/15/17 20:41; Admin Dose 50 MG; Start 07/15/17 at 21:00 Ondansetron HCl (Zofran Inj) 4 mg Q6H PRN IV NAUSEA AND/OR VOMITING; Start at 02:00 Febuxostat (Uloric) 40 mg DAILY PO Last administered on 07/16/17 10:33; Admin Dose 40 MG; Start 07/15/17 at 09:00 Warfarin Sodium (Coumadin) 3 mg DAILY@17 PO Last administered on 07/15/17 17: 22; Admin Dose 3 MG; Start 07/15/17 at 17:00 Salmeterol Xinafoate/ Fluticasone (Advair 250/50 Diskus) 1 inh BID INH Last administered on 07/16/17 10:34; Admin Dose 1 INH; Start 07/15/17 at 09:00 Atorvastatin Calcium (Lipitor) 80 mg QHS PO Last administered on 07/15/17 20: 41; Admin Dose 80 MG; Start 07/15/17 at 21:00 Metolazone 5 mg 5 mg DAILY PO Last administered on 07/16/17 10:38; Admin Dose 5 MG; Start 07/15/17 at 11:30 Levofloxacin/ Dextrose (Levaquin 250 Mg/ D5W 50 ml (Pmx)) 50 ml @ 100 mls/hr Q48H IVPB ; Start 07/17/17 at 03:00 CARLOS GARNER DO Jul 16, 2017 10:57
[2017-07-16] MEDS: AMIODARONE 200 MG TAB PO SCH (11:03)
[2017-07-16] MEDS: ATENOLOL 100 MG TAB PO SCH (11:03)
--- NOTE | 2017-07-16 13:50 | PN ---
Date/Time of Note Date/Time of Note DATE: 07/16/17 TIME: 13:43 Assessment/Plan VTE Prophylaxis VTE Prophylaxis Intervention: other (Coumadin) Lines/Catheters IV [facility]ter Type (from [facility]): Peripheral IV Assessment/Plan Chief Complaint/Hosp Course 1. Resolving sepsis with lactic acidosis, likely secondary to possible urinary tract infection and presumed upper respiratory infection. -Follow-up final cultures-urine culture growing gram-negative rods. -We will change antibiotic to Zosyn for more gram-negative coverage and also due to poor renal clearance, she is not a candidate for appropriate dose of Levaquin. 2. ESRD She does have left upper extremity AV fistula, which is also nonfunctional -Nephrology on board. Patient refused hemodialysis. -Deferred nephrology for further management. Has been started on metolazone. 3. History of sick sinus syndrome, status post pacemaker -Continue cardiac medications and anticoagulation. 4. Hypertension -Continue home meds with adjustment as needed 5. History of paroxysmal A. fib with subtherapeutic INR. status post AICD placement -INR improved, still not in desired range. Will give 5 mg Coumadin today and repeat INR in a.m and will adjust tomorrow's dose. Patient is not a candidate for Lovenox bridging with poor renal function. 6. Left upper extremity thrombosis -On anticoagulation. 7. Dyslipidemia. On statin. 8. Anemia of chronic kidney disease. H&H currently stable. -Epogen as per nephrology. -Monitor H&H closely. 9. Pulmonary edema from fluid overload secondary to ESRD. 2D echocardiogram with preserved ejection fraction. -Again, patient refused hemodialysis. Diuresis per nephrology. 10. Pulmonary hypertension. Will monitor. DVT prophylaxis: Coumadin Plan: Continue with renal diet. As per nephrology, will repeat renal function in a.m. and if remains stable, likely patient can be discharged home with outpatient nephrology follow-up with Dr. Renteria. We will also follow-up with final cultures. Case discussed with Dr. Lopez. Problems: Subjective 24 Hr Interval Summary Free Text/Dictation No acute overnight episodes. Patient did not have any chest pain, shortness of breath, or peripheral swelling. Exam/Review of Systems Vital Signs Vitals Vital Signs Date Time Temp Pulse Resp B/P Pulse Ox O2 Delivery O2 Flow Rate FiO2 07/16/17 12:30 50 07/16/17 11:30 97.8 16 177/81 96 07/16/17 05:18 3.0 07/15/17 00:40 Nasal Cannula Intake and Output 07/15/17 07/15/17 07/16/17 14:59 22:59 06:59 Intake Total 720 ml 600 ml Balance 720 ml 600 ml Exam General: Well developed,adequately built, not in any acute distress . HEENT: Normocephalic, Atraumatic, No laceration or hematoma; Eyes: PEERL, Conjunctiva clear, Anicteric sclera Neck: Supple without any lymphadenopathy, nontender, no JVD, no carotid bruits, trachea midline, no thyromegaly Cardiac: S1, S2 auscultated, regular rhythm and rate, no mumurs or gallop Pulmonary: Normal respiratory effort. Chest clear to auscultation bilaterally, no adventitious breath sounds GI: Abdomen normal to inspection. Soft, non tender, non- distended, no masses, no rebound tenderness or guarding. Bowel sounds active on all four quadrants Genitourinary: Deferred Extremities: No cyanosis, clubbing, or edema. Pulses [2+] bilaterally. Full ROM on all four extremities. No focal weakness appreciated. Neurologic: Alert to person, place, time, and situation. Affect appropriate, intact sensation. Skin: Clean,dry, and intact. No ecchymosis, no rashes, or lesions [place]: There is a left upper extremity AV fistula. Results Result Diagram: 07/15/17 1210 07/15/17 1215 Results 24 hrs Laboratory Tests Test 07/16/17 06:31 Prothrombin Time 18.4 #H Prothrombin Time Ratio 1.4 INR International Normalized Ratio 1.52 Activated Partial Thromboplast Time 36.8 H Medications Medications Current Medications Amiodarone HCl (Cordarone) 100 mg DAILY PO Last administered on 07/16/17 11:03 ; Admin Dose 100 MG; Start 07/15/17 at 09:00 Amlodipine Besylate (Norvasc) 5 mg BID PO Last administered on 07/16/17 10:38 ; Admin Dose 5 MG; Start 07/15/17 at 09:00 Aspirin (Halfprin) 81 mg DAILY PO Last administered on 07/16/17 10:33; Admin Dose 81 MG; Start 07/15/17 at 09:00 Atenolol (Tenormin) 100 mg DAILY PO Last administered on 07/16/17 11:03; Admin Dose 100 MG; Start 07/15/17 at 09:00 Calcitriol (Rocaltrol) 0.25 mcg DAILY PO Last administered on 07/16/17 10:33; Admin Dose 0.25 MCG; Start 07/15/17 at 09:00 Donepezil HCl (Aricept) 5 mg DAILY PO Last administered on 07/16/17 10:33; Admin Dose 5 MG; Start 07/15/17 at 09:00 Ferrous Sulfate (Ferrous Sulfate (Ec)) 325 mg DAILY PO Last administered on 10:33; Admin Dose 325 MG; Start 07/15/17 at 09:00 Gabapentin (Neurontin) 100 mg TID PO Last administered on 07/16/17 10:32; Admin Dose 100 MG; Start 07/15/17 at 09:00 Sertraline HCl (Zoloft) 25 mg DAILY PO Last administered on 07/16/17 10:34; Admin Dose 25 MG; Start 07/15/17 at 09:00 Trazodone HCl (Desyrel) 50 mg QHS PO Last administered on 07/15/17 20:41; Admin Dose 50 MG; Start 07/15/17 at 21:00 Ondansetron HCl (Zofran Inj) 4 mg Q6H PRN IV NAUSEA AND/OR VOMITING; Start at 02:00 Febuxostat (Uloric) 40 mg DAILY PO Last administered on 07/16/17 10:33; Admin Dose 40 MG; Start 07/15/17 at 09:00 Warfarin Sodium (Coumadin) 3 mg DAILY@17 PO Last administered on 07/15/17 17: 22; Admin Dose 3 MG; Start 07/15/17 at 17:00; Status Future Hold Salmeterol Xinafoate/ Fluticasone (Advair 250/50 Diskus) 1 inh BID INH Last administered on 07/16/17 10:34; Admin Dose 1 INH; Start 07/15/17 at 09:00 Atorvastatin Calcium (Lipitor) 80 mg QHS PO Last administered on 07/15/17 20: 41; Admin Dose 80 MG; Start 07/15/17 at 21:00 Metolazone 5 mg 5 mg DAILY PO Last administered on 07/16/17t 10:38; Admin Dose 5 MG; Start 07/15/17 at 11:30 Levofloxacin/ Dextrose (Levaquin 250 Mg/ D5W 50 ml (Pmx)) 50 ml @ 100 mls/hr Q48H IVPB ; Start 07/17/17 at 03:00 Warfarin Sodium (Coumadin) 5 mg ONCE@17 ONCE PO ; Start 07/16/17 at 17:00; Stop 07/16/17 at 17:01 IJMMIE RAMOS NP Jul 16, 2017 13:50
[2017-07-16] MEDS ORDERED: PIPER-TAZO 3.375 GM IV (PMX) 100 ML IVPB SCH (14:00)
[2017-07-16] MEDS: PIPER-TAZO 2.25 GM (PMX) 50 ML IVPB SCH ×2 (15:57→21:57)
[2017-07-16] MEDS ORDERED: WARFARIN 5 MG TAB PO ONE (17:00)
[2017-07-16] MEDS: ATORVASTATIN 80 MG TAB PO SCH (21:54)
[2017-07-16] MEDS: traZODone 50 MG TAB PO SCH (21:57)
[2017-07-17] VITALS (7 sets, daily range): BP systolic 120–140; BP diastolic 58–74; PULSE 49–55; RESP 16–18
[2017-07-17] MEDS ORDERED: LEVOFLOXACIN 250MG/D5W (PMX) 50 ML IVPB SCH (03:00)
[2017-07-17] MEDS: PIPER-TAZO 2.25 GM (PMX) 50 ML IVPB SCH (06:00)
[2017-07-17] MEDS: SALMETEROL/FLUTICASONE 250/50 INHA INH SCH ×2 (08:37→08:54)
[2017-07-17] MEDS: SERTRALINE 50 MG TAB PO SCH (08:38)
[2017-07-17] MEDS: SEVELAMER CARBONATE 0.8 GM PKT PO SCH ×2 (08:38→12:23)
[2017-07-17] MEDS: CALCITRIOL 0.25 MCG CAP PO SCH (08:39)
[2017-07-17] MEDS: FEBUXOSTAT 40 MG TABLET PO SCH (08:39)
[2017-07-17] MEDS: ATENOLOL 100 MG TAB PO SCH (08:39)
[2017-07-17] MEDS: AMLODIPINE 5 MG TAB PO SCH (08:39)
[2017-07-17] MEDS: FERROUS SULFATE (EC) 325 MG TAB PO SCH (08:40)
[2017-07-17] MEDS: ASPIRIN (EC) 81 MG TAB PO SCH (08:40)
[2017-07-17] MEDS: AMIODARONE 200 MG TAB PO SCH (08:40)
[2017-07-17] MEDS: METOLAZONE 5 MG TAB PO SCH (08:41)
[2017-07-17] MEDS: DONEPEZIL 5 MG TAB PO SCH (08:41)
[2017-07-17] MEDS: GABAPENTIN 100 MG CAP PO SCH ×2 (08:41→12:24)
[2017-07-17 09:24] LABS: BASOPHIL # 0.1 10^3/ul (0.0-0.1); BASOPHILS % 0.4 % (0.0-2.0); EOSINOPHILS # 0.2 10^3/ul (0.0-0.5); EOSINOPHILS % 1.2 % (0.0-7.0); HEMATOCRIT 26.7 % (37.0-47.0); HEMOGLOBIN 8.8 g/dl (12.0-16.0); LYMPHOCYTES # 1.2 10^3/ul (0.8-2.9); LYMPHOCYTES % 10.2 % (15.0-51.0); MEAN CORPUSCULAR HEMOGLOBIN 29.8 pg (29.0-33.0); MEAN CORPUSCULAR VOLUME 90.5 fl (82.0-101.0); MEAN PLATELET VOLUME 12.1 fl (7.4-10.4); MONOCYTE # 0.9 10^3/ul (0.3-0.9); MONOCYTES % 7.5 % (0.0-11.0); NEUTROPHILS % 80.1 % (39.0-77.0); PLATELET COUNT 212 10^3/UL (140-415); RED BLOOD COUNT 2.95 10^6/ul (4.20-5.40); RED CELL DISTRIBUTION WIDTH 14.8 % (11.5-14.5); WHITE BLOOD COUNT 12.2 10^3/ul (4.8-10.8)
[2017-07-17 09:48] LABS: INR 1.89; PROTIME 21.9 Sec (12.2-14.2); PT RATIO 1.7
[2017-07-17 09:55] LABS: CALCIUM 8.5 mg/dl (8.4-10.2); CREATININE 5.4 mg/dl (0.44-1.00); MAGNESIUM 2.2 mg/dl (1.7-2.5)
--- NOTE | 2017-07-17 11:06 | PN ---
Date/Time of Note Date/Time of Note DATE: 07/17/17 TIME: 11:05 Assessment/Plan VTE Prophylaxis VTE Prophylaxis Intervention: other Lines/Catheters IV C[facility]ter Type (from [facility]): Peripheral IV Assessment/Plan Chief Complaint/Hosp Course HISTORY OF PRESENT ILLNESS: This is a 71-year-old female with a past medical history of chronic kidney disease stage IV/V with an estimated GFR around 5-10 Ml/min, history of hypertension, CVA, history of bilateral lower extremity deep venous thrombosis, history of peripheral vascular disease; who presents to [facility] with complaints of dyspnea. She follows up with her primary customer sales specialist (Dr Love) . The patient had a left upper extremity which never matured and is unusable. CXR does show chd and pulm edema she is adamant about not starting HD despite knowing the consequences she was given metolozone with good uop symptoms are improving Upon my evaluation of the patient at this time, she is stable. She denies any fevers, chills, nausea, or vomiting. The patient, however, has no overt uremic symptom however she has chf and pulm edema REVIEW OF SYSTEMS: A 14-point review of systems was conducted. Pertinent positives stated in HPI, otherwise negative. PHYSICAL EXAMINATION: HEENT: Head is normocephalic. NECK: Supple. HEART: Regular rate. LUNGS: Show diminished breath sounds at base. ABDOMEN: Soft, nontender to palpation without rebound or guarding. EXTREMITIES: Negative for clubbing, cyanosis, or edema in the lower extremity. Left upper extremity has noted swelling. DERMATOLOGIC: No rashes. MUSCULOSKELETAL: No joint effusions. NEUROLOGIC: No focal deficits. ASSESSMENT AND PLAN: This is a 71-year-old female who presents with: 1. At this point, the patient has an EGFR of approximately 5-10 mL/min, per CKD-EPI formulation. The patient has no overt uremic signs or symptoms however she is in chf and need UF with HD. Unfortunately she is adamant about not starting HD. Her AVF is clotted and unusable. will continue Metolozone for diuresis as our only option to remove fluids. her symptoms are improving and renal function is stable. I had a long discussion regarding fluid and salt intake; she verbalized understanding and agreement 2. Anemia of chronic kidney disease. We will continue to monitor H and H levels. check iron panel. Give Epogen as needed. 3. No assessment of bone disorder. We will monitor calcium and phosphorus levels. Continue vitamin D analogs. Continue phosphate binders. 4. Hypertension. Continue current blood pressure regimen. 5. hx of Left upper extremity deep venous thrombosis. Continue anticoagulation. 6. History of coronary artery disease. Continue medical management. 7. History of arrhythmia, status post pacemaker placement. 8. Dyslipidemia. Continue statin therapy. Problems: Exam/Review of Systems Vital Signs Vitals Vital Signs Date Time Temp Pulse Resp B/P Pulse Ox O2 Delivery O2 Flow Rate FiO2 07/17/17 08:30 2.0 07/17/17 08:05 50 07/17/17 07:56 98.3 18 140/74 90 07/15/17 00:40 Nasal Cannula Intake and Output 07/16/17 07/16/17 07/17/17 15:00 23:00 07:00 Intake Total 920 ml 250 ml Balance 920 ml 250 ml Results Result Diagram: 07/17/17 0830 07/17/17 0830 Results 24 hrs Laboratory Tests Test 07/17/17 08:30 White Blood Count 12.2 #H Red Blood Count 2.95 L Hemoglobin 8.8 L Hematocrit 26.7 L Mean Corpuscular Volume 90.5 Mean Corpuscular Hemoglobin 29.8 Mean Corpuscular Hemoglobin Concent 33.0 Red Cell Distribution Width 14.8 H Platelet Count 212 # Mean Platelet Volume 12.1 H Neutrophils % 80.1 H Lymphocytes % 10.2 L Monocytes % 7.5 Eosinophils % 1.2 Basophils % 0.4 Nucleated Red Blood Cells % 0.0 Neutrophils # (Manual) 10 H Lymphocytes # 1.2 Monocytes # 0.9 Eosinophils # 0.2 Basophils # 0.1 Nucleated Red Blood Cells # 0.0 Prothrombin Time 21.9 H Prothrombin Time Ratio 1.7 INR International Normalized Ratio 1.89 Sodium Level 133 L Potassium Level 4.0 Chloride Level 98 Carbon Dioxide Level 18 L Anion Gap 21 H Blood Urea Nitrogen 59 H Creatinine 5.40 H Glucose Level 95 Calcium Level 8.5 Magnesium Level 2.2 Medications Medications Current Medications Amiodarone HCl (Cordarone) 100 mg DAILY PO Last administered on 07/17/17t 08:40 ; Admin Dose 100 MG; Start 07/15/17 at 09:00 Amlodipine Besylate (Norvasc) 5 mg BID PO Last administered on 07/17/17 08:39 ; Admin Dose 5 MG; Start 07/15/17 at 09:00 Aspirin (Halfprin) 81 mg DAILY PO Last administered on 07/17/17 08:40; Admin Dose 81 MG; Start 07/15/17 at 09:00 Atenolol (Tenormin) 100 mg DAILY PO Last administered on 07/17/17 08:39; Admin Dose 100 MG; Start 07/15/17 at 09:00 Calcitriol (Rocaltrol) 0.25 mcg DAILY PO Last administered on 07/17/17 08:39; Admin Dose 0.25 MCG; Start 07/15/17 at 09:00 Donepezil HCl (Aricept) 5 mg DAILY PO Last administered on 07/17/17 08:41; Admin Dose 5 MG; Start 07/15/17 at 09:00 Ferrous Sulfate (Ferrous Sulfate (Ec)) 325 mg DAILY PO Last administered on 08:40; Admin Dose 325 MG; Start 07/15/17 at 09:00 Gabapentin (Neurontin) 100 mg TID PO Last administered on 07/17/17 08:41; Admin Dose 100 MG; Start 07/15/17 at 09:00 Sertraline HCl (Zoloft) 25 mg DAILY PO Last administered on 07/17/17 08:38; Admin Dose 25 MG; Start 07/15/17 at 09:00 Trazodone HCl (Desyrel) 50 mg QHS PO Last administered on 07/16/17 21:57; Admin Dose 50 MG; Start 07/15/17 at 21:00 Ondansetron HCl (Zofran Inj) 4 mg Q6H PRN IV NAUSEA AND/OR VOMITING; Start at 02:00 Febuxostat (Uloric) 40 mg DAILY PO Last administered on 07/17/17 08:39; Admin Dose 40 MG; Start 07/15/17 at 09:00 Warfarin Sodium (Coumadin) 3 mg DAILY@17 PO Last administered on 07/15/17 17: 22; Admin Dose 3 MG; Start 07/15/17 at 17:00; Status Future Hold Salmeterol Xinafoate/ Fluticasone (Advair 250/50 Diskus) 1 inh BID INH Last administered on 07/16/17 10:34; Admin Dose 1 INH; Start 07/15/17 at 09:00 Atorvastatin Calcium (Lipitor) 80 mg QHS PO Last administered on 07/16/17 21: 54; Admin Dose 80 MG; Start 07/15/17 at 21:00 Metolazone 5 mg 5 mg DAILY PO Last administered on 07/17/17 08:41; Admin Dose 5 MG; Start 07/15/17 at 11:30 Piperacillin Sod/ Tazobactam Sod (Zosyn 2.25gm/ 50ml (Pmx)) 50 ml @ 100 mls/hr Q8 IVPB Last administered on 07/17/17 06:00; Admin Dose 100 MLS/HR; Start at 15:00 CARLOS GARNER DO Jul 17, 2017 11:06
--- NOTE | 2017-07-17 13:52 | PDOCDIS ---
Discharge Instructions DIAGNOSIS Discharge Diagnosis Chronic kidney disease stage V; construction of hemodialysis access the did not mature adequately; hypertension; fluid overload CONDITION Patient Condition: Fair HOME CARE INSTRUCTIONS: Diet Instructions: 2gm NaSpecial Diet: Renal ACTIVITY: Activity Restrictions: Slowly Increase Activity Do not operate Machinery Do not operate Power Tool FOLLOW UP/APPOINTMENTS Follow-up Plan Nephrology-Dr. Renteria on July 26 NATAN PETER MD Jul 17, 2017 13:52
[2017-07-17] MEDS ORDERED: CALC600T11 PO (13:54)
[2017-07-17] MEDS ORDERED: METO2.5T12 PO (13:54)
--- NOTE | 2017-07-17 13:57 | DS ---
Date/Time of Note Date/Time of Note DATE: 07/17/17 TIME: 13:56 Discharge Summary Admission/Discharge Info Admit Date/Time Jul 14, 2017 at 23:15 Discharge Date/Time July 17, 2017 Discharge Diagnosis Chronic kidney disease stage V; construction of hemodialysis access the did not mature adequately; hypertension; fluid overload Patient Condition: Fair Consults Nephrology-Dr. Nuzhat Prado Hx of Present Illness This is a 71-year-old female with a history of sick sinus syndrome status post pacemaker, ESRD, hypertension, dyslipidemia, paroxysmal A. fib, left upper extremity thrombosis who presented to the emergency department complaining of shortness of breath and cough. Shortness of breath is worse with exertion. Denied chest pain. Cough is described as dry. Patient was admitted here 3 months ago for a left upper extremity pain and swelling. At that time she was found to have multiple thrombosis even though she has been taking Eliquis. She was seen by vascular who felt that it was chronic. She was also seen by hematology who placed the patient on Coumadin. When the patient presented to the ER, she was febrile with a temperature of 102.5. ABG on 20% FiO2 shows pH of 7.46, PCO2 21, PO2 73 and a bicarb of 15. WBC is 12.1. Chest x-ray done in the ER reportedly showed bilateral pulmonary edema. Of note, once the patient was admitted, she said she is feeling well and asked to be discharged. After discussion, patient agreed to stay here until tomorrow morning. . Hospital Course HISTORY OF PRESENT ILLNESS: This is a 71-year-old female with a past medical history of chronic kidney disease stage IV/V with an estimated GFR around 5-10 Ml/min, history of hypertension, CVA, history of bilateral lower extremity deep venous thrombosis, history of peripheral vascular disease; who presents to [facility] with complaints of dyspnea. She follows up with her primary condominium manager (Dr Love) . The patient had a left upper extremity which never matured and is unusable. CXR does show chd and pulm edema she is adamant about not starting HD despite knowing the consequences she was given metolozone with good uop symptoms are improving Upon my evaluation of the patient at this time, she is stable. She denies any fevers, chills, nausea, or vomiting. The patient, however, has no overt uremic symptom however she has chf and pulm edema REVIEW OF SYSTEMS: A 14-point review of systems was conducted. Pertinent positives stated in HPI, otherwise negative. PHYSICAL EXAMINATION: HEENT: Head is normocephalic. NECK: Supple. HEART: Regular rate. LUNGS: Show diminished breath sounds at base. ABDOMEN: Soft, nontender to palpation without rebound or guarding. EXTREMITIES: Negative for clubbing, cyanosis, or edema in the lower extremity. Left upper extremity has noted swelling. DERMATOLOGIC: No rashes. MUSCULOSKELETAL: No joint effusions. NEUROLOGIC: No focal deficits. ASSESSMENT AND PLAN: This is a 71-year-old female who presents with: 1. At this point, the patient has an EGFR of approximately 5-10 mL/min, per CKD-EPI formulation. The patient has no overt uremic signs or symptoms however she is in chf and need UF with HD. Unfortunately she is adamant about not starting HD. Her AVF is clotted and unusable. will continue Metolozone for diuresis as our only option to remove fluids. her symptoms are improving and renal function is stable. I had a long discussion regarding fluid and salt intake; she verbalized understanding and agreement 2. Anemia of chronic kidney disease. We will continue to monitor H and H levels. check iron panel. Give Epogen as needed. 3. No assessment of bone disorder. We will monitor calcium and phosphorus levels. Continue vitamin D analogs. Continue phosphate binders. 4. Hypertension. Continue current blood pressure regimen. 5. hx of Left upper extremity deep venous thrombosis. Continue anticoagulation. 6. History of coronary artery disease. Continue medical management. 7. History of arrhythmia, status post pacemaker placement. 8. Dyslipidemia. Continue statin therapy. 71-year-old [place] speaking female with a very supportive family. Patient has declined to have us insert a temporary dialysis access or to start dialysis. She has an appointment with her regular condominium manager, Dr. Renteria, on July 26, 2017. She informs the plan is for him to start to dialysis at that time. Given her stability and the useful notes from Dr. Prado the [facility] condominium manager she can now be discharged home. Please note she will go out on some metolazone to help with getting rid of excess fluid in addition I am not can be using sodium bicarbonate for her acidemia will use calcium carbonate for the acidemia. Home Meds Active Scripts Metolazone* (Metolazone*) 2.5 Mg Tablet, 2.5 MG PO DAILY for 10 Days, TAB Prov:NATAN PETER MD 07/17/17 Calcium Carbonate* (Calcium Carbonate*) 600 MG Ca Tab, 600 MG PO AC MEALS for 30 Days, TAB Prov:NATAN PETER MD 07/17/17 Amlodipine Besylate* (Amlodipine Besylate*) 5 Mg Tablet, 5 MG PO BID for 30 Days , #60 TAB Prov:CHERELLE GROSSMAN NP 02/19/17 Reported Medications Trazodone Hcl* (Trazodone Hcl*) 50 Mg Tablet, 50 MG PO QHS, #30 TAB 07/14/17 Donepezil* (Donepezil*) 5 Mg Tablet, 5 MG PO DAILY, #30 TAB 07/14/17 Labetalol Hcl* (Labetalol Hcl*) 200 Mg Tablet, 200 MG PO BID, TAB 07/14/17 Ferrous Sulfate* (Ferrous Sulfate*) 325 Mg Tabec, 325 MG PO DAILY, TAB 07/14/17 Meclizine Hcl* (Meclizine Hcl*) 25 Mg Tablet, 25 MG PO DAILY Y for DIZZINESS, TAB 07/14/17 Sertraline Hcl* (Sertraline Hcl*) 25 Mg Tablet, 25 MG PO DAILY, #30 TAB 07/14/17 Warfarin Sodium* (Coumadin*) 1 Mg Tablet, 2 MG PO DAILY, TAB 07/14/17 Ergocalciferol (Vitamin D2) (VITAMIN D2) 50,000 Unit Capsule, 93491 UNIT PO Q14D , CAP 07/14/17 Sodium Bicarbonate* (Sodium Bicarbonate*) 650 Mg Tablet, 650 MG PO QID, TAB 07/14/17 Sevelamer Carbonate* (Renvela*) 800 Mg Tablet, 1.6 GM PO WITH MEALS, TAB 07/14/17 Aspirin* (Aspirin* EC) 81 Mg Tablet.dr, 81 MG PO DAILY, TAB 07/14/17 Atenolol* (Atenolol*) 100 Mg Tablet, 100 MG PO DAILY, #30 TAB 07/14/17 Rosuvastatin Calcium* (Crestor*) 20 Mg Tablet, 20 MG PO QHS, #30 TAB 04/05/17 Budesonide-Formoterol Fumarate* (Symbicort*) 160-4.5 Hfa.aer.ad, 2 PUFF INHALATION BID, #1 EACH 04/02/17 Gabapentin* (Gabapentin*) 100 Mg Capsule, 100 MG PO TID, #90 CAP 04/02/17 Amiodarone Hcl* (Amiodarone Hcl*) 200 Mg Tablet, 100 MG PO DAILY, #30 TAB 04/02/17 Febuxostat* (Uloric*) 40 Mg Tablet, 40 MG PO DAILY, TAB 02/10/17 Calcitriol* (Calcitriol*) 0.25 Mcg Capsule, 0.25 MCG PO DAILY, CAP 02/10/17 Discontinued Reported Medications Tiotropium [place]* (Spiriva*) 18 Mcg Cap.w.dev, 1 CAP INHALATION DAILY, #30 CAP 04/05/17 Sodium Bicarbonate* (Sodium Bicarbonate*) 650 Mg Tablet, 650 MG PO BID, TAB 04/05/17 Multivit/Ca Carb/B Cmplx/Fa* ([place]-Ly*) 1 Tab Tab, 1 TAB PO DAILY, TAB 04/05/17 Sevelamer Hcl* (Renagel*) 800 Mg Tablet, 1600 MG PO WITH MEALS, TAB 04/02/17 Ezetimibe* (Zetia*) 10 Mg Tablet, 10 MG PO DAILY, TAB 04/02/17 Discontinued Scripts Warfarin Sod (Coumadin) 5 Mg Tab, 5 MG PO DAILY@17 for 10 Days, #10 TAB Prov:ODALIS POND MD 04/09/17 Primary Care Provider Jean Aguilar Pending Labs Laboratory Tests Test 07/17/17 08:30 White Blood Count 12.210^3/ul (4.8-10.8) Red Blood Count 2.9510^6/ul (4.20-5.40) Hemoglobin 8.8g/dl (12.0-16.0) Hematocrit 26.7% (37.0-47.0) Mean Corpuscular Volume 90.5fl (82.0-101.0) Mean Corpuscular Hemoglobin 29.8pg (29.0-33.0) Mean Corpuscular Hemoglobin Concent 33.0g/dl (32.0-37.0) Red Cell Distribution Width 14.8% (11.5-14.5) Platelet Count 74464^3/UL (140-415) Mean Platelet Volume 12.1fl (7.4-10.4) Neutrophils % 80.1% (39.0-77.0) Lymphocytes % 10.2% (15.0-51.0) Monocytes % 7.5% (0.0-11.0) Eosinophils % 1.2% (0.0-7.0) Basophils % 0.4% (0.0-2.0) Nucleated Red Blood Cells % 0.0/100WBC (0.0-0.0) Neutrophils # (Manual) 1010^3/ul (1.7-7.5) Lymphocytes # 1.210^3/ul (0.8-2.9) Monocytes # 0.910^3/ul (0.3-0.9) Eosinophils # 0.210^3/ul (0.0-0.5) Basophils # 0.110^3/ul (0.0-0.1) Nucleated Red Blood Cells # 0.010^3/ul (0.0-0.0) Prothrombin Time 21.9Sec (12.2-14.2) Prothrombin Time Ratio 1.7 INR International Normalized Ratio 1.89 Sodium Level 133mmol/L (135-144) Potassium Level 4.0mmol/L (3.5-5.1) Chloride Level 98mmol/L (97-110) Carbon Dioxide Level 18mmol/L (21-31) Anion Gap 21 (8-16) Blood Urea Nitrogen 59mg/dl (7-20) Creatinine 5.40mg/dl (0.44-1.00) Glucose Level 95mg/dl (70-220) Calcium Level 8.5mg/dl (8.4-10.2) Magnesium Level 2.2mg/dl (1.7-2.5) NATAN PETER MD Jul 17, 2017 13:57
== END 2017-07-17 14:45 | disposition home or self-care (01) | DRG 871 ==
LOC: E/R 20:30 → MS4 23:15
PROVIDERS: ADMIT Family Medicine; ATTEND Family Medicine
DX: A41.9 Sepsis, unspecified organism (principal); I50.21 Acute systolic (congestive) heart failure; J81.1 Chronic pulmonary edema; I82.403 Acute embolism and thrombosis of unspecified deep veins of lower extremity, bilateral; I82.622 Acute embolism and thrombosis of deep veins of left upper extremity; I27.2 Other secondary pulmonary hypertension; I12.0 Hypertensive chronic kidney disease with stage 5 chronic kidney disease or end stage renal disease; I48.2 Chronic atrial fibrillation; I25.10 Atherosclerotic heart disease of native coronary artery without angina pectoris; T82.868A Thrombosis due to vascular prosthetic devices, implants and grafts, initial encounter; N18.5 Chronic kidney disease, stage 5; N39.0 Urinary tract infection, site not specified; J06.9 Acute upper respiratory infection, unspecified; E78.5 Hyperlipidemia, unspecified; D63.1 Anemia in chronic kidney disease; R06.00 Dyspnea, unspecified; Z86.718 Personal history of other venous thrombosis and embolism; Z79.82 Long term (current) use of aspirin; Z95.0 Presence of cardiac pacemaker; Z86.73 Personal history of transient ischemic attack (TIA), and cerebral infarction without residual deficits; Z79.01 Long term (current) use of anticoagulants
CPT/HCPCS: 36415; 36600; 71010; 80048; 80053; 81001; 82803; 83605; 83690; 83735; 83880; 84100; 84484; 85025; 85610; 85730; 87040; 87086; 93005; 93306; 94644; 96374; 96375; J0456; J0696; J1956; J2543; J7030